=== PATIENT | female | born 1930 | race Hispanic/Latino ===

== ENCOUNTER 2017-10-17 12:47 | Inpatient (IN) | payer MEDICARE, OTHER ==
[2017-10-17 13:02] VITALS: BMI 30.9
[2017-10-17] MEDS ORDERED: Albuterol-Ipratrop 3 mg / 0.5 (3 ml) UD IH STA (13:12)
--- NOTE | 2017-10-17 13:18 | ED PDOC ---
Arrival/HPI - General Chief Complaint: Lower Extremity Problem/Injury Time Seen by Provider: 10/17/17 12:53 Historian: Patient - History of Present Illness Narrative History of Present Illness (Text): 10/17/17 13:15 87 year old female presents to the Emergency department complaining of generalized weakness and fatigue for 3 days. Patient is unable to ambulate or bear weight on her legs. Patient complains of pain in bilateral legs and increasing shortness of breath. Patient reports recently having a URI; she was seen by her PMD and is on Levaquin and a tapering dose of steroids with no relief. Patient denies any fever, chills, chest pain, nausea, vomiting, diarrhea , urinary symptoms, back pain, neck pain, headache, dizziness or any other complaints. Time/Duration: < week (3 days) Symptom Onset: Gradual Symptom Course: Unchanged Context: Home Associated Symptoms (Text): 10/17/17 14:18 Severe generalized weakness and fatigue with inability to ambulate for several days. She has increasing shortness of breath and dyspnea on exertion. History of COPD. She's been on a tapering dose of steroids. 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) - Integumentary Hx Dermatological Disorder: No - Musculoskeletal/Rheumatological Hx Falls: Yes Other/Comment: Knee pain - Gastrointestinal Hx Gastrointestinal Disorders: No - Genitourinary/Gynecological Hx Genitourinary Disorders: Yes Hx Incontinence: Yes - Psychiatric Hx Psychophysiologic Disorder: Yes (SMOKE H/O ,DRINKS ALCOHOL OCCASIONALLY) Hx Anxiety: Yes Hx Depression: Yes Hx Emotional Abuse: No Hx Physical Abuse: No Hx Substance Use: No Other/Comment: INSOMNIA - Surgical History Hx Hysterectomy: Yes - Suicidal Assessment Feels Threatened In Home Enviroment: No Family/Social History - Physician Review Nursing Documentation Reviewed: Yes Family/Social History: Unknown Family HX Smoking Status: Former Smoker Hx Alcohol Use: Yes (social, long ago) Hx Substance Use: No Hx Substance Use Treatment: No Allergies/Home Meds Allergies/Adverse Reactions: Allergies Iodinated Contrast- Oral and IV Dye [Iodinated Contrast Media - Oral and] Allergy (Verified 10/17/17 13:02) ANAPHYLAXIS Penicillins Allergy (Verified 10/17/17 13:02) ANAPHYLAXIS Home Medications: Home Meds Medication Instructions Recorded Confirmed amLODIPine [Norvasc] 2.5 mg PO DAILY 12/14/13 10/17/17 Aspirin [Ecotrin] 81 mg PO DAILY 09/27/16 10/17/17 Calcium Carbonate [Caltrate] 600 mg PO DAILY 09/27/16 10/17/17 Fluticasone Nasal [Flonase] 1 spr NS DAILY 09/27/16 10/17/17 Lorazepam [Ativan] 0.5 mg PO DAILY 09/27/16 10/17/17 Lurasidone HCl [Latuda] 20 mg PO DAILY 09/27/16 10/17/17 Lurasidone HCl [Latuda] 20 mg PO DAILY 10/17/17 10/17/17 Venlafaxine HCl [Venlafaxine HCl 75 mg PO BID 10/17/17 10/17/17 ER] Zolpidem Tartrate [Ambien] 5 mg PO HS 10/17/17 10/17/17 Review of Systems - Physician Review All systems were reviewed & negative as marked: Yes - Review of Systems Constitutional: Fatigue. absent: Fevers, Night Sweats Respiratory: SOB, Wheezing. absent: Cough, Sputum Cardiovascular: absent: Chest Pain, Palpitations, Syncope Gastrointestinal: absent: Abdominal Pain, Diarrhea, Nausea, Vomiting Genitourinary Female: absent: Dysuria Musculoskeletal: absent: Back Pain, Neck Pain Neurological: Gait Changes (unable to ambulate), Other (generalized weakness). absent: Headache, Dizziness, Focal Weakness Physical Exam Vital Signs Reviewed: Yes Vital Signs Temp Pulse Resp BP Pulse Ox 10/17/17 15:17 86 20 142/83 94 L 10/17/17 13:15 98.9 F 82 18 144/78 95 10/17/17 12:58 98.2 F 97 H 20 112/81 93 L Temperature: Afebrile Blood Pressure: Normal Pulse: Regular Respiratory Rate: Tachypneic Appearance: Positive for: Well-Appearing, Non-Toxic, Comfortable Pain Distress: None Mental Status: Positive for: Alert and Oriented X 3 - Systems Exam Head: Present: Atraumatic, Normocephalic Pupils: Present: PERRL Extroacular Muscles: Present: EOMI Conjunctiva: Present: Normal Mouth: Present: Moist Mucous Membranes Pharnyx: No: ERYTHEMA, EXUDATE, TONSILS ENLARGED Neck: Present: Normal Range of Motion Respiratory/Chest: Present: Respiratory Distress (moderate), Accessory Muscle Use, Wheezes (bilaterally), Decreased Breath Sounds, Rhonchi (bilaterally), Tachypneic. No: Rales, Retracting, Tender to Palpation Cardiovascular: Present: Regular Rate and Rhythm, Normal S1, S2. No: Murmurs Abdomen: Present: Normal Bowel Sounds. No: Tenderness, Distention, Peritoneal Signs, Rebound, Guarding Back: Present: Normal Inspection Upper Extremity: Present: Normal Inspection. No: Cyanosis, Edema, Swelling Lower Extremity: Present: Normal Inspection, Normal ROM, Neurovascularly Intact. No: Edema, CALF TENDERNESS, Cyanosis, Manuel's Sign, Tenderness, Swelling, Erythema, Deformity, Temperature Abnormalties Neurological: Present: GCS=15, CN II-XII Intact, Speech Normal, Motor Func Grossly Intact Skin: Present: Warm, Dry, Normal Color. No: Rashes Psychiatric: Present: Alert, Oriented x 3, Normal Insight, Normal Concentration Medical Decision Making ED Course and Treatment: 10/17/17 13:21 Impression: 87 year old female presents to the Emergency department complaining of 3 days of fatigue and generalized weakness. Patient unable to ambulate. Plan: -- Chest xray -- EKG -- ABG -- Labs -- Albuterol -- IV fluids -- Reassess and disposition Progress Notes: 10/17/17 14:19 EKG atrial fibrillation rate approximately 95 with poor R waves and no acute ST or T-wave changes 10/17/17 18:42 Venous Dopplers of bilateral lower extremities as read by the radiologist show no DVT - Lab Interpretations Lab Results: 10/17/17 14:00 10/17/17 14:00 Lab Results 10/17/17 14:00: Sodium 138, Potassium 3.9, Chloride 100, Carbon Dioxide 29, Anion Gap 13, BUN 23 H, Creatinine 0.9, Est GFR ( Amer) > 60, Est GFR ( Non-Af Amer) 59, Random Glucose 92, Calcium 9.9, Total Bilirubin 0.6, AST 33, ALT 46, Alkaline Phosphatase 75, Lactate Dehydrogenase 479, Total Creatine Kinase 29 L, Troponin I 0.02 D, NT-Pro-B Natriuret Pep 797 H, Total Protein 7.7 , Albumin 4.1, Globulin 3.6, Albumin/Globulin Ratio 1.1 10/17/17 14:00: PT 11.8, INR 1.03, APTT 26.1, D-Dimer, Quantitative 452 H 10/17/17 14:00: WBC 8.9, RBC 4.36, Hgb 13.4, Hct 41.2, MCV 94.5, MCH 30.7, MCHC 32.5, RDW 14.0, Plt Count 140, MPV 12.9 H, Gran % 79.1 H, Lymph % (Auto) 8.6 L, [place] % (Auto) 12.1 H, Eos % (Auto) 0.1 L, Baso % (Auto) 0.1, Gran # 7.00 H, Lymph # 0.8 L, [place] # 1.1 H, Eos # 0.0, Baso # 0.01 10/17/17 13:40: pCO2 41, pO2 54.0 L, HCO3 28.5 H, ABG pH 7.45, ABG Total CO2 29.8 H, ABG O2 Saturation 92.6 L, ABG O2 Content 17.3, ABG Base Excess 4.1 H, ABG Hemoglobin 13.6, ABG Carboxyhemoglobin 1.6 H, POC ABG HHb (Measured) 7.2 H, ABG Methemoglobin 0.8, ABG O2 Capacity 18.7, Hgb O2 Saturation 90.4 L, FiO2 21.0 - RAD Interpretation Radiology Orders: 10/17/17 13:12 CHEST PORTABLE [RAD] Stat 10/17/17 14:47 DUPLEX LOWER EXTRM VEIN BILAT [US] Stat Chest one view shows right perihilar fullness. No infiltrate or effusion. Workflow Developer: ED Physician - Medication Orders Current Medication Orders: Albuterol/Ipratropium (Duoneb 3 Mg/0.5 Mg (3 Ml) Ud) 3 ml IH Q2H PRN PRN Reason: Shortness of Breath Amlodipine Besylate (Norvasc) 2.5 mg PO DAILY [facility] Aspirin (Ecotrin) 81 mg PO DAILY [facility] Budesonide (Pulmicort Respules) 0.5 mg IH [id number] [facility] Calcium Carbonate (Caltrate) 600 mg PO DAILY [facility] Methylprednisolone (Solu-Medrol) 40 mg IVP Q8H [facility] Last Admin: 10/17/17 18:29 Dose: 40 mg IVP Administration Document 10/17/17 18:29 ALBIN (Rec: 10/17/17 18:30 [facility] [id number]) Charges for Administration # of IVP Administrations 1 Lurasidone Hcl [ (Latuda] 20 Mg) 20 mg PO DAILY [facility] Pantoprazole Sodium (Protonix Inj) 40 mg IVP DAILY [facility] Venlafaxine HCl (Effexor Xr) 75 mg PO BID [facility] Last Admin: 10/17/17 18:30 Dose: 75 mg Discontinued Medications Albuterol/Ipratropium (Duoneb 3 Mg/0.5 Mg (3 Ml) Ud) 3 ml IH ONCE STA Stop: 10/17/17 13:13 Last Admin: 10/17/17 13:44 Dose: 3 ml - Scribe Statement The provider has reviewed the documentation as recorded by the Waltiblotus Ceron All medical record entries made by the Waltiblotus were at my direction and personally dictated by me. I have reviewed the chart and agree that the record accurately reflects my personal performance of the history, physical exam, medical decision making, and the department course for this patient. I have also personally directed, reviewed, and agree with the discharge instructions and disposition. Disposition/Present on Arrival - Present on Arrival Any Indicators Present on Arrival: No History of DVT/PE: Yes History of Uncontrolled Diabetes: No Urinary Catheter: No History of Decub. Ulcer: No History Surgical Site Infection Following: None - Disposition Have Diagnosis and Disposition been Completed?: Yes Diagnosis: COPD (chronic obstructive pulmonary disease), Weakness, Impaired ambulation Disposition: HOSPITALIZED Disposition Time: 16:29 Patient Plan: Observation Patient Problems: Current Active Problems Problem Status Onset COPD (chronic obstructive pulmonary disease) Acute Impaired ambulation Acute Weakness Acute Condition: FAIR
[2017-10-17 13:43] LABS: ARTERIAL BLOOD GAS HCO3 28.5 mmol/L (21-28); ARTERIAL BLOOD GAS HEMOGLOBIN 13.6 g/dL (11.7-17.4); ARTERIAL BLOOD GAS O2 CAPACITY 18.7 mL/dl (16-24); ARTERIAL BLOOD GAS O2 CONTENT 17.3 ML/dl (15-23); ARTERIAL BLOOD GAS O2 SAT 92.6 % (95-98); ARTERIAL BLOOD GAS PCO2 41 mm/Hg (35-45); ARTERIAL BLOOD GAS PH 7.45 (7.35-7.45); ARTERIAL BLOOD GAS TCO2 29.8 mmol.L (22-28)
[2017-10-17 14:28] LABS: HEMOGLOBIN 13.4 g/dL (12.0-16.0); MEAN CELL VOLUME 94.5 fl (80.0-105.0); RBC 4.36 10^6/uL (3.5-6.1); WHITE BLOOD COUNT 8.9 10^3/ul (4.5-11.0)
[2017-10-17 14:29] LABS: BASO # 0.01 K/mm3 (0.0-2.0); BASO % 0.1 % (0.0-3.0); EOS % 0.1 % (1.5-5.0); GRAN % 79.1 % (50.0-68.0); LYMPH # 0.8 (1.2-3.4); LYMPH % 8.6 % (22.0-35.0); MEAN CORPUSCULAR HEMOGLOBIN 30.7 pg (25.0-35.0); MEAN CORPUSCULAR HGB CONC 32.5 g/dl (31.0-37.0); MEAN PLATELET VOLUME 12.9 fl (7.0-11.0); MONO # 1.1 (0.1-0.6); MONO % 12.1 % (1.0-6.0)
--- NOTE | 2017-10-17 14:31 | RAD ---
HISTORY: sob COMPARISON: 09/30/2016 FINDINGS: LUNGS: There is right hilar prominence similar to the previous study. This was demonstrated on CT as enlarged pulmonary arteries. No focal consolidation PLEURA: No significant pleural effusion identified, no pneumothorax apparent. CARDIOVASCULAR: Normal. OSSEOUS STRUCTURES: No significant abnormalities. VISUALIZED UPPER ABDOMEN: Normal. OTHER FINDINGS: None. IMPRESSION: No acute findings
[2017-10-17 14:36] LABS: ALB/GLOB RATIO 1.1 (1.1-1.8); ALBUMIN 4.1 g/dL (3.0-4.8); ALT/SGPT 46 U/L (7-56); AST/SGOT 33 U/L (14-36); BLOOD UREA NITROGEN 23 mg/dL (7-21); CALCIUM 9.9 mg/dL (8.4-10.5); GFR AFRICAN-AMERICAN > 60; GFR NON-AFRICAN AMERICAN 59
[2017-10-17 14:46] LABS: B-TYPE NATRIURETIC PEPTIDE 797 pg/mL (0-450); INR 1.03 (0.93-1.08); PARTIAL THROMBOPLASTIN TIME 26.1 Seconds (25.1-36.5); PROTHROMBIN TIME 11.8 SECONDS (9.4-12.5); TROPONIN I 0.02 ng/mL
--- NOTE | 2017-10-17 17:59 | CP.PCM.HP ---
<EstesKashifEl - Last Filed: 10/17/17 18:27> History of Present Illness - History of Present Illness History of Present Illness: 87 year old female with past medical history of COPD, Afib not on anticoagulation, OA, pseudogout, depression presents to the ED with several days of progressive weakness in the legs bilaterally. History obtained with help of family who was present bedside. According to the family, the patient ambulates at home with a walker but over the past several days she has not been able to walk using the walker without supervision. In addition, when the patient tries to stand up on her feet she cannot maintain the standing position and sits down. The patient and the family deny any falls. Patient saw her PMD in the office this week and a left knee xray was done yesterday demonstrating Chondrocalcinosis. She also had a URI for the past week and was taking levaquin and oral steroids which were being tapered. Patient denies any chest pain, SOB, dizziness, nausea, vomiting, sore throat, abdominal pain or any other complaints at this time. PMD: Mutterperl Cardio: Penelope Pulm: Chacha Ortho: Mastromonaco PMH:COPD, Afib not on anticoagulation, OA, pseudogout, depression PSH: Appendix removal Allergies: Iodinated contrast-oral and IV dye, Penicillins Medications: See MAR Family: non contributory social: denies alcohol or illicit drug use, denies previous history of ETOH abuse, cigarets 50 years ago Present on Admission - Present on Admission Any Indicators Present on Admission: No History of DVT/PE: Yes Review of Systems - Constitutional Constitutional: absent: Chills, Fever, Headache - EENT Eyes: absent: Blurred Vision, Change in Vision Ears: absent: Dizziness Nose/Mouth/Throat: absent: Nasal Congestion, Sore Throat - Cardiovascular Cardiovascular: absent: Chest Pain, Dyspnea, Paroxysmal Nocturnal Dyspnea - Respiratory Respiratory: absent: Cough, Chest Congestion - Gastrointestinal Gastrointestinal: absent: Abdominal Pain, Constipation, Cramping, Nausea, Vomiting - Genitourinary Genitourinary: absent: Difficulty Urinating, Dysuria - Musculoskeletal Musculoskeletal: Arthralgias, Limited Range of Motion, Muscle Weakness. absent : Numbness, Tingling - Integumentary Integumentary: absent: Wounds - Neurological Neurological: absent: Disequilibrium, Dizziness, Frequent Falls, Headaches, Tingling Past Patient History - Infectious Disease Hx of Infectious Diseases: None - Tetanus Immunizations Tetanus Immunization: Unknown - Past Social History Smoking Status: Former Smoker - CARDIAC Hx Cardiac Disorders: Yes Hx Hypertension: Yes - PULMONARY Hx Chronic Obstructive Pulmonary Disease (COPD): Yes - NEUROLOGICAL Hx Neurological Disorder: Yes - HEENT Hx HEENT Problems: Yes (WEARS RX GLASSES) Hx Cataracts: Yes (BILATERAL SURGERY) Hx Deafness: Yes - RENAL Hx Chronic Kidney Disease: No - ENDOCRINE/METABOLIC Hx Endocrine Disorders: No - HEMATOLOGICAL/ONCOLOGICAL Hx 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) - INTEGUMENTARY Hx Dermatological Problems: No - MUSCULOSKELETAL/RHEUMATOLOGICAL Hx Falls: Yes Other/Comment: Knee pain - GASTROINTESTINAL Hx Gastrointestinal Disorders: No - GENITOURINARY/GYNECOLOGICAL Hx Genitourinary Disorders: Yes Hx Incontinence: Yes - PSYCHIATRIC Hx Psychophysiologic Disorder: Yes (SMOKE H/O ,DRINKS ALCOHOL OCCASIONALLY) Hx Anxiety: Yes Hx Depression: Yes Hx Emotional Abuse: No Hx Physical Abuse: No Hx Substance Use: No Other/Comment: INSOMNIA - SURGICAL HISTORY Hx Hysterectomy: Yes Meds Allergies/Adverse Reactions: Allergies Allergy/AdvReac Type Severity Reaction Status Date / Time Iodinated Contrast- Oral and Allergy ANAPHYLAXIS Verified 10/17/17 13:02 IV Dye [Iodinated Contrast Media - Oral and] Penicillins Allergy ANAPHYLAXIS Verified 10/17/17 13:02 Physical Exam - Constitutional Appears: Non-toxic, No Acute Distress - Head Exam Head Exam: ATRAUMATIC, NORMAL INSPECTION, NORMOCEPHALIC - Eye Exam Eye Exam: PERRL - ENT Exam ENT Exam: Mucous Membranes Moist - Neck Exam Neck exam: Negative for: Lymphadenopathy, Tenderness - Respiratory Exam Respiratory Exam: Clear to Auscultation Bilateral, NORMAL BREATHING PATTERN - Cardiovascular Exam Cardiovascular Exam: Irregular Rhythm - GI/Abdominal Exam GI & Abdominal Exam: Normal Bowel Sounds, Tenderness - Extremities Exam Extremities exam: Positive for: full ROM, pedal pulses present. Negative for: calf tenderness Additional comments: slight right kneww swelling, able to bend both knees without issues, able top plantar and dorsiflex wihtout issue - Neurological Exam Neurological exam: Alert, Oriented x3 Additional comments: 5/5 Lower extremity strength - Psychiatric Exam Psychiatric exam: Normal Affect - Skin Skin Exam: Normal Color, Warm Results - Vital Signs Recent Vital Signs: Last Vital Signs Temp 98.9 F 10/17/17 13:15 Pulse 86 01/14/18 15:17 Resp 20 10/17/17 15:17 BP 142/83 10/17/17 15:17 Pulse Ox 94 L 10/17/17 15:17 - Labs Result Diagrams: 10/17/17 14:00 10/17/17 14:00 Labs: Laboratory Results - last 24 hr 10/17/17 16:50 Influenza Typ A,B (EIA) Negative for flu a/b Assessment & Plan - Assessment and Plan (Free Text) Assessment: 87 year old female with past medical history of COPD, Afib not on anticoagulation, OA, pseudogout, depression presents to the ED with several days of progressive weakness in the legs bilaterally. Plan: 1. Bilateral Leg Weakness -EKG ordered and obtained, A fib, pending official read -Chest xray: No acute findings -CMP, BMP within accepted range -Lower Extremity US: negative for DVT -ortho consulted: Mastromonaco -orthostatic vital signs pending -PT evaluation pedning 2. Afib-chronic -cardio consulted: Negrete -contue home Aspirin 3. COPD -albuterol -pulmicort -Pulmonology consulted: Currypman -methylprendisolone -oxygen as needed 4. Depression -continue home latuda -continue home effexor 5. HTN -continue home norvasc 6. OA -continue home calcium carbonate DVT/GI Prophylaxis -Protonix -SCD <Kole Haywood - Last Filed: 10/18/17 15:53> Results - Vital Signs Recent Vital Signs: Last Vital Signs Temp 98.4 F 10/18/17 08:00 Pulse 82 10/18/17 08:00 Resp 22 10/18/17 08:00 BP 131/81 10/18/17 08:00 Pulse Ox 98 10/18/17 08:00 - Labs Result Diagrams: 10/18/17 06:45 10/18/17 06:45 Labs: Laboratory Results - last 24 hr 10/17/17 10/17/17 10/18/17 16:50 18:50 06:45 WBC 6.2 D RBC 4.27 Hgb 13.1 Hct 40.2 MCV 94.1 MCH 30.7 MCHC 32.6 RDW 13.7 Plt Count 130 MPV 11.9 H Gran % 87.8 H Lymph % (Auto) 9.8 L [place] % (Auto) 2.0 Eos % (Auto) 0.2 L Baso % (Auto) 0.2 Gran # 5.41 Lymph # 0.6 L [place] # 0.1 Eos # 0.0 Baso # 0.01 Sodium Potassium Chloride Carbon Dioxide Anion Gap BUN Creatinine Est GFR ( Amer) Est GFR (Non-Af Amer) Random Glucose Calcium Phosphorus Magnesium Total Bilirubin AST ALT Alkaline Phosphatase Total Protein Albumin Globulin Albumin/Globulin Ratio Urine Color Straw Urine Appearance Cloudy Urine pH 6.0 Ur Specific [place] 1.010 Urine Protein Negative Urine Glucose (UA) Negative Urine Ketones Negative Urine Blood Small H Urine Nitrate Negative Urine Bilirubin Negative Urine Urobilinogen 0.2 Ur Leukocyte Esterase Moderate H Urine RBC Tntc Urine WBC 20 - 25 Ur Epithelial Cells 10 - 12 Urine Bacteria Mod WBC Casts 0 - 2 H Influenza Typ A,B (EIA) Negative for flu a/b 10/18/17 06:45 WBC RBC Hgb Hct MCV MCH MCHC RDW Plt Count MPV Gran % Lymph % (Auto) [place] % (Auto) Eos % (Auto) Baso % (Auto) Gran # Lymph # [place] # Eos # Baso # Sodium 142 Potassium 4.7 Chloride 105 Carbon Dioxide 29 Anion Gap 13 BUN 20 Creatinine 0.8 Est GFR ( Amer) > 60 Est GFR (Non-Af Amer) > 60 Random Glucose 152 H Calcium 9.6 Phosphorus 3.5 Magnesium 2.0 Total Bilirubin 0.5 AST 26 ALT 46 Alkaline Phosphatase 67 Total Protein 7.7 Albumin 3.9 Globulin 3.7 Albumin/Globulin Ratio 1.1 Urine Color Urine Appearance Urine pH Ur Specific [place] Urine Protein Urine Glucose (UA) Urine Ketones Urine Blood Urine Nitrate Urine Bilirubin Urine Urobilinogen Ur Leukocyte Esterase Urine RBC Urine WBC Ur Epithelial Cells Urine Bacteria WBC Casts Influenza Typ A,B (EIA) Attending/Attestation - Attestation I have personally seen and examined this patient.: Yes I have fully participated in the care of the patient.: Yes I have reviewed all pertinent clinical information: Yes Notes (Text): 10/18/17 15:49 attending note; Patient seen and examined with resident. Patient is a 87 year old female with past medical history of COPD, atrial fibrillation not on anticoagulation, osteoarthritis, obesity pseudogout, depression presents to the ED with several days of gait instability. Initially the patient started having left knee pain. Currently has right knee Pain with minimal swelling. orthopedics consult rich Gilbert Requested. PT evaluation requested. patient with a previous history of joint aspiration and steroid injection in the knees. COPD; continue oxygen and DuoNeb treatment. Started on low-dose steroids. atrial fibrillation; chronic. on aspirin only. Not on long-term anticoagulation due to history of falls. patient will follow-up with cardiology Dr. Negrete as outpatient. Upon discharge the patient will follow-up with PMD . 10/18/17 15:52
[2017-10-17] MEDS: MethylPREDNISolone 40 mg Vial IVP SCH (18:29)
[2017-10-17] MEDS: Venlafaxine 75 mg ER Cap PO SCH (18:30)
[2017-10-17 19:19] LABS: URINE BILIRUBIN NEGATIVE (NEGATIVE); URINE BLOOD SMALL (NEGATIVE); URINE GLUCOSE (UA) NEGATIVE (NEGATIVE); URINE LEUKOCYTE ESTERASE MODERATE Leu/uL (NEGATIVE); URINE NITRATE NEGATIVE (NEGATIVE); URINE PROTEIN NEGATIVE mg/dL (<30 mg/dL); URINE UROBILINOGEN 0.2 E.U./dL (<1 E.U./dL)
[2017-10-17 19:32] LABS: URINE APPEARANCE CLOUDY (CLEAR); URINE COLOR STRAW (YELLOW)
[2017-10-17 20:08] LABS: URINE BACTERIA MOD (NEG); URINE RBC TNTC /hpf (0-2); URINE WBC 20 - 25 /hpf (0-6); URINE WHITE BLOOD CELL CAST 0 - 2 /hpf
[2017-10-17] MEDS: Budesonide 0.5 mg/2 ml Inhal Susp UD IH SCH (20:12)
[2017-10-17] MEDS ORDERED: Ciprofloxacin 400mg/200ml D5W 400 MG/200 ML BAG IVPB STA (20:17)
--- NOTE | 2017-10-17 20:40 | CARD ---
APPROVED REPORT EKG Measurement Heart [id number] <Conclusion> Atrial fibrillation with premature ventricular or aberrantly conducted complexes Abnormal ECG
[2017-10-17] MEDS: Albuterol-Ipratrop 3 mg / 0.5 (3 ml) UD IH PRN (23:54)
[2017-10-18] MEDS: MethylPREDNISolone 40 mg Vial IVP SCH ×3 (01:32→21:51)
[2017-10-18 07:43] LABS: BASO # 0.01 K/mm3 (0.0-2.0); BASO % 0.2 % (0.0-3.0); EOS % 0.2 % (1.5-5.0); GRAN # 5.41 (1.4-6.5); GRAN % 87.8 % (50.0-68.0); HEMOGLOBIN 13.1 g/dL (12.0-16.0); LYMPH # 0.6 (1.2-3.4); LYMPH % 9.8 % (22.0-35.0); MEAN CELL VOLUME 94.1 fl (80.0-105.0); MEAN CORPUSCULAR HEMOGLOBIN 30.7 pg (25.0-35.0); MEAN CORPUSCULAR HGB CONC 32.6 g/dl (31.0-37.0); MEAN PLATELET VOLUME 11.9 fl (7.0-11.0); MONO # 0.1 (0.1-0.6); RBC 4.27 10^6/uL (3.5-6.1); RED CELL DISTRIBUTION WIDTH 13.7 % (11.5-14.5); WHITE BLOOD COUNT 6.2 10^3/ul (4.5-11.0)
[2017-10-18 07:45] LABS: ALB/GLOB RATIO 1.1 (1.1-1.8); ALBUMIN 3.9 g/dL (3.0-4.8); ALT/SGPT 46 U/L (7-56); AST/SGOT 26 U/L (14-36); BLOOD UREA NITROGEN 20 mg/dL (7-21); CALCIUM 9.6 mg/dL (8.4-10.5); GFR AFRICAN-AMERICAN > 60; GFR NON-AFRICAN AMERICAN > 60
[2017-10-18] MEDS: Albuterol-Ipratrop 3 mg / 0.5 (3 ml) UD IH PRN (07:48)
[2017-10-18] MEDS: Budesonide 0.5 mg/2 ml Inhal Susp UD IH SCH ×2 (07:48→20:07)
[2017-10-18] MEDS: Levalbuterol 0.63 MG/3 ML Inhal Soln UD IH SCH ×3 (07:50→20:07)
[2017-10-18] MEDS ORDERED: Levalbuterol 0.63 MG/3 ML Inhal Soln UD IH PRN (07:51)
[2017-10-18] MEDS ORDERED: MethylPREDNISolone Depo 40 mg/ml Inj IM ONE (08:31)
[2017-10-18] MEDS ORDERED: Bupivacaine 0.5% Inj(30mL) IJ ONE (08:31)
--- NOTE | 2017-10-18 09:24 | CP.PCM.PN ---
<Horacio Narayanan - Last Filed: 10/18/17 16:05> Subjective - Date & Time of Evaluation Date of Evaluation: 10/18/17 Time of Evaluation: 07:24 - Subjective Subjective: Horacio Narayanan PGY1 IM Progress Note for Dr. Haywood Hospitalist Service Patient was seen and examined at bedside. She is complaining of R knee pain but is able to move all her extremities without difficulty or pain while laying in bed. The patient denies chest pain, shortness of breath, cough, fevers/chills, n /v/d, headaches, changes in vision/hearing, tinnitus, dizziness, fatigue, weakness, abdominal pain, changes in urine or bowel habits. Objective - Vital Signs/Intake and Output Vital Signs (last 24 hours): Temp Pulse Resp BP Pulse Ox 98.4 F 82 22 131/81 98 10/18/17 08:00 10/18/17 08:00 10/18/17 08:00 10/18/17 08:00 10/18/17 08:00 - Medications Medications: Current Medications Amlodipine Besylate (Norvasc) 2.5 mg PO DAILY [facility] Aspirin (Ecotrin) 81 mg PO DAILY [facility] Budesonide (Pulmicort Respules) 0.5 mg IH [id number] [facility] Last Admin: 10/18/17 07:48 Dose: 0.5 mg Calcium Carbonate (Caltrate) 600 mg PO DAILY [facility] Levalbuterol HCl (Xopenex) 0.63 mg IH [id number] [facility] Levalbuterol HCl (Xopenex) 0.63 mg IH Q2 PRN PRN Reason: Shortness of Breath Methylprednisolone (Solu-Medrol) 40 mg IVP Q12 [facility] Lurasidone Hcl [ (Latuda] 20 Mg) 20 mg PO DAILY [facility] Pantoprazole Sodium (Protonix Inj) 40 mg IVP DAILY [facility] Venlafaxine HCl (Effexor Xr) 75 mg PO BID [facility] Last Admin: 10/17/17 18:30 Dose: 75 mg - Labs Labs: 10/18/17 06:45 10/18/17 06:45 PT 11.8 SECONDS (9.4-12.5) 10/17/17 14:00 INR 1.03 (0.93-1.08) 10/17/17 14:00 APTT 26.1 Seconds (25.1-36.5) 10/17/17 14:00 - Constitutional Appears: Well, Non-toxic, No Acute Distress - Head Exam Head Exam: NORMAL INSPECTION - Eye Exam Eye Exam: EOMI, Normal appearance, PERRL - ENT Exam ENT Exam: Mucous Membranes Moist - Neck Exam Neck Exam: Normal Inspection - Respiratory Exam Respiratory Exam: Clear to Ausculation Bilateral, NORMAL BREATHING PATTERN - Cardiovascular Exam Cardiovascular Exam: RRR, +S1, +S2 - GI/Abdominal Exam GI & Abdominal Exam: Soft, Normal Bowel Sounds. absent: Distended, Tenderness - Extremities Exam Extremities Exam: Normal Inspection. absent: Joint Swelling, Pedal Edema Additional comments: knee ROM slightly limited by pain, however, grossly movements are full ROM x4 extremities - Back Exam Back Exam: NORMAL INSPECTION - Neurological Exam Neurological Exam: Alert, Awake, Oriented x3 Additional comments: speech is a bit difficult to understand because of patient's breathing pattern - Psychiatric Exam Psychiatric exam: Normal Affect, Normal Mood - Skin Skin Exam: Normal Color, Warm Assessment and Plan - Assessment and Plan (Free Text) Assessment: 87 year old female with past medical history of COPD, Afib not on anticoagulation, OA, pseudogout, depression presents to the ED with several days of progressive weakness in the legs bilaterally. Plan: 1. Bilateral Leg Weakness -Lower Extremity US: negative for DVT -ortho consulted: Mastromonaco -PT evaluation pending 2. Afib-chronic -cardio consulted: Negrete -contue home Aspirin 3. COPD -albuterol -pulmicort -Pulmonology consulted: Karpman -methylprendisolone, will be tapered down -oxygen as needed - duoneb breathing treatments 4. Depression -continue home latuda -continue home effexor 5. HTN -continue home norvasc 6. OA -continue home calcium carbonate DVT/GI Prophylaxis -Protonix -SCD The patient was seen, examined and discussed with attending, Dr. Yobany Narayanan PGY1 Pager # [phone] <Kole Haywood - Last Filed: 10/19/17 07:25> Objective - Vital Signs/Intake and Output Vital Signs (last 24 hours): Temp Pulse Resp BP Pulse Ox 98 F 85 18 166/87 H 93 L 10/18/17 16:00 10/18/17 16:00 10/18/17 16:00 10/18/17 16:00 10/18/17 16:00 Intake and Output: 10/19/17 10/19/17 06:59 18:59 Intake Total 240 Balance 240 - Medications Medications: Current Medications Amlodipine Besylate (Norvasc) 2.5 mg PO DAILY [facility] Last Admin: 10/18/17 13:35 Dose: 2.5 mg Aspirin (Ecotrin) 81 mg PO DAILY [facility] Last Admin: 10/18/17 13:35 Dose: 81 mg Budesonide (Pulmicort Respules) 0.5 mg IH [id number] [facility] Last Admin: 10/18/17 20:07 Dose: 0.5 mg Calcium Carbonate (Caltrate) 600 mg PO DAILY [facility] Last Admin: 10/18/17 13:34 Dose: 600 mg Home Med (Home Med) 1 unit PO DAILY [facility] Levalbuterol HCl (Xopenex) 0.63 mg IH [id number] [facility] Last Admin: 10/19/17 01:39 Dose: 0.63 mg Levalbuterol HCl (Xopenex) 0.63 mg IH Q2 PRN PRN Reason: Shortness of Breath Methylprednisolone (Solu-Medrol) 40 mg IVP Q12 [facility] Last Admin: 10/18/17 21:51 Dose: 40 mg Pantoprazole Sodium (Protonix Ec Tab) 40 mg PO ACB [facility] Venlafaxine HCl (Effexor Xr) 75 mg PO BID [facility] Last Admin: 10/18/17 19:11 Dose: 75 mg - Labs Labs: 10/18/17 06:45 10/18/17 06:45 PT 11.8 SECONDS (9.4-12.5) 10/17/17 14:00 INR 1.03 (0.93-1.08) 10/17/17 14:00 APTT 26.1 Seconds (25.1-36.5) 10/17/17 14:00 Attending/Attestation - Attestation I have personally seen and examined this patient.: Yes I have fully participated in the care of the patient.: Yes I have reviewed all pertinent clinical information, including history, physical exam and plan: Yes Notes (Text): 10/19/17 07:23 attending note; Patient seen and examined with resident. Patient is a 87 year old female with past medical history of COPD, ? atrial fibrillation, osteoarthritis, obesity pseudogout, depression presents to the ED with several days of gait instability. Initially the patient started having left knee pain. Currently has right knee Pain with minimal swelling. orthopedics consult with Dr. Garcia appreciated. Got steroid injection at the right knee. Pain is improving. We will get physical therapy evaluation today. COPD; continue oxygen and DuoNeb treatment. Started on low-dose steroids. Pulmonary evaluation appreciated. atrial fibrillation; Not on long-term anticoagulation. Cardiology evaluation requested. Continue aspirin for now. Upon discharge the patient will follow-up with PMD .
[2017-10-18] MEDS ORDERED: Home Med 1 UNIT PO SCH (10:00)
--- NOTE | 2017-10-18 11:52 | CON ---
PULMONARY CONSULTATION DATE: 10/18/2017 REASON FOR CONSULTATION: Chronic obstructive pulmonary disease. REFERRING PHYSICIAN: Kole Haywood MD HISTORY OF PRESENT ILLNESS: History is obtained via extensive discussion with the night nurse. I have also reviewed the chart at length. The patient is not an adequate historian at this point in time. The patient is an 87-year-old female, with past medical history significant for chronic obstructive pulmonary disease, atrial fibrillation, osteoarthritis, who presented to [facility] with a 3-day history of progressive weakness and inability to ambulate at home. In addition, the nurse does offer the history of shortness of breath over the past few days as well. There is no history of cough or sputum production. There is no history of chest pain, coughing up of blood, or chest pain-made worse with deep respirations. There is no history of temperatures, chills, or infectious exposure. There is no history of night sweats, weight loss, or appetite change prior to the above events. No history of calf pains. No history of syncope or diaphoresis. No history of recent travel or trauma. REVIEW OF SYSTEMS: No history of nausea, vomiting, or diarrhea. No acute urinary symptoms. Rest of the review of systems is negative. ALLERGIES: IV DYE AND PENICILLIN. SOCIAL HISTORY: Positive for tobacco. Negative for alcohol. FAMILY HISTORY: No inheritable diseases. HOME MEDICATIONS: Include Ambien, Latuda, Ativan, Flonase, Norvasc, calcium, and Ecotrin. PHYSICAL EXAMINATION: GENERAL: The patient appears comfortable at rest. She is not short of breath. VITAL SIGNS: Temperature is 98.6, pulse 80, respirations 18/20, blood pressure 137/71. HEENT: Normocephalic and atraumatic. No JVD. CARDIOVASCULAR: Systolic ejection murmur at the lower left sternal border. No S3 gallop. LUNGS: Decreased breath sounds at the bases. Minimal bilateral rhonchi. No wheezing. EXTREMITIES: Positive for edema. No cyanosis, no clubbing. Calves are nontender to palpation. GI: Abdomen is soft, nontender and nondistended. Bowel sounds are positive. SKIN: No acute rash. NEUROLOGIC: Limited at the present time. PERTINENT LABORATORY DATA: Chest x-ray was done on 10/17/2017. There are no acute findings noted. CBC: White count 6.2, hemoglobin 13.1, hematocrit 40.2, platelets of 130,000. Complete metabolic profile: Glucose 152. Rest of the metabolic profiles are within normal limits. IMPRESSION: 1. Progressive weakness, inability to ambulate. 2. Chronic obstructive pulmonary disease. 3. Mild bronchospasm. 4. Chronic atrial fibrillation. PLAN: Again, I did discuss the case with the night nurse at length. I have also reviewed the chart at length. The patient presents to [facility] with a several-day history of progressive weakness and inability to ambulate. In addition, the nurse also offers a history of shortness of breath over the past few days. There are no other pulmonary symptoms offered/reported. I did review the chest x-ray as above. There are no acute changes noted. On physical exam, the patient is in mild bronchospasm only. I will continue with scheduled nebulizer treatments and decrease the intravenous steroids this morning. Cardiology evaluation has also been ordered. The patient does feel better and is clinically improved this morning. Additional pulmonary intervention will be based on the clinical status of the patient. I will discuss the above with the attending physician. Ranjit Burnham MD NIA
--- NOTE | 2017-10-18 12:56 | US ---
HISTORY: Leg pain and swelling. Evaluate for DVT PHYSICIAN(S): Hira Oconnell MD. TECHNIQUE: Duplex sonography and color-flow Doppler with graded compression were used to evaluate the deep venous systems of both lower extremities. FINDINGS: The visualized deep venous systems of both lower extremities are sonographically normal and compressible. Normal wave forms and augmentation are seen. There is no sonographic evidence for deep venous thrombosis in the visualized segments of both lower extremities. IMPRESSION: No sonographic evidence for deep venous thrombosis in the visualized segments of both lower extremities.
[2017-10-18] MEDS: Venlafaxine 75 mg ER Cap PO SCH ×2 (13:35→19:11)
--- NOTE | 2017-10-18 18:27 | CON ---
ORTHOPEDIC REPORT DATE: 10/18/2017 HISTORY OF PRESENT ILLNESS: An 87-year-old female in room 570, bed 2. The patient has past history of osteoarthritis and calcium pyrophosphate disease of both knees. She now has pain again in the right knee with mild effusion and she requested that we take of her knee. Her range of motion is limited to just lacking forward flexion 20 degrees and good extension. X-ray does show mild osteoarthritis with calcified menisci both mediolateral both knees. With this information, we were able to aspirate 20 mL of clear fluid, no signs of infection, and injected with Depo-Medrol and Marcaine, hopefully should have much relief of pain, so she could undergo physical therapy for ambulation and muscle strengthening exercises and she will need to walk with a walker because of weakness. FINAL DIAGNOSES: Osteoarthritis of both knees worse on the right than the left and looks like it is calcium pyrophosphate disease and mild arthritis. Rodrigo Garcia DO
[2017-10-19] MEDS: Levalbuterol 0.63 MG/3 ML Inhal Soln UD IH SCH ×4 (01:39→21:32)
--- NOTE | 2017-10-19 06:23 | CON ---
DATE: 10/18/2017 LOCATIONS: The patient is in room 570, bed 2. REASON FOR CONSULTATION: Cardiac arrhythmia, hypertension, weakness in the legs, at times shortness of breath. HISTORY OF PRESENT ILLNESS: The patient is an 87-year-old female, who is admitted with a history that the patient since last three days has been feeling very weak; when she tried to stand up, she sits down, she cannot hold her weight on her legs. Denies any chest pain or palpitation associated with this feeling. The patient prior to that was walking with cane at home and was able to walk, but now she feels very weak. She also sometimes has pain in the knee and legs. The patient is known to have COPD and history of anxiety and depression. In the past, she was also treated for DVT and pulmonary embolism. The patient denies any dizziness or syncope. The patient is hard of hearing. PAST MEDICAL HISTORY: Positive for COPD, hypertension, anxiety, depression, thrombophlebitis, and pulmonary embolism. PERSONAL HISTORY: The patient is ex-ethanol abuser, but she stopped about 13 years ago. She is also ex-smoker. ALLERGIES: THE PATIENT HAS ALLERGY TO IODINATED CONTRAST AND PENICILLIN. HOME MEDICATIONS: The patient's home medications included Ambien 5 mg h.s., Latuda 20 mg p.o. daily, Ativan 0.5 mg p.o. daily, Flonase one spray daily, venlafaxine HCl 75 mg p.o. b.i.d., amlodipine 2.5 mg daily, Caltrate 600 mg p.o. daily, aspirin 81 mg p.o. daily. REVIEW OF SYSTEMS: All other systems reviewed, positive mentioned in the HPI, others are negative. PHYSICAL EXAMINATION VITAL SIGNS: The patient, on examination, blood pressure 131/81, respirations 22, pulse 82, and temperature 98.4. HEENT: Head is normocephalic. Eyes: Pupils normal. Conjunctivae normal. Nose and throat normal. NECK: JVP low. Carotids equal. THORAX: AP diameter normal. LUNGS: Few rhonchi. CARDIOVASCULAR: S1 and S2. No rub. ABDOMEN: Soft, nontender. No organomegaly. EXTREMITIES: No clubbing. No cyanosis. LABORATORY DATA: WBC 6.2, hemoglobin 13.1, hematocrit 40.2, and platelets 130. Sodium 142, potassium 4.7, BUN 20, creatinine 0.8, random glucose 152, calcium 9.6, phosphorus 3.5, troponin 0.02, NT-pro brain natriuretic peptide 797 which is not significant, total protein 7.7, albumin 3.9, prothrombin time 11.8, INR 1.02, PTT 26.1. Chest x-ray reviewed, no significant abnormality. EKG showed multifocal atrial rhythm. No evidence of atrial fibrillation. DIAGNOSES: Weakness of legs, inability to standup and walk, chronic obstructive pulmonary disease, hypertension, anxiety, depression, arthritis, obesity, pseudogout. PLAN: The patient is getting Caltrate 600 mg daily, ciprofloxacin was given once, DuoNeb handheld nebulizer therapy, aspirin 81 mg daily, Effexor SR 75 mg b.i.d., amlodipine 2.5 mg daily, Protonix 40 mg daily, methylprednisolone 40 mg IV q.12 hours, Xopenex handheld nebulizer therapy. The patient is in multifocal atrial rhythm on EKG, suggestive of her underlying pulmonary condition of chronic obstructive pulmonary disease. The heart rate is under control. So, we will continue present therapy and we will follow with you. Radha Negrete MD
[2017-10-19] MEDS: Budesonide 0.5 mg/2 ml Inhal Susp UD IH SCH ×2 (07:29→21:22)
[2017-10-19 07:33] LABS: BASO # 0.01 K/mm3 (0.0-2.0); BASO % 0.1 % (0.0-3.0); GRAN # 11.9 (1.4-6.5); GRAN % 89.9 % (50.0-68.0); HEMOGLOBIN 12.4 g/dL (12.0-16.0); LYMPH # 0.8 (1.2-3.4); LYMPH % 5.8 % (22.0-35.0); MEAN CELL VOLUME 93.9 fl (80.0-105.0); MEAN CORPUSCULAR HEMOGLOBIN 30.2 pg (25.0-35.0); MEAN CORPUSCULAR HGB CONC 32.2 g/dl (31.0-37.0); MEAN PLATELET VOLUME 12.3 fl (7.0-11.0); MONO # 0.6 (0.1-0.6); MONO % 4.2 % (1.0-6.0); RBC 4.1 10^6/uL (3.5-6.1); RED CELL DISTRIBUTION WIDTH 13.9 % (11.5-14.5); WHITE BLOOD COUNT 13.2 10^3/ul (4.5-11.0)
--- NOTE | 2017-10-19 08:01 | CP.PCM.PN ---
<Michael Carter - Last Filed: 10/19/17 12:40> Subjective - Date & Time of Evaluation Date of Evaluation: 10/19/17 Time of Evaluation: 11:00 - Subjective Subjective: Dr. Yobany Dawkins Pt was seen and examined. As per nursing staff, no acute or adverse events overnight. Pt states her rt knee is mildly improved from a pain perspective. Pt is able to move all her extremities without difficulty or pain while laying in bed. The patient denies chest pain, shortness of breath, cough, fevers/chills, n /v/d, headaches, changes in vision/hearing, tinnitus, dizziness, fatigue, weakness, abdominal pain, changes in urine or bowel habits. Objective - Vital Signs/Intake and Output Vital Signs (last 24 hours): Temp Pulse Resp BP Pulse Ox 98 F 85 18 166/87 H 93 L 10/18/17 16:00 10/18/17 16:00 10/18/17 16:00 10/18/17 16:00 10/18/17 16:00 Intake and Output: 10/19/17 10/19/17 06:59 18:59 Intake Total 240 Balance 240 - Medications Medications: Current Medications Amlodipine Besylate (Norvasc) 2.5 mg PO DAILY [facility] Last Admin: 10/18/17 13:35 Dose: 2.5 mg Aspirin (Ecotrin) 81 mg PO DAILY [facility] Last Admin: 10/18/17 13:35 Dose: 81 mg Budesonide (Pulmicort Respules) 0.5 mg IH [id number] [facility] Last Admin: 10/19/17 07:29 Dose: 0.5 mg Calcium Carbonate (Caltrate) 600 mg PO DAILY [facility] Last Admin: 10/18/17 13:34 Dose: 600 mg Home Med (Home Med) 1 unit PO DAILY [facility] Levalbuterol HCl (Xopenex) 0.63 mg IH [id number] [facility] Last Admin: 10/19/17 07:28 Dose: 0.63 mg Levalbuterol HCl (Xopenex) 0.63 mg IH Q2 PRN PRN Reason: Shortness of Breath Pantoprazole Sodium (Protonix Ec Tab) 40 mg PO ACB [facility] Prednisone (Prednisone Tab) 40 mg PO DAILY [facility] Venlafaxine HCl (Effexor Xr) 75 mg PO BID [facility] Last Admin: 10/18/17 19:11 Dose: 75 mg - Labs Labs: 10/19/17 06:30 10/18/17 06:45 PT 11.8 SECONDS (9.4-12.5) 10/17/17 14:00 INR 1.03 (0.93-1.08) 10/17/17 14:00 APTT 26.1 Seconds (25.1-36.5) 10/17/17 14:00 - Constitutional Appears: No Acute Distress - Head Exam Head Exam: ATRAUMATIC, NORMAL INSPECTION, NORMOCEPHALIC - Eye Exam Eye Exam: EOMI, Normal appearance, PERRL Pupil Exam: NORMAL ACCOMODATION, PERRL - ENT Exam ENT Exam: Mucous Membranes Moist, Normal Exam - Respiratory Exam Respiratory Exam: Clear to Ausculation Bilateral, NORMAL BREATHING PATTERN - Cardiovascular Exam Cardiovascular Exam: REGULAR RHYTHM, +S1, +S2. absent: Murmur - GI/Abdominal Exam GI & Abdominal Exam: Soft, Normal Bowel Sounds. absent: Tenderness - Extremities Exam Extremities Exam: Full ROM, Normal Capillary Refill, Normal Inspection, Tenderness (Rt lateral knee). absent: Joint Swelling, Pedal Edema - Neurological Exam Neurological Exam: Alert, Awake, CN II-XII Intact, Oriented x3 - Psychiatric Exam Psychiatric exam: Normal Affect, Normal Mood - Skin Skin Exam: Dry, Intact, Normal Color, Warm Assessment and Plan - Assessment and Plan (Free Text) Assessment: 87 year old female with past medical history of COPD, Afib not on anticoagulation, OA, pseudogout, depression presents to the ED with several days of progressive weakness in the legs bilaterally. 1. Bilateral Leg Weakness -Lower Extremity US: negative for DVT -ortho consulted: leeroy Garcia for calcium pyrophosphate disease and mild arthritis -PT evaluation pending 2. Afib-chronic -cardio consulted: Penelope, on amlodipine, fouond to have multifocal atrial rhythm on EKG -contue home Aspirin 3. COPD -albuterol -pulmicort -Pulmonology consulted: Karpman -methylprendisolone, will be tapered down -oxygen as needed - duoneb breathing treatments 4. Depression -continue home latuda -continue home effexor 5. HTN -continue home norvasc 6. OA -continue home calcium carbonate DVT/GI Prophylaxis -Protonix -SCD The patient was seen, examined and discussed with attending, Dr. Haywood <Kole Haywood - Last Filed: 10/19/17 15:39> Objective - Vital Signs/Intake and Output Vital Signs (last 24 hours): Temp Pulse Resp BP Pulse Ox 98.4 F 90 20 156/82 H 97 10/19/17 08:00 10/19/17 09:58 10/19/17 08:00 10/19/17 12:02 10/19/17 08:00 - Medications Medications: Current Medications Amlodipine Besylate (Norvasc) 5 mg PO DAILY [facility] Aspirin (Ecotrin) 81 mg PO DAILY [facility] Last Admin: 10/19/17 09:58 Dose: 81 mg Budesonide (Pulmicort Respules) 0.5 mg IH [id number] [facility] Last Admin: 10/19/17 07:29 Dose: 0.5 mg Calcium Carbonate (Caltrate) 600 mg PO DAILY [facility] Last Admin: 10/19/17 10:05 Dose: 600 mg Home Med (Home Med) 1 unit PO DAILY [facility] Last Admin: 10/19/17 09:59 Dose: Not Given Levalbuterol HCl (Xopenex) 0.63 mg IH [id number] [facility] Last Admin: 10/19/17 14:08 Dose: 0.63 mg Levalbuterol HCl (Xopenex) 0.63 mg IH Q2 PRN PRN Reason: Shortness of Breath Lorazepam (Ativan) 0.5 mg PO HS [facility] Pantoprazole Sodium (Protonix Ec Tab) 40 mg PO ACB [facility] Last Admin: 10/19/17 08:23 Dose: 40 mg Prednisone (Prednisone Tab) 40 mg PO DAILY [facility] Last Admin: 10/19/17 09:58 Dose: 40 mg Venlafaxine HCl (Effexor Xr) 75 mg PO BID [facility] Last Admin: 10/19/17 09:58 Dose: 75 mg Zolpidem Tartrate (Ambien) 5 mg PO HS [facility] - Labs Labs: PT 11.8 SECONDS (9.4-12.5) 10/17/17 14:00 INR 1.03 (0.93-1.08) 10/17/17 14:00 APTT 26.1 Seconds (25.1-36.5) 10/17/17 14:00 Attending/Attestation - Attestation I have personally seen and examined this patient.: Yes I have fully participated in the care of the patient.: Yes I have reviewed all pertinent clinical information, including history, physical exam and plan: Yes Notes (Text): 10/19/17 15:38 attending note; Patient seen and examined with resident. Patient is a 87 year old female with past medical history of COPD, osteoarthritis, obesity pseudogout, depression presents to the emergency room with several days of gait instability. Initially the patient started having left knee pain. Currently has right knee Pain with minimal swelling. orthopedics consult with Dr. Garcia appreciated. Got steroid injection at the right knee. Pain is improving. Physical therapy evaluation appreciated. TCU recommended. COPD; continue oxygen and DuoNeb treatment. Started on low-dose steroids. Pulmonary evaluation appreciated. Upon discharge the patient will follow-up with PMD .
--- NOTE | 2017-10-19 08:11 | PN ---
DATE: 10/19/2017 PULMONARY NOTE SUBJECTIVE: The patient appears comfortable this morning. She is not short of breath at rest. PHYSICAL EXAMINATION: VITAL SIGNS: (Last noted in the computer): Temperature is 98.0, pulse 85, respirations 18, blood pressure 166/87. Oxygen saturation on nasal cannula ranges between 93-98%. HEENT: Normocephalic, atraumatic. NECK: No JVD. CARDIOVASCULAR: Systolic ejection murmur at the lower left sternal border. No S3 gallop. LUNGS: Decreased breath sounds at the bases. Very minimal/less rhonchi. No wheezing. EXTREMITIES: Positive edema. No cyanosis, no clubbing. Calves are nontender to palpation. GI: Abdomen is soft, nontender and nondistended. Bowel sounds are positive. SKIN: Skin: No acute rash. NEUROLOGIC: Exam limited at the present time. IMPRESSION: 1. Progressive weakness, inability to ambulate. 2. Chronic obstructive pulmonary disease. 3. Mild bronchospasm. 4. Chronic atrial fibrillation. PLAN: The patient appears comfortable this morning. She is not short of breath at rest. She does state to feeling better overall. On physical exam, her bronchospasm is certainly less. I will continue with the current nebulizer treatments and inhaled steroids. However, I will change to oral steroids this morning. Inputs by Cardiology and Orthopedics are noted. Clinical status of the patient is definitely improved - compared to the initial presentation. I will discuss the above with the attending physician. Ranjit Burnham MD MTDD
[2017-10-19] MEDS: Pantoprazole 40 mg EC Tab PO SCH (08:23)
[2017-10-19 08:29] LABS: ALB/GLOB RATIO 1.1 (1.1-1.8); ALT/SGPT 49 U/L (7-56); AST/SGOT 28 U/L (14-36); BLOOD UREA NITROGEN 26 mg/dL (7-21); CALCIUM 9.7 mg/dL (8.4-10.5); GFR AFRICAN-AMERICAN > 60; GFR NON-AFRICAN AMERICAN 59
[2017-10-19] MEDS: Venlafaxine 75 mg ER Cap PO SCH ×2 (09:58→17:42)
[2017-10-19] MEDS: LURASIDONE 20 MG PO SCH (09:59)
--- NOTE | 2017-10-19 16:30 | PN ---
DATE: 10/19/2017 The patient is in room 570, bed 2. REASON FOR CONSULTATION AND FOLLOWUP: Cardiac arrhythmia, hypertension, weakness in the legs. SUBJECTIVE: The patient admitted with weakness in the legs. When trying to stand up, she has to sit down because she cannot put weight on those legs. She denies any chest pain. On exertion, she gets shortness of breath. Denies palpitations. The patient is lying comfortably in bed without any chest pain or palpitations. The patient had aspiration of fluid from the left knee. The patient has history of arthritis. PHYSICAL EXAMINATION: VITAL SIGNS: Blood pressure 159/76, respirations 20, pulse 88, and temperature 98.4. HEENT: Head is normocephalic. Eyes: Pupils normal. Conjunctivae normal. NECK: JVP low. Carotids equal. THORAX: AP diameter normal. LUNGS: No significant rales. CARDIOVASCULAR: S1 and S2. ABDOMEN: Soft. No tenderness. No organomegaly. EXTREMITIES: No clubbing. No cyanosis. LABORATORY DATA: WBC 13.2, hemoglobin 12.4, hematocrit 38.5, and platelets 135. Sodium 143, potassium 4.7, BUN 26, creatinine 0.9. AST and ALT normal. Total protein and albumin normal. DIAGNOSES: Weakness of legs, inability to stand and walk, chronic obstructive pulmonary disease, hypertension, anxiety, depression, arthritis, obesity, pseudogout. PLAN: The patient on Caltrate 600 mg p.o. daily, aspirin 81 mg daily, Effexor-XR 75 mg b.i.d., amlodipine 2.5 mg p.o. daily, we will increase it to 5 mg p.o. daily, prednisone 40 mg daily. We will increase amlodipine to 5 mg daily to control her blood pressure and we will follow with you. Radha Negrete MD
--- NOTE | 2017-10-19 20:58 | CON ---
DATE: PSYCHIATRIC CONSULTATION HISTORY OF PRESENT ILLNESS: Patient is an 87-year-old female, who was brought to the emergency room after she felt weak on her legs at home and briefly went to the floor. She also was then recently quite shortness of breath. Patient has a long history of bipolar disorder; I follow her regularly in my office every 3 months. I know her daughter and I contacted her daughter and her close friend, who lives in the same building. Patient has been under multiple psychotropic medicines for a number of years to stabilize her mood. Patient is currently complaining of being depressed because she is in the hospital. I spoke with the nursing staff. I reviewed the chart. Patient is currently on a steroid medication and nebulizer treatment. PAST MEDICAL HISTORY: Includes COPD, hypertension, osteoarthritis, thrombophlebitis, and bipolar disorder. She also has a history of pulmonary embolus. SOCIAL HISTORY: She also has a past history of alcohol abuse, none in recent years. She also smoked cigarettes, two packs a day for 20 years. ALLERGIES: SHE IS ALLERGIC TO PENICILLIN. HOME MEDICATIONS: Include Latuda 20 mg daily, lorazepam 0.5 mg daily, Flonase, venlafaxine 150 b.i.d., amlodipine, Caltrate, and 81 mg of aspirin. PERSONAL HISTORY: She is a . She has one daughter. She lives in a two-family home with a close male friend, who lives on the second floor, she lives on the first floor. Patient has no history of substance abuse or suicide attempts. CURRENT MEDICATIONS: Here in the hospital include Caltrate, Ecotrin, venlafaxine 150 daily, Latuda 20 mg daily, Norvasc; prednisone 40 mg daily, she was on 40 mg IV q. 8 h. and q. 12 h., she stopped yesterday. She is on Xopenex inhaler. LABORATORY DATA: Patient's laboratory data is as follows: Currently her white count is 13,200. Rest of her profiles are within normal range. Patient has her metabolic profile, all her electrolytes are normal. BUN is 26, creatinine 0.9, estimated GFR of 59, glucose 130, rest of the profile is normal. On 10/17, her NT-pro B natriuretic peptide was 797. Patient's urinalysis showed moderate amount of leukocyte esterase. Her urine culture shows she is positive for gram-negative rods. Her count was between 50,000 and 100,000 colony count. REVIEW OF SYSTEMS: She complains of pain in her knees, generalized weakness, depression about being in the hospital. Other 12-point review is noncontributory. PHYSICAL EXAMINATION: VITAL SIGNS: Blood pressure 159/76 and pulse 90. Patient's respiratory rate is 22. PSYCHIATRIC: Her mental status shows depressed faces. She is slight tachypneic. She complains of being anxious off and on. Patient with difficulty sleeping at night here. She claims she is very depressed about having to stay in the hospital and she has been depressed when she first arrived here. She feels she has lived too long; however, she has no suicidal attempt. I told her I spoke with the nursing staff in that her daughter wants her to stay here to be on transitional care unit. Patient denies hallucinations or paranoia. She is oriented times 3. Recent and remote memory are totally intact. IMPRESSION: Patient has a history of bipolar-type disorder, depression now secondary to hospital stay. Patient has chronic obstructive pulmonary disease. Patient has a history of hypertension. She has gait dysfunction, osteoarthritis, obesity, pseudogout. PLAN: Patient is requesting Ambien 5 mg at bedtime which she was receiving in order to sleep and Ativan 0.5 mg at bedtime, which I will order for her. I advised that patient will be better after going home with home care, if that is possible. Jm Solorzano MD
[2017-10-20 07:56] LABS: GRAN # 8.13 (1.4-6.5); GRAN % 76.3 % (50.0-68.0); HEMOGLOBIN 12.5 g/dL (12.0-16.0); LYMPH # 1.5 (1.2-3.4); LYMPH % 14.4 % (22.0-35.0); MEAN CELL VOLUME 94.4 fl (80.0-105.0); MEAN CORPUSCULAR HEMOGLOBIN 30.6 pg (25.0-35.0); MEAN CORPUSCULAR HGB CONC 32.5 g/dl (31.0-37.0); MEAN PLATELET VOLUME 12.4 fl (7.0-11.0); MONO % 9.3 % (1.0-6.0); RBC 4.08 10^6/uL (3.5-6.1); WHITE BLOOD COUNT 10.7 10^3/ul (4.5-11.0)
[2017-10-20] MEDS: Levalbuterol 0.63 MG/3 ML Inhal Soln UD IH SCH ×3 (08:00→20:00)
[2017-10-20] MEDS: Budesonide 0.5 mg/2 ml Inhal Susp UD IH SCH (08:00)
[2017-10-20 08:06] LABS: ALB/GLOB RATIO 1.1 (1.1-1.8); ALBUMIN 3.7 g/dL (3.0-4.8); ALT/SGPT 45 U/L (7-56); AST/SGOT 30 U/L (14-36); BLOOD UREA NITROGEN 28 mg/dL (7-21); CALCIUM 9.4 mg/dL (8.4-10.5); GFR AFRICAN-AMERICAN > 60; GFR NON-AFRICAN AMERICAN 59
[2017-10-20] MEDS: Pantoprazole 40 mg EC Tab PO SCH (08:22)
[2017-10-20] MEDS: Venlafaxine 75 mg ER Cap PO SCH ×2 (09:27→17:17)
[2017-10-20] MEDS: LURASIDONE 20 MG PO SCH (09:27)
--- NOTE | 2017-10-20 09:47 | PN ---
DATE: 10/20/2017 PULMONARY NOTE SUBJECTIVE: The patient appears very comfortable this morning. She is not short of breath at rest. PHYSICAL EXAMINATION: VITAL SIGNS: Temperature is 98.4, pulse 86, respirations 18/20, blood pressure 153/89. Oxygen saturation on nasal cannula is 98%. HEENT: Normocephalic, atraumatic. NECK: No JVD. CARDIOVASCULAR: Systolic ejection murmur at the lower left sternal border. No S3 gallop. LUNGS: Decreased breath sounds at the bases. Minimal/less rhonchi. No wheezing. EXTREMITIES: Positive for edema. No cyanosis, no clubbing. Calves are nontender to palpation. GI: Abdomen is soft, nontender and nondistended. Bowel sounds are positive. SKIN: No acute rash. NEUROLOGIC: Exam limited at the present time. IMPRESSION: 1. Progressive weakness, inability to ambulate. 2. Chronic obstructive pulmonary disease. 3. Mild bronchospasm. 4. Chronic atrial fibrillation. PLAN: The patient appears very comfortable this morning. She is not short of breath at rest. She does state to feeling better overall. On physical exam, her bronchospasm continues to resolve. In addition, the oxygen saturation on nasal cannula is now 98%. I will continue with the current nebulizer treatments and oral steroids (changed yesterday) for now. Inputs by Cardiology and Psychiatry are noted. Clinical status of the patient is certainly improved - compared to the initial presentation. I will discuss the above with the attending physician. Ranjit Burnham MD MTDD
--- NOTE | 2017-10-20 11:07 | CP.PCM.PN ---
<Horacio Narayanan - Last Filed: 10/20/17 11:12> Subjective - Date & Time of Evaluation Date of Evaluation: 10/20/17 Time of Evaluation: 10:17 - Subjective Subjective: Horacio Narayanan PGY1 IM Progress Note for Dr. Haywood Hospitalist Service Patient was seen and examined at bedside with Mr. Ayden Block (#[phone]) at bedside. Medical team explained to them that her medical condition has been improving and the R knee swelling has improved but that she will require continued physical therapy. Mr. Block who is her surveyor geodetic requested that he be kept in the loop regarding placement and any changes. Patient still complaining of pain in the knees upon standing or placing weights on them. Patient denies chest pain, shortness of breath, cough, fevers/chills, nausea/ vomiting/diarrhea, abdominal pain, changes in bowel/urinary habits. Objective - Vital Signs/Intake and Output Vital Signs (last 24 hours): Temp Pulse Resp BP Pulse Ox 97.7 F 82 20 174/96 H 90 L 10/20/17 07:00 10/20/17 09:27 10/20/17 07:00 10/20/17 09:27 10/20/17 07:00 Intake and Output: 10/20/17 10/20/17 06:59 18:59 Intake Total 300 Balance 300 - Medications Medications: Current Medications Amlodipine Besylate (Norvasc) 5 mg PO DAILY [facility] Last Admin: 10/20/17 09:27 Dose: 5 mg Aspirin (Ecotrin) 81 mg PO DAILY [facility] Last Admin: 10/20/17 09:27 Dose: 81 mg Budesonide (Pulmicort Respules) 0.5 mg IH [id number] [facility] Last Admin: 10/20/17 08:00 Dose: 0.5 mg Calcium Carbonate (Caltrate) 600 mg PO DAILY [facility] Last Admin: 10/20/17 09:27 Dose: 600 mg Home Med (Home Med) 1 unit PO DAILY [facility] Last Admin: 10/20/17 09:27 Dose: Not Given Levalbuterol HCl (Xopenex) 0.63 mg IH [id number] [facility] Last Admin: 10/20/17 08:00 Dose: 0.63 mg Levalbuterol HCl (Xopenex) 0.63 mg IH Q2 PRN PRN Reason: Shortness of Breath Lorazepam (Ativan) 0.5 mg PO HS [facility] Last Admin: 10/19/17 21:18 Dose: 0.5 mg Pantoprazole Sodium (Protonix Ec Tab) 40 mg PO ACB [facility] Last Admin: 10/20/17 08:22 Dose: 40 mg Prednisone (Prednisone Tab) 40 mg PO DAILY [facility] Last Admin: 10/20/17 09:27 Dose: 40 mg Venlafaxine HCl (Effexor Xr) 75 mg PO BID [facility] Last Admin: 10/20/17 09:27 Dose: 75 mg Zolpidem Tartrate (Ambien) 5 mg PO HS [facility] Last Admin: 10/19/17 21:19 Dose: 5 mg - Labs Labs: 10/20/17 07:00 10/20/17 07:00 PT 11.8 SECONDS (9.4-12.5) 10/17/17 14:00 INR 1.03 (0.93-1.08) 10/17/17 14:00 APTT 26.1 Seconds (25.1-36.5) 10/17/17 14:00 - Additional Findings Additional findings: - Constitutional Appears: Well, Non-toxic, No Acute Distress - Head Exam Head Exam: NORMAL INSPECTION - Eye Exam Eye Exam: EOMI, Normal appearance, PERRL - ENT Exam ENT Exam: Mucous Membranes Moist - Neck Exam Neck Exam: Normal Inspection - Respiratory Exam Respiratory Exam: Clear to Ausculation Bilateral, NORMAL BREATHING PATTERN - Cardiovascular Exam Cardiovascular Exam: RRR, +S1, +S2 - GI/Abdominal Exam GI & Abdominal Exam: Soft, Normal Bowel Sounds. absent: Distended, Tenderness - Extremities Exam Extremities Exam: Normal Inspection. absent: Joint Swelling, Pedal Edema Additional comments: knee ROM slightly limited by pain, however, grossly movements are full ROM x4 extremities - Back Exam Back Exam: NORMAL INSPECTION - Neurological Exam Neurological Exam: Alert, Awake, Oriented x3 Additional comments: speech is a bit difficult to understand because of patient's breathing pattern - Psychiatric Exam Psychiatric exam: Normal Affect, Normal Mood - Skin Skin Exam: Normal Color, Warm Assessment and Plan - Assessment and Plan (Free Text) Assessment: 87 year old female with past medical history of COPD, Afib not on anticoagulation, OA, pseudogout, depression presented to the ED with several days of progressive weakness/pain in the legs bilaterally. PT eval recommending TCU/HWS; patient receiving medical management for optimization for rehab placement. Plan: 1. Bilateral Leg Weakness 2/2 b/l OA and calcium deposition disease - Lower Extremity US: negative for DVT - ortho consulted, recs appreciated - continued PT treatment while on medical floors - TCU eval is placed; patient will be medically optimized before transfer to TCU for rehab 2. Afib-chronic, rate controlled - cardio consulted: Negrete - contue home Aspirin 3. COPD - pulmicort - Prednisone 40mg PO daily - oxygen as needed - xopenex breathing treatments - Pulmonology consulted, recs appreciated 4. HTN -continue home norvasc but increased to 5mg by Cardio 5. Depression -continue home effexor - psych consulted, recs appreciated 6. OA -continue home calcium carbonate DVT/GI Prophylaxis -Protonix -SCD The patient was seen, examined and discussed with attending, Dr. Yobany Narayanan PGY1 Pager # [phone] <Kole Haywood - Last Filed: 10/20/17 15:19> Objective - Vital Signs/Intake and Output Vital Signs (last 24 hours): Temp Pulse Resp BP Pulse Ox 97.7 F 82 20 174/96 H 90 L 10/20/17 07:00 10/20/17 09:27 10/20/17 07:00 10/20/17 09:27 10/20/17 07:00 Intake and Output: 10/20/17 10/20/17 06:59 18:59 Intake Total 300 Balance 300 - Medications Medications: Current Medications Amlodipine Besylate (Norvasc) 5 mg PO DAILY [facility] Last Admin: 10/20/17 09:27 Dose: 5 mg Aspirin (Ecotrin) 81 mg PO DAILY [facility] Last Admin: 10/20/17 09:27 Dose: 81 mg Budesonide (Pulmicort Respules) 0.5 mg IH [id number] [facility] Last Admin: 10/20/17 08:00 Dose: 0.5 mg Calcium Carbonate (Caltrate) 600 mg PO DAILY [facility] Last Admin: 10/20/17 09:27 Dose: 600 mg Home Med (Home Med) 1 unit PO DAILY [facility] Last Admin: 10/20/17 09:27 Dose: Not Given Levalbuterol HCl (Xopenex) 0.63 mg IH [id number] [facility] Last Admin: 10/20/17 13:53 Dose: 0.63 mg Levalbuterol HCl (Xopenex) 0.63 mg IH Q2 PRN PRN Reason: Shortness of Breath Lorazepam (Ativan) 0.5 mg PO HS [facility] Last Admin: 10/19/17 21:18 Dose: 0.5 mg Pantoprazole Sodium (Protonix Ec Tab) 40 mg PO ACB [facility] Last Admin: 10/20/17 08:22 Dose: 40 mg Prednisone (Prednisone Tab) 40 mg PO DAILY [facility] Last Admin: 10/20/17 09:27 Dose: 40 mg Venlafaxine HCl (Effexor Xr) 75 mg PO BID [facility] Last Admin: 10/20/17 09:27 Dose: 75 mg Zolpidem Tartrate (Ambien) 5 mg PO [facility] Last Admin: 10/19/17 21:19 Dose: 5 mg - Labs Labs: 10/20/17 07:00 10/20/17 07:00 PT 11.8 SECONDS (9.4-12.5) 10/17/17 14:00 INR 1.03 (0.93-1.08) 10/17/17 14:00 APTT 26.1 Seconds (25.1-36.5) 10/17/17 14:00 Attending/Attestation - Attestation I have personally seen and examined this patient.: Yes I have fully participated in the care of the patient.: Yes I have reviewed all pertinent clinical information, including history, physical exam and plan: Yes Notes (Text): 10/20/17 15:15 attending note; Patient seen and examined with resident. Patient is a 87 year old female with past medical history of COPD, osteoarthritis, obesity pseudogout, depression presents to the emergency room with several days of gait instability. Initially the patient started having left knee pain. Currently has right knee Pain with minimal swelling. orthopedics consult with Dr. Garcia appreciated. Got steroid injection at the right knee. Pain is improving. Physical therapy evaluation appreciated. TCU recommended. Case discussed with group social worker in detail. Plan for discharge to TCU versus subacute rehabilitation on Wednesday. COPD; continue oxygen and DuoNeb treatment. Started on low-dose steroids. Pulmonary evaluation appreciated. Upon discharge the patient will follow-up with PMD .
--- NOTE | 2017-10-20 16:28 | PN ---
DATE: 10/20/2017 REASON FOR CONSULTATION AND FOLLOWUP: Cardiac arrhythmia, hypertension, weakness in the legs. SUBJECTIVE: The patient was admitted with weakness in the legs, unable to stand or walk. The patient lying comfortably in bed without any chest pain, short of breath, or palpitations. PHYSICAL EXAMINATION: VITAL SIGNS: Blood pressure 153/89, respirations 20, pulse 86, and temperature 98.4. HEENT: Head is normocephalic. Eyes: Pupils normal. Conjunctivae normal. Nose and throat are normal. NECK: JVP low. Carotids equal. THORAX: AP diameter normal. LUNGS: No significant rales. A few rhonchi. CARDIOVASCULAR: S1 and S2. ABDOMEN: Soft. No tenderness. No organomegaly. EXTREMITIES: No clubbing. No cyanosis. LABORATORY DATA: WBC 10.7, hemoglobin 12.5, hematocrit 38.5, platelets 143. Sodium 140, potassium 4.6, BUN 28, creatinine 0.9. AST and ALT normal. Total protein and albumin normal. DIAGNOSES: Weakness of the leg, inability to stand OR walk, chronic obstructive pulmonary disease, hypertension, anxiety, depression, arthritis, obesity, pseudogout, status post aspiration fluid from the left knee, obesity. PLAN: The patient is on aspirin 81 mg daily, Effexor XR 75 mg b.i.d. The patient is starting amlodipine 5 mg p.o. daily today, prednisone 40 mg p.o. daily, Protonix 40 daily. We will follow with you. Radha Negrete MD
[2017-10-21] MEDS: Levalbuterol 0.63 MG/3 ML Inhal Soln UD IH SCH ×4 (02:35→20:35)
[2017-10-21] MEDS: Budesonide 0.5 mg/2 ml Inhal Susp UD IH SCH ×2 (07:37→20:35)
[2017-10-21 07:56] LABS: GRAN # 5.93 (1.4-6.5); GRAN % 68.9 % (50.0-68.0); HEMOGLOBIN 13.1 g/dL (12.0-16.0); LYMPH # 1.7 (1.2-3.4); MEAN CELL VOLUME 95.6 fl (80.0-105.0); MEAN CORPUSCULAR HEMOGLOBIN 30.5 pg (25.0-35.0); MEAN PLATELET VOLUME 12.2 fl (7.0-11.0); MONO % 11.1 % (1.0-6.0); RBC 4.29 10^6/uL (3.5-6.1); WHITE BLOOD COUNT 8.6 10^3/ul (4.5-11.0)
[2017-10-21] MEDS: Pantoprazole 40 mg EC Tab PO SCH (08:28)
[2017-10-21 08:51] LABS: ALB/GLOB RATIO 1.1 (1.1-1.8); ALBUMIN 3.6 g/dL (3.0-4.8); ALT/SGPT 53 U/L (7-56); AST/SGOT 33 U/L (14-36); BLOOD UREA NITROGEN 24 mg/dL (7-21); CALCIUM 9.3 mg/dL (8.4-10.5); GFR AFRICAN-AMERICAN > 60; GFR NON-AFRICAN AMERICAN > 60
--- NOTE | 2017-10-21 09:41 | PN ---
DATE: 10/21/2017 PULMONARY NOTE SUBJECTIVE: The patient appears very comfortable this morning. She is not short of breath at rest. PHYSICAL EXAMINATION: VITAL SIGNS (Last noted in the computer): Temperature is 98.0, pulse 92, respirations 18/20, blood pressure 167/87, and oxygen saturation on room air is 97%. HEENT: Normocephalic, atraumatic. NECK: No JVD. CARDIOVASCULAR: Systolic ejection murmur at the lower left sternal border. No S3 gallop. LUNGS: Clear bilaterally. EXTREMITIES: Positive for edema. No cyanosis. No clubbing. Calves are nontender to palpation. GASTROINTESTINAL: Abdomen is soft, nontender, and nondistended. Bowel sounds are positive. SKIN: No acute rash. NEUROLOGIC: Limited to present time. IMPRESSION: 1. Progressive weakness, inability to ambulate. 2. Chronic obstructive pulmonary disease. 3. Mild bronchospasm. 4. Chronic atrial fibrillation. PLAN: The patient appears very comfortable this morning. She is not short of breath at rest. She does state to feeling better overall. On physical exam, her lungs are now clear. Oxygen saturation on room air is 97%. I will continue the current nebulizer treatments and decrease the oral steroids this morning. Inputs by Cardiology and Psychiatry are also noted. Clinical status of the patient is significantly improved. I will discuss the above with the attending physician this morning. Ranjit Burnham MD [id number]
[2017-10-21] MEDS: Venlafaxine 75 mg ER Cap PO SCH ×2 (09:51→17:25)
[2017-10-21] MEDS: LURASIDONE 20 MG PO SCH (09:51)
--- NOTE | 2017-10-21 14:20 | CP.PCM.PN ---
<Horacio Narayanan - Last Filed: 10/21/17 14:17> Subjective - Date & Time of Evaluation Date of Evaluation: 10/21/17 Time of Evaluation: 11:17 - Subjective Subjective: Horacio Narayanan PGY1 IM Progress Note for Dr. Dodd Hospitalist Service Patient was seen and examined at bedside. She had no complaints but some difficulty ambulating due to pain in knees. Patient denies chest pain, shortness of breath, cough, fevers/chills, nausea/vomiting/diarrhea, abdominal pain, changes in bowel/urinary habits. Objective - Vital Signs/Intake and Output Vital Signs (last 24 hours): Temp Pulse Resp BP Pulse Ox 97.8 F 76 20 164/88 H 93 L 10/21/17 08:15 10/21/17 09:50 10/21/17 08:15 10/21/17 09:50 10/21/17 08:15 Intake and Output: 10/21/17 10/21/17 06:59 18:59 Intake Total 900 800 Output Total 2 Balance 898 800 - Medications Medications: Current Medications Amlodipine Besylate (Norvasc) 5 mg PO DAILY [facility] Last Admin: 10/21/17 09:50 Dose: 5 mg Aspirin (Ecotrin) 81 mg PO DAILY [facility] Last Admin: 10/21/17 09:50 Dose: 81 mg Budesonide (Pulmicort Respules) 0.5 mg IH [id number] [facility] Last Admin: 10/21/17 07:37 Dose: 0.5 mg Calcium Carbonate (Caltrate) 600 mg PO DAILY [facility] Last Admin: 10/21/17 09:50 Dose: 600 mg Home Med (Home Med) 1 unit PO DAILY [facility] Last Admin: 10/21/17 09:51 Dose: 1 unit Levalbuterol HCl (Xopenex) 0.63 mg IH [id number] [facility] Last Admin: 10/21/17 13:45 Dose: 0.63 mg Levalbuterol HCl (Xopenex) 0.63 mg IH Q2 PRN PRN Reason: Shortness of Breath Lorazepam (Ativan) 0.5 mg PO HS [facility] Last Admin: 10/20/17 21:26 Dose: 0.5 mg Pantoprazole Sodium (Protonix Ec Tab) 40 mg PO ACB [facility] Last Admin: 10/21/17 08:28 Dose: 40 mg Prednisone (Prednisone Tab) 30 mg PO DAILY [facility] Last Admin: 10/21/17 09:50 Dose: 30 mg Venlafaxine HCl (Effexor Xr) 75 mg PO BID [facility] Last Admin: 10/21/17 09:51 Dose: 75 mg Zolpidem Tartrate (Ambien) 5 mg PO HS [facility] Last Admin: 10/20/17 21:25 Dose: 5 mg - Labs Labs: 10/21/17 07:00 10/21/17 07:00 PT 11.8 SECONDS (9.4-12.5) 10/17/17 14:00 INR 1.03 (0.93-1.08) 10/17/17 14:00 APTT 26.1 Seconds (25.1-36.5) 10/17/17 14:00 - Additional Findings Additional findings: - Constitutional Appears: Well, Non-toxic, No Acute Distress - Head Exam Head Exam: NORMAL INSPECTION - Eye Exam Eye Exam: EOMI, Normal appearance, PERRL - ENT Exam ENT Exam: Mucous Membranes Moist - Neck Exam Neck Exam: Normal Inspection - Respiratory Exam Respiratory Exam: Clear to Ausculation Bilateral, NORMAL BREATHING PATTERN - Cardiovascular Exam Cardiovascular Exam: RRR, +S1, +S2 - GI/Abdominal Exam GI & Abdominal Exam: Soft, Normal Bowel Sounds. absent: Distended, Tenderness - Extremities Exam Extremities Exam: Normal Inspection. absent: Joint Swelling, Pedal Edema Additional comments: knee ROM slightly limited by pain, however, grossly movements are full ROM x4 extremities - Back Exam Back Exam: NORMAL INSPECTION - Neurological Exam Neurological Exam: Alert, Awake, Oriented x3 Additional comments: - Psychiatric Exam Psychiatric exam: Normal Affect, Normal Mood - Skin Skin Exam: Normal Color, Warm Assessment and Plan - Assessment and Plan (Free Text) Assessment: 87 year old female with past medical history of COPD, Afib not on anticoagulation, OA, pseudogout, depression presented to the ED with several days of progressive weakness/pain in the legs bilaterally. PT eval recommending TCU/HWS; patient receiving medical management for optimization for rehab placement. TCU placement likely tomorrow. Plan: 1. Bilateral Leg Weakness 2/2 b/l OA and calcium deposition disease - Lower Extremity US: negative for DVT - ortho consulted, recs appreciated - continued PT treatment while on medical floors - TCU eval is placed; patient will be medically optimized before transfer to TCU for rehab 2. Afib-chronic, rate controlled - cardio consulted: Negrete - contue home Aspirin 3. COPD - pulmicort - Prednisone 40mg PO daily - oxygen as needed - xopenex breathing treatments - Pulmonology consulted, recs appreciated 4. HTN -continue home norvasc but increased to 5mg by Cardio 5. Depression -continue home effexor - psych consulted, recs appreciated 6. OA -continue home calcium carbonate DVT/GI Prophylaxis -Protonix -SCD The patient was seen, examined and discussed with attending, Dr. Yousif Narayanan PGY1 Pager # [phone] <Radha Dodd - Last Filed: 10/21/17 16:51> Objective - Vital Signs/Intake and Output Vital Signs (last 24 hours): Temp Pulse Resp BP Pulse Ox 97.8 F 76 20 164/88 H 93 L 10/21/17 08:15 10/21/17 16:03 10/21/17 08:15 10/21/17 16:03 10/21/17 08:15 Intake and Output: 10/21/17 10/21/17 06:59 18:59 Intake Total 900 800 Output Total 2 Balance 898 800 - Medications Medications: Current Medications Amlodipine Besylate (Norvasc) 10 mg PO DAILY [facility] Aspirin (Ecotrin) 81 mg PO DAILY [facility] Last Admin: 10/21/17 09:50 Dose: 81 mg Budesonide (Pulmicort Respules) 0.5 mg IH [id number] [facility] Last Admin: 10/21/17 07:37 Dose: 0.5 mg Calcium Carbonate (Caltrate) 600 mg PO DAILY [facility] Last Admin: 10/21/17 09:50 Dose: 600 mg Home Med (Home Med) 1 unit PO DAILY [facility] Last Admin: 10/21/17 09:51 Dose: 1 unit Levalbuterol HCl (Xopenex) 0.63 mg IH [id number] [facility] Last Admin: 10/21/17 13:45 Dose: 0.63 mg Levalbuterol HCl (Xopenex) 0.63 mg IH Q2 PRN PRN Reason: Shortness of Breath Levofloxacin (Levaquin) 500 mg PO DAILY [facility] PRN Reason: Protocol Lisinopril (Zestril) 10 mg PO DAILY [facility] Lorazepam (Ativan) 0.5 mg PO HS [facility] Last Admin: 10/20/17 21:26 Dose: 0.5 mg Pantoprazole Sodium (Protonix Ec Tab) 40 mg PO ACB [facility] Last Admin: 10/21/17 08:28 Dose: 40 mg Prednisone (Prednisone Tab) 30 mg PO DAILY [facility] Last Admin: 10/21/17 09:50 Dose: 30 mg Venlafaxine HCl (Effexor Xr) 75 mg PO BID [facility] Last Admin: 10/21/17 09:51 Dose: 75 mg Zolpidem Tartrate (Ambien) 5 mg PO HS [facility] Last Admin: 10/20/17 21:25 Dose: 5 mg - Labs Labs: 10/21/17 07:00 10/21/17 07:00 PT 11.8 SECONDS (9.4-12.5) 10/17/17 14:00 INR 1.03 (0.93-1.08) 10/17/17 14:00 APTT 26.1 Seconds (25.1-36.5) 10/17/17 14:00 Attending/Attestation - Attestation I have personally seen and examined this patient.: Yes I have fully participated in the care of the patient.: Yes I have reviewed all pertinent clinical information, including history, physical exam and plan: Yes Notes (Text): 10/21/17 16:49 Patient seen and examined with resident. 87 year old female with past medical history of COPD, osteoarthritis, obesity pseudogout, depression presents to the emergency room with several days of gait instability. Patient is SP steroid injection at the right knee. Pain is improving. Awaiting bed at TCU COPD; Patient is not wheezing today.Prednsione can be discontinued after 5 days course of 40 mg po daily. E coli UTI on oral levofloxacin. Upon discharge the patient will follow-up with PMD .
[2017-10-21] MEDS: levoFLOXacin 500 MG TAB PO SCH (17:25)
--- NOTE | 2017-10-21 20:38 | PN ---
DATE: REASON FOR CONSULTATION AND FOLLOWUP: Cardiac arrhythmia, hypertension, weakness in the leg. SUBJECTIVE: The patient denies any chest pain, shortness of breath, or any palpitations. Family is at the bedside. OBJECTIVE: GENERAL: Not in apparent distress. VITAL SIGNS: As follows; temperature afebrile, heart rate 72, and blood pressure 164/88. HEENT: PERRLA. Extraocular muscles intact. NECK: Supple. No carotid bruit or thyromegaly. CHEST: Clear to auscultation. HEART: S1 and S2 regular. ABDOMEN: Soft. EXTREMITIES: Clubbing and cyanosis negative. LABORATORY DATA: Blood workup as follows: WBC 8.6, hemoglobin , hematocrit 41.0, and platelet count 125. Chemistry shows sodium 141, potassium 4.6, chloride 104, carbon dioxide 28, anion gap of 13, BUN 24, and creatinine 0.8. IMPRESSION: Weakness of the leg, inability to stand or walk; chronic obstructive pulmonary disease; hypertension; anxiety; depression; arthritis; obesity; pseudogout, status post aspiration of fluid from the left knee joint. Blood pressure is poorly controlled in the range of 160 to 170. RECOMMENDATION: We will give 5 mg one extra dose to start from tomorrow, then also we will add on lisinopril. We will follow with you. We will increase Norvasc to 10 mg and give an extra dose of 5 now and then from tomorrow. Also, we will give 10 mg of lisinopril and start 10 from tomorrow morning . We will get SMA-7 before starting HARVEY inhibitors. Thank you Dr. Haywood for providing us the opportunity in taking care of the patient, Mayra. Rahda Mortensen MD
[2017-10-22] MEDS: Levalbuterol 0.63 MG/3 ML Inhal Soln UD IH SCH ×4 (02:11→21:00)
[2017-10-22] MEDS: Budesonide 0.5 mg/2 ml Inhal Susp UD IH SCH ×2 (07:45→21:00)
[2017-10-22 07:46] LABS: GRAN # 6.2 (1.4-6.5); GRAN % 71.2 % (50.0-68.0); HEMOGLOBIN 12.8 g/dL (12.0-16.0); LYMPH # 1.5 (1.2-3.4); LYMPH % 17.2 % (22.0-35.0); MEAN CELL VOLUME 95.9 fl (80.0-105.0); MEAN CORPUSCULAR HEMOGLOBIN 30.6 pg (25.0-35.0); MEAN CORPUSCULAR HGB CONC 31.9 g/dl (31.0-37.0); MEAN PLATELET VOLUME 12.2 fl (7.0-11.0); MONO % 11.6 % (1.0-6.0); RBC 4.18 10^6/uL (3.5-6.1); RED CELL DISTRIBUTION WIDTH 13.7 % (11.5-14.5); WHITE BLOOD COUNT 8.7 10^3/ul (4.5-11.0)
[2017-10-22 07:57] LABS: BLOOD UREA NITROGEN 24 mg/dL (7-21); CALCIUM 9.4 mg/dL (8.4-10.5); GFR AFRICAN-AMERICAN > 60; GFR NON-AFRICAN AMERICAN 59
--- NOTE | 2017-10-22 08:22 | PN ---
DATE: SUBJECTIVE: The patient appears comfortable this morning. She is not short of breath at rest. PHYSICAL EXAMINATION VITAL SIGNS: (Last noted in the computer): Temperature is 97.2, pulse is 76, respirations 18/20, blood pressure 164/88. Oxygen saturation on room air is 93%. HEENT: Normocephalic, atraumatic. No JVD. CARDIOVASCULAR: Systolic ejection murmur at the lower left sternal border. No S3 gallop. LUNGS: Clear bilaterally. EXTREMITIES: Positive for edema. No cyanosis, no clubbing. Calves are nontender to palpation. GI: Abdomen is soft, nontender and nondistended. Bowel sounds are positive. SKIN: No acute rash. NEUROLOGIC: Limited at the present time. IMPRESSION: 1. Progressive weakness, inability to ambulate. 2. Chronic obstructive pulmonary disease. 3. Mild bronchospasm. 4. Chronic atrial fibrillation. PLAN: The patient appears very comfortable this morning. She is not short of breath at rest. She does state to feeling better overall. On physical exam, her lungs remain clear. Oxygen saturation on room air ranges between 93%-97%. I will continue the current nebulizer treatments and oral steroids (decreased yesterday) for now. Inputs by Cardiology and Psychiatry are noted. Clinical status of the patient is significantly improved overall. I will discuss the above with the attending physician. Ranjit Burnham MD MTDD
[2017-10-22] MEDS: Pantoprazole 40 mg EC Tab PO SCH (08:30)
[2017-10-22] MEDS: levoFLOXacin 500 MG TAB PO SCH (09:55)
[2017-10-22] MEDS: Venlafaxine 75 mg ER Cap PO SCH ×2 (09:58→18:47)
[2017-10-22] MEDS: LURASIDONE 20 MG PO SCH (09:58)
[2017-10-22] MEDS ORDERED: Simethicone 80 mg Chewtab PO PRN (12:38)
--- NOTE | 2017-10-22 14:50 | CP.PCM.PN ---
<Horacio Narayanan - Last Filed: 10/22/17 14:47> Subjective - Date & Time of Evaluation Date of Evaluation: 10/22/17 Time of Evaluation: 10:47 - Subjective Subjective: Horacio Narayanan PGY1 IM Progress Note for Dr. Vazquez Hospitalist Service Patient was seen and examined at bedside. Patient's denies active overnight events, other than constant pain in her knees. Patient denied any dysuria, urinary frequency or hematuria but was told that she had a UTI and would be treated. Patient denies chest pain, shortness of breath, cough, fevers/chills, nausea/vomiting/diarrhea, abdominal pain, changes in bowel/urinary habits. Objective - Vital Signs/Intake and Output Vital Signs (last 24 hours): Temp Pulse Resp BP Pulse Ox 98.0 F 77 20 150/70 95 10/22/17 08:05 10/22/17 09:58 10/22/17 08:05 10/22/17 09:58 10/22/17 08:05 Intake and Output: 10/22/17 10/22/17 06:59 18:59 Intake Total 380 Balance 380 - Medications Medications: Current Medications Amlodipine Besylate (Norvasc) 10 mg PO DAILY [facility] Last Admin: 10/22/17 09:56 Dose: 10 mg Aspirin (Ecotrin) 81 mg PO DAILY [facility] Last Admin: 10/22/17 09:55 Dose: 81 mg Budesonide (Pulmicort Respules) 0.5 mg IH [id number] [facility] Last Admin: 10/22/17 07:45 Dose: 0.5 mg Calcium Carbonate (Caltrate) 600 mg PO DAILY [facility] Last Admin: 10/22/17 09:58 Dose: 600 mg Home Med (Home Med) 1 unit PO DAILY [facility] Last Admin: 10/22/17 09:58 Dose: 1 unit Levalbuterol HCl (Xopenex) 0.63 mg IH [id number] [facility] Last Admin: 10/22/17 13:08 Dose: 0.63 mg Levalbuterol HCl (Xopenex) 0.63 mg IH Q2 PRN PRN Reason: Shortness of Breath Levofloxacin (Levaquin) 500 mg PO DAILY [facility] PRN Reason: Protocol Last Admin: 10/22/17 09:55 Dose: 500 mg Lisinopril (Zestril) 10 mg PO DAILY [facility] Last Admin: 10/22/17 09:58 Dose: 10 mg Lorazepam (Ativan) 0.5 mg PO HS [facility] Last Admin: 10/21/17 21:19 Dose: 0.5 mg Pantoprazole Sodium (Protonix Ec Tab) 40 mg PO ACB [facility] Last Admin: 10/22/17 08:30 Dose: 40 mg Prednisone (Prednisone Tab) 30 mg PO DAILY [facility] Last Admin: 10/22/17 09:55 Dose: 30 mg Simethicone (Mylicon Chew Tab) 80 mg PO P[facility]S PRN PRN Reason: GI distress Venlafaxine HCl (Effexor Xr) 75 mg PO BID [facility] Last Admin: 10/22/17 09:58 Dose: 75 mg Zolpidem Tartrate (Ambien) 5 mg PO HS [facility] Last Admin: 10/21/17 21:19 Dose: 5 mg - Labs Labs: 10/22/17 07:15 10/22/17 07:15 PT 11.8 SECONDS (9.4-12.5) 10/17/17 14:00 INR 1.03 (0.93-1.08) 10/17/17 14:00 APTT 26.1 Seconds (25.1-36.5) 10/17/17 14:00 - Additional Findings Additional findings: - Constitutional Appears: Well, Non-toxic, No Acute Distress - Head Exam Head Exam: NORMAL INSPECTION - Eye Exam Eye Exam: EOMI, Normal appearance, PERRL - ENT Exam ENT Exam: Mucous Membranes Moist - Neck Exam Neck Exam: Normal Inspection - Respiratory Exam Respiratory Exam: Clear to Ausculation Bilateral, NORMAL BREATHING PATTERN - Cardiovascular Exam Cardiovascular Exam: RRR, +S1, +S2 - GI/Abdominal Exam GI & Abdominal Exam: Soft, Normal Bowel Sounds. absent: Distended, Tenderness - Extremities Exam Extremities Exam: Normal Inspection, Full ROM. absent: Joint Swelling, Pedal Edema - Back Exam Back Exam: NORMAL INSPECTION - Neurological Exam Neurological Exam: Alert, Awake, Oriented x3 Additional comments: - Psychiatric Exam Psychiatric exam: Normal Affect, Normal Mood - Skin Skin Exam: Normal Color, Warm Assessment and Plan - Assessment and Plan (Free Text) Assessment: 87 year old female with past medical history of COPD, Afib not on anticoagulation, OA, pseudogout, depression presented to the ED with several days of progressive weakness/pain in the legs bilaterally. PT eval recommending TCU/HWS; patient receiving medical management for optimization for rehab placement. TCU placement tomorrow due to bed availability. Plan: 1. Bilateral Leg Weakness 2/2 b/l OA and calcium deposition disease - Lower Extremity US: negative for DVT - ortho consulted, recs appreciated - continued PT treatment while on medical floors - Patient is medically optimized for transfer to TCU for rehab pending bed availability 2. UTI - urine cx showed e.coli - started on macrobid due to sensitivity - monitor for symptoms - Mylicon PRN gas 3. Afib-chronic, rate controlled - cardio consulted: Negrete - contue home Aspirin 4. COPD - pulmicort - Prednisone 40mg PO daily - oxygen as needed - xopenex breathing treatments - Pulmonology consulted, recs appreciated 5. HTN - continue home norvasc but increased to 10mg by Cardio 6. Depression - continue home effexor - psych consulted, recs appreciated 7. OA -continue home calcium carbonate DVT/GI Prophylaxis -Protonix -SCD The patient was seen, examined and discussed with attending, Dr. Taylor Narayanan PGY1 Pager # [phone] <Natalie Vazquez B - Last Filed: 10/22/17 16:01> Objective - Vital Signs/Intake and Output Vital Signs (last 24 hours): Temp Pulse Resp BP Pulse Ox 98.0 F 77 20 150/70 95 10/22/17 08:05 10/22/17 09:58 10/22/17 08:05 10/22/17 09:58 10/22/17 08:05 Intake and Output: 10/22/17 10/22/17 06:59 18:59 Intake Total 380 780 Balance 380 780 - Medications Medications: Current Medications Amlodipine Besylate (Norvasc) 10 mg PO DAILY [facility] Last Admin: 10/22/17 09:56 Dose: 10 mg Aspirin (Ecotrin) 81 mg PO DAILY [facility] Last Admin: 10/22/17 09:55 Dose: 81 mg Budesonide (Pulmicort Respules) 0.5 mg IH [id number] [facility] Last Admin: 10/22/17 07:45 Dose: 0.5 mg Calcium Carbonate (Caltrate) 600 mg PO DAILY [facility] Last Admin: 10/22/17 09:58 Dose: 600 mg Home Med (Home Med) 1 unit PO DAILY [facility] Last Admin: 10/22/17 09:58 Dose: 1 unit Levalbuterol HCl (Xopenex) 0.63 mg IH [id number] [facility] Last Admin: 10/22/17 13:08 Dose: 0.63 mg Levalbuterol HCl (Xopenex) 0.63 mg IH Q2 PRN PRN Reason: Shortness of Breath Lisinopril (Zestril) 10 mg PO DAILY [facility] Last Admin: 10/22/17 09:58 Dose: 10 mg Lorazepam (Ativan) 0.5 mg PO HS [facility] Last Admin: 10/21/17 21:19 Dose: 0.5 mg Nitrofurantoin Macrocrystals (Macrobid) 100 mg PO Q12 [facility] Stop: 10/29/17 22:01 Pantoprazole Sodium (Protonix Ec Tab) 40 mg PO ACB [facility] Last Admin: 10/22/17 08:30 Dose: 40 mg Prednisone (Prednisone Tab) 30 mg PO DAILY [facility] Last Admin: 10/22/17 09:55 Dose: 30 mg Simethicone (Mylicon Chew Tab) 80 mg PO [facility] PRN PRN Reason: GI distress Venlafaxine HCl (Effexor Xr) 75 mg PO BID [facility] Last Admin: 10/22/17 09:58 Dose: 75 mg Zolpidem Tartrate (Ambien) 5 mg PO HS [facility] Last Admin: 10/21/17 21:19 Dose: 5 mg - Labs Labs: 10/22/17 07:15 10/22/17 07:15 PT 11.8 SECONDS (9.4-12.5) 10/17/17 14:00 INR 1.03 (0.93-1.08) 10/17/17 14:00 APTT 26.1 Seconds (25.1-36.5) 10/17/17 14:00 Attending/Attestation - Attestation I have personally seen and examined this patient.: Yes I have fully participated in the care of the patient.: Yes I have reviewed all pertinent clinical information, including history, physical exam and plan: Yes Notes (Text): I have seen and examined the patient at bedside. Agree with the above note with the following additions/ exceptions: Briefly this is 87 year old female with history of COPD, osteoarthritis, obesity, pseudogout, depression who initially was admitted for evaluation of gait instability secondary to moderate to severe right knee osteoarthritis. She was given steroid injection at the right knee. Pain is improving. Awaiting TCU bed. Continue short steroid course. Continue levaquin for UTI. Upon discharge the patient will follow-up with PMD . Dr Natalie Vazquez
--- NOTE | 2017-10-22 16:54 | PN ---
DATE: 10/22/2017. LOCATION: The patient is in room 570, bed 2. REASON FOR CONSULTATION AND FOLLOWUP: Cardiac arrhythmia, hypertension, and weakness in the legs. SUBJECTIVE: The patient was lying flat in bed without chest pain, shortness of breath, or palpitation. She still says she feels weak in the legs. PHYSICAL EXAMINATION: VITAL SIGNS: Blood pressure 150/70, respirations 20, pulse 77, and temperature 98.0. HEAD: Normocephalic. EYES: Pupils normal, conjunctivae normal. NOSE AND THROAT: Normal. NECK: JVP low, carotids equal. THORAX: AP diameter normal. LUNGS: No significant rales. CARDIOVASCULAR: S1 and S2. ABDOMEN: Soft. No tenderness. No organomegaly. EXTREMITIES: No clubbing, no cyanosis. LABORATORY DATA: WBC 8.7, hemoglobin 12.8, hematocrit 40.1, and platelet 130. Sodium 142, potassium 4.2, BUN 24, creatinine 0.9, calcium 9.4, total protein , albumin 3.6. DIAGNOSES: Weakness of the leg, inability to stand or walk; chronic obstructive pulmonary disease; hypertension; anxiety; depression; arthritis; obesity; pseudogout, status post aspiration of fluid from the left knee. PLAN: The patient is on aspirin 81 mg daily, Effexor XR 75 mg b.i.d., Levaquin 500 mg p.o. daily, amlodipine 10 mg daily, prednisone 30 mg daily, lisinopril 10 mg daily. We will continue present therapy. We will follow with you. Radha Negrete MD
[2017-10-23] MEDS: Levalbuterol 0.63 MG/3 ML Inhal Soln UD IH SCH ×3 (02:03→14:09)
[2017-10-23] MEDS: Budesonide 0.5 mg/2 ml Inhal Susp UD IH SCH (08:07)
[2017-10-23] MEDS: Pantoprazole 40 mg EC Tab PO SCH (08:27)
[2017-10-23 09:36] VITALS: RESP 19; TEMP 98.5; O2SAT 97
[2017-10-23] MEDS: LURASIDONE 20 MG PO SCH (10:00)
[2017-10-23] MEDS: Venlafaxine 75 mg ER Cap PO SCH ×2 (10:00→18:10)
--- NOTE | 2017-10-23 12:08 | PN ---
DATE: 10/23/2017 PULMONARY PROGRESS NOTE SUBJECTIVE: The patient is feeling better, resting comfortably in bed. No real cough. Occasionally, clearing her throat of secretions. PHYSICAL EXAMINATION: GENERAL: Resting comfortably. VITAL SIGNS: Stable, afebrile. T-max 98, blood pressure 160/80, respiratory rate 16, O2 sat 93% on room air. HEENT: Normocephalic, atraumatic. No jugular venous distention. No bruit. No mass. CARDIOVASCULAR: Regular rhythm. S1, S2 with a soft systolic ejection murmur. No gallop or rub. LUNGS: Breath sounds are distant, prolonged expiratory phase. No wheezing or rales appreciated. ABDOMEN: Soft. Bowel sounds normoactive without mass, guarding, rebound or organomegaly. EXTREMITIES: Reveal no clubbing, cyanosis or edema. There is no Homans' sign. SKIN: No rash or excoriation. NEUROLOGIC: No focal findings. The patient's mental status appears normal, but she is resting in bed, not desiring to talk too much. The patient's is in the bedside and offers no additional information. CLINICAL IMPRESSION: 1. Generalized weakness going down. 2. Chronic obstructive pulmonary disease, which is stable, on inhaled medications. 3. Status post acute bronchospasm. 4. Atrial fibrillation. PLAN: Continue the same medications, she should do well unless other manifestations develop. She should be able to be discharge shortly. She should be followed as an outpatient with Pulmonology. Thank you for the opportunity to evaluate this patient. Gage Herrera MD [facility]
[2017-10-23 14:13] VITALS: BP 140/69; PULSE 95
--- NOTE | 2017-10-23 19:59 | CP.PCM.DIS ---
<Yariel Randhawa - Last Filed: 10/23/17 19:53> Provider - Provider Date of Admission: 10/19/17 08:58 Attending physician: Natalie Vazquez MD Primary care physician: Peter Kyle MD Consults: Ortho: Mastromonaco Psych: G[place]ol[place] Pulm: Currypman Cardio: Negrete Time Spent in preparation of Discharge (in minutes): 45 Diagnosis - Discharge Diagnosis (1) UTI (urinary tract infection) Status: Acute (2) Back pain Status: Acute (3) Impaired ambulation Status: Acute (4) Personal history of DVT (deep vein thrombosis) Status: Acute Hospital Course - Lab Results Lab Results: Most Recent Lab Values WBC 8.7 10^3/ul (4.5-11.0) 10/22/17 07:15 RBC 4.18 10^6/uL (3.5-6.1) 10/22/17 07:15 Hgb 12.8 g/dL (12.0-16.0) 10/22/17 07:15 Hct 40.1 % (36.0-48.0) 10/22/17 07:15 MCV 95.9 fl (80.0-105.0) 10/22/17 07:15 MCH 30.6 pg (25.0-35.0) 10/22/17 07:15 MCHC 31.9 g/dl (31.0-37.0) 10/22/17 07:15 RDW 13.7 % (11.5-14.5) 10/22/17 07:15 Plt Count 130 10^3/uL (120.0-450.0) 10/22/17 07:15 MPV 12.2 fl (7.0-11.0) H 10/22/17 07:15 Gran % 71.2 % (50.0-68.0) H 10/22/17 07:15 Lymph % (Auto) 17.2 % (22.0-35.0) L 10/22/17 07:15 [place] % (Auto) 11.6 % (1.0-6.0) H 10/22/17 07:15 Eos % (Auto) 0.0 % (1.5-5.0) L 10/22/17 07:15 Baso % (Auto) 0.0 % (0.0-3.0) 10/22/17 07:15 Gran # 6.20 (1.4-6.5) 10/22/17 07:15 Lymph # 1.5 (1.2-3.4) 10/22/17 07:15 Lagrange # 1.0 (0.1-0.6) H 10/22/17 07:15 Eos # 0.0 (0.0-0.7) 10/22/17 07:15 Baso # 0.00 K/mm3 (0.0-2.0) 10/22/17 07:15 PT 11.8 SECONDS (9.4-12.5) 10/17/17 14:00 INR 1.03 (0.93-1.08) 10/17/17 14:00 APTT 26.1 Seconds (25.1-36.5) 10/17/17 14:00 D-Dimer, Quantitative 452 ng/mL (0-243) H 10/17/17 14:00 pCO2 41 mm/Hg (35-45) 10/17/17 13:40 pO2 54.0 mm/Hg (80-100) L 10/17/17 13:40 HCO3 28.5 mmol/L (21-28) H 10/17/17 13:40 ABG pH 7.45 (7.35-7.45) 10/17/17 13:40 ABG Total CO2 29.8 mmol.L (22-28) H 10/17/17 13:40 ABG O2 Saturation 92.6 % (95-98) L 10/17/17 13:40 ABG O2 Content 17.3 ML/dl (15-23) 10/17/17 13:40 ABG Base Excess 4.1 mmol/L (-2.0-3.0) H 10/17/17 13:40 ABG Hemoglobin 13.6 g/dL (11.7-17.4) 10/17/17 13:40 ABG Carboxyhemoglobin 1.6 % (0.5-1.5) H 10/17/17 13:40 POC ABG HHb (Measured) 7.2 % (0-5) H 10/17/17 13:40 ABG Methemoglobin 0.8 % (0.0-3.0) 10/17/17 13:40 ABG O2 Capacity 18.7 mL/dl (16-24) 10/17/17 13:40 Hgb O2 Saturation 90.4 % (95.0-98.0) L 10/17/17 13:40 FiO2 21.0 % 10/17/17 13:40 Sodium 142 mmol/L (132-148) 10/22/17 07:15 Potassium 4.2 mmol/L (3.6-5.0) 10/22/17 07:15 Chloride 105 mmol/L (98-107) 10/22/17 07:15 Carbon Dioxide 30 mmol/L (21-33) 10/22/17 07:15 Anion Gap 11 (10-20) 10/22/17 07:15 BUN 24 mg/dL (7-21) H 10/22/17 07:15 Creatinine 0.9 mg/dl (0.7-1.2) 10/22/17 07:15 Est GFR ( Amer) > 60 10/22/17 07:15 Est GFR (Non-Af Amer) 59 10/22/17 07:15 Random Glucose 95 mg/dL (70-110) 10/22/17 07:15 Calcium 9.4 mg/dL (8.4-10.5) 10/22/17 07:15 Phosphorus 3.5 mg/dL (2.5-4.5) 10/18/17 06:45 Magnesium 2.0 mg/dL (1.7-2.2) 10/18/17 06:45 Total Bilirubin 0.5 mg/dL (0.2-1.3) 10/21/17 07:00 AST 33 U/L (14-36) 10/21/17 07:00 ALT 53 U/L (7-56) 10/21/17 07:00 Alkaline Phosphatase 65 U/L (38-126) 10/21/17 07:00 Lactate Dehydrogenase 479 U/L (333-699) 10/17/17 14:00 Total Creatine Kinase 29 U/L (35-230) L 10/17/17 14:00 Troponin I 0.02 ng/mL D 10/17/17 14:00 NT-Pro-B Natriuret Pep 797 pg/mL (0-450) H 10/17/17 14:00 Total Protein 6.8 g/dL (5.8-8.3) 10/21/17 07:00 Albumin 3.6 g/dL (3.0-4.8) 10/21/17 07:00 Globulin 3.2 gm/dL 10/21/17 07:00 Albumin/Globulin Ratio 1.1 (1.1-1.8) 10/21/17 07:00 Urine Color Straw (YELLOW) 10/17/17 18:50 Urine Appearance Cloudy (CLEAR) 10/17/17 18:50 Urine pH 6.0 (4.7-8.0) 10/17/17 18:50 Ur Specific [place] 1.010 (1.005-1.035) 10/17/17 18:50 Urine Protein Negative mg/dL (<30 mg/dL) 10/17/17 18:50 Urine Glucose (UA) Negative mg/dL (NEGATIVE) 10/17/17 18:50 Urine Ketones Negative mg/dL (NEGATIVE) 10/17/17 18:50 Urine Blood Small (NEGATIVE) H 10/17/17 18:50 Urine Nitrate Negative (NEGATIVE) 10/17/17 18:50 Urine Bilirubin Negative (NEGATIVE) 10/17/17 18:50 Urine Urobilinogen 0.2 E.U./dL (<1 E.U./dL) 10/17/17 18:50 Ur Leukocyte Esterase Moderate Jordan/uL (NEGATIVE) H 10/17/17 18:50 Urine RBC Tntc /hpf (0-2) 10/17/17 18:50 Urine WBC 20 - 25 /hpf (0-6) 10/17/17 18:50 Ur Epithelial Cells 10 - 12 /hpf (0-5) 10/17/17 18:50 Urine Bacteria Mod (NEG) 10/17/17 18:50 WBC Casts 0 - 2 /hpf (NONE) H 10/17/17 18:50 Influenza Typ A,B (EIA) Negative for flu a/b (NEGATIVE) 10/17/17 16:50 - Hospital Course Hospital Course: 87 year old female with past medical history of COPD, Afib not on anticoagulation, OA, pseudogout, depression presented to the ED with several days of progressive weakness/pain in the legs bilaterally. Patient was seen by ortho who administered a steroid injection and recommended physical therapy for strengthening. Weakness and pain was deteremined to be secondary to progressive osteoarthritis. During her hospitalization, patient was also continued on her home treatment for COPD, atrial fibrillation, HTN, and depression. She was also noted to have a UTI and was started on antibiotics for that. Today, patient feels well overall. Still has some weakness and difficulty with ambulation. Denies fever or chills, chest pain, shortness of breath. She has been discharged to the TCU for further rehabiliation of weakness and difficulty with ambulation. Discharge Exam - Head Exam Head Exam: ATRAUMATIC, NORMAL INSPECTION, NORMOCEPHALIC - Eye Exam Eye Exam: EOMI, Normal appearance, PERRL - ENT Exam ENT Exam: Mucous Membranes Moist - Neck Exam Neck exam: Normal Inspection - Respiratory Exam Respiratory Exam: Clear to PA & Lateral, NORMAL BREATHING PATTERN - Cardiovascular Exam Cardiovascular Exam: Irregular Rhythm, +S1, +S2. absent: Tachycardia - GI/Abdominal Exam GI & Abdominal Exam: Normal Bowel Sounds, Soft. absent: Tenderness - Extremities Exam Extremities exam: normal inspection, pedal edema - Neurological Exam Neurological exam: Alert, Oriented x3 - Psychiatric Exam Psychiatric exam: Normal Affect, Normal Mood - Skin Skin Exam: Dry, Intact Discharge Plan - Follow Up Plan Condition: FAIR Disposition: REHAB FACILITY/REHAB UNIT Instructions: Pneumococcal Vaccine for Adults (DC), Heart Healthy Diet (DC), Influenza Vaccine (GEN), Weakness (GEN) Additional Instructions: Patient being discharged to TCU for rehabilitation of weakness Referrals: Peter Kyle MD [Primary Care Provider] - <Natalie Vazquez - Last Filed: 10/24/17 13:40> Provider - Provider Date of Admission: 10/19/17 08:58 Attending physician: Natalie Vazquez MD Primary care physician: Peter Kyle MD Hospital Course - Lab Results Lab Results: Most Recent Lab Values WBC 8.7 10^3/ul (4.5-11.0) 10/22/17 07:15 RBC 4.18 10^6/uL (3.5-6.1) 10/22/17 07:15 Hgb 12.8 g/dL (12.0-16.0) 10/22/17 07:15 Hct 40.1 % (36.0-48.0) 10/22/17 07:15 MCV 95.9 fl (80.0-105.0) 10/22/17 07:15 MCH 30.6 pg (25.0-35.0) 10/22/17 07:15 MCHC 31.9 g/dl (31.0-37.0) 10/22/17 07:15 RDW 13.7 % (11.5-14.5) 10/22/17 07:15 Plt Count 130 10^3/uL (120.0-450.0) 10/22/17 07:15 MPV 12.2 fl (7.0-11.0) H 10/22/17 07:15 Gran % 71.2 % (50.0-68.0) H 10/22/17 07:15 Lymph % (Auto) 17.2 % (22.0-35.0) L 10/22/17 07:15 Lagrange % (Auto) 11.6 % (1.0-6.0) H 10/22/17 07:15 Eos % (Auto) 0.0 % (1.5-5.0) L 10/22/17 07:15 Baso % (Auto) 0.0 % (0.0-3.0) 10/22/17 07:15 Gran # 6.20 (1.4-6.5) 10/22/17 07:15 Lymph # 1.5 (1.2-3.4) 10/22/17 07:15 Lagrange # 1.0 (0.1-0.6) H 10/22/17 07:15 Eos # 0.0 (0.0-0.7) 10/22/17 07:15 Baso # 0.00 K/mm3 (0.0-2.0) 10/22/17 07:15 PT 11.8 SECONDS (9.4-12.5) 10/17/17 14:00 INR 1.03 (0.93-1.08) 10/17/17 14:00 APTT 26.1 Seconds (25.1-36.5) 10/17/17 14:00 D-Dimer, Quantitative 452 ng/mL (0-243) H 10/17/17 14:00 pCO2 41 mm/Hg (35-45) 10/17/17 13:40 pO2 54.0 mm/Hg (80-100) L 10/17/17 13:40 HCO3 28.5 mmol/L (21-28) H 10/17/17 13:40 ABG pH 7.45 (7.35-7.45) 10/17/17 13:40 ABG Total CO2 29.8 mmol.L (22-28) H 10/17/17 13:40 ABG O2 Saturation 92.6 % (95-98) L 10/17/17 13:40 ABG O2 Content 17.3 ML/dl (15-23) 10/17/17 13:40 ABG Base Excess 4.1 mmol/L (-2.0-3.0) H 10/17/17 13:40 ABG Hemoglobin 13.6 g/dL (11.7-17.4) 10/17/17 13:40 ABG Carboxyhemoglobin 1.6 % (0.5-1.5) H 10/17/17 13:40 POC ABG HHb (Measured) 7.2 % (0-5) H 10/17/17 13:40 ABG Methemoglobin 0.8 % (0.0-3.0) 10/17/17 13:40 ABG O2 Capacity 18.7 mL/dl (16-24) 10/17/17 13:40 Hgb O2 Saturation 90.4 % (95.0-98.0) L 10/17/17 13:40 FiO2 21.0 % 10/17/17 13:40 Sodium 142 mmol/L (132-148) 10/22/17 07:15 Potassium 4.2 mmol/L (3.6-5.0) 10/22/17 07:15 Chloride 105 mmol/L (98-107) 10/22/17 07:15 Carbon Dioxide 30 mmol/L (21-33) 10/22/17 07:15 Anion Gap 11 (10-20) 10/22/17 07:15 BUN 24 mg/dL (7-21) H 10/22/17 07:15 Creatinine 0.9 mg/dl (0.7-1.2) 10/22/17 07:15 Est GFR ( Amer) > 60 10/22/17 07:15 Est GFR (Non-Af Amer) 59 10/22/17 07:15 Random Glucose 95 mg/dL (70-110) 10/22/17 07:15 Calcium 9.4 mg/dL (8.4-10.5) 10/22/17 07:15 Phosphorus 3.5 mg/dL (2.5-4.5) 10/18/17 06:45 Magnesium 2.0 mg/dL (1.7-2.2) 10/18/17 06:45 Total Bilirubin 0.5 mg/dL (0.2-1.3) 10/21/17 07:00 AST 33 U/L (14-36) 10/21/17 07:00 ALT 53 U/L (7-56) 10/21/17 07:00 Alkaline Phosphatase 65 U/L (38-126) 10/21/17 07:00 Lactate Dehydrogenase 479 U/L (333-699) 10/17/17 14:00 Total Creatine Kinase 29 U/L (35-230) L 10/17/17 14:00 Troponin I 0.02 ng/mL D 10/17/17 14:00 NT-Pro-B Natriuret Pep 797 pg/mL (0-450) H 10/17/17 14:00 Total Protein 6.8 g/dL (5.8-8.3) 10/21/17 07:00 Albumin 3.6 g/dL (3.0-4.8) 10/21/17 07:00 Globulin 3.2 gm/dL 10/21/17 07:00 Albumin/Globulin Ratio 1.1 (1.1-1.8) 10/21/17 07:00 Urine Color Straw (YELLOW) 10/17/17 18:50 Urine Appearance Cloudy (CLEAR) 10/17/17 18:50 Urine pH 6.0 (4.7-8.0) 10/17/17 18:50 Ur Specific [place] 1.010 (1.005-1.035) 10/17/17 18:50 Urine Protein Negative mg/dL (<30 mg/dL) 10/17/17 18:50 Urine Glucose (UA) Negative mg/dL (NEGATIVE) 10/17/17 18:50 Urine Ketones Negative mg/dL (NEGATIVE) 10/17/17 18:50 Urine Blood Small (NEGATIVE) H 10/17/17 18:50 Urine Nitrate Negative (NEGATIVE) 01/14/18 18:50 Urine Bilirubin Negative (NEGATIVE) 10/17/17 18:50 Urine Urobilinogen 0.2 E.U./dL (<1 E.U./dL) 10/17/17 18:50 Ur Leukocyte Esterase Moderate Jordan/uL (NEGATIVE) H 10/17/17 18:50 Urine RBC Tntc /hpf (0-2) 10/17/17 18:50 Urine WBC 20 - 25 /hpf (0-6) 10/17/17 18:50 Ur Epithelial Cells 10 - 12 /hpf (0-5) 10/17/17 18:50 Urine Bacteria Mod (NEG) 10/17/17 18:50 WBC Casts 0 - 2 /hpf (NONE) H 10/17/17 18:50 Influenza Typ A,B (EIA) Negative for flu a/b (NEGATIVE) 10/17/17 16:50 Attending/Attestation - Attestation I have personally seen and examined this patient.: Yes I have fully participated in the care of the patient.: Yes I have reviewed all pertinent clinical information, including history, physical exam and plan: Yes Notes (Text): I have seen and examined the patient at bedside. Agree with the above note with the following additions/ exceptions: Briefly this is 87 year old female with history of COPD, osteoarthritis, obesity, pseudogout, depression who initially was admitted for evaluation of gait instability secondary to moderate to severe right knee osteoarthritis. She was given steroid injection at the right knee. Pain has improved. Patient denies any other complaints. Continue short steroid course. Continue levaquin for UTI. Patient will be going to [facility] for rehabilitation. Upon discharge the patient will follow-up with PMD . Dr Natalie Vazquez
== END 2017-10-23 18:53 | DRG 554 ==
LOC: ED 12:47 → ERH 16:28 → 5RSO 22:45 → OBSVTOIN 10-19 08:58
PROVIDERS: ADMIT Internal Medicine; ATTEND Hospitalist
DX: M11.262 Other chondrocalcinosis, left knee (principal); I48.2 Chronic atrial fibrillation; J44.9 Chronic obstructive pulmonary disease, unspecified; N39.0 Urinary tract infection, site not specified; I10 Essential (primary) hypertension; J06.9 Acute upper respiratory infection, unspecified; J98.01 Acute bronchospasm; M17.0 Bilateral primary osteoarthritis of knee; E66.9 Obesity, unspecified; F31.9 Bipolar disorder, unspecified; F41.8 Other specified anxiety disorders; H91.90 Unspecified hearing loss, unspecified ear; B96.20 Unspecified Escherichia coli [E. coli] as the cause of diseases classified elsewhere; Z79.82 Long term (current) use of aspirin; Z79.899 Other long term (current) drug therapy; Z86.711 Personal history of pulmonary embolism; Z86.718 Personal history of other venous thrombosis and embolism; Z86.72 Personal history of thrombophlebitis; Z87.891 Personal history of nicotine dependence; Z90.710 Acquired absence of both cervix and uterus; Z88.0 Allergy status to penicillin; Z87.892 Personal history of anaphylaxis; Z91.041 Radiographic dye allergy status; R40.2412 Glasgow coma scale score 13-15, at arrival to emergency department; Z98.42 Cataract extraction status, left eye; Z98.41 Cataract extraction status, right eye

== ENCOUNTER 2017-10-23 18:56 | Inpatient (IN) | payer OTHER ==
[2017-10-23] MEDS ORDERED: Simethicone 80 mg Chewtab PO PRN (19:19)
[2017-10-23] MEDS ORDERED: Levalbuterol 0.63 MG/3 ML Inhal Soln UD IH PRN (19:29)
[2017-10-23] MEDS: Budesonide 0.5 mg/2 ml Inhal Susp UD IH SCH (20:30)
[2017-10-23] MEDS: Arformoterol 15 mcg/2 ml Inh Sol IH SCH (20:30)
[2017-10-23] MEDS: Levalbuterol 0.63 MG/3 ML Inhal Soln UD IH SCH (20:30)
[2017-10-24] MEDS: Levalbuterol 0.63 MG/3 ML Inhal Soln UD IH SCH ×4 (03:00→20:40)
[2017-10-24] MEDS: Pantoprazole 20 mg EC Tab PO SCH (06:06)
[2017-10-24] MEDS ORDERED: Pantoprazole 20 mg EC Tab PO SCH (07:30)
[2017-10-24] MEDS: Arformoterol 15 mcg/2 ml Inh Sol IH SCH ×2 (07:36→20:40)
[2017-10-24] MEDS: Budesonide 0.5 mg/2 ml Inhal Susp UD IH SCH ×2 (07:36→20:40)
[2017-10-24] MEDS: Venlafaxine 75 mg ER Cap PO SCH ×2 (09:35→18:10)
--- NOTE | 2017-10-24 11:59 | CP.PCM.HP ---
<Yariel Randhawa - Last Filed: 10/24/17 13:32> History of Present Illness - History of Present Illness History of Present Illness: Yannickjuliet Sydnee DO PGY1 - Internal Medicine H&P CC: Difficulty with ambulation HPI: 87 year old female with past medical history of COPD, Afib not on anticoagulation, OA, pseudogout, depression presented to the ED with several days of progressive weakness/pain in the legs bilaterally. Patient was seen by ortho who administered a steroid injection and recommended physical therapy for strengthening. Weakness and pain was deteremined to be secondary to progressive osteoarthritis. During her hospitalization, patient was also continued on her home treatment for COPD, atrial fibrillation, HTN, and depression. She was also noted to have a UTI and was started on antibiotics for that. She has been transferred to TCU further further rehabilitation of weakness and difficulty with ambulation. Today, she has no particular complaints. She reports some improvement in her leg pain. She has not yet worked with PT since coming to the TCU. She denies fever or chills, chest pain, shortness of breath, nausea, vomiting, diarrhea, constipation, abdominal pain, palpitations, dysuria, hematuria. 12 point ROS was obtained as was negative except as above. PMH:COPD, Afib not on anticoagulation, OA, pseudogout, depression PSH: Appendix removal Allergies: Iodinated contrast-oral and IV dye, Penicillins Medications: See MAR Family: non contributory social: denies alcohol or illicit drug use, denies previous history of ETOH abuse, cigarets 50 years ago PMD: Mutterperl Cardio: Negrete Pulm: Karpman Ortho: Mastromonaco Present on Admission - Present on Admission Any Indicators Present on Admission: No Past Patient History - Infectious Disease Hx of Infectious Diseases: None - Tetanus Immunizations Tetanus Immunization: Unknown - Past Social History Smoking Status: Former Smoker - CARDIAC Hx Cardiac Disorders: Yes Hx Hypertension: Yes - PULMONARY Hx Chronic Obstructive Pulmonary Disease (COPD): Yes - NEUROLOGICAL Hx Neurological Disorder: Yes - HEENT Hx HEENT Problems: Yes (WEARS RX GLASSES) Hx Cataracts: Yes (BILATERAL SURGERY) Hx Deafness: Yes - RENAL Hx Chronic Kidney Disease: No - ENDOCRINE/METABOLIC Hx Endocrine Disorders: No - HEMATOLOGICAL/ONCOLOGICAL Hx 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) - INTEGUMENTARY Hx Dermatological Problems: No - MUSCULOSKELETAL/RHEUMATOLOGICAL Hx Falls: No - GASTROINTESTINAL Hx Gastrointestinal Disorders: No - GENITOURINARY/GYNECOLOGICAL Hx Genitourinary Disorders: Yes Hx Incontinence: Yes - PSYCHIATRIC Hx Substance Use: No - SURGICAL HISTORY Hx Hysterectomy: Yes Meds Allergies/Adverse Reactions: Allergies Allergy/AdvReac Type Severity Reaction Status Date / Time Iodinated Contrast- Oral and Allergy ANAPHYLAXIS Verified 10/25/17 20:59 IV Dye [Iodinated Contrast Media - Oral and] Penicillins Allergy ANAPHYLAXIS Verified 10/25/17 20:59 Physical Exam - Constitutional Appears: Non-toxic, No Acute Distress - Head Exam Head Exam: ATRAUMATIC, NORMOCEPHALIC - Eye Exam Eye Exam: EOMI, Normal appearance, PERRL - ENT Exam ENT Exam: Mucous Membranes Moist, Normal Exam - Neck Exam Neck exam: Positive for: Normal Inspection - Respiratory Exam Respiratory Exam: Clear to Auscultation Bilateral, NORMAL BREATHING PATTERN - Cardiovascular Exam Cardiovascular Exam: Irregular Rhythm, +S1, +S2. absent: Tachycardia - GI/Abdominal Exam GI & Abdominal Exam: Normal Bowel Sounds, Soft. absent: Tenderness - Extremities Exam Extremities exam: Negative for: calf tenderness, pedal edema Additional comments: Right knee with dressing in place s/p intraarticular steroid injection. Passive ROM full. - Back Exam Back exam: absent: CVA tenderness (L), CVA tenderness (R) - Neurological Exam Neurological exam: Alert, Oriented x3 - Psychiatric Exam Psychiatric exam: Normal Affect, Normal Mood - Skin Skin Exam: Dry, Intact, Normal Color Results - Vital Signs Recent Vital Signs: Last Vital Signs Temp 98.1 F 10/24/17 06:00 Pulse 80 10/24/17 06:00 Resp 20 10/24/17 06:00 BP 138/75 10/24/17 09:36 Pulse Ox 92 L 10/24/17 06:00 - Labs Result Diagrams: 10/24/17 11:50 10/24/17 11:50 Assessment & Plan - Assessment and Plan (Free Text) Assessment: 87 year old female with past medical history of COPD, Afib not on anticoagulation, OA, pseudogout, depression presented to the ED with several days of progressive weakness/pain in the legs bilaterally. Admitted to TCU for rehabilitation of weakness and difficulty with ambulation Plan: 1. Bilateral Leg Weakness 2/2 b/l OA and calcium deposition disease - Continue PT while in TCU - s/p steroid injection with significant improvement in pain 2. UTI - Continue Macrobid - monitor for symptoms - Mylicon PRN gas 3. Afib-chronic, rate controlled - Continue home Aspirin 4. COPD - Pulmicort - Prednisone 30mg PO; decrease by 5 mg PO each day - oxygen as needed - xopenex breathing treatments 5. HTN - continue norvasc 10mg 6. Depression - continue home effexor 7. OA -continue home calcium carbonate DVT/GI Prophylaxis -Protonix -SCD The patient was seen, examined and discussed with attending, Dr. Vazquez <Natalie Vazquez B - Last Filed: 11/01/17 14:27> Results - Vital Signs Recent Vital Signs: Last Vital Signs Temp 97.7 F 10/30/17 10:00 Pulse 78 10/31/17 11:00 Resp 20 10/30/17 10:00 BP 138/73 10/31/17 11:00 Pulse Ox 92 L 10/30/17 10:00 - Labs Result Diagrams: 10/30/17 06:30 10/30/17 06:30 Attending/Attestation - Attestation I have personally seen and examined this patient.: Yes I have fully participated in the care of the patient.: Yes I have reviewed all pertinent clinical information: Yes Notes (Text): I have seen and examined the patient at bedside. Agree with the above note with the following additions/ exceptions: Briefly this is 87 year old female with history of COPD, osteoarthritis, obesity, pseudogout, depression who initially was admitted for evaluation of gait instability secondary to moderate to severe right knee osteoarthritis. She was given steroid injection at the right knee. Pain has improved. Patient denies any other complaints. Continue short steroid course. Continue levaquin for UTI. Patient is transferred to TCU for rehabilitation. Upon discharge the patient will follow-up with PMD . Dr Natalie Vazquez
[2017-10-24 12:08] LABS: GRAN # 11.11 (1.4-6.5); GRAN % 88.7 % (50.0-68.0); HEMOGLOBIN 12.9 g/dL (12.0-16.0); LYMPH # 0.9 (1.2-3.4); LYMPH % 7.5 % (22.0-35.0); MEAN CELL VOLUME 96.5 fl (80.0-105.0); MEAN CORPUSCULAR HEMOGLOBIN 30.5 pg (25.0-35.0); MEAN CORPUSCULAR HGB CONC 31.6 g/dl (31.0-37.0); MEAN PLATELET VOLUME 11.7 fl (7.0-11.0); MONO # 0.5 (0.1-0.6); MONO % 3.8 % (1.0-6.0); RBC 4.23 10^6/uL (3.5-6.1); RED CELL DISTRIBUTION WIDTH 13.7 % (11.5-14.5); WHITE BLOOD COUNT 12.5 10^3/ul (4.5-11.0)
[2017-10-24 12:54] LABS: ALB/GLOB RATIO 1.2 (1.1-1.8); ALBUMIN 3.8 g/dL (3.0-4.8); ALT/SGPT 44 U/L (7-56); AST/SGOT 26 U/L (14-36); BLOOD UREA NITROGEN 21 mg/dL (7-21); GFR AFRICAN-AMERICAN > 60; GFR NON-AFRICAN AMERICAN 59
[2017-10-25] MEDS: Levalbuterol 0.63 MG/3 ML Inhal Soln UD IH SCH ×4 (02:32→20:29)
[2017-10-25] MEDS: Pantoprazole 20 mg EC Tab PO SCH (05:34)
[2017-10-25] MEDS: Budesonide 0.5 mg/2 ml Inhal Susp UD IH SCH ×2 (07:42→20:29)
[2017-10-25] MEDS: Arformoterol 15 mcg/2 ml Inh Sol IH SCH ×2 (07:42→20:29)
[2017-10-25] MEDS: Venlafaxine 75 mg ER Cap PO SCH ×2 (11:00→18:22)
[2017-10-26] MEDS: Levalbuterol 0.63 MG/3 ML Inhal Soln UD IH SCH ×3 (03:30→21:35)
[2017-10-26] MEDS: Pantoprazole 20 mg EC Tab PO SCH (05:56)
[2017-10-26 07:21] LABS: ALB/GLOB RATIO 1.1 (1.1-1.8); ALBUMIN 3.5 g/dL (3.0-4.8); ALT/SGPT 38 U/L (7-56); AST/SGOT 28 U/L (14-36); BLOOD UREA NITROGEN 19 mg/dL (7-21); CALCIUM 9.4 mg/dL (8.4-10.5); GFR AFRICAN-AMERICAN > 60; GFR NON-AFRICAN AMERICAN > 60
[2017-10-26 07:32] LABS: BASO # 0.01 K/mm3 (0.0-2.0); BASO % 0.1 % (0.0-3.0); GRAN # 5.45 (1.4-6.5); GRAN % 69.3 % (50.0-68.0); HEMOGLOBIN 12.1 g/dL (12.0-16.0); LYMPH # 1.7 (1.2-3.4); LYMPH % 22.1 % (22.0-35.0); MEAN CELL VOLUME 94.9 fl (80.0-105.0); MEAN CORPUSCULAR HEMOGLOBIN 30.6 pg (25.0-35.0); MEAN CORPUSCULAR HGB CONC 32.3 g/dl (31.0-37.0); MEAN PLATELET VOLUME 12.1 fl (7.0-11.0); MONO # 0.7 (0.1-0.6); MONO % 8.5 % (1.0-6.0); RBC 3.95 10^6/uL (3.5-6.1); RED CELL DISTRIBUTION WIDTH 13.5 % (11.5-14.5); WHITE BLOOD COUNT 7.9 10^3/ul (4.5-11.0)
[2017-10-26] MEDS: Budesonide 0.5 mg/2 ml Inhal Susp UD IH SCH ×2 (08:50→21:35)
[2017-10-26] MEDS: Arformoterol 15 mcg/2 ml Inh Sol IH SCH ×2 (08:50→21:35)
[2017-10-26] MEDS: Venlafaxine 75 mg ER Cap PO SCH ×2 (09:20→17:44)
--- NOTE | 2017-10-26 15:32 | CP.PCM.PN ---
<Horacio Narayanan - Last Filed: 10/26/17 15:29> Subjective - Date & Time of Evaluation Date of Evaluation: 10/26/17 Time of Evaluation: 10:29 - Subjective Subjective: Horacio Narayanan PGY 1 IM Progress Note Patient was seen and examined at bedside in TCU. Patient is comfortable and offers no acute overnight events. Patient denies chest pain, shortness of breath , fevers/chills, worsening leg edema, weakness, urinary/bowel habit changes. Objective - Vital Signs/Intake and Output Vital Signs (last 24 hours): Temp Pulse Resp BP Pulse Ox 97.8 F 79 18 164/74 H 95 10/25/17 10:00 10/26/17 09:23 10/25/17 10:00 10/26/17 09:23 10/25/17 05:37 - Medications Medications: Current Medications Amlodipine Besylate (Norvasc) 10 mg PO DAILY LISET PRN Reason: Protocol Last Admin: 10/26/17 09:23 Dose: 10 mg Arformoterol Tartrate (Brovana) 15 mcg IH [id number] LISET Last Admin: 10/26/17 08:50 Dose: 15 mcg Aspirin (Ecotrin) 81 mg PO 0800 LISET PRN Reason: Protocol Last Admin: 10/26/17 08:54 Dose: 81 mg Budesonide (Pulmicort Respules) 0.5 mg IH [id number] LISET PRN Reason: Protocol Last Admin: 10/26/17 08:50 Dose: 0.5 mg Calcium Carbonate (Caltrate) 600 mg PO DAILY LISET PRN Reason: Protocol Last Admin: 10/26/17 09:19 Dose: 600 mg Home Med (Home Med) 1 unit PO DAILY LISET PRN Reason: Protocol Last Admin: 10/26/17 09:22 Dose: 1 unit Levalbuterol HCl (Xopenex) 0.63 mg IH [id number] LISET PRN Reason: Protocol Last Admin: 10/26/17 08:50 Dose: 0.63 mg Levalbuterol HCl (Xopenex) 0.63 mg IH Q2H PRN; Protocol PRN Reason: Shortness of Breath Last Admin: 10/26/17 13:10 Dose: 0.63 mg Lisinopril (Zestril) 10 mg PO DAILY LISET PRN Reason: Protocol Last Admin: 10/26/17 09:23 Dose: 10 mg Lorazepam (Ativan) 0.5 mg PO HS LISET PRN Reason: Protocol Last Admin: 10/25/17 21:25 Dose: 0.5 mg Pantoprazole Sodium (Protonix Ec Tab) 20 mg PO 0600 [facility] PRN Reason: Protocol Last Admin: 10/26/17 05:56 Dose: 20 mg Prednisone (Prednisone Tab) 30 mg PO 0800 [facility] PRN Reason: Protocol Simethicone (Mylicon Chew Tab) 80 mg PO [facility] PRN; Protocol PRN Reason: GI distress Trimethoprim/Sulfamethoxazole (Bactrim Ds Tab) 1 tab PO 0800,2000 [facility] Stop: 10/28/17 08:01 Venlafaxine HCl (Effexor Xr) 75 mg PO 0800,1800 [facility] PRN Reason: Protocol Zolpidem Tartrate (Ambien) 5 mg PO HS PRN; Protocol PRN Reason: Insomnia Last Admin: 10/25/17 21:25 Dose: 5 mg - Labs Labs: 10/26/17 06:20 10/26/17 06:20 - Additional Findings Additional findings: - Constitutional Appears: Well, Non-toxic, No Acute Distress - Head Exam Head Exam: NORMAL INSPECTION - Eye Exam Eye Exam: EOMI, Normal appearance, PERRL - ENT Exam ENT Exam: Mucous Membranes Moist - Neck Exam Neck Exam: Normal Inspection - Respiratory Exam Respiratory Exam: Clear to Ausculation Bilateral, NORMAL BREATHING PATTERN - Cardiovascular Exam Cardiovascular Exam: RRR, +S1, +S2 - GI/Abdominal Exam GI & Abdominal Exam: Soft, Normal Bowel Sounds. absent: Distended, Tenderness - Extremities Exam Extremities Exam: Normal Inspection, Full ROM. absent: Joint Swelling, Pedal Edema - Back Exam Back Exam: NORMAL INSPECTION - Neurological Exam Neurological Exam: Alert, Awake, Oriented x3 Additional comments: - Psychiatric Exam Psychiatric exam: Normal Affect, Normal Mood - Skin Skin Exam: Normal Color, Warm Assessment and Plan - Assessment and Plan (Free Text) Assessment: 87 year old female with past medical history of COPD, Afib not on anticoagulation, OA, pseudogout, depression presented to the ED with several days of progressive weakness/pain in the legs bilaterally. Admitted to TCU for rehabilitation of weakness and difficulty with ambulation Plan: 1. Bilateral Leg Weakness 2/2 b/l OA and calcium deposition disease - Continue PT while in TCU - s/p steroid injection with significant improvement in pain 2. UTI - Continue Bactrim - cont monitor for symptoms, improving - Mylicon PRN gas 3. Afib-chronic, rate controlled - Continue home Aspirin 4. COPD - Pulmicort, Brovana, - Prednisone 25mg PO; decrease by 5 mg PO each day - oxygen as needed - xopenex breathing treatments 5. HTN - continue norvasc 10mg and Lisinopril 10mg 6. Depression - continue home effexor - Ambien HS for sleep 7. OA -continue home calcium carbonate DVT/GI Prophylaxis -Protonix -SCD The patient was seen, examined and discussed with attending, Dr. Taylor Narayanan PGY1 <Natalie Vazquez - Last Filed: 11/01/17 14:32> Objective - Vital Signs/Intake and Output Vital Signs (last 24 hours): Temp Pulse Resp BP Pulse Ox 97.7 F 78 20 138/73 92 L 10/30/17 10:00 10/31/17 11:00 10/30/17 10:00 10/31/17 11:00 10/30/17 10:00 - Labs Labs: 10/30/17 06:30 10/30/17 06:30 Attending/Attestation - Attestation I have personally seen and examined this patient.: Yes I have fully participated in the care of the patient.: Yes I have reviewed all pertinent clinical information, including history, physical exam and plan: Yes Notes (Text): I have seen and examined the patient at bedside. Agree with the above note with the following additions/ exceptions: Briefly this is 87 year old female with history of COPD, osteoarthritis, obesity, pseudogout, depression who initially was admitted for evaluation of gait instability secondary to moderate to severe right knee osteoarthritis. She was given steroid injection at the right knee. Pain has improved. Patient denies any other complaints. Continue short steroid course. Continue levaquin for UTI. Patient has been participating in physical therapy. Upon discharge the patient will follow-up with PMD . Dr Natalie Vazquez
[2017-10-26] MEDS: Tmp-Smz 800 mg-160 mg DS Tab PO SCH (20:02)
[2017-10-27] MEDS: Levalbuterol 0.63 MG/3 ML Inhal Soln UD IH SCH ×4 (01:47→21:00)
[2017-10-27] MEDS: Pantoprazole 20 mg EC Tab PO SCH (05:19)
[2017-10-27] MEDS: Arformoterol 15 mcg/2 ml Inh Sol IH SCH ×2 (07:45→21:00)
[2017-10-27] MEDS: Budesonide 0.5 mg/2 ml Inhal Susp UD IH SCH ×2 (07:45→21:00)
[2017-10-27] MEDS: Venlafaxine 75 mg ER Cap PO SCH ×2 (08:14→17:37)
[2017-10-27] MEDS: Tmp-Smz 800 mg-160 mg DS Tab PO SCH ×2 (10:19→20:30)
[2017-10-28] MEDS: Levalbuterol 0.63 MG/3 ML Inhal Soln UD IH SCH ×5 (02:17→20:50)
[2017-10-28] MEDS: Pantoprazole 20 mg EC Tab PO SCH (05:52)
[2017-10-28 07:33] LABS: GRAN # 5.71 (1.4-6.5); GRAN % 69.6 % (50.0-68.0); HEMOGLOBIN 11.9 g/dL (12.0-16.0); LYMPH # 1.6 (1.2-3.4); LYMPH % 19.8 % (22.0-35.0); MEAN CELL VOLUME 95.6 fl (80.0-105.0); MEAN CORPUSCULAR HEMOGLOBIN 30.7 pg (25.0-35.0); MEAN CORPUSCULAR HGB CONC 32.2 g/dl (31.0-37.0); MEAN PLATELET VOLUME 11.7 fl (7.0-11.0); MONO # 0.9 (0.1-0.6); MONO % 10.6 % (1.0-6.0); RBC 3.87 10^6/uL (3.5-6.1); RED CELL DISTRIBUTION WIDTH 13.9 % (11.5-14.5); WHITE BLOOD COUNT 8.2 10^3/ul (4.5-11.0)
[2017-10-28] MEDS: Budesonide 0.5 mg/2 ml Inhal Susp UD IH SCH ×2 (07:35→20:50)
[2017-10-28] MEDS: Arformoterol 15 mcg/2 ml Inh Sol IH SCH ×2 (07:35→20:50)
[2017-10-28 07:59] LABS: ALB/GLOB RATIO 1.1 (1.1-1.8); ALBUMIN 3.3 g/dL (3.0-4.8); ALT/SGPT 40 U/L (7-56); AST/SGOT 24 U/L (14-36); BLOOD UREA NITROGEN 17 mg/dL (7-21); CALCIUM 9.6 mg/dL (8.4-10.5); GFR AFRICAN-AMERICAN > 60; GFR NON-AFRICAN AMERICAN 52
[2017-10-28] MEDS: Tmp-Smz 800 mg-160 mg DS Tab PO SCH ×2 (08:09→17:35)
[2017-10-28] MEDS: Venlafaxine 75 mg ER Cap PO SCH ×2 (08:09→17:36)
--- NOTE | 2017-10-28 09:04 | CP.PCM.PN ---
<Horacio Narayanan - Last Filed: 10/28/17 12:23> Subjective - Date & Time of Evaluation Date of Evaluation: 10/28/17 Time of Evaluation: 08:00 - Subjective Subjective: Horacio Narayanan PGY1 IM Progress Note Patient was seen and examined bedside in TCU. Patient denies any overnight events and overall states she's feeling much better and stronger overall. In conversation with the TCU staff, they state that the patient has been desating during ambulation off O2 and that despite not being on home O2 prior to admission, she might require it on discharge. Objective - Vital Signs/Intake and Output Vital Signs (last 24 hours): Temp Pulse Resp BP Pulse Ox 97.9 F 63 16 119/72 100 10/27/17 17:46 10/27/17 17:46 10/27/17 17:46 10/27/17 17:46 10/27/17 17:46 - Medications Medications: Current Medications Amlodipine Besylate (Norvasc) 10 mg PO DAILY [facility]ISET PRN Reason: Protocol Last Admin: 10/27/17 10:20 Dose: 10 mg Arformoterol Tartrate (Brovana) 15 mcg IH [id number] LISET Last Admin: 10/28/17 07:35 Dose: 15 mcg Aspirin (Ecotrin) 81 mg PO 0800 [facility]ET PRN Reason: Protocol Last Admin: 10/27/17 08:13 Dose: 81 mg Budesonide (Pulmicort Respules) 0.5 mg IH [id number] LISET PRN Reason: Protocol Last Admin: 10/28/17 07:35 Dose: 0.5 mg Calcium Carbonate (Caltrate) 600 mg PO DAILY [facility]ISET PRN Reason: Protocol Last Admin: 10/27/17 10:19 Dose: 600 mg Home Med (Home Med) 1 unit PO DAILY LISET PRN Reason: Protocol Last Admin: 10/27/17 10:20 Dose: 1 unit Levalbuterol HCl (Xopenex) 0.63 mg IH [id number] LISET PRN Reason: Protocol Last Admin: 10/28/17 07:35 Dose: 0.63 mg Levalbuterol HCl (Xopenex) 0.63 mg IH Q2H PRN; Protocol PRN Reason: Shortness of Breath Last Admin: 10/26/17 13:10 Dose: 0.63 mg Lisinopril (Zestril) 10 mg PO DAILY LISET PRN Reason: Protocol Last Admin: 10/27/17 10:20 Dose: 10 mg Lorazepam (Ativan) 0.5 mg PO HS LISET PRN Reason: Protocol Last Admin: 10/27/17 21:38 Dose: 0.5 mg Pantoprazole Sodium (Protonix Ec Tab) 20 mg PO 0600 LISET PRN Reason: Protocol Last Admin: 10/28/17 05:52 Dose: 20 mg Prednisone (Prednisone Tab) 20 mg PO 0800 [facility] PRN Reason: Protocol Last Admin: 10/27/17 08:15 Dose: 20 mg Simethicone (Mylicon Chew Tab) [address] [facility] PRN; Protocol PRN Reason: GI distress Venlafaxine HCl (Effexor Xr) 75 mg PO 0800,1800 [facility] PRN Reason: Protocol Last Admin: 10/27/17 17:37 Dose: 75 mg Zolpidem Tartrate (Ambien) 5 mg PO HS PRN; Protocol PRN Reason: Insomnia Last Admin: 10/26/17 22:02 Dose: 5 mg - Labs Labs: 10/28/17 07:00 10/28/17 07:00 - Additional Findings Additional findings: - Constitutional Appears: Well, Non-toxic, No Acute Distress - Head Exam Head Exam: NORMAL INSPECTION - Eye Exam Eye Exam: EOMI, Normal appearance, PERRL - ENT Exam ENT Exam: Mucous Membranes Moist - Neck Exam Neck Exam: Normal Inspection - Respiratory Exam Respiratory Exam: Clear to Ausculation Bilateral, NORMAL BREATHING PATTERN (On 2L NC) - Cardiovascular Exam Cardiovascular Exam: RRR, +S1, +S2 - GI/Abdominal Exam GI & Abdominal Exam: Soft, Normal Bowel Sounds. absent: Distended, Tenderness - Extremities Exam Extremities Exam: Normal Inspection, Full ROM. absent: Joint Swelling, Pedal Edema - Back Exam Back Exam: NORMAL INSPECTION - Neurological Exam Neurological Exam: Alert, Awake, Oriented x3 Additional comments: - Psychiatric Exam Psychiatric exam: Normal Affect, Normal Mood - Skin Skin Exam: Normal Color, Warm Assessment and Plan - Assessment and Plan (Free Text) Assessment: 87 year old female with past medical history of COPD, Afib not on anticoagulation, OA, pseudogout, depression presented to the ED with several days of progressive weakness/pain in the legs bilaterally. Admitted to TCU for rehabilitation of weakness and difficulty with ambulation. Plan for discharge on 10/31/17 with home O2. Plan: 1. Deconditioning due to b/l weakness 2/2 b/l OA and calcium deposition disease - Continue PT while in TCU - s/p steroid injection with significant improvement in pain 2. Hx COPD - Pulmicort, Brovana, - Prednisone 25mg PO; decrease by 5 mg PO each day - oxygen 2L PRN - xopenex breathing treatments - Pulm consulted, recs appreciated for home O2 - SW is working on home O2 3. UTI, symptomatically improved - cont Bactrim - cont monitor - Mylicon PRN gas 4. Afib-chronic, rate controlled - Continue home Aspirin 5. HTN - continue norvasc 10mg and Lisinopril 10mg 6. Depression - continue home effexor - Ambien HS for sleep 7. OA -continue home calcium carbonate DVT/GI Prophylaxis -Protonix -SCD The patient was seen, examined and discussed with attending, Dr. Yobany Narayanan PGY1 <Kole Haywood - Last Filed: 10/28/17 16:02> Objective - Vital Signs/Intake and Output Vital Signs (last 24 hours): Temp Pulse Resp BP Pulse Ox 97.5 F L 71 20 132/55 L 95 10/28/17 10:00 10/28/17 10:00 10/28/17 10:00 10/28/17 10:00 10/28/17 10:00 Intake and Output: 10/28/17 10/28/17 06:59 18:59 Intake Total 400 Balance 400 - Medications Medications: Current Medications Amlodipine Besylate (Norvasc) 10 mg PO DAILY LISET PRN Reason: Protocol Last Admin: 10/28/17 09:13 Dose: 10 mg Arformoterol Tartrate (Brovana) 15 mcg IH [id number] LISET Last Admin: 10/28/17 07:35 Dose: 15 mcg Aspirin (Ecotrin) 81 mg PO 0800 [facility] PRN Reason: Protocol Last Admin: 10/28/17 08:09 Dose: 81 mg Budesonide (Pulmicort Respules) 0.5 mg IH [id number] LISET PRN Reason: Protocol Last Admin: 10/28/17 07:35 Dose: 0.5 mg Calcium Carbonate (Caltrate) 600 mg PO DAILY [facility]ET PRN Reason: Protocol Last Admin: 10/28/17 09:09 Dose: 600 mg Home Med (Home Med) 1 unit PO DAILY [facility]ISET PRN Reason: Protocol Last Admin: 10/28/17 10:00 Dose: 1 unit Levalbuterol HCl (Xopenex) 0.63 mg IH [id number] LISET PRN Reason: Protocol Last Admin: 10/28/17 13:45 Dose: 0.63 mg Levalbuterol HCl (Xopenex) 0.63 mg IH Q2H PRN; Protocol PRN Reason: Shortness of Breath Last Admin: 10/26/17 13:10 Dose: 0.63 mg Lisinopril (Zestril) 10 mg PO DAILY [facility]ISET PRN Reason: Protocol Last Admin: 10/28/17 09:15 Dose: 10 mg Lorazepam (Ativan) 0.5 mg PO HS [facility]ET PRN Reason: Protocol Last Admin: 10/27/17 21:38 Dose: 0.5 mg Pantoprazole Sodium (Protonix Ec Tab) 20 mg PO 0600 [facility]ET PRN Reason: Protocol Last Admin: 10/28/17 05:52 Dose: 20 mg Prednisone (Prednisone Tab) 20 mg PO 0800 [facility] PRN Reason: Protocol Last Admin: 10/28/17 08:09 Dose: 20 mg Simethicone (Mylicon Chew Tab) 80 mg PO [facility] PRN; Protocol PRN Reason: GI distress Trimethoprim/Sulfamethoxazole (Bactrim Ds Tab) 1 tab PO BID LISET PRN Reason: Protocol Venlafaxine HCl (Effexor Xr) 75 mg PO 0800,1800 [facility] PRN Reason: Protocol Last Admin: 10/28/17 08:09 Dose: 75 mg Zolpidem Tartrate (Ambien) 5 mg PO HS PRN; Protocol PRN Reason: Insomnia Last Admin: 10/26/17 22:02 Dose: 5 mg - Labs Labs: 10/28/17 07:00 10/28/17 07:00 Attending/Attestation - Attestation I have personally seen and examined this patient.: Yes I have fully participated in the care of the patient.: Yes I have reviewed all pertinent clinical information, including history, physical exam and plan: Yes Notes (Text): 10/28/17 15:56 Attending note; Patient seen and examined with resident in TCU. Patient is alert, awake and oriented. Denies any pain. On oxygen nasal cannula. Patient is a 87 year old female with past medical history of COPD, osteoarthritis, obesity pseudogout, depression presents to the emergency room with several days of gait instability. orthopedics consult with Dr. Garcia appreciated. Got steroid injection at the right knee. Currently getting physical therapy in TCU. COPD; continue oxygen and DuoNeb treatment. Continue by mouth prednisone all of a sudden. Pulmonary evaluation appreciated. UTI; currently on Bactrim. Will complete 3 more days of anti-biotics. Prescription for home oxygen given. Case discussed with psych social worker in detail about discharge planning. Upon discharge the patient will follow-up with PMD . 10/28/17 16:02
[2017-10-29] MEDS: Levalbuterol 0.63 MG/3 ML Inhal Soln UD IH SCH ×4 (01:34→21:48)
[2017-10-29] MEDS: Pantoprazole 20 mg EC Tab PO SCH (05:30)
[2017-10-29] MEDS: Budesonide 0.5 mg/2 ml Inhal Susp UD IH SCH ×2 (07:41→21:47)
[2017-10-29] MEDS: Arformoterol 15 mcg/2 ml Inh Sol IH SCH ×2 (07:41→21:47)
[2017-10-29] MEDS: Venlafaxine 75 mg ER Cap PO SCH ×2 (08:44→17:39)
[2017-10-29] MEDS: Tmp-Smz 800 mg-160 mg DS Tab PO SCH ×2 (09:30→17:39)
--- NOTE | 2017-10-29 10:27 | PN ---
DATE: 10/29/2017 PULMONARY NOTE SUBJECTIVE: The patient appears very comfortable this morning. She is not short of breath at rest. OBJECTIVE: VITALS: Temperature is 98.3, pulse 76, respirations 18/20, blood pressure 116/63. Oxygen saturation on nasal cannula is 96%. HEENT: Normocephalic, atraumatic. No JVD. CARDIOVASCULAR: Systolic ejection murmur at the lower left sternal border. No S3 gallop. LUNGS: Clear bilaterally. EXTREMITIES: Positive for mild edema. No cyanosis, no clubbing. Calves are nontender to palpation. GI: Abdomen is soft, nontender, and nondistended. Bowel sounds are positive. SKIN: No acute rash. NEUROLOGIC: Limited at the present time. IMPRESSION: 1. Progressive weakness, inability to ambulate - much improved. 2. Chronic obstructive pulmonary disease. 3. Mild bronchospasm - resolved. 4. Chronic atrial fibrillation. PLAN: The patient appears very comfortable this morning. She is not short of breath at rest. She does state to feeling much, much better overall. On physical exam, her lungs are clear. Oxygen saturation on nasal cannula is 96%. I did discuss the case with physical therapy yesterday. The patient does desaturate mildly with exercise. Home oxygen has been arranged. At this point in time, the patient is on nebulizer treatments and low-dose oral steroids. I would continue to taper the oral steroids over the next 4 to 5 days. Clinical status of the patient is significantly improved overall. At this point in time, no additional pulmonary intervention is needed or warranted. The patient is for discharge in the very near future. Please call me for any additional pulmonary questions or problems with this patient. I would be happy to reevaluate. I did discuss the above with Dr. Haywood earlier this morning. Ranjit Burnham MD MTDD
[2017-10-30] MEDS: Levalbuterol 0.63 MG/3 ML Inhal Soln UD IH SCH ×3 (01:35→13:48)
[2017-10-30] MEDS: Pantoprazole 20 mg EC Tab PO SCH (05:37)
[2017-10-30] MEDS: Arformoterol 15 mcg/2 ml Inh Sol IH SCH ×2 (07:42→20:33)
[2017-10-30 07:47] LABS: BASO # 0.01 K/mm3 (0.0-2.0); BASO % 0.1 % (0.0-3.0); GRAN # 5.98 (1.4-6.5); GRAN % 70.7 % (50.0-68.0); HEMOGLOBIN 11.7 g/dL (12.0-16.0); LYMPH # 1.7 (1.2-3.4); MEAN CELL VOLUME 95.9 fl (80.0-105.0); MEAN CORPUSCULAR HEMOGLOBIN 30.3 pg (25.0-35.0); MEAN CORPUSCULAR HGB CONC 31.6 g/dl (31.0-37.0); MEAN PLATELET VOLUME 11.8 fl (7.0-11.0); MONO # 0.8 (0.1-0.6); MONO % 9.2 % (1.0-6.0); RBC 3.86 10^6/uL (3.5-6.1); WHITE BLOOD COUNT 8.5 10^3/ul (4.5-11.0)
[2017-10-30] MEDS: Budesonide 0.5 mg/2 ml Inhal Susp UD IH SCH ×2 (07:57→20:34)
[2017-10-30 08:00] LABS: ALB/GLOB RATIO 1.2 (1.1-1.8); ALBUMIN 3.4 g/dL (3.0-4.8); CALCIUM 9.8 mg/dL (8.4-10.5)
[2017-10-30] MEDS: Venlafaxine 75 mg ER Cap PO SCH ×2 (08:48→17:52)
--- NOTE | 2017-10-30 10:14 | CP.PCM.PN ---
<Horacio Narayanan - Last Filed: 10/30/17 17:17> Subjective - Date & Time of Evaluation Date of Evaluation: 10/30/17 Time of Evaluation: 10:14 - Subjective Subjective: Horacio Narayanan PGY1 IM Progress Note Patient was seen and examined in TCU. Patient is complaining of L knee pain and inability to load the knee. Patient denies respiratory symptoms, chest pain, sob or any other complaints. Objective - Vital Signs/Intake and Output Vital Signs (last 24 hours): Temp Pulse Resp BP Pulse Ox 97.6 F 80 18 109/56 L 89 L 10/29/17 17:30 10/29/17 17:30 10/29/17 17:30 10/29/17 17:30 10/29/17 17:30 - Medications Medications: Current Medications Amlodipine Besylate (Norvasc) 10 mg PO DAILY LISET PRN Reason: Protocol Last Admin: 10/29/17 09:32 Dose: 10 mg Arformoterol Tartrate (Brovana) 15 mcg IH [id number] LISET Last Admin: 10/30/17 07:42 Dose: 15 mcg Aspirin (Ecotrin) 81 mg PO 0800 LISET PRN Reason: Protocol Last Admin: 10/30/17 08:46 Dose: 81 mg Budesonide (Pulmicort Respules) 0.5 mg IH [id number] LISET PRN Reason: Protocol Last Admin: 10/30/17 07:57 Dose: Not Given Calcium Carbonate (Caltrate) 600 mg PO DAILY LISET PRN Reason: Protocol Last Admin: 10/29/17 09:31 Dose: 600 mg Home Med (Home Med) 1 unit PO DAILY LISET PRN Reason: Protocol Last Admin: 10/29/17 09:31 Dose: 1 unit Levalbuterol HCl (Xopenex) 0.63 mg IH [id number] LISET PRN Reason: Protocol Last Admin: 10/30/17 07:56 Dose: 0.63 mg Levalbuterol HCl (Xopenex) 0.63 mg IH Q2H PRN; Protocol PRN Reason: Shortness of Breath Last Admin: 10/26/17 13:10 Dose: 0.63 mg Lisinopril (Zestril) 10 mg PO DAILY LISET PRN Reason: Protocol Last Admin: 10/29/17 09:32 Dose: 10 mg Lorazepam (Ativan) 0.5 mg PO HS LISET PRN Reason: Protocol Last Admin: 10/29/17 21:53 Dose: 0.5 mg Pantoprazole Sodium (Protonix Ec Tab) 20 mg PO 0600 LISET PRN Reason: Protocol Last Admin: 10/30/17 05:37 Dose: 20 mg Prednisone (Prednisone Tab) 10 mg PO 0800 LISET PRN Reason: Protocol Last Admin: 10/30/17 08:49 Dose: 10 mg Simethicone (Mylicon Chew Tab) 80 mg PO [facility] PRN; Protocol PRN Reason: GI distress Trimethoprim/Sulfamethoxazole (Bactrim Ds Tab) 1 tab PO BID LISET PRN Reason: Protocol Last Admin: 10/29/17 17:39 Dose: 1 tab Venlafaxine HCl (Effexor Xr) 75 mg PO 0800,1800 LISET PRN Reason: Protocol Last Admin: 10/30/17 08:48 Dose: 75 mg Zolpidem Tartrate (Ambien) 5 mg PO HS PRN; Protocol PRN Reason: Insomnia Last Admin: 10/26/17 22:02 Dose: 5 mg - Labs Labs: 10/30/17 06:30 10/30/17 06:30 - Additional Findings Additional findings: - Constitutional Appears: Well, Non-toxic, No Acute Distress - Head Exam Head Exam: NORMAL INSPECTION - Eye Exam Eye Exam: EOMI, Normal appearance, PERRL - ENT Exam ENT Exam: Mucous Membranes Moist - Neck Exam Neck Exam: Normal Inspection - Respiratory Exam Respiratory Exam: Clear to Ausculation Bilateral, NORMAL BREATHING PATTERN (On 2L NC) - Cardiovascular Exam Cardiovascular Exam: RRR, +S1, +S2 - GI/Abdominal Exam GI & Abdominal Exam: Soft, Normal Bowel Sounds. absent: Distended, Tenderness - Extremities Exam Extremities Exam: Normal Inspection, Full ROM (some pain with b/l knee motions) . absent: Joint Swelling, Pedal Edema - Back Exam Back Exam: NORMAL INSPECTION - Neurological Exam Neurological Exam: Alert, Awake, Oriented x3 Additional comments: - Psychiatric Exam Psychiatric exam: Normal Affect, Normal Mood - Skin Skin Exam: Normal Color, Warm Assessment and Plan - Assessment and Plan (Free Text) Assessment: 87 year old female with past medical history of COPD, Afib not on anticoagulation, OA, pseudogout, depression presented to the ED with several days of progressive weakness/pain in the legs bilaterally. Admitted to TCU for rehabilitation of weakness and difficulty with ambulation. Plan for discharge on 10/31/17 with home O2. Plan: 1. Deconditioning due to b/l weakness 2/2 b/l OA and calcium deposition disease - Continue PT while in TCU - s/p steroid injection with significant improvement in pain of R knee - Ortho consulted for L knee, recs appreciated 2. Hx COPD - Pulmicort, Brovana, - Prednisone 20mg daily - oxygen 2L PRN - xopenex breathing treatments - Pulm consulted, recs appreciated for home O2 - SW is working on home O2 3. UTI, symptomatically improved - cont Bactrim - cont monitor - Mylicon PRN gas 4. Afib-chronic, rate controlled - Continue home Aspirin 5. HTN - continue norvasc 10mg and Lisinopril 10mg 6. Depression - continue home effexor - Ambien HS for sleep 7. OA -continue home calcium carbonate DVT/GI Prophylaxis -Protonix -SCD Dispo: [facility] tomorrow (10/31), at 1pm The patient was seen, examined and discussed with attending, Dr. Yobany Narayanan PGY1 <Kole Haywood - Last Filed: 10/31/17 16:16> Objective - Vital Signs/Intake and Output Vital Signs (last 24 hours): Temp Pulse Resp BP Pulse Ox 97.7 F 78 20 138/73 92 L 10/30/17 10:00 10/31/17 11:00 10/30/17 10:00 10/31/17 11:00 10/30/17 10:00 - Labs Labs: 10/30/17 06:30 10/30/17 06:30 Attending/Attestation - Attestation I have personally seen and examined this patient.: Yes I have fully participated in the care of the patient.: Yes I have reviewed all pertinent clinical information, including history, physical exam and plan: Yes Notes (Text): 10/31/17 16:15 Attending note; Patient seen and examined with resident in TCU. Patient is alert, awake and oriented. Denies any pain. On oxygen nasal cannula. Patient is a 87 year old female with past medical history of COPD, osteoarthritis, obesity pseudogout, depression presents to the emergency room with several days of gait instability. orthopedics consult with Dr. Garcia appreciated. Got steroid injection at the right knee. Currently getting physical therapy in TCU. COPD; continue oxygen and DuoNeb treatment. Continue po prednisone all of a sudden. Pulmonary evaluation appreciated. Transfer to rehabilitation today/[facility] for [facility]. Patient's daughter aware of the plan. Upon discharge the patient will follow-up with PMD . 10/31/17 16:16
[2017-10-30] MEDS ORDERED: MethylPREDNISolone Depo 40 mg/ml Inj IM ONE (10:39)
[2017-10-30] MEDS ORDERED: Bupivacaine 0.5% Inj(30mL) IJ ONE (10:39)
[2017-10-30] MEDS: Tmp-Smz 800 mg-160 mg DS Tab PO SCH ×2 (10:55→17:52)
[2017-10-30 17:00] VITALS: RESP 20; TEMP 97.7; O2SAT 92
--- NOTE | 2017-10-30 22:13 | CON ---
DATE: 10/30/2017 LOCATION: Room 327 bed 2. HISTORY OF PRESENT ILLNESS: The patient is complaining of no left knee pain, but she does complain of weakness and I asked her if she would want to cortisone injection for discomfort, she said she does not want a cortisone injection. She just feels weak. So, I am going to consider doing more physical therapy quad set exercises as she did have a cortisone injection in the right knee proximally on 09/30/2016 for calcium pyrophosphate disease. The x-ray at that time just showed calcified meniscus, but no aggressive osteoarthritis. The left knee appears to be the same as the right as far as range of motion. No effusion and no evidence of deformity or sense of osteoarthritis appearance. So, I will treat her with physical therapy and consider cortisone shot if she had symptoms of inflammatory arthritis or pain from arthritis. So we will just depend on physical therapy to make her feel stronger. So her knee does not give away. This time we will hold off on the injection Depo Medrol because she dose not want it and it really would not do much to help her symptoms as her pain is very minimal, just weakness. FINAL DIAGNOSIS: Weakness of left knee from mild osteoarthritis. Rodrigo Garcia DO
[2017-10-31] MEDS: Levalbuterol 0.63 MG/3 ML Inhal Soln UD IH SCH ×2 (02:50→07:39)
[2017-10-31] MEDS: Pantoprazole 20 mg EC Tab PO SCH (05:26)
[2017-10-31] MEDS: Arformoterol 15 mcg/2 ml Inh Sol IH SCH (07:38)
[2017-10-31] MEDS: Budesonide 0.5 mg/2 ml Inhal Susp UD IH SCH (07:38)
[2017-10-31] MEDS: Venlafaxine 75 mg ER Cap PO SCH (08:18)
[2017-10-31] MEDS: Tmp-Smz 800 mg-160 mg DS Tab PO SCH (11:00)
[2017-10-31 11:37] VITALS: BP 138/73; PULSE 78
--- NOTE | 2017-10-31 17:18 | CP.PCM.DIS ---
Provider - Provider Date of Admission: 10/23/17 18:56 Attending physician: Kole Haywood MD Primary care physician: Peter Kyle MD Time Spent in preparation of Discharge (in minutes): 40 Diagnosis - Discharge Diagnosis (1) Knee pain Status: Acute (2) Weakness Status: Acute (3) UTI (urinary tract infection) Status: Acute (4) COPD (chronic obstructive pulmonary disease) Status: Chronic (5) A-fib Status: Chronic Hospital Course - Lab Results Lab Results: Most Recent Lab Values WBC 8.5 10^3/ul (4.5-11.0) 10/30/17 06:30 RBC 3.86 10^6/uL (3.5-6.1) 10/30/17 06:30 Hgb 11.7 g/dL (12.0-16.0) L 10/30/17 06:30 Hct 37.0 % (36.0-48.0) 10/30/17 06:30 MCV 95.9 fl (80.0-105.0) 10/30/17 06:30 MCH 30.3 pg (25.0-35.0) 10/30/17 06:30 MCHC 31.6 g/dl (31.0-37.0) 10/30/17 06:30 RDW 14.0 % (11.5-14.5) 10/30/17 06:30 Plt Count 106 10^3/uL (120.0-450.0) L 10/30/17 06:30 MPV 11.8 fl (7.0-11.0) H 10/30/17 06:30 Gran % 70.7 % (50.0-68.0) H 10/30/17 06:30 Lymph % (Auto) 20.0 % (22.0-35.0) L 10/30/17 06:30 Churchill % (Auto) 9.2 % (1.0-6.0) H 10/30/17 06:30 Eos % (Auto) 0.0 % (1.5-5.0) L 10/30/17 06:30 Baso % (Auto) 0.1 % (0.0-3.0) 10/30/17 06:30 Gran # 5.98 (1.4-6.5) 10/30/17 06:30 Lymph # 1.7 (1.2-3.4) 10/30/17 06:30 Churchill # 0.8 (0.1-0.6) H 10/30/17 06:30 Eos # 0.0 (0.0-0.7) 10/30/17 06:30 Baso # 0.01 K/mm3 (0.0-2.0) 10/30/17 06:30 Sodium 142 mmol/L (132-148) 10/30/17 06:30 Potassium 4.5 mmol/L (3.6-5.0) 10/30/17 06:30 Chloride 105 mmol/L (98-107) 10/30/17 06:30 Carbon Dioxide 29 mmol/L (21-33) 10/30/17 06:30 Anion Gap 13 (10-20) 10/30/17 06:30 BUN 21 mg/dL (7-21) 10/30/17 06:30 Creatinine 1.3 mg/dl (0.7-1.2) H 10/30/17 06:30 Est GFR ( Amer) 47 10/30/17 06:30 Est GFR (Non-Af Amer) 39 10/30/17 06:30 Random Glucose 82 mg/dL (70-110) 10/30/17 06:30 Calcium 9.8 mg/dL (8.4-10.5) 10/30/17 06:30 Total Bilirubin 0.4 mg/dL (0.2-1.3) 10/30/17 06:30 AST 21 U/L (14-36) 10/30/17 06:30 ALT 37 U/L (7-56) 10/30/17 06:30 Alkaline Phosphatase 58 U/L (38-126) 10/30/17 06:30 Total Protein 6.3 g/dL (5.8-8.3) 10/30/17 06:30 Albumin 3.4 g/dL (3.0-4.8) 10/30/17 06:30 Globulin 2.9 gm/dL 10/30/17 06:30 Albumin/Globulin Ratio 1.2 (1.1-1.8) 10/30/17 06:30 - Hospital Course Hospital Course: 87 year old female with past medical history of COPD, Afib not on anticoagulation, OA, pseudogout, depression presented to the ED with several days of progressive weakness/pain in the legs bilaterally. Patient was seen by ortho who administered a steroid injection and recommended physical therapy for strengthening. Weakness and pain was deteremined to be secondary to progressive osteoarthritis. During her hospitalization, patient was also continued on her home treatment for COPD, atrial fibrillation, HTN, and depression. She was also noted to have a UTI and was started on antibiotics for that. She was transferred to TCU further further rehabilitation of weakness and difficulty with ambulation. Patient complained of knee pain and Ortho was re-consulted but recommended no immediate interventions. Patient was noted be short of breath during exertion and was recommended for home O2, which SW and telephonic case manager worked hard on. Patient will be transferred to [facility] for continued rehab and will have home O2. Patient is to continue Prednisone 10mg for 5 more days then continue all home meds, with a slight change that Norvasc was increased to 10mg for optimal BP control. Patient has no complaints on day of discharge and feeling well. Medically stable for discharge. Discharge Exam - Head Exam Head Exam: ATRAUMATIC, NORMAL INSPECTION, NORMOCEPHALIC - Eye Exam Eye Exam: EOMI, Normal appearance, PERRL - ENT Exam ENT Exam: Mucous Membranes Moist - Neck Exam Neck exam: Normal Inspection - Respiratory Exam Respiratory Exam: Clear to PA & Lateral, NORMAL BREATHING PATTERN. absent: Rales, Rhonchi, Wheezes - Cardiovascular Exam Cardiovascular Exam: RRR, +S1, +S2 - GI/Abdominal Exam GI & Abdominal Exam: Normal Bowel Sounds, Soft. absent: Distended, Tenderness - Extremities Exam Extremities exam: normal inspection Additional comments: no pedal edema no calf tenderness no joint swelling or tenderness to palpation - Back Exam Back exam: NORMAL INSPECTION - Neurological Exam Neurological exam: Alert, CN II-XII Intact, Oriented x3 - Psychiatric Exam Psychiatric exam: Normal Affect, Normal Mood - Skin Skin Exam: Normal Color, Warm Discharge Plan - Follow Up Plan Condition: GOOD Disposition: TRANSF TO SNF Instructions: COPD (Chronic Obstructive Pulmonary Disease) (DC), Weakness (GEN) , Fall Prevention (DC) Additional Instructions: 1,. Transfer to Rehab today. 2. Continue oxygen. Follow up with Dr. maynard pulmonary in 1 week. 3. Follow up with Dr. villanueva orthopedics. 4. Follow up with PMD in 1 week. Referrals: Peter Kyle MD [Primary Care Provider] -
== END 2017-10-31 14:20 | DRG 945 ==
LOC: TRCU 18:56
PROVIDERS: ADMIT Hospitalist; ATTEND Internal Medicine
PROC: F07L6YZ Therapeutic Exercise Treatment of Musculoskeletal System - Lower Back / Lower Extremity using Other Equipment (ICD-10-PCS; principal; 2017-10-25)
PROC: F07Z9FZ Gait Training/Functional Ambulation Treatment using Assistive, Adaptive, Supportive or Protective Equipment (ICD-10-PCS; 2017-10-26)
PROC: F07Z8FZ Transfer Training Treatment using Assistive, Adaptive, Supportive or Protective Equipment (ICD-10-PCS; 2017-10-26)
PROC: F08Z1FZ Dressing Techniques Treatment using Assistive, Adaptive, Supportive or Protective Equipment (ICD-10-PCS; 2017-10-27)
DX: R53.1 Weakness (principal); M11.261 Other chondrocalcinosis, right knee; N39.0 Urinary tract infection, site not specified; R26.2 Difficulty in walking, not elsewhere classified; M17.11 Unilateral primary osteoarthritis, right knee; J44.9 Chronic obstructive pulmonary disease, unspecified; J98.01 Acute bronchospasm; I48.2 Chronic atrial fibrillation; I10 Essential (primary) hypertension; F32.9 Major depressive disorder, single episode, unspecified; E66.9 Obesity, unspecified; Z68.34 Body mass index [BMI] 34.0-34.9, adult; Z87.891 Personal history of nicotine dependence; Z88.0 Allergy status to penicillin

== ENCOUNTER 2017-12-26 10:53 | Inpatient (IN) | payer MEDICARE, OTHER ==
[2017-12-26] MEDS ORDERED: Oxycodone/Acetaminophen 5/325 mg Tab PO STA (11:25)
--- NOTE | 2017-12-26 11:26 | ED PDOC ---
Arrival/HPI - General Chief Complaint: Trauma Time Seen by Provider: 12/26/17 11:10 Historian: Patient, Family - History of Present Illness Narrative History of Present Illness (Text): 12/26/17 11:24 87 year old female, whose history includes COPD, hypertension, depression, and bipolar disorder, presents to the Emergency department due to right knee and ankle pain since yesterday. As per family, patient either fell or bumped her knee on the toilet and has been complaining of pain to right knee and ankle, with associated swelling and weakness. Patient denies any fever, chills, chest pain, shortness of breath, nausea, vomiting, diarrhea, urinary symptoms, back pain, neck pain, headache, dizziness, or any other complaints. Time/Duration: 24 hours Symptom Onset: Sudden Symptom Course: Unchanged Context: Home Past Medical History - Provider Review Nursing Documentation Reviewed: Yes - Infectious Disease Hx of Infectious Diseases: None - Tetanus Immunization Tetanus Immunization: Unknown - Cardiac Hx Cardiac Disorders: Yes Hx Atrial Fibrillation: Yes - Pulmonary Hx Chronic Obstructive Pulmonary Disease (COPD): Yes - Neurological Hx Neurological Disorder: Yes - HEENT Hx HEENT Disorder: Yes (WEARS RX GLASSES) Hx Cataracts: Yes (BILATERAL SURGERY) Hx Deafness: Yes - Renal Hx Renal Disorder: No - Endocrine/Metabolic Hx Endocrine Disorders: No - Hematological/Oncological Hx 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) - Integumentary Hx Dermatological Disorder: No - Musculoskeletal/Rheumatological Hx Arthritis: Yes (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)) - Gastrointestinal Hx Gastrointestinal Disorders: No - Genitourinary/Gynecological Hx Genitourinary Disorders: Yes Hx Incontinence: Yes - Psychiatric Hx Psychophysiologic Disorder: Yes (SMOKE H/O ,DRINKS ALCOHOL OCCASIONALLY) Hx Anxiety: Yes Hx Depression: Yes Hx Emotional Abuse: No Hx Physical Abuse: No Hx Substance Use: No Other/Comment: INSOMNIA - Surgical History Hx Hysterectomy: Yes - Anesthesia Hx Anesthesia: Yes Hx Anesthesia Reactions: No Hx Malignant Hyperthermia: No - Suicidal Assessment Feels Threatened In Home Enviroment: No Family/Social History - Physician Review Nursing Documentation Reviewed: Yes Family/Social History: Unknown Family HX Smoking Status: Former Smoker Hx Alcohol Use: Yes (social, long ago) Hx Substance Use: No Hx Substance Use Treatment: No Allergies/Home Meds Allergies/Adverse Reactions: Allergies Iodinated Contrast- Oral and IV Dye [Iodinated Contrast Media - Oral and] Allergy (Verified 10/25/17 20:59) ANAPHYLAXIS Penicillins Allergy (Verified 10/25/17 20:59) ANAPHYLAXIS Home Medications: Home Meds Medication Instructions Recorded Confirmed Aspirin [Ecotrin] 81 mg PO DAILY 09/27/16 12/26/17 Calcium Carbonate [Caltrate] 600 mg PO DAILY 09/27/16 12/26/17 Arformoterol [Brovana] 15 mcg IH BID 12/26/17 12/26/17 Budesonide [Pulmicort Respules] 0.25 mg PO BID 12/26/17 12/26/17 Lisinopril [Zestril] 10 mg pe PO DAILY 12/26/17 12/26/17 Pantoprazole [Protonix EC Tab] 40 mg PO QOTHERDAY 12/26/17 12/26/17 Review of Systems - Physician Review All systems were reviewed & negative as marked: Yes - Review of Systems Constitutional: absent: Fevers, Night Sweats Respiratory: absent: SOB Cardiovascular: absent: Chest Pain Gastrointestinal: absent: Diarrhea, Nausea, Vomiting Genitourinary Female: absent: Dysuria Musculoskeletal: Other (right knee and ankle pain). absent: Back Pain, Neck Pain Neurological: absent: Headache, Dizziness Physical Exam Vital Signs Reviewed: Yes Vital Signs Temp Pulse Resp BP Pulse Ox 12/26/17 13:52 98.6 F 88 18 172/79 H 12/26/17 10:53 98.6 F 88 18 172/79 H 92 L Temperature: Afebrile Blood Pressure: Hypertensive Pulse: Regular Respiratory Rate: Normal Appearance: Positive for: Well-Appearing, Non-Toxic, Comfortable Pain Distress: None Mental Status: Positive for: Alert and Oriented X 3 - Systems Exam Head: Present: Atraumatic, Normocephalic Pupils: Present: PERRL Extroacular Muscles: Present: EOMI Conjunctiva: Present: Normal Mouth: Present: Moist Mucous Membranes Neck: Present: Normal Range of Motion Respiratory/Chest: Present: Clear to Auscultation, Good Air Exchange. No: Respiratory Distress, Accessory Muscle Use Cardiovascular: Present: Regular Rate and Rhythm, Normal S1, S2. No: Murmurs Abdomen: Present: Normal Bowel Sounds. No: Tenderness, Distention, Peritoneal Signs Back: Present: Normal Inspection Upper Extremity: Present: Normal Inspection. No: Cyanosis, Edema Lower Extremity: Present: NORMAL PULSES, Swelling (swelling with discoloration at right medial malleolus), Other (joint effusion of right knee). No: CALF TENDERNESS Neurological: Present: GCS=15, CN II-XII Intact, Speech Normal Skin: Present: Warm, Dry, Normal Color. No: Rashes Psychiatric: Present: Alert, Oriented x 3, Normal Insight, Normal Concentration Medical Decision Making ED Course and Treatment: 12/26/17 11:30 Impression: 87 year old female presents to the [facility] complaining of pain to right knee and ankle following trauma. Differential Diagnosis included but are not limited to: fracture Plan: -- Xrays of the chest, right ankle, right foot, and right knee -- Zofran, Percocet -- Reassess and disposition Prior Visits: Notes and results from previous visits were reviewed. Patient was last seen in the emergency department on 10/17/17 complaining of generalized weakness and fatigue. Patient had trouble ambulating at that time. Patient was diagnosed with COPD, weakness, and impaired ambulation. Progress Notes: 12/26/17 12:21 Xray reveals patient has an ankle fracture. Discussed findings with who states the patient ambulates with shuffling gait at baseline so using crutches to navigate will not be feasible; will have to admit her to the hospital. Discussed case in detail with patient's PMD, Dr. Kyle, who admits to the hospitalist so will call the hospitalist. Will also consult the orthopedic doctor who drains patient's knees, Dr. Garcia. 12/26/17 12:28 Discussed case in detail with hospitalist, Dr. Haywood, who will admit the patient. 12/26/17 12:31 Discussed case in detail with Dr. Garcia, orthopedist, who will come in to evaluate the patient. - RAD Interpretation Narrative RAD Interpretations (Text): 12/26/2017 13:04:14 PROCEDURE: Right Ankle Radiographs. FINDINGS: BONES: There is a nondisplaced oblique fracture at the right lateral malleolus. No subluxation or dislocation. Ankle mortise appears intact. No suspicious underlying lytic or blastic change. Diffuse osteopenia suggests osteoporosis. Degenerative cortical sclerosis appreciate the tibiotalar joint. Talar dome intact. Moderate plantar calcaneal spur. JOINTS: As above. SOFT TISSUES: Mild lateral malleolar soft tissue edema identified. OTHER FINDINGS: None. IMPRESSION: Oblique fracture lateral malleolus. degenerative changes tibiotalar joint. Moderate plantar calcaneal spur. 12/26/2017 13:04:56 PROCEDURE: Right Foot Radiographs. FINDINGS: BONES: No acute fracture or destructive bony lesion identified. JOINTS: Severe hallux valgus deformity. degenerative changes are mild to moderate throughout the joints the forefoot midfoot and hindfoot without subluxation or dislocation. SOFT TISSUES: Normal. OTHER FINDINGS: None. IMPRESSION: DA changes are identified diffusely but no destructive bony lesion identified or fracture. Severe hallux valgus deformity noted. 12/26/2017 13:06:03 PROCEDURE: Right Knee Radiographs. FINDINGS: BONES: No acute fracture or destructive bony lesion identified. JOINTS: Cortical sclerosis and osteophyte development are identified the patellofemoral as well as medial and lateral femorotibial compartments compatible with moderately advanced osteoarthritis. JOINT EFFUSION: [id number] suprasellar bursa effusion noted. OTHER FINDINGS: None. IMPRESSION: No acute fracture or dislocation. Osteoarthritis as described above. Mild-to- moderate suprapatellar bursa effusion. 12/26/2017 13:08:45 Chest Xray FINDINGS: LUNGS: No active pulmonary disease. PLEURA: No significant pleural effusion identified, no pneumothorax apparent. CARDIOVASCULAR: Stable cardiac silhouette noted. No pulmonary vascular derangement evident. OSSEOUS STRUCTURES: No significant abnormalities. VISUALIZED UPPER ABDOMEN: Mammilated right hemidiaphragm again evident. OTHER FINDINGS: None. IMPRESSION: No interval acute cardiopulmonary disease appreciated. Radiology Orders: 12/26/17 11:22 ANKLE RIGHT 3 VIEWS ROUTINE [RAD] Stat KNEE W PATELLA RIGHT 3 VIEW [RAD] Stat 12/26/17 11:24 FOOT RIGHT 3 VIEWS ROUTINE [RAD] Stat 12/26/17 12:35 CXR [CHEST PORTABLE] [RAD] Stat - EKG Interpretation EKG Interpretation (Text): 12/26/17 14:32 EKG: Ordered, reviewed, and independently interpreted the EKG. Rate : 92 BPM Rhythm : Atrial fibrillation Interpretation : Atrial fibrillation with premature ventricular or aberrantly conducted complexes. Nonspecific T wave abnormality, probably digitalis effect. Interpreted by ED Physician: Yes Type: 12 lead EKG - Medication Orders Current Medication Orders: Ketorolac Tromethamine (Toradol) 15 mg IVP STAT STA Stop: 12/26/17 14:41 Discontinued Medications Ondansetron HCl (Zofran Odt) 4 mg PO STAT STA Stop: 12/26/17 11:26 Last Admin: 12/26/17 11:34 Dose: 4 mg Oxycodone/Acetaminophen (Percocet 5/325 Mg Tab) 1 tab PO STAT STA Stop: 12/26/17 11:26 Last Admin: 12/26/17 11:34 Dose: 1 tab MAR Pain Assessment Document 12/26/17 11:34 EQ (Rec: 12/26/17 11:34 EQ [id number]) Pain Reassessment Is this a pain reassessment? No Sleep Is patient sleeping during reassessment? No Presence of Pain Presence of Pain Yes - PA / JEWEL BEARING TURNER / Resident Statement MD/DO has reviewed & agrees with the documentation as recorded. - Scribe Statement The provider has reviewed the documentation as recorded by the Scribe Arthur Ceron All medical record entries made by the Scribe were at my direction and personally dictated by me. I have reviewed the chart and agree that the record accurately reflects my personal performance of the history, physical exam, medical decision making, and the department course for this patient. I have also personally directed, reviewed, and agree with the discharge instructions and disposition. Disposition/Present on Arrival - Present on Arrival Any Indicators Present on Arrival: No History of DVT/PE: No History of Uncontrolled Diabetes: No Urinary Catheter: No History of Decub. Ulcer: No History Surgical Site Infection Following: None - Disposition Have Diagnosis and Disposition been Completed?: Yes Diagnosis: Generalized weakness, Ankle fracture, right, Impaired ambulation, Fall from standing Disposition: HOSPITALIZED Disposition Time: 12:40 Patient Plan: Admission Patient Problems: Current Active Problems Problem Status Onset Fall from standing Acute Weakness Acute Impaired ambulation Acute Ankle fracture, right Acute Condition: FAIR
--- NOTE | 2017-12-26 13:05 | RAD ---
PROCEDURE: Right Ankle Radiographs. HISTORY: Fall/Pain and Swelling to Foot/Ankle and Knee COMPARISON: None FINDINGS: BONES: There is a nondisplaced oblique fracture at the right lateral malleolus. No subluxation or dislocation. Ankle mortise appears intact. No suspicious underlying lytic or blastic change. Diffuse osteopenia suggests osteoporosis. Degenerative cortical sclerosis appreciate the tibiotalar joint. Talar dome intact. Moderate plantar calcaneal spur. JOINTS: As above. SOFT TISSUES: Mild lateral malleolar soft tissue edema identified. OTHER FINDINGS: None. IMPRESSION: Oblique fracture lateral malleolus. degenerative changes tibiotalar joint. Moderate plantar calcaneal spur.
--- NOTE | 2017-12-26 13:06 | RAD ---
PROCEDURE: Right Foot Radiographs. HISTORY: Fall/Pain and Swelling to Foot/Ankle and Knee COMPARISON: None. FINDINGS: BONES: No acute fracture or destructive bony lesion identified. JOINTS: Severe hallux valgus deformity. degenerative changes are mild to moderate throughout the joints the forefoot midfoot and hindfoot without subluxation or dislocation. SOFT TISSUES: Normal. OTHER FINDINGS: None. IMPRESSION: DA changes are identified diffusely but no destructive bony lesion identified or fracture. Severe hallux valgus deformity noted.
--- NOTE | 2017-12-26 13:07 | RAD ---
PROCEDURE: Right Knee Radiographs. HISTORY: Fall/Pain and Swelling to Foot/Ankle and Knee COMPARISON: None. FINDINGS: BONES: No acute fracture or destructive bony lesion identified. JOINTS: Cortical sclerosis and osteophyte development are identified the patellofemoral as well as medial and lateral femorotibial compartments compatible with moderately advanced osteoarthritis. JOINT EFFUSION: [id number] suprasellar bursa effusion noted. OTHER FINDINGS: None. IMPRESSION: No acute fracture or dislocation. Osteoarthritis as described above. Escr-ec-zpcennlv suprapatellar bursa effusion.
--- NOTE | 2017-12-26 13:10 | RAD ---
HISTORY: PRE-OP COMPARISON: Portable chest 10/17/2017 FINDINGS: LUNGS: No active pulmonary disease. PLEURA: No significant pleural effusion identified, no pneumothorax apparent. CARDIOVASCULAR: Stable cardiac silhouette noted. No pulmonary vascular derangement evident. OSSEOUS STRUCTURES: No significant abnormalities. VISUALIZED UPPER ABDOMEN: Mammilated right hemidiaphragm again evident. OTHER FINDINGS: None. IMPRESSION: No interval acute cardiopulmonary disease appreciated.
[2017-12-26 13:28] LABS: FLUID TYPE SYNOVIAL FLUID
--- NOTE | 2017-12-26 13:30 | CP.PCM.HP ---
<Patsy Duarte - Last Filed: 12/26/17 15:55> History of Present Illness - History of Present Illness History of Present Illness: PGY-[address] Haywood Admission: General weakness, R ankle fracture, gait dysfunction, Fall Ms Nunez, 87 year old female, whose history includes Hx L frontal subarachnoid hemorrhage, HTN/A-fib, COPD, bipolar disorder, and Multinodular thyroid, presents to the Emergency department due to right knee and ankle pain x 1 day. Pt is a poor historian. As per pt's Boyfriend, patient either fell or bumped her knee on the toilet and has been complaining of pain to right knee and ankle, with associated swelling and weakness. Pt was recently hospitalized in Oct for gait instability secondary to moderate to severe R knee osteoarthritis. She was treated for UTI with levaquin. Later, she went to [facility] for rehabilitation and came home 12/11. ROS - Denies fever, chills, chest pain, shortness of breath, nausea, vomiting, diarrhea, urinary symptoms, back pain, neck pain, headache, dizziness, or any other complaints. In the ED, Pt underwent R knee arthrocentesis. VSS, noted BP 172/79. POx 92 RA Pending labs. Baseline cre 0.9. CXR: mild fluid overload. Pending official read R Foot x-ray: No destructive bone lesion or fracture. severe hallus valgus deformity R Knee x-ray: mild to moderate suprasella bursa effusion. No fracture or dislocation R Ankle x-ray: R oblique fracture lateral malleolos. DJD tibiotalar joint. Moderate plantar calcaneal spur. PMH Hx thrombocytopenia Hx L frontal subarachnoid hemorrhage due to fall HTN, obesity (?) A-fib, not on anticoagulant COPD, Home O2 for 2L; former smoker 1-2ppd x 40yrs Urinary incontinence Multinodular thyroid (U/S 2016). Per daughter, PMD and family decided to observe Pseudogout, Arthritis of both knees (last cortisone injection, Oct 2017, one of the knee, but pt refuse the injection fot other knee) Bipolar, Depression, Insomnia Gait dysfunction, Hx falls, Osteoporosis (2014 Dexa) PSH Cataract surgery, b/l Hysterectomy Appendectomy FH Dad - kidney CA Mom - HTN. heart issue SH Former smoker, former smoker 1-2ppd x 40yrs Occasional ETOH, long ago Denies drugs Use wheelchair or walker at home Live with boyfriend, Ayden Block Allergy Penicillin - anaphylaxis Oral and IV iodinated dye Med ASA, Lisinopril 10, Amlodipine 10 Brovana, Pulmicort Ativan 0.5 HS Calcium Protonix 40 everyother day (PCP is tapering protonix for pt) [facility] PMD: Mutterperl Cardio: [facility] Pulm: [facility] Ortho: [facility] Present on Admission - Present on Admission Any Indicators Present on Admission: No Past Patient History - Infectious Disease Hx of Infectious Diseases: None - Tetanus Immunizations Tetanus Immunization: Unknown - Past Social History Smoking Status: Former Smoker - CARDIAC Hx Cardiac Disorders: Yes Hx Atrial Fibrillation: Yes - PULMONARY Hx Chronic Obstructive Pulmonary Disease (COPD): Yes - NEUROLOGICAL Hx Neurological Disorder: Yes - HEENT Hx HEENT Problems: Yes (WEARS RX GLASSES) Hx Cataracts: Yes (BILATERAL SURGERY) Hx Deafness: Yes - RENAL Hx Chronic Kidney Disease: No - ENDOCRINE/METABOLIC Hx Endocrine Disorders: No - HEMATOLOGICAL/ONCOLOGICAL Hx 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) - INTEGUMENTARY Hx Dermatological Problems: No - MUSCULOSKELETAL/RHEUMATOLOGICAL Hx Arthritis: Yes (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)) - GASTROINTESTINAL Hx Gastrointestinal Disorders: No - GENITOURINARY/GYNECOLOGICAL Hx Genitourinary Disorders: Yes Hx Incontinence: Yes - PSYCHIATRIC Hx Psychophysiologic Disorder: Yes (SMOKE H/O ,DRINKS ALCOHOL OCCASIONALLY) Hx Anxiety: Yes Hx Depression: Yes Hx Emotional Abuse: No Hx Physical Abuse: No Hx Substance Use: No Other/Comment: INSOMNIA - SURGICAL HISTORY Hx Hysterectomy: Yes - ANESTHESIA Hx Anesthesia: Yes Hx Anesthesia Reactions: No Hx Malignant Hyperthermia: No Meds Allergies/Adverse Reactions: Allergies Allergy/AdvReac Type Severity Reaction Status Date / Time Iodinated Contrast- Oral and Allergy ANAPHYLAXIS Verified 10/25/17 20:59 IV Dye [Iodinated Contrast Media - Oral and] Penicillins Allergy ANAPHYLAXIS Verified 10/25/17 20:59 Physical Exam - Constitutional Appears: No Acute Distress - Head Exam Head Exam: ATRAUMATIC, NORMAL INSPECTION, NORMOCEPHALIC - Eye Exam Eye Exam: EOMI, Normal appearance, PERRL. absent: Scleral icterus - ENT Exam ENT Exam: Mucous Membranes Dry - Neck Exam Additional comments: supple - Respiratory Exam Respiratory Exam: Clear to Auscultation Bilateral, NORMAL BREATHING PATTERN. absent: Rales, Rhonchi, Wheezes - Cardiovascular Exam Cardiovascular Exam: REGULAR RHYTHM, +S1, +S2 - GI/Abdominal Exam GI & Abdominal Exam: Normal Bowel Sounds, Soft. absent: Guarding, Rigid, Tenderness - Extremities Exam Extremities exam: Positive for: normal capillary refill, pedal edema, pedal pulses present (L foot only. R foot on air boot). Negative for: calf tenderness Additional comments: pink rash inguinal b/l. - Back Exam Back exam: absent: CVA tenderness (L), CVA tenderness (R) - Neurological Exam Neurological exam: Alert - Psychiatric Exam Psychiatric exam: Normal Affect, Normal Mood - Skin Skin Exam: Dry, Warm Results - Vital Signs Recent Vital Signs: Last Vital Signs Temp 98.6 F 12/26/17 10:53 Pulse 88 12/26/17 10:53 Resp 18 12/26/17 10:53 BP 172/79 H 12/26/17 10:53 Pulse Ox 92 L 12/26/17 10:53 - Labs Result Diagrams: 12/26/17 13:00 12/26/17 13:00 Assessment & Plan - Assessment and Plan (Free Text) Plan: Ms Nunez, 87 year old female, whose history includes Hx L frontal subarachnoid hemorrhage due to fall, HTN, COPD on home O2 2L, bipolar disorder, Hx falls and gait dysfunction, presented to [facility] for welling of R knee and R ankle. As per family, patient might have had a fall in the bathroom. R Knee x- ray showed mild to moderate suprasella bursa effusion without fracture or dislocation. R knee arthrocentesis showed WBC 2689, RBC [id number], Neutropils 69, lymphocyte 31. R Ankle x-ray showed R oblique fracture lateral malleolos. Pt's R foot is on splint and airboot. R foot fracture, stable - toradol PRN for pain - on splint and airboot - Manage per ortho - f/u ortho re: wt bearing status R knee effusion, s/p arthrocentesis, likely inflammatory in nature Has ruled out infectious etiology. - WBC 2689, RBC [id number], Neutropils 69, lymphocyte 31 - Pending gram stain, cytology Gait dysfunction s/p suspected fall Hx falls - Physical therapy - weight bearing status per ortho - Avoid sedatives COPD, chronic - On home O2 - Continue Yosef Pulmicort - Pulm consult per family Fungal rash, b/l inguinal - nystatin cream HTN - Continue ASA, Lisinopril 10, Amlodipine 10 History of bipolar/insomnia - Ativan 0.5 HS Osteoporosis - Continue Calcium PVX: Protonix 40 everyother day; SCD (L)/AE hose s/r/d/w Dr. Haywood <Kole Haywood - Last Filed: 12/26/17 17:54> Results - Vital Signs Recent Vital Signs: Last Vital Signs Temp 98.3 F 12/26/17 15:35 Pulse 88 12/26/17 15:35 Resp 17 12/26/17 15:35 BP 118/60 12/26/17 15:35 Pulse Ox 90 L 12/26/17 15:35 - Labs Result Diagrams: 12/26/17 13:00 12/26/17 13:00 Labs: Laboratory Results - last 24 hr 12/26/17 12/26/17 12/26/17 13:00 13:00 13:00 WBC 11.5 H D RBC 3.75 Hgb 11.3 L Hct 35.7 L MCV 95.2 MCH 30.1 MCHC 31.7 RDW 14.7 H Plt Count 149 MPV 11.5 H Gran % 70.8 H Lymph % (Auto) 18.2 L Rutherford % (Auto) 10.9 H Eos % (Auto) 0.0 L Baso % (Auto) 0.1 Gran # 8.16 H Lymph # (Auto) 2.1 Rutherford # (Auto) 1.3 H Eos # (Auto) 0.0 Baso # (Auto) 0.01 PT 12.8 H INR 1.12 H Sodium 143 Potassium 3.6 Chloride 104 Carbon Dioxide 34 H Anion Gap 8 L BUN 16 Creatinine 0.7 Est GFR ( Amer) > 60 Est GFR (Non-Af Amer) > 60 Random Glucose 106 Calcium 9.7 Total Bilirubin 0.4 AST 23 ALT 32 Alkaline Phosphatase 71 Total Protein 6.9 Albumin 3.7 Globulin 3.2 Albumin/Globulin Ratio 1.1 Fluid Type Synovial WBC Synovial RBC Synovial Neutrophils Synovial Lymphocytes Synov Monos/Macrophage Synovial Fluid Comment 12/26/17 13:00 WBC RBC Hgb Hct MCV MCH MCHC RDW Plt Count MPV Gran % Lymph % (Auto) Rutherford % (Auto) Eos % (Auto) Baso % (Auto) Gran # Lymph # (Auto) Rutherford # (Auto) Eos # (Auto) Baso # (Auto) PT INR Sodium Potassium Chloride Carbon Dioxide Anion Gap BUN Creatinine Est GFR ( Amer) Est GFR (Non-Af Amer) Random Glucose Calcium Total Bilirubin AST ALT Alkaline Phosphatase Total Protein Albumin Globulin Albumin/Globulin Ratio Fluid Type Synovial fluid Synovial WBC 2689.0 H Synovial RBC 398831.0 H Synovial Neutrophils 68.8 H Synovial Lymphocytes 31.2 H Synov Monos/Macrophage 0 Synovial Fluid Comment Right knee Attending/Attestation - Attestation I have personally seen and examined this patient.: Yes I have fully participated in the care of the patient.: Yes I have reviewed all pertinent clinical information: Yes Notes (Text): 12/26/17 17:50 attending note; Patient seen examined with resident in ER. Patient's daughter and boyfriend by the bedside. Patient is a poor historian. Patient is a 87 year old female with PMH of Left frontal subarachnoid hemorrhage, HTN/A-fib, COPD, bipolar disorder, pseudogout ,obesity, arthritisand Multinodular thyroid, presents to the Emergency department due to right knee and ankle pain x 1 day. possible fall or injury to the right angle suspected. X-ray showed right lateral malleolus fracture. Patient was evaluated by orthopedics in the ER. Continue cast. No surgery recommended. PT evaluation requested. Boot will be ordered. A. fib; not on anticoagulation due to multiple falls and history of hemorrhage. Continue aspirin. Right knee swelling; status post aspiration. Follow-up culture results. COPD/oxygen dependent; continue albuterol, Pulmicort. Pulmonary evaluation requested. Continue oxygen 2 L nasal cannula. case managers evaluation requested for discharge planning. Upon discharge the patient will follow-up with PMD .
[2017-12-26 13:35] LABS: SF GROSS APPEARANCE BLOODY (CLEAR)
[2017-12-26 13:36] LABS: SYNOVIAL FLUID COMMENT Right Knee; SYNOVIAL FLUID MONO/MACROPHAGE 0 % (0-0)
[2017-12-26 13:41] LABS: ALB/GLOB RATIO 1.1 (1.1-1.8); ALBUMIN 3.7 g/dL (3.0-4.8); ALT/SGPT 32 U/L (7-56); AST/SGOT 23 U/L (14-36); BLOOD UREA NITROGEN 16 mg/dL (7-21); CALCIUM 9.7 mg/dL (8.4-10.5); GFR AFRICAN-AMERICAN > 60; GFR NON-AFRICAN AMERICAN > 60
[2017-12-26 13:46] LABS: INR 1.12 (0.93-1.08); PROTHROMBIN TIME 12.8 SECONDS (9.4-12.5)
[2017-12-26 14:00] LABS: BASO # 0.01 K/mm3 (0.0-2.0); BASO % 0.1 % (0.0-3.0); GRAN # 8.16 (1.4-6.5); GRAN % 70.8 % (50.0-68.0); HEMOGLOBIN 11.3 g/dL (12.0-16.0); LYMPH # 2.1 (1.2-3.4); LYMPH % 18.2 % (22.0-35.0); MEAN CELL VOLUME 95.2 fl (80.0-105.0); MEAN CORPUSCULAR HEMOGLOBIN 30.1 pg (25.0-35.0); MEAN CORPUSCULAR HGB CONC 31.7 g/dl (31.0-37.0); MEAN PLATELET VOLUME 11.5 fl (7.0-11.0); MONO # 1.3 (0.1-0.6); MONO % 10.9 % (1.0-6.0); RBC 3.75 10^6/uL (3.5-6.1); RED CELL DISTRIBUTION WIDTH 14.7 % (11.5-14.5); WHITE BLOOD COUNT 11.5 10^3/ul (4.5-11.0)
[2017-12-26 14:01] VITALS: BMI 32.8
[2017-12-26] MEDS ORDERED: Albuterol 0.083% Inhal Sol (2.5 mg/3 mL) UD INH PRN (15:40)
[2017-12-26] MEDS: Albuterol 0.083% Inhal Sol (2.5 mg/3 mL) UD INH SCH (19:26)
[2017-12-26] MEDS: Arformoterol 15 mcg/2 ml Inh Sol IH SCH (19:27)
[2017-12-26] MEDS: Budesonide 0.25 mg/2 ml Inhal Susp UD IH SCH (19:27)
--- NOTE | 2017-12-27 00:47 | CON ---
DATE: ORTHOPEDIC CONSULTATION: HISTORY OF PRESENT ILLNESS: The patient is an 87-year-old female, who was seen in the emergency room at [facility] approximately 1 p.m. with an injury sustained to the right ankle. X-ray shows lateral malleolar fracture minimally displaced. Mild tenderness to the medial malleolus without a fracture, and she also has some effusion of the right knee. She is being admitted by the hospitalist for observation and therapy and may need to go to subacute rehab. So the ankle fracture being stable, the mortise is not displaced with examination, and that we put on an Aircast for now to avoid a hard cast because at this age she would not do well because she is going to be putting weight on it. Eventually, I will put her in a walking boot and observe the fracture. If it shows signs of displacing, we would have to do an ORIF. Hopefully, we would get away without surgery by keeping it a walking boot device for the first 8 weeks. She also had an ipsilateral effusion of her right knee, which was aspirated of 50 mL of serosanguineous fluid, which will be sent to the lab for culture, crystals and cell counts. She has a past history pseudogout or calcium pyrophosphate disease with calcified meniscus on the x-ray and osteoarthritis on the x-ray with spurs consistent with inflammatory arthritis. So with these two problems on the right side, being inflammatory arthritis of right knee with a hemarthrosis and ankle fracture, surgery, but we needed to protect with an Aircast on the right and injected the right knee with Depo-Medrol and Marcaine after we did arthrocentesis of 50 mL of fluid, serosanguineous, so she is going to be admitted. We will start physical therapy tomorrow for up out of bed and therapy could order also walking boots, so she could put more weight on that right lower extremity and do knee exercises and we will wait for the culture crystals and cell count to come back hopefully tomorrow. FINAL DIAGNOSES: Stable fracture, right ankle, lateral malleolus, and hemorrhagic synovitis, right knee, with inflammatory arthritis. X-rays does not show a fracture at this time. Edward Mastromonaco, DO
[2017-12-27] MEDS: Albuterol 0.083% Inhal Sol (2.5 mg/3 mL) UD INH SCH ×4 (01:24→20:28)
[2017-12-27] MEDS: Budesonide 0.25 mg/2 ml Inhal Susp UD IH SCH ×3 (07:00→20:28)
[2017-12-27 07:23] LABS: GRAN # 10.52 (1.4-6.5); HEMOGLOBIN 10.9 g/dL (12.0-16.0); LYMPH # 1.1 (1.2-3.4); LYMPH % 9.1 % (22.0-35.0); MEAN CELL VOLUME 96.7 fl (80.0-105.0); MEAN CORPUSCULAR HEMOGLOBIN 30.2 pg (25.0-35.0); MEAN CORPUSCULAR HGB CONC 31.2 g/dl (31.0-37.0); MEAN PLATELET VOLUME 11.9 fl (7.0-11.0); MONO # 0.6 (0.1-0.6); MONO % 4.9 % (1.0-6.0); RBC 3.61 10^6/uL (3.5-6.1); RED CELL DISTRIBUTION WIDTH 14.9 % (11.5-14.5); WHITE BLOOD COUNT 12.2 10^3/ul (4.5-11.0)
[2017-12-27] MEDS: Arformoterol 15 mcg/2 ml Inh Sol IH SCH ×2 (07:30→20:28)
[2017-12-27 07:37] LABS: ALB/GLOB RATIO 1.1 (1.1-1.8); ALBUMIN 3.5 g/dL (3.0-4.8); ALT/SGPT 23 U/L (7-56); AST/SGOT 20 U/L (14-36); BLOOD UREA NITROGEN 25 mg/dL (7-21); CALCIUM 10.2 mg/dL (8.4-10.5); GFR AFRICAN-AMERICAN > 60; GFR NON-AFRICAN AMERICAN 59
--- NOTE | 2017-12-27 10:16 | CARD ---
APPROVED REPORT EKG Measurement Heart [id number] <Conclusion> Atrial fibrillation with premature ventricular or aberrantly conducted complexes Nonspecific T wave abnormality, probably digitalis effect Abnormal ECG
[2017-12-27] MEDS: Nystatin 100,000 Units/gm Cream(15 gm) TOP SCH ×2 (10:29→20:06)
--- NOTE | 2017-12-27 13:00 | CP.PCM.PN ---
<Jad Correa Josselin - Last Filed: 12/27/17 15:05> Subjective - Date & Time of Evaluation Date of Evaluation: 12/27/17 Time of Evaluation: 07:30 - Subjective Subjective: Medicine progress note: Dr. Niko Vazquez Patient seen and examined at bedside. No acute events overnight per patient or per nursing. Patient states that she is mildly short of breath, but does not recall how much oxygen she is on at home. She is on 2L here. Patient denies any other symptoms including pain, dizziness, calf tenderness. Objective - Vital Signs/Intake and Output Vital Signs (last 24 hours): Temp Pulse Resp BP Pulse Ox 98.6 F 79 22 125/67 94 L 12/27/17 07:36 12/27/17 10:28 12/27/17 07:36 12/27/17 10:28 12/27/17 07:36 Intake and Output: 12/27/17 12/27/17 06:59 18:59 Intake Total 120 Balance 120 - Medications Medications: Current Medications Albuterol Sulfate (Albuterol 0.083% Inhal Radha (2.5 Mg/3 Ml) Ud) 2.5 mg INH [id number] [facility] Last Admin: 12/27/17 07:29 Dose: 2.5 mg Albuterol Sulfate (Albuterol 0.083% Inhal Radha (2.5 Mg/3 Ml) Ud) 2.5 mg INH Q2H PRN PRN Reason: Shortness of Breath Amlodipine Besylate (Norvasc) 10 mg PO DAILY [facility] Last Admin: 12/27/17 10:28 Dose: 10 mg Arformoterol Tartrate (Brovana) 15 mcg IH BID [facility] Last Admin: 12/27/17 07:30 Dose: 15 mcg Aspirin (Ecotrin) 81 mg PO DAILY [facility] Last Admin: 12/27/17 10:28 Dose: 81 mg Budesonide (Pulmicort Respules) 0.25 mg IH BID [facility] Last Admin: 12/27/17 07:30 Dose: 0.25 mg Calcium Carbonate (Caltrate) 600 mg PO DAILY [facility] Last Admin: 12/27/17 10:28 Dose: 600 mg Ketorolac Tromethamine (Toradol) 15 mg IVP Q6 PRN PRN Reason: Pain, moderate (4-7) Last Admin: 12/26/17 17:54 Dose: 15 mg Lisinopril (Zestril) 10 mg PO DAILY [facility] Last Admin: 12/27/17 10:28 Dose: 10 mg Lorazepam (Ativan) 0.5 mg PO HS [facility] PRN Reason: Protocol Last Admin: 12/26/17 21:32 Dose: 0.5 mg Nystatin (Mycostatin Cream) 1 ea TOP TID [facility] Last Admin: 12/27/17 10:29 Dose: 1 applic Pantoprazole Sodium (Protonix Ec Tab) 40 mg PO QOTHERDAY [facility] - Labs Labs: 12/27/17 06:30 12/27/17 06:30 PT 12.8 SECONDS (9.4-12.5) H 12/26/17 13:00 INR 1.12 (0.93-1.08) H 12/26/17 13:00 - Constitutional Appears: Well - Head Exam Head Exam: ATRAUMATIC, NORMAL INSPECTION, NORMOCEPHALIC - Eye Exam Eye Exam: EOMI, Normal appearance, PERRL Pupil Exam: NORMAL ACCOMODATION, PERRL - ENT Exam ENT Exam: Mucous Membranes Moist, Normal Exam - Neck Exam Neck Exam: Full ROM, Normal Inspection. absent: Lymphadenopathy - Respiratory Exam Respiratory Exam: Clear to Ausculation Bilateral, NORMAL BREATHING PATTERN - Cardiovascular Exam Cardiovascular Exam: REGULAR RHYTHM, +S1, +S2. absent: Murmur - GI/Abdominal Exam GI & Abdominal Exam: Soft, Normal Bowel Sounds. absent: Tenderness - Extremities Exam Extremities Exam: Full ROM, Normal Capillary Refill, Normal Inspection. absent : Joint Swelling, Pedal Edema Additional comments: Right sided knee swelling Right foot in boot done by ortho - Back Exam Back Exam: NORMAL INSPECTION - Neurological Exam Neurological Exam: Alert, Awake, CN II-XII Intact, Normal Gait, Oriented x3 - Psychiatric Exam Psychiatric exam: Normal Affect, Normal Mood - Skin Skin Exam: Dry, Intact, Normal Color, Warm Assessment and Plan - Assessment and Plan (Free Text) Assessment: Assessment and Plan 87 year old female with past medical history of L frontal subarachnoid hemorrhage due to fall, HTN, COPD on home O2 2L, bipolar disorder, History of falls and gait dysfunction, presented to [facility] for swelling of R knee and R ankle. As per family, patient might have had a fall in the bathroom. R Knee x- ray showed mild to moderate suprasella bursa effusion without fracture or dislocation. R knee arthrocentesis showed WBC 2689, RBC [id number], Neutropils 69, lymphocyte 31. R Ankle x-ray showed R oblique fracture lateral malleolus. Patient's foot in airboot. R foot fracture, stable - Toradol PRN for pain - On splint and airboot - Manage per ortho - Ortho wt bearing status - partial with boot Patient should follow up outpatient R knee effusion, s/p arthrocentesis, likely inflammatory in nature - Has ruled out infectious etiology. - WBC 2689, RBC [id number], Neutropils 69, lymphocyte 31 - Crystals do not show signs of gout pseudogout Gait dysfunction s/p suspected fall - Physical therapy - Weight bearing status: partial with boot - Avoid sedatives COPD, chronic - On home O2, 2L NC here - Continue Brovana, Pulmicort - Duoneb prn - Pulm consult per family Fungal rash, b/l inguinal - Nystatin cream Hypertension - Continue ASA, Lisinopril 10, Amlodipine 10 History of bipolar/insomnia - Ativan 0.5 HS Osteoporosis - Continue Calcium Prophylaxis: Protonix 40 everyother day; SCD (L)/AE hose Dispo: Awaiting PT recommendations <Natalie Vazquez B - Last Filed: 12/27/17 17:52> Objective - Vital Signs/Intake and Output Vital Signs (last 24 hours): Temp Pulse Resp BP Pulse Ox 98.6 F 79 22 125/67 94 L 12/27/17 07:36 12/27/17 10:28 12/27/17 07:36 12/27/17 10:28 12/27/17 07:36 Intake and Output: 12/27/17 12/27/17 06:59 18:59 Intake Total 120 600 Balance 120 600 - Medications Medications: Current Medications Albuterol Sulfate (Albuterol 0.083% Inhal Radha (2.5 Mg/3 Ml) Ud) 2.5 mg INH [id number] [facility] Last Admin: 12/27/17 14:06 Dose: 2.5 mg Albuterol Sulfate (Albuterol 0.083% Inhal Radha (2.5 Mg/3 Ml) Ud) 2.5 mg INH Q2H PRN PRN Reason: Shortness of Breath Amlodipine Besylate (Norvasc) 10 mg PO DAILY [facility] Last Admin: 12/27/17 10:28 Dose: 10 mg Arformoterol Tartrate (Brovana) 15 mcg IH BID [facility] Last Admin: 12/27/17 07:30 Dose: 15 mcg Aspirin (Ecotrin) 81 mg PO DAILY [facility] Last Admin: 12/27/17 10:28 Dose: 81 mg Budesonide (Pulmicort Respules) 0.25 mg IH BID [facility] Last Admin: 12/27/17 07:30 Dose: 0.25 mg Calcium Carbonate (Caltrate) 600 mg PO DAILY [facility] Last Admin: 12/27/17 10:28 Dose: 600 mg Ketorolac Tromethamine (Toradol) 15 mg IVP Q6 PRN PRN Reason: Pain, moderate (4-7) Last Admin: 12/26/17 17:54 Dose: 15 mg Lisinopril (Zestril) 10 mg PO DAILY [facility] Last Admin: 12/27/17 10:28 Dose: 10 mg Lorazepam (Ativan) 0.5 mg PO HS [facility] PRN Reason: Protocol Last Admin: 12/26/17 21:32 Dose: 0.5 mg Nystatin (Mycostatin Cream) 1 ea TOP TID [facility] Last Admin: 12/27/17 10:29 Dose: 1 applic Pantoprazole Sodium (Protonix Ec Tab) 40 mg PO QOTHERDAY [facility] - Labs Labs: 12/27/17 06:30 12/27/17 06:30 PT 12.8 SECONDS (9.4-12.5) H 12/26/17 13:00 INR 1.12 (0.93-1.08) H 12/26/17 13:00 Attending/Attestation - Attestation I have personally seen and examined this patient.: Yes I have fully participated in the care of the patient.: Yes I have reviewed all pertinent clinical information, including history, physical exam and plan: Yes Notes (Text): I have seen and examined the patient at bedside. Agree with the above note with the following additions/ exceptions: Briefly this is 87 year old female with history of Left frontal subarachnoid hemorrhage, HTN, A-fib (not on anticoagulation), COPD, bipolar disorder, pseudogout ,obesity, arthritis and Multinodular thyroid who was admitted for evaluation of right knee and ankle pain for 1 day [employer] possibly s/p fall. X-ray showed right lateral malleolus fracture. Continue cast and boot. No surgery recommended by ortho. PT evaluation requested. Continue aspirin. Depo injection was given in right knee. Patient feels better and denies any complaints. Continue albuterol, Pulmicort and oxygen 2 L nasal cannula. Upon discharge the patient will follow-up with PMD .
--- NOTE | 2017-12-27 14:13 | PN ---
DATE: 12/27/2017 SUBJECTIVE: An 87-year-old female who came into the hospital yesterday on 12/26/2017, where she had a fracture of right ankle and effusion of the right arthritic knee. The effusion was taken care by aspirating some bloody effusions consistent with hemorrhagic synovitis as there was no fracture on the x-ray, but she does have osteophytes from osteoarthritis, which could cause a few bloody effusion. Then, she also has a stable right ankle fracture on the ipsilateral side of the knee arthritis and that is stable enough to be without a plaster cast because that would just weaken her muscles even more as one of the other reasons why she is in the hospital is profound weakness and she has a difficulty walking without falling. The arthritis is making it worse, now the fracture occurred and to keep her mobile, we have to get her a fracture boot from Physical Therapy, so she can ambulate with a walker. For the meantime, I have put her on an Aircast and a fracture shoe. I hope that we can get the fracture boot on with more support and she could ambulate with a walker in Physical Therapy and she probably needs subacute rehab for extended therapy. We are awaiting for the culture and fluid analysis that come back from the aspirate from yesterday, but her knee feels better with the cortisone injection for the arthritis. Rodrigo Garcia DO
--- NOTE | 2017-12-27 17:52 | CON ---
DATE: 12/27/2017 PULMONARY CONSULTATION REASON FOR CONSULTATION: Chronic obstructive pulmonary disease. REFERRING PHYSICIAN: Kole Haywood MD. HISTORY OF PRESENT ILLNESS: History is obtained via extensive discussion with the night nurse. I have also reviewed the chart at length. The patient does not appear to be an adequate historian. The patient is an 87-year-old female, with past medical history significant for advanced chronic obstructive pulmonary disease (on home oxygen), chronic atrial fibrillation, hypertension, osteoarthritis, who presents to [facility] with a 1-day history of increasing right knee and ankle pain and swelling. As per the boyfriend, he thinks that the patient may have bumped her knee on the toilet. However, the daughter thinks that she may have fallen. In any case, x-rays were done in the emergency room. The patient was diagnosed with a right ankle fracture. She was thus admitted for additional evaluation and treatment. The patient is not short of breath at rest. She does have chronic occasional dyspnea on exertion - unchanged. She also has a chronic occasional cough with no significant sputum production. There is no history of chest pain, coughing up of blood or chest pain - made worse with deep respirations. There is no history of temperatures, chills or infectious exposure. There is no history of night sweats, weight loss or appetite change prior to the above events. No history of calf pains. No history of syncope or diaphoresis. No history of recent travel. REVIEW OF SYSTEMS: No history of nausea, vomiting or diarrhea. No acute urinary symptoms. Rest of the review of systems is negative. ALLERGIES: TO IV DYE AND PENICILLIN. SOCIAL HISTORY: Positive for tobacco. Negative for alcohol. FAMILY HISTORY: No inheritable diseases. HOME MEDICATIONS: Include Protonix, Zestril, Brovana, Pulmicort, Norvasc, Ativan, calcium carbonate and Ecotrin. PHYSICAL EXAMINATION: GENERAL: The patient is not short of breath at rest. She is not using accessory muscles for breathing. VITAL SIGNS: (last noted in the computer): Temperature is 98.0, pulse 70, respirations 16, blood pressure 115/80. Oxygen saturation on nasal cannula is 92%. HEENT: Normocephalic, atraumatic. No JVD. CARDIOVASCULAR: Systolic ejection murmur at the lower left sternal border. No S3 gallop. LUNGS: Decreased breath sounds at the bases. Very minimal rhonchi. No wheezing. EXTREMITIES: The right ankle and foot is in a boot. The left lower extremity shows mild edema. There is no cyanosis or clubbing. The calves are nontender to palpation. GI: Abdomen is soft, nontender and nondistended. Bowel sounds are positive. SKIN: No acute rash. NEUROLOGIC: Limited at the present time. PERTINENT LABORATORY DATA: Chest x-ray was done and reviewed. There is no acute disease noted. X-rays were also done of the right ankle. There is an oblique fracture of the lateral malleolus. CBC: White count 11.5, hemoglobin 11.3, hematocrit 35.7, platelets of 149,000. Complete metabolic profile: Carbon dioxide 34. Rest of the metabolic profile is within normal limits. IMPRESSION: 1. Right ankle fracture. 2. Advanced chronic obstructive pulmonary disease. 3. Chronic atrial fibrillation. 4. Mild anemia. PLAN: Again, I did discuss the case with the night nurse at length. I have also reviewed the chart at length. The patient presents to [facility] with a 1-day history of increasing pain and swelling to her right knee and right ankle areas. Subsequent evaluation revealed a fracture of her right ankle. She was thus admitted for additional evaluation. I did review the chest x-ray as above. There is no acute disease noted. On physical exam, there is only minimal bronchospasm noted. I will continue with the current nebulizer treatments for now. Again, I did discuss the case with the night nurse at length. She stated that no surgery is planned. Had there been a planned surgery, I would obtain an arterial blood gas(preoperatively). I would continue with the orthopedic evaluation as per Dr. Garcia. His input is noted. The patient is not truly ambulatory at this point in time. Thus, she may need a short stay on the physical therapy floor (Transitional Unit) for her to learn how to use her crutches. I will discuss the above with the attending physician this morning. Thank you very much for this pulmonary consultation. Ranjit Burnham MD [facility] # [id number] NIA
[2017-12-27] MEDS ORDERED: Influenza Vaccine 60 mcg/0.5 mL SYR (4YR UP) IM ONE (20:51)
[2017-12-27] MEDS ORDERED: Pneumococcal 23-Valent Vaccine IM ONE (20:51)
[2017-12-28] MEDS: Albuterol 0.083% Inhal Sol (2.5 mg/3 mL) UD INH SCH ×4 (02:50→21:54)
[2017-12-28] MEDS: Budesonide 0.25 mg/2 ml Inhal Susp UD IH SCH ×2 (07:11→21:58)
[2017-12-28] MEDS: Arformoterol 15 mcg/2 ml Inh Sol IH SCH ×2 (07:12→21:54)
[2017-12-28 07:25] LABS: BASO # 0.01 K/mm3 (0.0-2.0); BASO % 0.1 % (0.0-3.0); EOS % 0.1 % (1.5-5.0); GRAN # 9.03 (1.4-6.5); GRAN % 76.6 % (50.0-68.0); HEMOGLOBIN 10.7 g/dL (12.0-16.0); LYMPH # 1.8 (1.2-3.4); LYMPH % 15.6 % (22.0-35.0); MEAN CELL VOLUME 96.3 fl (80.0-105.0); MEAN CORPUSCULAR HEMOGLOBIN 30.2 pg (25.0-35.0); MEAN CORPUSCULAR HGB CONC 31.4 g/dl (31.0-37.0); MEAN PLATELET VOLUME 11.7 fl (7.0-11.0); MONO # 0.9 (0.1-0.6); MONO % 7.6 % (1.0-6.0); RBC 3.54 10^6/uL (3.5-6.1); RED CELL DISTRIBUTION WIDTH 15.1 % (11.5-14.5); WHITE BLOOD COUNT 11.8 10^3/ul (4.5-11.0)
[2017-12-28 07:47] LABS: ALB/GLOB RATIO 1.1 (1.1-1.8); ALBUMIN 3.7 g/dL (3.0-4.8); ALT/SGPT 26 U/L (7-56); AST/SGOT 22 U/L (14-36); BLOOD UREA NITROGEN 25 mg/dL (7-21); CALCIUM 9.9 mg/dL (8.4-10.5); GFR AFRICAN-AMERICAN > 60; GFR NON-AFRICAN AMERICAN > 60
[2017-12-28] MEDS ORDERED: Pantoprazole 40 mg EC Tab PO SCH (10:00)
[2017-12-28] MEDS: Nystatin 100,000 Units/gm Cream(15 gm) TOP SCH ×4 (10:15→17:33)
--- NOTE | 2017-12-28 10:39 | PN ---
DATE: 12/28/2017 PULMONARY NOTE SUBJECTIVE: The patient appears comfortable this morning. She is not short of breath at rest. PHYSICAL EXAMINATION: VITAL SIGNS: (last noted in the computer): Temperature is 97.8, pulse 73, respirations 18/20, blood pressure 137/57. Oxygen saturation on nasal cannula is 95%. HEENT: Normocephalic, atraumatic. No JVD. CARDIOVASCULAR: Systolic ejection murmur at the lower left sternal border. No S3 gallop. LUNGS: Decreased breath sounds at the bases. Very minimal/less rhonchi. No wheezing. EXTREMITIES: The right ankle and foot is in a boot. The left lower extremity shows mild edema. There is no cyanosis or clubbing. Calves are nontender to palpation. GI: Abdomen is soft, nontender and nondistended. Bowel sounds are positive. SKIN: No acute rash. NEUROLOGIC: Limited at the present time. IMPRESSION: 1. Right ankle fracture. 2. Advanced chronic obstructive pulmonary disease. 3. Chronic atrial fibrillation. 4. Mild anemia. PLAN: The patient appears comfortable this morning. She is not short of breath at rest. She states to less ankle pain. She does state to feeling better overall. On physical exam, there is no significant bronchospasm noted. In addition, there is no significant alveolar-arterial gradient. I will continue with the current nebulizer treatments and inhaled steroids for now. Input by Orthopedics (Dr. Garcia) is noted. Repeat labs are pending. I will also order an incentive spirometer to be used - as the patient is not mobile at this point in time. Clinical status of the patient appears improved. I will discuss the above with the attending physician. Ranjit Burnham MD MTDD
--- NOTE | 2017-12-28 13:10 | PN ---
DATE: LOCATION: Room 572, bed 2. Patient was admitted on 12/26/2017 with fracture of right ankle, stable lateral malleolus fracture and ipsilateral osteoarthritis, right knee where she had fluid aspirated and injected with Depo-Medrol. The x-rays and fluid came back positive for calcium pyrophosphate as in pseudogout. Today, the knee is hurting less, still mild effusion. She still had Aircast in the right ankle. We did not obtain the Walker boot yet, so she really cannot do much walk until we get a walking boot for the fracture, that will be more stable than the Aircast, but we will get her up out of bed and start physical therapy for strengthening exercises for the right knee arthritic condition that causes weakness and predispose her to falling. Rodrigo Garcia DO [id number]
--- NOTE | 2017-12-28 14:25 | CP.PCM.PN ---
<MadelineJad - Last Filed: 12/28/17 14:11> Subjective - Date & Time of Evaluation Date of Evaluation: 12/28/17 Time of Evaluation: 07:00 - Subjective Subjective: Medicine progress note Patient seen and examined at bedside. Patient states that she feels like she is unsure what is going on with her care, so I spent time to explain the plan to her. Other than that, no acute events overnight, and patient denies any complaints overnight. Objective - Vital Signs/Intake and Output Vital Signs (last 24 hours): Temp Pulse Resp BP Pulse Ox 90.0 F L 81 22 145/81 92 L 12/28/17 07:30 12/28/17 10:14 12/28/17 07:30 12/28/17 10:14 12/28/17 07:30 Intake and Output: 12/28/17 12/28/17 06:59 18:59 Intake Total 120 Output Total 200 Balance -80 - Medications Medications: Current Medications Albuterol Sulfate (Albuterol 0.083% Inhal Radha (2.5 Mg/3 Ml) Ud) 2.5 mg INH [id number] [facility] Last Admin: 12/28/17 07:11 Dose: 2.5 mg Albuterol Sulfate (Albuterol 0.083% Inhal Radha (2.5 Mg/3 Ml) Ud) 2.5 mg INH Q2H PRN PRN Reason: Shortness of Breath Amlodipine Besylate (Norvasc) 10 mg PO DAILY [facility] Last Admin: 12/28/17 10:14 Dose: 10 mg Arformoterol Tartrate (Brovana) 15 mcg [facility] Aspirin (Ecotrin) 81 mg PO DAILY [facility] Last Admin: 12/28/17 10:14 Dose: 81 mg Budesonide (Pulmicort Respules) 0.25 mg IH 799,1999 [facility] Calcium Carbonate (Caltrate) 600 mg PO DAILY [facility] Last Admin: 12/28/17 10:14 Dose: 600 mg Ketorolac Tromethamine (Toradol) 15 mg IVP Q6 PRN PRN Reason: Pain, moderate (4-7) Last Admin: 12/28/17 04:58 Dose: 15 mg Lisinopril (Zestril) 10 mg PO DAILY [facility] Last Admin: 03/27/18 10:14 Dose: 10 mg Lorazepam (Ativan) 0.5 mg PO HS [facility] PRN Reason: Protocol Last Admin: 12/27/17 22:33 Dose: 0.5 mg Nystatin (Mycostatin Cream) 1 ea TOP TID [facility] Last Admin: 12/28/17 10:15 Dose: 1 applic Pantoprazole Sodium (Protonix Ec Tab) 40 mg PO 0600 [facility] - Labs Labs: 12/28/17 07:00 12/28/17 07:00 PT 12.8 SECONDS (9.4-12.5) H 12/26/17 13:00 INR 1.12 (0.93-1.08) H 12/26/17 13:00 - Constitutional Appears: Well - Head Exam Head Exam: ATRAUMATIC, NORMAL INSPECTION, NORMOCEPHALIC - Eye Exam Eye Exam: EOMI, Normal appearance, PERRL Pupil Exam: NORMAL ACCOMODATION, PERRL - ENT Exam ENT Exam: Mucous Membranes Moist, Normal Exam - Neck Exam Neck Exam: Full ROM, Normal Inspection. absent: Lymphadenopathy - Respiratory Exam Respiratory Exam: Clear to Ausculation Bilateral, NORMAL BREATHING PATTERN - Cardiovascular Exam Cardiovascular Exam: REGULAR RHYTHM, +S1, +S2. absent: Murmur - GI/Abdominal Exam GI & Abdominal Exam: Soft, Normal Bowel Sounds. absent: Tenderness - Exam Bimanual exam: NORMAL BIMANUAL EXAM - Extremities Exam Extremities Exam: Full ROM, Normal Capillary Refill, Normal Inspection. absent : Joint Swelling, Pedal Edema Additional comments: Right sided knee swelling Right foot in boot done by ortho - Back Exam Back Exam: NORMAL INSPECTION - Neurological Exam Neurological Exam: Alert, Awake, CN II-XII Intact, Normal Gait, Oriented x3 - Psychiatric Exam Psychiatric exam: Normal Affect, Normal Mood - Skin Skin Exam: Dry, Intact, Normal Color, Warm Assessment and Plan - Assessment and Plan (Free Text) Assessment: Assessment and Plan 87 year old female with past medical history of L frontal subarachnoid hemorrhage due to fall, HTN, COPD on home O2 2L, bipolar disorder, History of falls and gait dysfunction, presented to [facility] for swelling of R knee and R ankle. As per family, patient might have had a fall in the bathroom. Ankle x- ray showed R oblique fracture lateral malleolus. Patient's foot in airboot. R foot fracture, stable - Toradol PRN for pain - On splint and airboot - Manage per ortho - Ortho wt bearing status - partial with boot Patient should follow up outpatient R knee effusion, s/p arthrocentesis, likely inflammatory in nature - Has ruled out infectious etiology. - WBC 2689, RBC 680717, Neutropils 69, lymphocyte 31 - Crystals do not show signs of gout pseudogout Gait dysfunction s/p suspected fall - Physical therapy - Weight bearing status: partial with boot - Avoid sedatives COPD, chronic - On home O2, 2L NC here - Continue Brovana, Pulmicort - Duoneb prn - Pulm consult per family: Dr. Yocasta Rust: Continue current treatment; if surgery, he would have wanted ABG Fungal rash, b/l inguinal - Nystatin cream Hypertension - Continue ASA, Lisinopril 10, Amlodipine 10 History of bipolar/insomnia - Ativan 0.5 HS Osteoporosis - Continue Calcium Prophylaxis: Protonix 40 everyother day; SCD (L)/AE hose Dispo: PT recommends Subacute Rehab, will coordinate with social work. <Natalie Vazquez B - Last Filed: 12/28/17 15:04> Objective - Vital Signs/Intake and Output Vital Signs (last 24 hours): Temp Pulse Resp BP Pulse Ox 90.0 F L 81 22 145/81 92 L 12/28/17 07:30 12/28/17 10:14 12/28/17 07:30 12/28/17 10:14 12/28/17 07:30 Intake and Output: 12/28/17 12/28/17 06:59 18:59 Intake Total 120 480 Output Total 200 400 Balance -80 80 - Medications Medications: Current Medications Albuterol Sulfate (Albuterol 0.083% Inhal Radha (2.5 Mg/3 Ml) Ud) 2.5 mg INH [id number] [facility] Last Admin: 12/28/17 14:41 Dose: 2.5 mg Albuterol Sulfate (Albuterol 0.083% Inhal Radha (2.5 Mg/3 Ml) Ud) 2.5 mg INH Q2H PRN PRN Reason: Shortness of Breath Amlodipine Besylate (Norvasc) 10 mg PO DAILY [facility] Last Admin: 12/28/17 10:14 Dose: 10 mg Arformoterol Tartrate (Brovana) 15 mcg IH 0800,1999 [facility] Aspirin (Ecotrin) 81 mg PO DAILY [facility] Last Admin: 12/28/17 10:14 Dose: 81 mg Budesonide (Pulmicort Respules) 0.25 mg [facility] Calcium Carbonate (Caltrate) 600 mg PO DAILY [facility] Last Admin: 12/28/17 10:14 Dose: 600 mg Ketorolac Tromethamine (Toradol) 15 mg IVP Q6 PRN PRN Reason: Pain, moderate (4-7) Last Admin: 12/28/17 04:58 Dose: 15 mg Lisinopril (Zestril) 10 mg PO DAILY [facility] Last Admin: 12/28/17 10:14 Dose: 10 mg Lorazepam (Ativan) 0.5 mg PO HS [facility] PRN Reason: Protocol Last Admin: 12/27/17 22:33 Dose: 0.5 mg Nystatin (Mycostatin Cream) 1 ea TOP TID [facility] Last Admin: 12/28/17 10:15 Dose: 1 applic Pantoprazole Sodium (Protonix Ec Tab) 40 mg PO 0600 [facility] - Labs Labs: 12/28/17 07:00 12/28/17 07:00 PT 12.8 SECONDS (9.4-12.5) H 12/26/17 13:00 INR 1.12 (0.93-1.08) H 12/26/17 13:00 Attending/Attestation - Attestation I have personally seen and examined this patient.: Yes I have fully participated in the care of the patient.: Yes I have reviewed all pertinent clinical information, including history, physical exam and plan: Yes Notes (Text): I have seen and examined the patient at bedside. Agree with the above note with the following additions/ exceptions: Briefly this is 87 year old female with history of Left frontal subarachnoid hemorrhage, HTN, A-fib (not on anticoagulation), COPD, bipolar disorder, pseudogout, obesity, arthritis and Multinodular thyroid who was admitted for evaluation of right knee and ankle pain for 1 day MAGISTRATE possibly s/p fall. X-ray showed right lateral malleolus fracture. Continue cast and boot. No surgical intervention is recommended by ortho. PT recommended BILLIE. Awaiting placement. Continue aspirin. Depo injection was given in right knee. Patient feels better and denies any complaints. Continue albuterol, Pulmicort and oxygen 2 L nasal cannula. Patients friend is at bedside. Upon discharge the patient will follow-up with PMD . Dr Natalie Vazquez
[2017-12-29] MEDS: Albuterol 0.083% Inhal Sol (2.5 mg/3 mL) UD INH SCH ×2 (03:24→07:34)
[2017-12-29] MEDS ORDERED: Pantoprazole 40 mg EC Tab PO SCH (06:00)
[2017-12-29 07:08] LABS: BASO # 0.01 K/mm3 (0.0-2.0); BASO % 0.1 % (0.0-3.0); EOS % 0.1 % (1.5-5.0); GRAN # 9.21 (1.4-6.5); GRAN % 75.1 % (50.0-68.0); HEMOGLOBIN 11.9 g/dL (12.0-16.0); LYMPH # 1.9 (1.2-3.4); LYMPH % 15.6 % (22.0-35.0); MEAN CORPUSCULAR HEMOGLOBIN 29.8 pg (25.0-35.0); MEAN CORPUSCULAR HGB CONC 31.4 g/dl (31.0-37.0); MEAN PLATELET VOLUME 11.3 fl (7.0-11.0); MONO # 1.1 (0.1-0.6); MONO % 9.1 % (1.0-6.0); RBC 3.99 10^6/uL (3.5-6.1); RED CELL DISTRIBUTION WIDTH 15.1 % (11.5-14.5); WHITE BLOOD COUNT 12.3 10^3/ul (4.5-11.0)
[2017-12-29 07:22] LABS: ALB/GLOB RATIO 1.1 (1.1-1.8); ALBUMIN 3.9 g/dL (3.0-4.8); ALT/SGPT 28 U/L (7-56); AST/SGOT 24 U/L (14-36); BLOOD UREA NITROGEN 20 mg/dL (7-21); CALCIUM 10.4 mg/dL (8.4-10.5); GFR AFRICAN-AMERICAN > 60; GFR NON-AFRICAN AMERICAN > 60
[2017-12-29] MEDS: Arformoterol 15 mcg/2 ml Inh Sol IH SCH (07:34)
[2017-12-29] MEDS: Budesonide 0.25 mg/2 ml Inhal Susp UD IH SCH (07:35)
[2017-12-29 08:33] VITALS: PULSE 88; RESP 20; TEMP 98.3; O2SAT 95
[2017-12-29] MEDS: Nystatin 100,000 Units/gm Cream(15 gm) TOP SCH ×2 (09:44→13:10)
[2017-12-29] MEDS ORDERED: Acetaminophen 650mg/20.3ml solution UD PO PRN (10:10)
--- NOTE | 2017-12-29 10:39 | PN ---
DATE: 12/29/2017 PULMONARY NOTE SUBJECTIVE: The patient appears comfortable this morning. She is not short of breath at rest. PHYSICAL EXAMINATION VITAL SIGNS: Temperature is 98.8, pulse 88, respirations 18, blood pressure 160/70. Oxygen saturation on nasal cannula is 97%. HEENT: Normocephalic, atraumatic. No JVD. CARDIOVASCULAR: Systolic ejection murmur at the lower left sternal border. No S3 gallop. LUNGS: Improved breath sounds at the bases. No rhonchi or wheezing this morning. EXTREMITIES: The right ankle and foot remain in a boot. The left lower extremity shows mild edema. There is no cyanosis or clubbing. Calves are nontender to palpation. GI: Abdomen is soft, nontender and nondistended. Bowel sounds are positive. SKIN: No acute rash. NEUROLOGIC: Limited at the present time. IMPRESSION: 1. Right ankle fracture. 2. Advanced chronic obstructive pulmonary disease. 3. Chronic atrial fibrillation. 4. Mild anemia. PLAN: The patient appears comfortable this morning. She is not short of breath at rest. She does state to feeling much better overall. On physical exam, there is no significant bronchospasm. In addition, there is no significant alveolar-arterial gradient. I will continue with the current nebulizer treatments for now. Input by Orthopedics is noted. Clinical status of the patient is certainly improved - compared to the initial presentation. I will discuss the above with the attending physician. Ranjit Burnham MD MTDErvin
[2017-12-29 10:57] VITALS: BP 154/89
--- NOTE | 2017-12-29 12:24 | CP.PCM.DIS ---
Provider - Provider Date of Admission: 12/26/17 12:36 Attending physician: Natalie Vazquez MD Hospital Course - Lab Results Lab Results: Micro Results 12/26/17 13:00 Synovial Fluid Gram Stain - Final 12/26/17 13:00 Synovial Fluid Body Fluid Culture - Preliminary NO GROWTH AFTER 3 DAYS Most Recent Lab Values WBC 12.3 10^3/ul (4.5-11.0) H 12/29/17 06:35 RBC 3.99 10^6/uL (3.5-6.1) 12/29/17 06:35 Hgb 11.9 g/dL (12.0-16.0) L 12/29/17 06:35 Hct 37.9 % (36.0-48.0) 12/29/17 06:35 MCV 95.0 fl (80.0-105.0) 12/29/17 06:35 MCH 29.8 pg (25.0-35.0) 12/29/17 06:35 MCHC 31.4 g/dl (31.0-37.0) 12/29/17 06:35 RDW 15.1 % (11.5-14.5) H 12/29/17 06:35 Plt Count 154 10^3/uL (120.0-450.0) 12/29/17 06:35 MPV 11.3 fl (7.0-11.0) H 12/29/17 06:35 Gran % 75.1 % (50.0-68.0) H 12/29/17 06:35 Lymph % (Auto) 15.6 % (22.0-35.0) L 12/29/17 06:35 [place] % (Auto) 9.1 % (1.0-6.0) H 12/29/17 06:35 Eos % (Auto) 0.1 % (1.5-5.0) L 12/29/17 06:35 Baso % (Auto) 0.1 % (0.0-3.0) 12/29/17 06:35 Gran # 9.21 (1.4-6.5) H 12/29/17 06:35 Lymph # (Auto) 1.9 (1.2-3.4) 12/29/17 06:35 [place] # (Auto) 1.1 (0.1-0.6) H 12/29/17 06:35 Eos # (Auto) 0.0 (0.0-0.7) 12/29/17 06:35 Baso # (Auto) 0.01 K/mm3 (0.0-2.0) 12/29/17 06:35 PT 12.8 SECONDS (9.4-12.5) H 12/26/17 13:00 INR 1.12 (0.93-1.08) H 12/26/17 13:00 Sodium 143 mmol/L (132-148) 12/29/17 06:35 Potassium 4.2 mmol/L (3.6-5.0) 12/29/17 06:35 Chloride 105 mmol/L (98-107) 12/29/17 06:35 Carbon Dioxide 30 mmol/L (21-33) 12/29/17 06:35 Anion Gap 12 (10-20) 12/29/17 06:35 BUN 20 mg/dL (7-21) 12/29/17 06:35 Creatinine 0.8 mg/dl (0.7-1.2) 12/29/17 06:35 Est GFR ( Amer) > 60 12/29/17 06:35 Est GFR (Non-Af Amer) > 60 12/29/17 06:35 Random Glucose 119 mg/dL (70-110) H 12/29/17 06:35 Calcium 10.4 mg/dL (8.4-10.5) 12/29/17 06:35 Total Bilirubin 0.5 mg/dL (0.2-1.3) 12/29/17 06:35 AST 24 U/L (14-36) 12/29/17 06:35 ALT 28 U/L (7-56) 12/29/17 06:35 Alkaline Phosphatase 66 U/L (38-126) 12/29/17 06:35 Total Protein 7.3 g/dL (5.8-8.3) 12/29/17 06:35 Albumin 3.9 g/dL (3.0-4.8) 12/29/17 06:35 Globulin 3.4 gm/dL 12/29/17 06:35 Albumin/Globulin Ratio 1.1 (1.1-1.8) 12/29/17 06:35 Fluid Type Synovial fluid 03/25/18 13:00 Synovial WBC 2689.0 /uL (0.0-150.0) H 12/26/17 13:00 Synovial RBC 577409.0 /uL (0.0-0.0) H 12/26/17 13:00 Synovial Neutrophils 68.8 % (0-0) H 12/26/17 13:00 Synovial Lymphocytes 31.2 % (0-0) H 12/26/17 13:00 Synov Monos/Macrophage 0 % (0-0) 12/26/17 13:00 Synovial Fluid Comment Right knee 12/26/17 13:00 Discharge Exam - Head Exam Head Exam: ATRAUMATIC, NORMAL INSPECTION, NORMOCEPHALIC Discharge Plan - Follow Up Plan Condition: FAIR Disposition: HOME/ ROUTINE Instructions: Ankle Fracture, Generalized Weakness (DC), Flu Vaccine Additional Instructions: Patient being discharged to [facility].
== END 2017-12-29 13:57 | DRG 563 ==
LOC: ED 10:53 → ERH 12:36 → 5RSO 15:12
PROVIDERS: ADMIT Internal Medicine; ATTEND Hospitalist
PROC: 0S9C3ZX Drainage of Right Knee Joint, Percutaneous Approach, Diagnostic (ICD-10-PCS; principal; 2017-12-26)
PROC: 3E0U33Z Introduction of Anti-inflammatory into Joints, Percutaneous Approach (ICD-10-PCS; 2017-12-26)
PROC: 3E0U3BZ Introduction of Anesthetic Agent into Joints, Percutaneous Approach (ICD-10-PCS; 2017-12-26)
PROC: 3E0F7GC Introduction of Other Therapeutic Substance into Respiratory Tract, Via Natural or Artificial Opening (ICD-10-PCS; 2017-12-26)
DX: S82.61XA Displaced fracture of lateral malleolus of right fibula, initial encounter for closed fracture (principal); M25.061 Hemarthrosis, right knee; J44.9 Chronic obstructive pulmonary disease, unspecified; Z99.81 Dependence on supplemental oxygen; F31.9 Bipolar disorder, unspecified; E66.9 Obesity, unspecified; I10 Essential (primary) hypertension; I48.2 Chronic atrial fibrillation; M17.11 Unilateral primary osteoarthritis, right knee; M81.0 Age-related osteoporosis without current pathological fracture; M65.9 Synovitis and tenosynovitis, unspecified; D64.9 Anemia, unspecified; B36.9 Superficial mycosis, unspecified; M20.11 Hallux valgus (acquired), right foot; M77.31 Calcaneal spur, right foot; H91.90 Unspecified hearing loss, unspecified ear; G47.00 Insomnia, unspecified; Z68.35 Body mass index [BMI] 35.0-35.9, adult; W19.XXXA Unspecified fall, initial encounter; Y92.002 Bathroom of unspecified non-institutional (private) residence as the place of occurrence of the external cause; Z91.81 History of falling; Z87.891 Personal history of nicotine dependence

== ENCOUNTER 2018-02-04 20:16 | Inpatient (IN) | payer MEDICARE, OTHER ==
[2018-02-04 20:22] VITALS: BMI 31.9
[2018-02-04 21:14] LABS: BASO # 0.01 K/mm3 (0.0-2.0); BASO % 0.1 % (0.0-3.0); EOS % 0.2 % (1.5-5.0); GRAN # 6.95 (1.4-6.5); GRAN % 71.5 % (50.0-68.0); HEMOGLOBIN 11.1 g/dL (12.0-16.0); LYMPH # 1.9 (1.2-3.4); LYMPH % 19.1 % (22.0-35.0); MEAN CELL VOLUME 96.7 fl (80.0-105.0); MEAN CORPUSCULAR HEMOGLOBIN 30.7 pg (25.0-35.0); MEAN CORPUSCULAR HGB CONC 31.7 g/dl (31.0-37.0); MEAN PLATELET VOLUME 11.5 fl (7.0-11.0); MONO # 0.9 (0.1-0.6); MONO % 9.1 % (1.0-6.0); RBC 3.62 10^6/uL (3.5-6.1); RED CELL DISTRIBUTION WIDTH 13.6 % (11.5-14.5); WHITE BLOOD COUNT 9.7 10^3/ul (4.5-11.0)
[2018-02-04 21:27] LABS: ALB/GLOB RATIO 1.2 (1.1-1.8); ALBUMIN 4.1 g/dL (3.0-4.8); ALT/SGPT 25 U/L (7-56); AST/SGOT 24 U/L (14-36); BLOOD UREA NITROGEN 18 mg/dL (7-21); CALCIUM 9.5 mg/dL (8.4-10.5); GFR AFRICAN-AMERICAN > 60; GFR NON-AFRICAN AMERICAN 59
--- NOTE | 2018-02-04 21:35 | ED PDOC ---
Arrival/HPI - General Historian: Patient, Family, EMS - History of Present Illness Time/Duration: 1 week Symptom Course: Intermittent - General Chief Complaint: Altered Mental Status Time Seen by Provider: 02/04/18 20:26 - History of Present Illness Narrative History of Present Illness (Text): 02/04/18 21:34 87 yo F with PMH of HTN, subarachnoid hemorrhage, atrial fibrillation not on anticoagulation, depression, OA, pseudogout, and COPD on 2L home O2, presents to the ER by EMS sent from [facility] rehab facility for altered mental status. Family is at bedside, reports that for the past week, patient has been intermittently belligerent and confused, though at times with normal mentation and behavior. Today, her partner saw her in the morning, and reports that she was behaving normally, with good energy, and participating well with the physical therapy. Later in the day, the daughter was visiting the patient and reports that by that time, she became belligerent and was refusing things. Currently, family reports that her mentation, speech, and behavior is normal. Patient does recall some of these episodes. She reports a mild headache, which was slightly worse earlier today. She also reports shortness of breath, which she has at baseline. She denies any chest pain, palpitations, nausea, vomiting, diarrhea, constipation, abdominal pain, fever, chills, rash, leg pain, dysuria, hematuria. Patient is reportedly mildly incontinent at baseline. Patient also denies any focal numbness or weakness or parasthesias. At bedside, daughter spoke to nurses and [facility] who were taking care of the patient, and report that she refused her medications today, including her antihypertensives (Amine,Mukarram) Past Medical History - Provider Review Nursing Documentation Reviewed: Yes - Travel History Have you recently traveled outside [place] w/in the past 3 mons?: No - Infectious Disease Hx of Infectious Diseases: None - Tetanus Immunization Tetanus Immunization: Unknown - Cardiac Hx Cardiac Disorders: Yes Hx Hypertension: Yes - Pulmonary Hx Chronic Obstructive Pulmonary Disease (COPD): Yes - Neurological Hx Neurological Disorder: Yes - HEENT Hx HEENT Disorder: Yes (WEARS RX GLASSES) Hx Cataracts: Yes (BILATERAL SURGERY) Hx Deafness: Yes - Renal Hx Renal Disorder: No - Endocrine/Metabolic Hx Endocrine Disorders: No - Hematological/Oncological Hx 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) - Integumentary Hx Dermatological Disorder: No - Musculoskeletal/Rheumatological Hx Arthritis: Yes (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)) - Gastrointestinal Hx Gastrointestinal Disorders: No - Genitourinary/Gynecological Hx Genitourinary Disorders: Yes Hx Incontinence: Yes - Psychiatric Hx Psychophysiologic Disorder: Yes (SMOKE H/O ,DRINKS ALCOHOL OCCASIONALLY) Hx Anxiety: Yes Hx Depression: Yes Hx Emotional Abuse: No Hx Physical Abuse: No Hx Substance Use: No Other/Comment: INSOMNIA - Surgical History Hx Hysterectomy: Yes - Anesthesia Hx Anesthesia: Yes Hx Anesthesia Reactions: No Hx Malignant Hyperthermia: No - Suicidal Assessment Feels Threatened In Home Enviroment: No - Patient History Narrative Patient History: HTN, subarachnoid hemorrhage, atrial fibrillation not on anticoagulation, depression, OA, pseudogout, and COPD on 2L home O2 (Amine,Mukarram) Family/Social History - Physician Review Nursing Documentation Reviewed: Yes Family/Social History: Unknown Family HX Smoking Status: Former Smoker Hx Alcohol Use: Yes (social, long ago) Hx Substance Use: No Hx Substance Use Treatment: No Allergies/Home Meds Allergies/Adverse Reactions: Allergies Iodinated Contrast- Oral and IV Dye [Iodinated Contrast Media - Oral and] Allergy (Verified 02/04/18 20:20) ANAPHYLAXIS Penicillins Allergy (Verified 02/04/18 20:20) ANAPHYLAXIS Home Medications: Home Meds Medication Instructions Recorded Confirmed Aspirin [Ecotrin] 81 mg PO DAILY 09/27/16 12/26/17 Calcium Carbonate [Caltrate] 600 mg PO DAILY 09/27/16 12/26/17 Arformoterol [Brovana] 15 mcg IH BID 12/26/17 12/26/17 Budesonide [Pulmicort Respules] 0.25 mg PO BID 12/26/17 12/26/17 Lisinopril [Zestril] 10 mg pe PO DAILY 12/26/17 12/26/17 Pantoprazole [Protonix EC Tab] 40 mg PO QOTHERDAY 12/26/17 12/26/17 Venlafaxine [Effexor XR] 75 mg PO DAILY 02/05/18 02/05/18 Review of Systems - Review of Systems Constitutional: Normal Eyes: Normal ENT: Normal Respiratory: SOB. absent: Cough Cardiovascular: Normal. absent: Chest Pain, Palpitations Gastrointestinal: Normal. absent: Abdominal Pain Genitourinary Female: Normal. absent: Dysuria Musculoskeletal: Normal Skin: Normal Neurological: Headache. absent: Dizziness, Focal Weakness Endocrine: Normal Hemo/Lymphatic: Normal Psychiatric: Normal Physical Exam Vital Signs Reviewed: Yes Temperature: Afebrile Blood Pressure: Hypertensive Pulse: Tachycardic Respiratory Rate: Normal Appearance: Positive for: Well-Appearing, Non-Toxic, Comfortable Pain Distress: None Mental Status: Positive for: Alert and Oriented X 3. No: Confused, Agitated - Systems Exam Head: Present: Atraumatic, Normocephalic Pupils: Present: PERRL Extroacular Muscles: Present: EOMI Conjunctiva: Present: Normal Mouth: Present: Dry Neck: Present: Normal Range of Motion Respiratory/Chest: Present: Other (Exhaling through pursed lips. Decreased breath sounds diffusely, slightly worse in RLL with faint rhonchi in RLL). No: Wheezes Cardiovascular: Present: Regular Rate and Rhythm, Normal S1, S2 Abdomen: No: Tenderness, Distention, Peritoneal Signs Upper Extremity: Present: Normal Inspection. No: Cyanosis, Edema Lower Extremity: Present: Normal Inspection. No: Edema, CALF TENDERNESS Neurological: Present: GCS=15, CN II-XII Intact, Speech Normal Skin: Present: Warm, Dry, Normal Color Psychiatric: Present: Alert, Oriented x 3 Vital Signs Temp Pulse Resp BP Pulse Ox 02/05/18 01:11 98.0 F 92 H 18 155/85 H 98 02/04/18 23:50 93 H 18 144/72 95 02/04/18 20:30 97.9 F 99 H 20 188/76 H 96 Medical Decision Making ED Course and Treatment: 02/04/18 23:59 Patient Seen With Resident: In agreement with resident note which contains more details about the patient. Patient was seen and evaluated with resident. Came up with plan and treatment together. 87 year old female presents to the Emergency department from [facility] facility for AMS. (Sudhakar Zhao) 02/04/18 21:47 Impression: Altered mental status Differential diagnoses: Delirium secondary to frequent situational changes vs organic etiologies, COPD exacerbation with CO2 narcosis; less likely CVA, ICH, sepsis Plan: -- Labs: CBC, CMP, Cardiac ISO, UA, UCx, BCx, ABG on 2L NC -- EKG -- CXR -- Head CT -- Reassess and dispo Progress notes: 02/04/18 22:54 -- Patient complaining of abdominal fullness and pressure, gas-like sensation; ordered maalox -- UA shows UTI; ordered one dose of Cefepime -- CBC, CMP, and cardiac ISO unremarkable -- Blood gas shows normal CO2 level -- CXR shows possible mild congestion; ordered BNP 02/04/18 23:51 -- Patient reports improvement in her symptoms after maalox -- BNP is low -- CT head negative -- Call placed to hospitalist service for admission for UTI and altered mental status 02/05/18 01:24 -- Spoke to Dr. Brandon, who accepts patient to hospitalist service (Yariel Randhawa) - Lab Interpretations Lab Results: 02/04/18 21:10 02/04/18 21:10 Lab Results 02/04/18 21:56: Urine Color Yellow, Urine Appearance Cloudy, Urine pH 6.0, Ur Specific [place] 1.020, Urine Protein 30 H, Urine Glucose (UA) Negative, Urine Ketones Negative, Urine Blood Moderate H, Urine Nitrate Positive H, Urine Bilirubin Negative, Urine Urobilinogen 0.2, Ur Leukocyte Esterase Large H, Urine RBC 1 - 3, Urine WBC Tntc, Ur Epithelial Cells 1 - 3, Urine Bacteria Many 02/04/18 21:20: pO2 36, VBG pH 7.37, VBG pCO2 51.0, VBG HCO3 29.5 H, VBG O2 Sat (Calc) 71.4 H, VBG Base Excess 3.1 H 02/04/18 21:10: NT-Pro-B Natriuret Pep 416 02/04/18 21:10: Sodium 140, Potassium 3.9, Chloride 103, Carbon Dioxide 26, Anion Gap 15, BUN 18, Creatinine 0.9, Est GFR ( Amer) > 60, Est GFR (Non- Af Amer) 59, Random Glucose 108, Calcium 9.5, Total Bilirubin 0.1 L, AST 24, ALT 25, Alkaline Phosphatase 76, Total Creatine Kinase 68, Troponin I 0.02, Total Protein 7.5, Albumin 4.1, Globulin 3.4, Albumin/Globulin Ratio 1.2 02/04/18 21:10: WBC 9.7 D, RBC 3.62, Hgb 11.1 L, Hct 35.0 L, MCV 96.7, MCH 30.7 , MCHC 31.7, RDW 13.6, Plt Count 162, MPV 11.5 H, Gran % 71.5 H, Lymph % (Auto) 19.1 L, [place] % (Auto) 9.1 H, Eos % (Auto) 0.2 L, Baso % (Auto) 0.1, Gran # 6.95 H, Lymph # (Auto) 1.9, [place] # (Auto) 0.9 H, Eos # (Auto) 0.0, Baso # (Auto) 0.01 - RAD Interpretation Radiology Orders: 02/04/18 20:55 HEAD W/O CONTRAST [CT] Stat CHEST PORTABLE [RAD] Stat - Medication Orders Current Medication Orders: Acetaminophen (Tylenol 650mg/20.3ml Solution Ud) 650 mg PO Q12H PRN PRN Reason: Pain, severe (8-10) Albuterol Sulfate (Albuterol 0.083% Inhal Radha (2.5 Mg/3 Ml) Ud) 2.5 mg INH Q2H PRN PRN Reason: Shortness of Breath Albuterol Sulfate (Albuterol 0.083% Inhal Radha (2.5 Mg/3 Ml) Ud) 2.5 mg INH [id number] [facility] Amlodipine Besylate (Norvasc) 10 mg PO DAILY [facility] Arformoterol Tartrate (Brovana) 15 mcg IH BIDRESP [facility] Aspirin (Ecotrin) 81 mg PO DAILY [facility] Budesonide (Pulmicort Respules) 0.25 mg INH BIDRESP [facility] Calcium Carbonate (Caltrate) 600 mg PO DAILY [facility] Enoxaparin Sodium (Lovenox) 40 mg SC DAILY [facility] PRN Reason: Protocol Sodium Chloride (Sodium Chloride 0.9%) 1,000 mls @ 100 mls/hr IV .Q10H [facility] Last Admin: 02/05/18 01:07 Dose: 100 mls/hr Levofloxacin/Dextrose (Levaquin 750mg) 750 mg IVPB Q48H [facility] PRN Reason: Protocol Lisinopril (Zestril) 10 mg PO DAILY [facility] Lorazepam (Ativan) 0.5 mg PO HS [facility] PRN Reason: Protocol Nystatin (Mycostatin Cream) 1 ea TOP TID [facility] Pantoprazole Sodium (Protonix Ec Tab) 40 mg PO 0600 [facility] Venlafaxine HCl (Effexor Xr) 75 mg PO DAILY [facility] Zolpidem Tartrate (Ambien) 5 mg PO HS PRN; Protocol PRN Reason: Insomnia Discontinued Medications Al Hydrox/Mg Hydrox/Simethicone (Maalox Plus 30 Ml) 30 ml PO STAT STA Stop: 02/04/18 22:23 Last Admin: 02/04/18 23:21 Dose: 30 ml Cefepime HCl (Maxipime 1gm) 1 gm in 100 mls @ 100 mls/hr IVPB STAT STA Stop: 02/05/18 00:03 Last Admin: 02/04/18 23:48 Dose: 100 mls/hr eMAR Start Stop Document 02/04/18 23:48 IT (Rec: 02/04/18 23:48 IT [id number]) Intravenous Solution Start Date 02/04/18 Start Time 23:48 End Date 02/04/18 Disposition/Present on Arrival - Present on Arrival Any Indicators Present on Arrival: No History of DVT/PE: No History of Uncontrolled Diabetes: No Urinary Catheter: No History of Decub. Ulcer: No History Surgical Site Infection Following: None - Disposition Have Diagnosis and Disposition been Completed?: Yes Disposition Time: 23:23 Patient Plan: Admission - Disposition Diagnosis: Altered mental status, UTI (urinary tract infection) Disposition: HOSPITALIZED Patient Problems: Current Active Problems Problem Status Onset Altered mental status Acute UTI (urinary tract infection) Acute Condition: GUARDED
[2018-02-04 21:38] LABS: TROPONIN I 0.02 ng/mL
[2018-02-04 22:14] LABS: URINE BILIRUBIN NEGATIVE (NEGATIVE); URINE BLOOD MODERATE (NEGATIVE); URINE GLUCOSE (UA) NEGATIVE (NEGATIVE); URINE LEUKOCYTE ESTERASE LARGE Leu/uL (NEGATIVE); URINE PROTEIN 30 mg/dL (<30 mg/dL); URINE UROBILINOGEN 0.2 E.U./dL (<1 E.U./dL)
[2018-02-04 22:17] LABS: URINE APPEARANCE CLOUDY (CLEAR); URINE COLOR YELLOW (YELLOW)
[2018-02-04] MEDS ORDERED: Alum-Mag Hydrox-Simethicone Susp (30 mL) PO STA (22:22)
[2018-02-04 22:25] LABS: URINE WBC TNTC /hpf (0-6)
[2018-02-04 22:26] LABS: URINE BACTERIA MANY (NEG)
[2018-02-04 22:44] LABS: VENOUS BLOOD GAS BASE EXCESS 3.1 mmol/L (0.0-2.0); VENOUS BLOOD GAS PO2 36 mm/Hg (30-55); VENOUS BLOOD PH 7.37 (7.32-7.43)
[2018-02-04] MEDS ORDERED: Cefepime (Maxipime) 1 g Inj IVPB STA (22:51)
[2018-02-04] MEDS ORDERED: Cefepime 1gm in NS 100ml 1 GM/100 ML BAG IVPB STA (23:04)
--- NOTE | 2018-02-04 23:46 | CT ---
EXAM: CT Head Without Intravenous Contrast EXAM DATE/TIME: 02/04/2018 8:55 PM CLINICAL HISTORY: 87 years old, female; Signs and symptoms; Altered mental status/memory loss; Age related cognitive decline; Additional info: H/o sah, AMS TECHNIQUE: Axial computed tomography images of the head/brain without intravenous contrast. All CT scans at this facility use one or more dose reduction techniques, viz.: automated exposure control; ma/kV adjustment per patient size (including targeted exams where dose is matched to indication; i.e. head); or iterative reconstruction technique. Coronal and sagittal reformatted images were created and reviewed. COMPARISON: CT - HEAD W/O CONTRAST 2015-10-11 14:46 FINDINGS: There is atrophy. There is chronic small vessel ischemic disease. There is a stable area of encephalomalacia in the left occipital lobe. There are small stable areas of low attenuation in the basal ganglia consistent with old lacunar infarcts. There is no hemorrhage or edema. No significant fluid in the sinuses. The osseous structures are normal. IMPRESSION: No acute findings.
[2018-02-05] MEDS ORDERED: Albuterol 0.083% Inhal Sol (2.5 mg/3 mL) UD INH PRN (00:56)
[2018-02-05] MEDS ORDERED: Acetaminophen 650mg/20.3ml solution UD PO PRN (00:56)
[2018-02-05] MEDS ORDERED: Sodium Chloride 0.9% 1,000 ML IV SCH ×2 (01:00→14:57)
[2018-02-05] MEDS: Albuterol 0.083% Inhal Sol (2.5 mg/3 mL) UD INH SCH ×4 (02:57→20:06)
--- NOTE | 2018-02-05 03:34 | CP.PCM.HP ---
History of Present Illness - History of Present Illness History of Present Illness: Medicine H&P: Dr. Huggins Chief Complaint: Aggressive behavior HPI: 87 year old female with an extensive past medical history pertinent for psych disturbances and multiple UTI's presents with altered mental status from [facility] rehab facility. Of note, patient was recently at [facility] for an ankle fracture and stayed here at [facility] before being sent to rehab. Daughter and partner are at bedside giving history, who state that she has been having waxing and waning aggressive and obnoxious behavior. She is chronically incontinent. Patient herself states she is feeling "wonderful." Review of Systems: 12 point ROS obtained and negative except as per HPI Surgical History: Appendectomy Medical History: L frontal subarachnoid hemorrhage 2/2 fall, COPD, Afib not on anticoagulation, OA, pseudogout, depression Allergies: Iodinated contrast; PCN's Social History: Quit smoking 50 years ago; Denies alcohol, illicits Home Meds: Reviewed, see MAR Family History: Non-contributory PMD: [place] Cardio: Penelope Pulm: Chacha Ortho: [place] Present on Admission - Present on Admission Any Indicators Present on Admission: No Past Patient History - Infectious Disease Hx of Infectious Diseases: None - Tetanus Immunizations Tetanus Immunization: Unknown - Past Social History Smoking Status: Former Smoker - CARDIAC Hx Cardiac Disorders: Yes Hx Hypertension: Yes - PULMONARY Hx Chronic Obstructive Pulmonary Disease (COPD): Yes - NEUROLOGICAL Hx Neurological Disorder: Yes - HEENT Hx HEENT Problems: Yes (WEARS RX GLASSES) Hx Cataracts: Yes (BILATERAL SURGERY) Hx Deafness: Yes - RENAL Hx Chronic Kidney Disease: No - ENDOCRINE/METABOLIC Hx Endocrine Disorders: No - HEMATOLOGICAL/ONCOLOGICAL Hx 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) - INTEGUMENTARY Hx Dermatological Problems: No - MUSCULOSKELETAL/RHEUMATOLOGICAL Hx Arthritis: Yes (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)) Hx Falls: No - GASTROINTESTINAL Hx Gastrointestinal Disorders: No - GENITOURINARY/GYNECOLOGICAL Hx Genitourinary Disorders: Yes Hx Incontinence: Yes - PSYCHIATRIC Hx Psychophysiologic Disorder: Yes (SMOKE H/O ,DRINKS ALCOHOL OCCASIONALLY) Hx Anxiety: Yes Hx Depression: Yes Hx Emotional Abuse: No Hx Physical Abuse: No Other/Comment: INSOMNIA - SURGICAL HISTORY Hx Hysterectomy: Yes - ANESTHESIA Hx Anesthesia: Yes Hx Anesthesia Reactions: No Hx Malignant Hyperthermia: No Meds Allergies/Adverse Reactions: Allergies Allergy/AdvReac Type Severity Reaction Status Date / Time Iodinated Contrast- Oral and Allergy ANAPHYLAXIS Verified 02/04/18 20:20 IV Dye [Iodinated Contrast Media - Oral and] Penicillins Allergy ANAPHYLAXIS Verified 02/04/18 20:20 Physical Exam - Constitutional Appears: Well - Head Exam Head Exam: ATRAUMATIC, NORMAL INSPECTION, NORMOCEPHALIC - Eye Exam Eye Exam: EOMI, Normal appearance, PERRL Pupil Exam: NORMAL ACCOMODATION, PERRL - ENT Exam ENT Exam: Mucous Membranes Moist, Normal Exam - Neck Exam Neck exam: Positive for: Normal Inspection - Respiratory Exam Respiratory Exam: Clear to Auscultation Bilateral, NORMAL BREATHING PATTERN - Cardiovascular Exam Cardiovascular Exam: REGULAR RHYTHM - GI/Abdominal Exam GI & Abdominal Exam: Normal Bowel Sounds, Soft. absent: Tenderness - Extremities Exam Extremities exam: Positive for: normal inspection - Back Exam Back exam: NORMAL INSPECTION - Neurological Exam Neurological exam: Alert, CN II-XII Intact, Normal Gait, Oriented x3, Reflexes Normal - Psychiatric Exam Psychiatric exam: Normal Affect, Normal Mood - Skin Skin Exam: Dry, Intact, Normal Color, Warm Results - Vital Signs Recent Vital Signs: Last Vital Signs Temp 97.6 F 02/05/18 01:42 Pulse 91 H 02/05/18 01:42 Resp 22 02/05/18 01:42 BP 156/78 H 02/05/18 01:42 Pulse Ox 98 02/05/18 01:11 - Labs Result Diagrams: 02/04/18 21:10 02/04/18 21:10 Labs: Laboratory Results - last 24 hr 02/05/18 01:30 Phosphorus 3.6 Magnesium 1.8 Assessment & Plan - Assessment and Plan (Free Text) Assessment: 87 year old female with pertinent medical history of psych disturbances and urinary incontinence presents with altered mental status. I have seen patient in the past, and she was at baseline when I saw her. Laboratory results revealed a large nitrate and positive leukocyte esterase with only SIRS criteria of tachycardia. Head CT was negative for any acute process. Chest XR revealed the beginning of a RLL infiltrate (as read by me); since patient was recently in a healthcare facility, should be treated empirically as HCAP. Patient has no symptoms of pneumonia but is a COPD patient. Chronic medical problems as outlined below. Plan: Altered mental status likely 2/2 UTI - Sepsis work up pending - PT, NPO, OOB with assistance - Levaquin IVPB Possible RLL Infiltrate - Levaquin and Vanc - Chest XR in the AM - NC 2L Gait dysfunction - Physical therapy - Avoid sedatives COPD, chronic - On home O2, 2L NC here - Continue Brovana, Pulmicort - Duoneb prn Fungal rash, b/l inguinal - Nystatin cream Hypertension - Continue ASA, Lisinopril 10, Amlodipine 10 History of bipolar/insomnia - Ativan 0.5 HS, Venlafaxine, Ambien Osteoporosis - Continue Calcium Prophylaxis: Protonix, Lovenox
[2018-02-05] MEDS: Pantoprazole 40 mg EC Tab PO SCH (05:16)
--- NOTE | 2018-02-05 06:20 | CP.PCM.PN ---
Subjective - Date & Time of Evaluation Date of Evaluation: 02/05/18 Time of Evaluation: 06:19 - Subjective Subjective: As per , saw this patient with . Objective - Vital Signs/Intake and Output Vital Signs (last 24 hours): Temp Pulse Resp BP Pulse Ox 97.6 F 91 H 22 156/78 H 98 02/05/18 01:42 02/05/18 01:42 02/05/18 01:42 02/05/18 01:42 02/05/18 01:11 - Medications Medications: Current Medications Acetaminophen (Tylenol 650mg/20.3ml Solution Ud) 650 mg PO Q12H PRN PRN Reason: Pain, severe (8-10) Albuterol Sulfate (Albuterol 0.083% Inhal Radha (2.5 Mg/3 Ml) Ud) 2.5 mg INH Q2H PRN PRN Reason: Shortness of Breath Albuterol Sulfate (Albuterol 0.083% Inhal Radha (2.5 Mg/3 Ml) Ud) 2.5 mg INH [id number] [facility] Last Admin: 02/05/18 02:57 Dose: Not Given Amlodipine Besylate (Norvasc) 10 mg PO DAILY [facility] Arformoterol Tartrate (Brovana) 15 mcg IH BIDRESP [facility] Aspirin (Ecotrin) 81 mg PO DAILY [facility] Budesonide (Pulmicort Respules) 0.25 mg INH BIDRESP [facility] Calcium Carbonate (Caltrate) 600 mg PO DAILY [facility] Enoxaparin Sodium (Lovenox) 40 mg SC DAILY [facility] PRN Reason: Protocol Sodium Chloride (Sodium Chloride 0.9%) 1,000 mls @ 100 mls/hr IV .Q10H [facility] Last Admin: 02/05/18 01:07 Dose: 100 mls/hr Vancomycin HCl (Vancomycin 1gm) 1 gm in 250 mls @ 167 mls/hr IVPB DAILY [facility] PRN Reason: Protocol Levofloxacin/Dextrose (Levaquin 750mg) 750 mg IVPB Q48H [facility] PRN Reason: Protocol Lisinopril (Zestril) 10 mg PO DAILY [facility] Lorazepam (Ativan) 0.5 mg PO HS [facility] PRN Reason: Protocol Nystatin (Mycostatin Cream) 1 ea TOP TID [facility] Pantoprazole Sodium (Protonix Ec Tab) 40 mg PO 0600 [facility] Last Admin: 02/05/18 05:16 Dose: 40 mg Venlafaxine HCl (Effexor Xr) 75 mg PO DAILY [facility] Zolpidem Tartrate (Ambien) 5 mg PO HS PRN; Protocol PRN Reason: Insomnia Last Admin: 02/05/18 02:27 Dose: 5 mg
[2018-02-05] MEDS: Arformoterol 15 mcg/2 ml Inh Sol IH SCH ×2 (07:20→20:06)
[2018-02-05] MEDS: Budesonide 0.25 mg/2 ml Inhal Susp UD INH SCH ×2 (07:20→20:06)
[2018-02-05] MEDS: Venlafaxine 75 mg ER Cap PO SCH (09:21)
[2018-02-05] MEDS: Enoxaparin 40 mg Syringe SC SCH (09:21)
[2018-02-05] MEDS: Vancomycin 1gm in NS 250ml 1 GM/250 ML BAG IVPB SCH (09:23)
[2018-02-05] MEDS: Nystatin 100,000 Units/gm Cream(15 gm) TOP SCH ×3 (10:00→17:22)
[2018-02-05] MEDS ORDERED: levoFLOXacin 750 mg in D5W 150 ML BAG IVPB SCH (10:00)
--- NOTE | 2018-02-05 10:10 | RAD ---
HISTORY: ams COMPARISON: CT scan 10/11/2015 and portable chest 12/26/2017 FINDINGS: LUNGS: No active pulmonary disease. PLEURA: No significant pleural effusion identified, no pneumothorax apparent. CARDIOVASCULAR: There is moderate cardiomegaly. There is enlargement of the pulmonary arteries which is more visible on the right side. This is unchanged. OSSEOUS STRUCTURES: No significant abnormalities. VISUALIZED UPPER ABDOMEN: Normal. OTHER FINDINGS: None. IMPRESSION: No acute findings. Enlargement of the pulmonary arteries consistent with pulmonary hypertension
--- NOTE | 2018-02-05 17:56 | CARD ---
APPROVED REPORT EKG Measurement Heart [id number] [id number] <Conclusion> Normal sinus rhythm Normal ECG
[2018-02-06] MEDS: Albuterol 0.083% Inhal Sol (2.5 mg/3 mL) UD INH SCH ×4 (01:13→20:10)
[2018-02-06] MEDS: Pantoprazole 40 mg EC Tab PO SCH (05:49)
[2018-02-06] MEDS: Arformoterol 15 mcg/2 ml Inh Sol IH SCH ×2 (07:06→20:10)
[2018-02-06] MEDS: Budesonide 0.25 mg/2 ml Inhal Susp UD INH SCH ×2 (07:07→20:10)
[2018-02-06 07:33] LABS: EOS % 0.1 % (1.5-5.0); GRAN # 4.94 (1.4-6.5); GRAN % 72.4 % (50.0-68.0); HEMOGLOBIN 10.3 g/dL (12.0-16.0); LYMPH # 1.2 (1.2-3.4); LYMPH % 17.3 % (22.0-35.0); MEAN CELL VOLUME 97.6 fl (80.0-105.0); MEAN CORPUSCULAR HEMOGLOBIN 30.8 pg (25.0-35.0); MEAN CORPUSCULAR HGB CONC 31.6 g/dl (31.0-37.0); MEAN PLATELET VOLUME 11.8 fl (7.0-11.0); MONO # 0.7 (0.1-0.6); MONO % 10.2 % (1.0-6.0); RBC 3.34 10^6/uL (3.5-6.1); RED CELL DISTRIBUTION WIDTH 13.7 % (11.5-14.5); WHITE BLOOD COUNT 6.8 10^3/ul (4.5-11.0)
[2018-02-06 07:56] LABS: ALB/GLOB RATIO 1.2 (1.1-1.8); ALBUMIN 3.5 g/dL (3.0-4.8); ALT/SGPT 22 U/L (7-56); AST/SGOT 21 U/L (14-36); BLOOD UREA NITROGEN 13 mg/dL (7-21); CALCIUM 9.2 mg/dL (8.4-10.5); GFR AFRICAN-AMERICAN > 60; GFR NON-AFRICAN AMERICAN > 60
[2018-02-06] MEDS: Vancomycin 1gm in NS 250ml 1 GM/250 ML BAG IVPB SCH (09:32)
[2018-02-06] MEDS: Venlafaxine 75 mg ER Cap PO SCH (09:34)
[2018-02-06] MEDS: Enoxaparin 40 mg Syringe SC SCH (09:39)
[2018-02-06] MEDS: Nystatin 100,000 Units/gm Cream(15 gm) TOP SCH ×2 (10:00→14:15)
[2018-02-06] MEDS ORDERED: levoFLOXacin 500 mg in D5W 500 MG/100 ML BAG IVPB STA (11:23)
--- NOTE | 2018-02-06 12:16 | CP.PCM.PN ---
<John Perez - Last Filed: 02/06/18 12:03> Subjective - Date & Time of Evaluation Date of Evaluation: 02/06/18 Time of Evaluation: 12:03 - Subjective Subjective: Medicine Progress Note Pt seen and examined at bedside. No acute overnight events. Pt AOx3. Pt offers no complaints at this time. Pt denies CP, SOB, n/v/d, abdominal pain, fever, chills, PLASENCIA, or dizziness. Objective - Vital Signs/Intake and Output Vital Signs (last 24 hours): Temp Pulse Resp BP Pulse Ox 98.3 F 84 20 140/64 92 L 02/06/18 07:49 02/06/18 07:49 02/06/18 07:49 02/06/18 09:34 02/06/18 07:49 Intake and Output: 02/06/18 02/06/18 06:59 18:59 Intake Total 0 Balance 0 - Medications Medications: Current Medications Acetaminophen (Tylenol 650mg/20.3ml Solution Ud) 650 mg PO Q12H PRN PRN Reason: Pain, severe (8-10) Albuterol Sulfate (Albuterol 0.083% Inhal Radha (2.5 Mg/3 Ml) Ud) 2.5 mg INH Q2H PRN PRN Reason: Shortness of Breath Albuterol Sulfate (Albuterol 0.083% Inhal Radha (2.5 Mg/3 Ml) Ud) 2.5 mg INH [id number] [facility] Last Admin: 02/06/18 07:07 Dose: 2.5 mg Amlodipine Besylate (Norvasc) 10 mg PO DAILY [facility] Last Admin: 02/06/18 09:34 Dose: 10 mg Arformoterol Tartrate (Brovana) 15 mcg IH BIDRESP [facility] Last Admin: 02/06/18 07:06 Dose: 15 mcg Aspirin (Ecotrin) 81 mg PO DAILY [facility] Last Admin: 02/06/18 09:34 Dose: 81 mg Budesonide (Pulmicort Respules) 0.25 mg INH BIDRESP [facility] Last Admin: 02/06/18 07:07 Dose: 0.25 mg Calcium Carbonate (Caltrate) 600 mg PO DAILY [facility] Last Admin: 02/06/18 09:34 Dose: 600 mg Enoxaparin Sodium (Lovenox) 40 mg SC DAILY [facility] PRN Reason: Protocol Last Admin: 02/06/18 09:39 Dose: Not Given Vancomycin HCl (Vancomycin 1gm) 1 gm in 250 mls @ 167 mls/hr IVPB DAILY [facility] PRN Reason: Protocol Last Admin: 02/06/18 09:32 Dose: 167 mls/hr Levofloxacin/Dextrose (Levaquin 500mg) 500 mg in 100 mls @ 100 mls/hr IVPB STAT STA PRN Reason: Protocol Stop: 02/06/18 12:22 Levofloxacin/Dextrose (Levaquin 250mg) 250 mg in 50 mls @ 50 mls/hr IVPB DAILY [facility] Lisinopril (Zestril) 10 mg PO DAILY [facility] Last Admin: 02/06/18 09:34 Dose: 10 mg Lorazepam (Ativan) 0.5 mg PO HS [facility] PRN Reason: Protocol Last Admin: 02/05/18 23:03 Dose: 0.5 mg Nystatin (Mycostatin Cream) 1 ea TOP TID [facility] Last Admin: 02/05/18 17:22 Dose: Not Given Pantoprazole Sodium (Protonix Ec Tab) 40 mg PO 0600 [facility] Last Admin: 02/06/18 05:49 Dose: 40 mg Venlafaxine HCl (Effexor Xr) 75 mg PO DAILY [facility] Last Admin: 02/06/18 09:34 Dose: 75 mg Zolpidem Tartrate (Ambien) 5 mg PO HS PRN; Protocol PRN Reason: Insomnia Last Admin: 02/05/18 02:27 Dose: 5 mg - Labs Labs: 02/06/18 07:00 02/06/18 07:00 - Constitutional Appears: No Acute Distress - Head Exam Head Exam: NORMAL INSPECTION - Eye Exam Eye Exam: Normal appearance Pupil Exam: NORMAL ACCOMODATION - ENT Exam ENT Exam: Normal Exam - Neck Exam Neck Exam: Normal Inspection - Respiratory Exam Respiratory Exam: Clear to Ausculation Bilateral. absent: Rales, Rhonchi, Wheezes - Cardiovascular Exam Cardiovascular Exam: RRR, +S1, +S2. absent: Gallop, Rubs, Murmur - GI/Abdominal Exam GI & Abdominal Exam: Soft. absent: Distended, Guarding, Tenderness, Rebound - Extremities Exam Extremities Exam: Normal Inspection - Neurological Exam Neurological Exam: Alert, Awake, CN II-XII Intact, Oriented x3 - Psychiatric Exam Psychiatric exam: Normal Affect, Normal Mood - Skin Skin Exam: Dry, Intact, Normal Color, Warm Assessment and Plan - Assessment and Plan (Free Text) Assessment: 87 year old female with pertinent medical history of psych disturbances and urinary incontinence admitted for evaluation and treatment for altered mental status likely 2/2 to UTI and possible RLL infiltrate. Plan: 1. Altered mental status likely 2/2 UTI - AMS resolved - Head CT negative - UA positive for UTI (large leuk esterase and positive nitrates) - Urine culture positive for gram negative cotavio, f/u sensitivities - Blood cultures negative after 24 hrs - PT, NPO, OOB with assistance - Levaquin IVPB 2. Possible RLL Infiltrate - Chest XR showed enlargement of pulmonary arteries consistent with pulmonary HTN - NC 2L 3. Recent right ankle fracture - Physical therapy - Avoid sedatives - Ortho consulted 4. COPD, chronic - On home O2, 2L NC here - Continue Brovana, Pulmicort - Duoneb prn - Pulm consulted 5. Fungal rash, b/l inguinal - Nystatin cream 6. Hypertension - Continue ASA, Lisinopril 10, Amlodipine 10 7. History of bipolar/insomnia - Ativan 0.5 HS, Venlafaxine, Ambien 9. Osteoporosis - Continue Calcium Prophylaxis: Protonix, Lovenox Pt seen and discussed in detail with Dr. Haywood. Colby Perez, PGY1 <Kole Haywood - Last Filed: 02/06/18 14:13> Objective - Vital Signs/Intake and Output Vital Signs (last 24 hours): Temp Pulse Resp BP Pulse Ox 98.3 F 84 20 140/64 92 L 02/06/18 07:49 02/06/18 07:49 02/06/18 07:49 02/06/18 09:34 02/06/18 07:49 Intake and Output: 02/06/18 02/06/18 06:59 18:59 Intake Total 0 Balance 0 - Medications Medications: Current Medications Acetaminophen (Tylenol 650mg/20.3ml Solution Ud) 650 mg PO Q12H PRN PRN Reason: Pain, severe (8-10) Albuterol Sulfate (Albuterol 0.083% Inhal Radha (2.5 Mg/3 Ml) Ud) 2.5 mg INH Q2H PRN PRN Reason: Shortness of Breath Albuterol Sulfate (Albuterol 0.083% Inhal Radha (2.5 Mg/3 Ml) Ud) 2.5 mg INH [id number] [facility] Last Admin: 02/06/18 13:16 Dose: 2.5 mg Amlodipine Besylate (Norvasc) 10 mg PO DAILY [facility] Last Admin: 02/06/18 09:34 Dose: 10 mg Arformoterol Tartrate (Brovana) 15 mcg IH BIDRESP [facility] Last Admin: 02/06/18 07:06 Dose: 15 mcg Aspirin (Ecotrin) 81 mg PO DAILY [facility] Last Admin: 02/06/18 09:34 Dose: 81 mg Budesonide (Pulmicort Respules) 0.25 mg INH BIDRESP [facility] Last Admin: 02/06/18 07:07 Dose: 0.25 mg Calcium Carbonate (Caltrate) 600 mg PO DAILY [facility] Last Admin: 02/06/18 09:34 Dose: 600 mg Enoxaparin Sodium (Lovenox) 40 mg SC DAILY [facility] PRN Reason: Protocol Last Admin: 02/06/18 09:39 Dose: Not Given Vancomycin HCl (Vancomycin 1gm) 1 gm in 250 mls @ 167 mls/hr IVPB DAILY [facility] PRN Reason: Protocol Last Admin: 02/06/18 09:32 Dose: 167 mls/hr Levofloxacin/Dextrose (Levaquin 250mg) 250 mg in 50 mls @ 50 mls/hr IVPB DAILY [facility] Lisinopril (Zestril) 10 mg PO DAILY [facility] Last Admin: 02/06/18 09:34 Dose: 10 mg Lorazepam (Ativan) 0.5 mg PO HS [facility] PRN Reason: Protocol Last Admin: 02/05/18 23:03 Dose: 0.5 mg Nystatin (Mycostatin Cream) 1 ea TOP TID [facility] Last Admin: 02/06/18 10:00 Dose: Not Given Pantoprazole Sodium (Protonix Ec Tab) 40 mg PO 0600 [facility] Last Admin: 02/06/18 05:49 Dose: 40 mg Venlafaxine HCl (Effexor Xr) 75 mg PO DAILY [facility] Last Admin: 02/06/18 09:34 Dose: 75 mg Zolpidem Tartrate (Ambien) 5 mg PO HS PRN; Protocol PRN Reason: Insomnia Last Admin: 02/05/18 02:27 Dose: 5 mg - Labs Labs: 02/06/18 07:00 02/06/18 07:00 Attending/Attestation - Attestation I have personally seen and examined this patient.: Yes I have fully participated in the care of the patient.: Yes I have reviewed all pertinent clinical information, including history, physical exam and plan: Yes Notes (Text): 02/06/18 14:10 Attending note; Patient seen and examined with resident. Patient is alert, awake and oriented to place. Denies any pain. On oxygen nasal cannula. Patient is a 87 year old female with past medical history of COPD, osteoarthritis, obesity pseudogout, ankle fracture bipolar disorder admitted with change in mental status. patient has memory problems and also psychiatric issues. possible UTI; urine culture. Started on levofloxacin. Patient is allergic to penicillin. COPD; oxygen dependent. Currently stable. Pulmonary evaluation requested. orthopedics consult with Dr. Garcia appreciated. Patient with a history of osteoarthritis and ankle fracture managed conservatively. Will discuss with case manger /social media developer tomorrow for discharge planning pending culture results. Upon discharge the patient will follow-up with PMD .
--- NOTE | 2018-02-06 18:41 | CON ---
DATE: 02/06/2018 PULMONARY CONSULTATION We were asked by Dr. Haywood, ranch supervisor to evaluate and treat this 87-year-old woman, who was admitted to [facility] with chief complaint of shortness of breath. She is currently receiving inhalation treatment with Brovana and budesonide. She is also on oral Levaquin and receive the dose of vancomycin. HISTORY OF PRESENT ILLNESS: The patient has an extensive medical history with multiple admissions to [facility]. She is known with psychiatric history, multiple urinary tract infections. At this time presented with alleged altered mental status from [facility]. The patient's most recent admission was to [facility] with ankle fracture. She was also in Transitional Care Unit before she was sent to rehab. She is currently on examination, denied shortness of breath but visibly her respiratory rate is elevated to 24. REVIEW OF SYSTEMS: Was conducted by reviewing all sources. PULMONARY: Positive for shortness of breath. CARDIOVASCULAR: Denied chest pain. GASTROINTESTINAL: Denied nausea, vomiting or diarrhea. The rest of the systems were reviewed and found to be negative. PAST MEDICAL HISTORY: Positive for left frontal subarachnoid hemorrhage after a fall; history of atrial fibrillation, not on anticoagulation; history of osteoarthritis; depression and COPD. ALLERGIES: KNOWN ALLERGIES TO IODINE AND PENICILLIN. SOCIAL HISTORY: She is a former heavy smoker, quit many years ago, no alcohol, no drugs. HOME MEDICATIONS: Reviewed, see MAR. FAMILY HISTORY: No history of inherited diseases. PHYSICAL EXAMINATION: GENERAL: Currently she is awake, alert, answering questions, following commands. HEAD, EARS, NOSE AND THROAT: Within normal limits. NECK: Supple with no jugular vein distensions. CARDIOVASCULAR: Symmetrical S1 and S2. No S3, gallop. PULMONARY: Few basilar rhonchi, no wheezing. GASTROINTESTINAL: Soft, nontender. No organomegaly. EXTREMITIES: 1+ pedal edema. NEUROLOGIC: Deferred at the present time. SKIN: No skin rash, no cyanosis. VITAL SIGNS: Temperature 97.6, pulse 90, respirations 24, blood pressure 150/78, pulse oximetry 98 on nasal cannula. ASSESSMENT: An 87-year-old female admitted with altered mental status also complaining of shortness of breath. She was found to have urinary tract infection. CT of head was negative. Chest x-ray was reported as right lower lobe infiltrate, her current antibiotic coverage is sufficient to cover possible early right lower lobe pneumonia. We will continue with Levaquin and vancomycin, repeat chest x-ray in a.m., continue with nasal cannula at 2 liters per minute. We will ask for early ambulation. Discussed with her ranch supervisor. I had the opportunity to review her chest x-ray. It is of extremely poor quality. Repeat chest x-ray should be done to evaluate if there is really an infiltrate. I reviewed the patient's prior chest x-ray which was done in December and looks similar as current x-ray is of very poor quality. Reji Chaney MD
--- NOTE | 2018-02-06 20:32 | CON ---
DATE: 02/06/2018 HISTORY OF PRESENT ILLNESS: An 87-year-ld female in room 567, bed 1. The patient was admitted to [facility] with medical issues and I had seen her last on 12/26/2017, for right ankle injury where the x-ray showed mild displaced lateral malleolar fracture, but no report was issued that say that lateral malleolar fracture, but it is there. It was treated conservatively because it was very minimal displacement and no pain present and has less swelling and tenderness laterally. We treated it with a protective removable splinter fracture boot and followed and that the fracture went onto uneventful healing and from the 12/26/2017 x-ray, she is now nontender on examination date of 02/06/2018,and has very good range of motion, does not want to have a repeat x-ray to see how it is healing and she moves it appropriately and she wants to go home and does not want to prolong her stay here by getting anther x-ray and she is not wearing any support and she does not need it. FINAL DIAGNOSES: Healed right ankle fracture from lateral malleolar injury back from 12/26/2017, and the patient wants to just go on ad john and live at home and has a girlfriend upstairs to help her. Final diagnosis is healed right ankle fracture. No orthopedic treatment necessary. Rodrigo Garcia DO MTDErvin
[2018-02-07] MEDS: Albuterol 0.083% Inhal Sol (2.5 mg/3 mL) UD INH SCH ×3 (02:17→13:18)
[2018-02-07] MEDS: Pantoprazole 40 mg EC Tab PO SCH (05:27)
[2018-02-07 06:58] LABS: BASO # 0.01 K/mm3 (0.0-2.0); BASO % 0.1 % (0.0-3.0); EOS % 0.6 % (1.5-5.0); GRAN # 4.94 (1.4-6.5); GRAN % 69.4 % (50.0-68.0); HEMOGLOBIN 10.3 g/dL (12.0-16.0); LYMPH # 1.5 (1.2-3.4); LYMPH % 21.3 % (22.0-35.0); MEAN CELL VOLUME 97.6 fl (80.0-105.0); MEAN CORPUSCULAR HEMOGLOBIN 30.8 pg (25.0-35.0); MEAN CORPUSCULAR HGB CONC 31.6 g/dl (31.0-37.0); MEAN PLATELET VOLUME 11.7 fl (7.0-11.0); MONO # 0.6 (0.1-0.6); MONO % 8.6 % (1.0-6.0); RBC 3.34 10^6/uL (3.5-6.1); RED CELL DISTRIBUTION WIDTH 13.7 % (11.5-14.5); WHITE BLOOD COUNT 7.1 10^3/ul (4.5-11.0)
[2018-02-07 07:12] LABS: ALB/GLOB RATIO 1.2 (1.1-1.8); ALBUMIN 3.6 g/dL (3.0-4.8); ALT/SGPT 25 U/L (7-56); AST/SGOT 20 U/L (14-36); BLOOD UREA NITROGEN 14 mg/dL (7-21); CALCIUM 9.4 mg/dL (8.4-10.5); GFR AFRICAN-AMERICAN > 60; GFR NON-AFRICAN AMERICAN > 60
[2018-02-07] MEDS: Arformoterol 15 mcg/2 ml Inh Sol IH SCH (07:14)
[2018-02-07] MEDS: Budesonide 0.25 mg/2 ml Inhal Susp UD INH SCH (07:14)
[2018-02-07] MEDS: Nystatin 100,000 Units/gm Cream(15 gm) TOP SCH ×3 (09:32→17:40)
[2018-02-07] MEDS: Vancomycin 1gm in NS 250ml 1 GM/250 ML BAG IVPB SCH (09:33)
[2018-02-07] MEDS: Venlafaxine 75 mg ER Cap PO SCH (09:34)
[2018-02-07] MEDS: Enoxaparin 40 mg Syringe SC SCH ×2 (09:34→09:41)
[2018-02-07] MEDS ORDERED: levoFLOXacin 250 mg in D5W 250 MG/50 ML BAG IVPB SCH (10:00)
--- NOTE | 2018-02-07 10:21 | PN ---
DATE: 02/07/2018 PULMONARY NOTE SUBJECTIVE: The patient appears comfortable this morning. She is not short of breath at rest. OBJECTIVE: VITAL SIGNS: Temperature is 98, pulse this morning is approximately 80, respirations 18/20, blood pressure 134/60. Oxygen saturation on nasal cannula is 93%. HEENT: Normocephalic, atraumatic. No JVD. CARDIOVASCULAR: Systolic ejection murmur at the lower left sternal border. No S3 gallop. LUNGS: Minimal decreased breath sounds at the bases. Very minimal rhonchi. No wheezing. EXTREMITIES: Positive for mild edema. No cyanosis, no clubbing. Calves are nontender to palpation. GASTROINTESTINAL: Abdomen is soft, nontender and nondistended. Bowel sounds are positive. SKIN: No acute rash. NEUROLOGIC: Exam limited at the present time. IMPRESSION: 1. Urinary tract infection. 2. Encephalopathy. 3. Chronic obstructive pulmonary disease. 4. Mild anemia. PLAN: The patient appears comfortable this morning. She is not short of breath at rest. She does state to feeling better, overall. On physical exam, there is no significant bronchospasm noted. In addition, there is no significant alveolar-arterial gradient. I will continue with the current nebulizer treatments and inhaled steroids for now. We are awaiting the urine culture results. The patient is on antibiotic therapy. There are no temperatures noted. There is no leukocytosis. The patient does appear clinically improved this morning. I did discuss the case with the nurse at length. I will discuss the above with the attending physician. Ranjit Burnham MD NIA
--- NOTE | 2018-02-07 13:00 | CP.PCM.DIS ---
Provider - Provider Date of Admission: 02/05/18 00:16 Attending physician: Kole Haywood MD Primary care physician: Peter Kyle MD Consults: Ortho: Janki Burnham Time Spent in preparation of Discharge (in minutes): 45 Diagnosis - Discharge Diagnosis (1) Altered mental status Status: Acute (2) UTI (urinary tract infection) Status: Acute Hospital Course - Lab Results Lab Results: Micro Results 02/05/18 02:00 Blood Blood Culture - Preliminary NO GROWTH AFTER 48 HOURS 02/05/18 01:30 Blood Blood Culture - Preliminary NO GROWTH AFTER 48 HOURS Most Recent Lab Values WBC 7.1 10^3/ul (4.5-11.0) 02/07/18 06:15 RBC 3.34 10^6/uL (3.5-6.1) L 02/07/18 06:15 Hgb 10.3 g/dL (12.0-16.0) L 02/07/18 06:15 Hct 32.6 % (36.0-48.0) L 02/07/18 06:15 MCV 97.6 fl (80.0-105.0) 02/07/18 06:15 MCH 30.8 pg (25.0-35.0) 02/07/18 06:15 MCHC 31.6 g/dl (31.0-37.0) 02/07/18 06:15 RDW 13.7 % (11.5-14.5) 02/07/18 06:15 Plt Count 152 10^3/uL (120.0-450.0) 02/07/18 06:15 MPV 11.7 fl (7.0-11.0) H 02/07/18 06:15 Gran % 69.4 % (50.0-68.0) H 02/07/18 06:15 Lymph % (Auto) 21.3 % (22.0-35.0) L 02/07/18 06:15 [place] % (Auto) 8.6 % (1.0-6.0) H 02/07/18 06:15 Eos % (Auto) 0.6 % (1.5-5.0) L 02/07/18 06:15 Baso % (Auto) 0.1 % (0.0-3.0) 02/07/18 06:15 Gran # 4.94 (1.4-6.5) 02/07/18 06:15 Lymph # (Auto) 1.5 (1.2-3.4) 02/07/18 06:15 [place] # (Auto) 0.6 (0.1-0.6) 02/07/18 06:15 Eos # (Auto) 0.0 (0.0-0.7) 02/07/18 06:15 Baso # (Auto) 0.01 K/mm3 (0.0-2.0) 02/07/18 06:15 pO2 36 mm/Hg (30-55) 02/04/18 21:20 VBG pH 7.37 (7.32-7.43) 02/04/18 21:20 VBG pCO2 51.0 (40-60) 02/04/18 21:20 VBG HCO3 29.5 mmol/l (21-28) H 02/04/18 21:20 VBG O2 Sat (Calc) 71.4 % (40-65) H 02/04/18 21:20 VBG Base Excess 3.1 mmol/L (0.0-2.0) H 02/04/18 21:20 Sodium 149 mmol/L (132-148) H 02/07/18 06:15 Potassium 4.7 mmol/L (3.6-5.0) 02/07/18 06:15 Chloride 110 mmol/L (98-107) H 02/07/18 06:15 Carbon Dioxide 32 mmol/L (21-33) 02/07/18 06:15 Anion Gap 13 (10-20) 02/07/18 06:15 BUN 14 mg/dL (7-21) 02/07/18 06:15 Creatinine 0.8 mg/dl (0.7-1.2) 02/07/18 06:15 Est GFR ( Amer) > 60 02/07/18 06:15 Est GFR (Non-Af Amer) > 60 02/07/18 06:15 Random Glucose 94 mg/dL (70-110) 02/07/18 06:15 Calcium 9.4 mg/dL (8.4-10.5) 02/07/18 06:15 Phosphorus 3.4 mg/dL (2.5-4.5) 02/07/18 01:00 Magnesium 1.9 mg/dL (1.7-2.2) 02/07/18 01:00 Total Bilirubin 0.2 mg/dL (0.2-1.3) 02/07/18 06:15 AST 20 U/L (14-36) 02/07/18 06:15 ALT 25 U/L (7-56) 02/07/18 06:15 Alkaline Phosphatase 57 U/L (38-126) 02/07/18 06:15 Total Creatine Kinase 68 U/L (35-230) 02/04/18 21:10 Troponin I 0.02 ng/mL 02/04/18 21:10 NT-Pro-B Natriuret Pep 416 pg/mL (0-450) 02/04/18 21:10 Total Protein 6.6 g/dL (5.8-8.3) 02/07/18 06:15 Albumin 3.6 g/dL (3.0-4.8) 02/07/18 06:15 Globulin 3.0 gm/dL 02/07/18 06:15 Albumin/Globulin Ratio 1.2 (1.1-1.8) 02/07/18 06:15 Urine Color Yellow (YELLOW) 02/04/18 21:56 Urine Appearance Cloudy (CLEAR) 02/04/18 21:56 Urine pH 6.0 (4.7-8.0) 02/04/18 21:56 Ur Specific [place] 1.020 (1.005-1.035) 02/04/18 21:56 Urine Protein 30 mg/dL (<30 mg/dL) H 02/04/18 21:56 Urine Glucose (UA) Negative mg/dL (NEGATIVE) 02/04/18 21:56 Urine Ketones Negative mg/dL (NEGATIVE) 02/04/18 21:56 Urine Blood Moderate (NEGATIVE) H 02/04/18 21:56 Urine Nitrate Positive (NEGATIVE) H 02/04/18 21:56 Urine Bilirubin Negative (NEGATIVE) 02/04/18 21:56 Urine Urobilinogen 0.2 E.U./dL (<1 E.U./dL) 02/04/18 21:56 Ur Leukocyte Esterase Large [place]/uL (NEGATIVE) H 02/04/18 21:56 Urine RBC 1 - 3 /hpf (0-2) 02/04/18 21:56 Urine WBC Tntc /hpf (0-6) 02/04/18 21:56 Ur Epithelial Cells 1 - 3 /hpf (0-5) 02/04/18 21:56 Urine Bacteria Many (NEG) 02/04/18 21:56 - Hospital Course Hospital Course: 87 year old female with past medical history bipolar, UTIs, COPD, afib (not on AC), subarachnoid hemorrhage s/p fall, presents with altered mental status from [facility] rehab facility. Of note, patient was recently at [facility] for an ankle fracture and stayed here at TCU before being sent to rehab. AMS was attributed to UTI, found to be E.coli. CXR on admission was of poor quality, but was suspicious for RLL infiltrate. CXR was ordered to be repeated three times, however, pt refused. Pt denies cough, fevers. Ortho was consulted, who recommended no intervention for healed fracture. Pt was started on IV antibiotics. Patient is discharged on Bactrim, based on the sensitivities on urine culture. Pt's vitals, physical exam, labs reviewed and stable. Pt's family would like to take patient home as pt was already to come home this weekend from [facility] rehab. Discussed with social services, who states that patient has a lot of help at home, adequate visiting nurse help is set up. Pt feels well , and states that she would like to go home. Case seen and discussed with Dr Floyd. Leta Smith, PGY1 Discharge Exam - Head Exam Head Exam: NORMAL INSPECTION - Eye Exam Eye Exam: EOMI, Normal appearance, PERRL. absent: Conjunctival injection, Scleral icterus Pupil Exam: PERRL - ENT Exam ENT Exam: Mucous Membranes Moist - Neck Exam Neck exam: Full Rom - Respiratory Exam Respiratory Exam: Clear to PA & Lateral, NORMAL BREATHING PATTERN. absent: Accessory Muscle Use, Chest Wall Tenderness, Prolonged Expiratory Phase, Rhonchi , Wheezes, Respiratory Distress - Cardiovascular Exam Cardiovascular Exam: +S1, +S2. absent: Systolic Murmur - GI/Abdominal Exam GI & Abdominal Exam: Normal Bowel Sounds, Soft. absent: Distended, Firm, Guarding, Rebound, Tenderness, Unremarkable - Extremities Exam Extremities exam: normal inspection - Back Exam Back exam: NORMAL INSPECTION - Neurological Exam Neurological exam: Alert (oriented to person and place only) - Psychiatric Exam Psychiatric exam: Normal Mood - Skin Skin Exam: Dry, Normal Color, Warm Discharge Plan - Discharge Medications Prescriptions: Sulfamethoxazole/Trimethoprim [Bactrim DS 800 mg-160 mg] 1 tab PO BID 5 Days tab - Follow Up Plan Condition: GUARDED Disposition: REHAB FACILITY/REHAB UNIT Instructions: Urinary Tract Infection in Women (DC), Altered Mental Status (GEN ), Urinary Tract Infection in Men (DC), Dysuria (GEN) Additional Instructions: - Take Bactrim for 5 days at skilled nursing. - Continue other medications as per medication reconciliation. - Return back to the ER for any concerns. Referrals: Peter Kyle MD [Primary Care Provider] - Follow up with primary
[2018-02-07 14:46] VITALS: BP 151/74; PULSE 49; RESP 22; TEMP 97.9; O2SAT 92
== END 2018-02-07 18:57 | disposition home health service (06) | DRG 689 ==
LOC: ED 20:16 → ERH 02-05 00:16 → 5RNO 02-05 01:13
PROVIDERS: ADMIT Internal Medicine; ATTEND Internal Medicine
PROC: 3E0F7GC Introduction of Other Therapeutic Substance into Respiratory Tract, Via Natural or Artificial Opening (ICD-10-PCS; principal; 2018-02-05)
DX: N39.0 Urinary tract infection, site not specified (principal); G93.40 Encephalopathy, unspecified; B96.20 Unspecified Escherichia coli [E. coli] as the cause of diseases classified elsewhere; J44.9 Chronic obstructive pulmonary disease, unspecified; I48.91 Unspecified atrial fibrillation; F31.9 Bipolar disorder, unspecified; I10 Essential (primary) hypertension; M17.0 Bilateral primary osteoarthritis of knee; Z99.81 Dependence on supplemental oxygen; G47.00 Insomnia, unspecified; D64.9 Anemia, unspecified; H91.90 Unspecified hearing loss, unspecified ear; Z87.440 Personal history of urinary (tract) infections; Z87.891 Personal history of nicotine dependence; Z88.0 Allergy status to penicillin

== ENCOUNTER 2018-02-11 11:22 | Inpatient (IN) | payer MEDICARE, OTHER ==
[2018-02-11 11:35] VITALS: BMI 30.7
[2018-02-11] MEDS ORDERED: Morphine 4 mg/ml ISec IVP STA (11:48)
--- NOTE | 2018-02-11 12:02 | ED PDOC ---
Arrival/HPI - General Chief Complaint: Trauma Time Seen by Provider: 02/11/18 11:41 Historian: Patient, Family - History of Present Illness Narrative History of Present Illness (Text): 02/11/18 12:01 An 87 year old female, whose past medical history includes Hypertension, subarachnoid hemorrhage, Atrial fibrillation not on anticoagulation, depression and chronic obstructive pulmonary disease, was brought in by EMS to the emergency room for evaluation of left hip pain s/p fall. Patient has a homemaker who lives with her. Reports patient fell in the kitchen, while homemaker was in the bathroom. Patient is unsure how she fell. Patient's family reports patient had a broken ankle a few weeks ago. Denies smoking. Denies drinking alcohol. Patient denies any other complaints at this time. PMD: Dr. Kyle Orthopedic Surgeon: Dr. Garcia Symptom Onset: Sudden Symptom Course: Unchanged Activities at Onset: Rest Context: Home Past Medical History - Provider Review Nursing Documentation Reviewed: Yes - Infectious Disease Hx of Infectious Diseases: None - Tetanus Immunization Tetanus Immunization: Unknown - Reproductive Menopause: Yes - Cardiac Hx Cardiac Disorders: Yes Hx Hypertension: Yes - Pulmonary Hx Chronic Obstructive Pulmonary Disease (COPD): Yes - Neurological Hx Neurological Disorder: Yes - HEENT Hx HEENT Disorder: Yes (WEARS RX GLASSES) Hx Cataracts: Yes (BILATERAL SURGERY) Hx Deafness: Yes - Renal Hx Renal Disorder: No - Endocrine/Metabolic Hx Endocrine Disorders: No - Hematological/Oncological Hx 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) - Integumentary Hx Dermatological Disorder: No - Musculoskeletal/Rheumatological Hx Arthritis: Yes (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)) Hx Falls: No - Gastrointestinal Hx Gastrointestinal Disorders: No - Genitourinary/Gynecological Hx Genitourinary Disorders: Yes Hx Incontinence: Yes - Psychiatric Hx Psychophysiologic Disorder: Yes (SMOKE H/O ,DRINKS ALCOHOL OCCASIONALLY) Hx Anxiety: Yes Hx Depression: Yes Hx Emotional Abuse: No Hx Physical Abuse: No Hx Substance Use: No Other/Comment: INSOMNIA - Surgical History Hx Hysterectomy: Yes - Anesthesia Hx Anesthesia: Yes Hx Anesthesia Reactions: No Hx Malignant Hyperthermia: No - Suicidal Assessment Feels Threatened In Home Enviroment: No Family/Social History - Physician Review Nursing Documentation Reviewed: Yes Family/Social History: No Known Family HX Smoking Status: Former Smoker Hx Alcohol Use: Yes (social, long ago) Hx Substance Use: No Hx Substance Use Treatment: No Allergies/Home Meds Allergies/Adverse Reactions: Allergies Iodinated Contrast- Oral and IV Dye [Iodinated Contrast Media - Oral and] Allergy (Verified 02/04/18 20:20) ANAPHYLAXIS Penicillins Allergy (Verified 02/04/18 20:20) ANAPHYLAXIS Home Medications: Home Meds Medication Instructions Recorded Confirmed Aspirin [Ecotrin] 81 mg PO DAILY 09/27/16 02/11/18 Calcium Carbonate [Caltrate] 600 mg PO DAILY 09/27/16 02/11/18 Arformoterol [Brovana] 15 mcg IH BID 12/26/17 02/11/18 Budesonide [Pulmicort Respules] 0.25 mg PO BID 12/26/17 02/11/18 Lisinopril [Zestril] 10 mg pe PO DAILY 12/26/17 02/11/18 Sulfamethoxazole/Trimethoprim 1 tab PO BID 02/11/18 02/11/18 [Bactrim Ds Tablet] Review of Systems - Physician Review All systems were reviewed & negative as marked: Yes - Review of Systems Constitutional: absent: Fevers Musculoskeletal: Other (left hip pain) Neurological: absent: Headache, Dizziness Physical Exam Vital Signs Reviewed: Yes Vital Signs Temp Pulse Resp BP Pulse Ox 02/11/18 12:57 96 H 20 142/64 93 L 02/11/18 11:33 98.0 F 91 H 20 139/63 92 L Temperature: Afebrile Blood Pressure: Normal Pulse: Regular Respiratory Rate: Normal Appearance: Positive for: Well-Appearing, Non-Toxic Pain Distress: Moderate Mental Status: Positive for: Alert and Oriented X 3 - Systems Exam Head: Present: Atraumatic, Normocephalic Pupils: Present: PERRL Extroacular Muscles: Present: EOMI Conjunctiva: Present: Normal Mouth: Present: Moist Mucous Membranes Neck: Present: Normal Range of Motion Respiratory/Chest: Present: Other (diminished breath sounds). No: Accessory Muscle Use Cardiovascular: Present: Regular Rate and Rhythm, Normal S1, S2. No: Murmurs Abdomen: No: Tenderness, Distention, Peritoneal Signs Back: Present: Normal Inspection Upper Extremity: Present: Normal Inspection. No: Cyanosis, Edema Lower Extremity: Present: Other (LLE shortened rotation; pain in left hip palpation range of motion). No: Edema Neurological: Present: GCS=15, CN II-XII Intact, Speech Normal, Other (resting tremor) Skin: Present: Warm, Dry, Normal Color. No: Rashes Psychiatric: Present: Alert, Oriented x 3, Normal Insight, Normal Concentration Medical Decision Making ED Course and Treatment: 02/11/18 11:59 Impression: An 87 year old female with left hip pain s/p fall. Differential Diagnosis included but are not limited to: Left hip pain r/o fracture Plan: -- EKG -- labs -- Radiology chest -- Radiology left hip -- Reassess and disposition Prior Visits: Notes and results from previous visits were reviewed. Patient last reported to the emergency room on 02/04/18 for evaluation of AMS. Progress Notes: 02/11/18 13:05 Left Hip and pelvis X-ray Radiographs Creator : Rodrigo Mathew MD FINDINGS: BONES: There is a displaced comminuted intertrochanteric fracture of the left hip JOINTS: Normal. SOFT TISSUES: Normal. IMPRESSION: There is a displaced comminuted intertrochanteric fracture of the left hip 02/11/18 13:04 CHEST RADIOGRAPH, 1 VIEW Creator : Rodrigo Mathew MD FINDINGS: LUNGS: Clear. PLEURA: No pneumothorax or pleural fluid seen. CARDIOVASCULAR: Moderate cardiomegaly. Chronic enlargement of the pulmonary arteries. OSSEOUS STRUCTURES: No significant abnormalities. VISUALIZED UPPER ABDOMEN: Normal. IMPRESSION: No acute findings. 02/11/18 13:14 EKG shows normal sinus rhythm with a sinus arrhythmia rate approximately [address] or T-wave changes 02/11/18 13:[address] Vazquez, who agrees and accepts patient to be admitted to the hospital. Case discussed with Dr. Garcia, who will come and evaluate patient in the emergency room. - Lab Interpretations Lab Results: 02/11/18 11:53 02/11/18 11:53 Lab Results 02/11/18 12:00: Blood Type Pending, Antibody Screen Pending, BBK History Checked No verified bt 02/11/18 11:53: Sodium 143, Potassium 4.6, Chloride 106, Carbon Dioxide 26, Anion Gap 15, BUN 22 H, Creatinine 1.0, Est GFR ( Amer) > 60, Est GFR ( Non-Af Amer) 52, Random Glucose 101, Calcium 9.7, Magnesium 1.9, Total Bilirubin 0.2, AST 26, ALT 32, Alkaline Phosphatase 73, Lactate Dehydrogenase 474, Total Creatine Kinase 80, Troponin I < 0.01 D, NT-Pro-B Natriuret Pep 423 , Total Protein 7.1, Albumin 4.0, Globulin 3.1, Albumin/Globulin Ratio 1.3 02/11/18 11:53: PT 12.2, INR 1.06, APTT 25.1 02/11/18 11:53: WBC 11.8 H D, RBC 3.55, Hgb 10.9 L, Hct 34.1 L, MCV 96.1, MCH 30.7, MCHC 32.0, RDW 13.7, Plt Count 153, MPV 11.8 H, Gran % 77.7 H, Lymph % ( Auto) 12.8 L, [place] % (Auto) 9.3 H, Eos % (Auto) 0.1 L, Baso % (Auto) 0.1, Gran # 9.20 H, Lymph # (Auto) 1.5, [place] # (Auto) 1.1 H, Eos # (Auto) 0.0, Baso # ( Auto) 0.01 I have reviewed the lab results: Yes - RAD Interpretation Radiology Orders: 02/11/18 11:47 CHEST ONE VIEW FALL PROTOCOL [RAD] Stat Hip Left [HIP MIN 2V W/ PELVIS LT] [RAD] Stat - EKG Interpretation Interpreted by ED Physician: Yes Type: 12 lead EKG - Medication Orders Current Medication Orders: Acetaminophen (Tylenol 325mg Tab) 650 mg PO Q6 PRN PRN Reason: Pain, Mild (1-3) Albuterol Sulfate (Albuterol 0.083% Inhal Radha (2.5 Mg/3 Ml) Ud) 2.5 mg INH Q2H PRN PRN Reason: Shortness of Breath Albuterol Sulfate (Albuterol 0.083% Inhal Radha (2.5 Mg/3 Ml) Ud) 2.5 mg INH [id number] LISET Amlodipine Besylate (Norvasc) 10 mg PO DAILY [facility] Arformoterol Tartrate (Brovana) 15 mcg IH BID LISET Budesonide (Pulmicort Respules) 0.25 mg IH BID [facility] Calcium Carbonate (Caltrate) 600 mg PO DAILY [facility] Sodium Chloride (Sodium Chloride 0.9%) 1,000 mls @ 80 mls/hr IV .[id number] LISET Last Admin: 02/11/18 14:18 Dose: 80 mls/hr eMAR Start Stop Document 02/11/18 14:18 SRE (Rec: 02/11/18 14:18 SRE [id number]) Intravenous Solution Start Date 02/11/18 Start Time 14:18 Famotidine (Pepcid 20mg/50ml Premix) 20 mg in 50 mls @ 150 mls/hr IVPB DAILY [facility] Lisinopril (Zestril) 10 mg PO DAILY [facility] Lorazepam (Ativan) 0.5 mg PO HS LISET PRN Reason: Protocol Morphine Sulfate (Morphine) 2 mg IV Q4H PRN PRN Reason: Pain, severe (8-10) Nystatin (Mycostatin Cream) 1 ea TOP TID LISET Ondansetron HCl (Zofran Inj) 4 mg IVP Q6 PRN PRN Reason: Nausea/Vomiting Trimethoprim/Sulfamethoxazole (Bactrim Ds Tab) 1 tab PO BID [facility] PRN Reason: Protocol Venlafaxine HCl (Effexor Xr) 75 mg PO BID [facility] Discontinued Medications Famotidine (Pepcid) 20 mg IVP DAILY [facility] Famotidine (Pepcid 20mg/50ml Premix) 20 mg in 50 mls @ 150 mls/hr IVPB .EXTRA DOSE ONE Stop: 02/11/18 14:49 Morphine Sulfate (Morphine) 4 mg IVP STAT STA Stop: 02/11/18 11:49 Last Admin: 02/11/18 12:55 Dose: 4 mg MAR Pain Assessment Document 02/11/18 12:55 SRE (Rec: 02/11/18 12:55 SRE [id number]) Pain Reassessment Is this a pain reassessment? Yes Sleep Is patient sleeping during reassessment? No Presence of Pain Presence of Pain Yes Pain Scale Used Pain Scale Used Numeric Location Left, Right or Bilateral Left Pain Location Body Site Hip Description Description Constant IVP Administration Document 02/11/18 12:55 SRE (Rec: 02/11/18 12:55 SRE [id number]) Charges for Administration # of IVP Administrations 1 Morphine Sulfate (Morphine) 4 mg IVP Q4 PRN PRN Reason: Pain, severe (8-10) Ondansetron HCl (Zofran Inj) 4 mg IVP ONCE ONE Stop: 02/11/18 11:49 Last Admin: 02/11/18 12:56 Dose: 4 mg IVP Administration Document 02/11/18 12:56 SRE (Rec: 02/11/18 12:56 SRE [id number]) Charges for Administration # of IVP Administrations 1 - Scribe Statement The provider has reviewed the documentation as recorded by the Scribe Jordin Pollack All medical record entries made by the Walt[place]lotus were at my direction and personally dictated by me. I have reviewed the chart and agree that the record accurately reflects my personal performance of the history, physical exam, medical decision making, and the department course for this patient. I have also personally directed, reviewed, and agree with the discharge instructions and disposition. Disposition/Present on Arrival - Present on Arrival Any Indicators Present on Arrival: No History of DVT/PE: No History of Uncontrolled Diabetes: No Urinary Catheter: No History of Decub. Ulcer: No History Surgical Site Infection Following: None - Disposition Have Diagnosis and Disposition been Completed?: Yes Diagnosis: Intertrochanteric fracture of left hip Disposition: HOSPITALIZED Disposition Time: 13:15 Patient Plan: Admission Patient Problems: Current Active Problems Problem Status Onset Intertrochanteric fracture of left hip Acute Condition: FAIR
[2018-02-11 12:07] LABS: INR 1.06 (0.93-1.08); PARTIAL THROMBOPLASTIN TIME 25.1 Seconds (25.1-36.5); PROTHROMBIN TIME 12.2 SECONDS (9.4-12.5)
[2018-02-11 12:09] LABS: ALB/GLOB RATIO 1.3 (1.1-1.8); ALT/SGPT 32 U/L (7-56); AST/SGOT 26 U/L (14-36); BLOOD UREA NITROGEN 22 mg/dL (7-21); CALCIUM 9.7 mg/dL (8.4-10.5); GFR AFRICAN-AMERICAN > 60; GFR NON-AFRICAN AMERICAN 52
[2018-02-11 12:11] LABS: BASO # 0.01 K/mm3 (0.0-2.0); BASO % 0.1 % (0.0-3.0); EOS % 0.1 % (1.5-5.0); GRAN # 9.2 (1.4-6.5); GRAN % 77.7 % (50.0-68.0); HEMOGLOBIN 10.9 g/dL (12.0-16.0); LYMPH # 1.5 (1.2-3.4); LYMPH % 12.8 % (22.0-35.0); MEAN CELL VOLUME 96.1 fl (80.0-105.0); MEAN CORPUSCULAR HEMOGLOBIN 30.7 pg (25.0-35.0); MEAN PLATELET VOLUME 11.8 fl (7.0-11.0); MONO # 1.1 (0.1-0.6); MONO % 9.3 % (1.0-6.0); RBC 3.55 10^6/uL (3.5-6.1); RED CELL DISTRIBUTION WIDTH 13.7 % (11.5-14.5); WHITE BLOOD COUNT 11.8 10^3/ul (4.5-11.0)
[2018-02-11 12:19] LABS: B-TYPE NATRIURETIC PEPTIDE 423 pg/mL (0-450); TROPONIN I < 0.01 ng/mL
--- NOTE | 2018-02-11 13:02 | RAD ---
PROCEDURE: CHEST RADIOGRAPH, 1 VIEW HISTORY: OR COMPARISON: 02/04/2018 FINDINGS: LUNGS: Clear. PLEURA: No pneumothorax or pleural fluid seen. CARDIOVASCULAR: Moderate cardiomegaly. Chronic enlargement of the pulmonary arteries. OSSEOUS STRUCTURES: No significant abnormalities. VISUALIZED UPPER ABDOMEN: Normal. OTHER FINDINGS: None. IMPRESSION: No acute findings
--- NOTE | 2018-02-11 13:04 | RAD ---
PROCEDURE: Left Hip and pelvis X-ray Radiographs. HISTORY: Fall COMPARISON: None. FINDINGS: BONES: There is a displaced comminuted intertrochanteric fracture of the left hip JOINTS: Normal. SOFT TISSUES: Normal. OTHER FINDINGS: None. IMPRESSION: There is a displaced comminuted intertrochanteric fracture of the left hip
--- NOTE | 2018-02-11 13:35 | CP.PCM.HP ---
<Rufus Mederos - Last Filed: 02/11/18 16:33> History of Present Illness - History of Present Illness History of Present Illness: Medicine H&P for Dr. Vazquez cc: s/p fall, left hip pain 87 F with a past medical history that includes Hypertension, subarachnoid hemorrhage, Atrial fibrillation without anticoagulation, depression and COPD was brought in by EMS to [facility] [place] left hip pain s/p fall. Patient was at home with live in homemaker. Family was at side and provided history. As per family , patient got up to go into the kitchen with her walker then fell due to mechanical fall. The fall was unwitnessed. Patient denies head trauma or LOC. Patient has had recurrent falls in the past. Patient was admitted on 12/29 for a broken ankle then discharged to [facility] for rehab. She was also discharged from [facility] on 02/07 because she returned from rehab with UTI. Patient had been taking Bactrim DS. Patient rates pain as severe. She unable to accurately describe quality of pain. She states it hurts when it is touched or moved. Denies fever/ chills, chest pain, palpitations, abd pain, nausea/vomiting, diarrhea, constipation, incontinence. PMD: Dr. Kyle Cardio: Dr. Negrete Pulm: Dr. Burnham Ortho: Dr. Garcia PMH: Left frontal subarachnoid hemorrhage, recurrent falls, COPD, HTN, Afib without anticoagulation, OA, pseudogout, depression, Pulm HTN Meds: As per EMR Allergies: Iodinated contrast; PCN's PSH: Appendectomy FH: non-contributory Social History: Quit smoking 50 years ago; Denies alcohol, illicits Present on Admission - Present on Admission Any Indicators Present on Admission: No History of DVT/PE: No History of Uncontrolled Diabetes: No Urinary Catheter: No Decubitus Ulcer Present: No History Surgical Site Infection Following: None Review of Systems - Review of Systems All systems: reviewed and no additional remarkable complaints except (as per HPI ) Past Patient History - Infectious Disease Hx of Infectious Diseases: None - Tetanus Immunizations Tetanus Immunization: Unknown - Past Social History Smoking Status: Former Smoker - CARDIAC Hx Cardiac Disorders: Yes Hx Hypertension: Yes - PULMONARY Hx Chronic Obstructive Pulmonary Disease (COPD): Yes - NEUROLOGICAL Hx Neurological Disorder: Yes - HEENT Hx HEENT Problems: Yes (WEARS RX GLASSES) Hx Cataracts: Yes (BILATERAL SURGERY) Hx Deafness: Yes - RENAL Hx Chronic Kidney Disease: No - ENDOCRINE/METABOLIC Hx Endocrine Disorders: No - HEMATOLOGICAL/ONCOLOGICAL Hx 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) - INTEGUMENTARY Hx Dermatological Problems: No - MUSCULOSKELETAL/RHEUMATOLOGICAL Hx Arthritis: Yes (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)) Hx Falls: No - GASTROINTESTINAL Hx Gastrointestinal Disorders: No - GENITOURINARY/GYNECOLOGICAL Hx Genitourinary Disorders: Yes Hx Incontinence: Yes - PSYCHIATRIC Hx Psychophysiologic Disorder: Yes (SMOKE H/O ,DRINKS ALCOHOL OCCASIONALLY) Hx Anxiety: Yes Hx Depression: Yes Hx Emotional Abuse: No Hx Physical Abuse: No Hx Substance Use: No Other/Comment: INSOMNIA - SURGICAL HISTORY Hx Hysterectomy: Yes - ANESTHESIA Hx Anesthesia: Yes Hx Anesthesia Reactions: No Hx Malignant Hyperthermia: No Meds Allergies/Adverse Reactions: Allergies Allergy/AdvReac Type Severity Reaction Status Date / Time Iodinated Contrast- Oral and Allergy ANAPHYLAXIS Verified 02/11/18 16:55 IV Dye [Iodinated Contrast Media - Oral and] Penicillins Allergy ANAPHYLAXIS Verified 02/11/18 16:55 Physical Exam - Constitutional Appears: No Acute Distress - Head Exam Head Exam: ATRAUMATIC, NORMOCEPHALIC - Eye Exam Eye Exam: EOMI, Normal appearance Pupil Exam: PERRL - ENT Exam ENT Exam: Mucous Membranes Moist - Respiratory Exam Respiratory Exam: Clear to Auscultation Bilateral, NORMAL BREATHING PATTERN - Cardiovascular Exam Cardiovascular Exam: REGULAR RHYTHM, +S1, +S2 - GI/Abdominal Exam GI & Abdominal Exam: Normal Bowel Sounds, Soft. absent: Tenderness - Extremities Exam Extremities exam: Positive for: normal capillary refill, pedal pulses present Additional comments: Left leg externally rotated and abducted, patient unable to move extremity, tender to palpation - Back Exam Back exam: absent: CVA tenderness (L), CVA tenderness (R) - Neurological Exam Neurological exam: Alert - Psychiatric Exam Psychiatric exam: Flat Affect - Skin Skin Exam: Dry, Intact, Normal Color, Warm Results - Vital Signs Recent Vital Signs: Last Vital Signs Temp 98.0 F 02/11/18 11:33 Pulse 96 H 02/11/18 12:57 Resp 20 02/11/18 12:57 BP 142/64 02/11/18 12:57 Pulse Ox 93 L 02/11/18 12:57 - Labs Result Diagrams: 02/11/18 11:53 02/11/18 11:53 Assessment & Plan - Assessment and Plan (Free Text) Assessment: 87 F with a past medical history that includes Hypertension, subarachnoid hemorrhage, Atrial fibrillation without anticoagulation, depression and chronic obstructive pulmonary disease was brought in by EMS to [facility] for left hip pain s/ p fall found to have left intertronchanteric femur fracture Plan: 1. Intertronchanteric femur fracture, s/p fall Ortho consult - Plan for OR Cardio consult - needs pre-operative risk stratification NPO except meds Morphine PRN for severe pain Tylenol PRN for mild pain NS 80 cc/hr Hold ASA 2. Atrial fibrillation EKG shows sinus rhythm at 93 bpm NO anticoagulation due to recurrent falls 3. COPD Pulm consult Pulmicort Albuterol Brovana 4. Pulmonary HTN Pulm consult 5. HTN Norvasc Lisinopril 6. UTI Taking abx as outpatient Continue Bactrim DS 7. Depression Ativan Effexor GI ppx: Pepcid DVT ppx: SCDs [facility] - Date & Time Date: 02/11/18 Time: 14:00 <Natalie Vazquez - Last Filed: 02/13/18 14:08> Results - Vital Signs Recent Vital Signs: Last Vital Signs Temp 99.0 F 02/13/18 13:19 Pulse 100 H 02/13/18 13:19 Resp 17 02/13/18 13:19 BP 142/80 02/13/18 13:19 Pulse Ox 94 L 02/13/18 06:00 - Labs Result Diagrams: 02/13/18 07:39 02/13/18 07:39 Labs: Laboratory Results - last 24 hr 02/12/18 02/12/18 02/12/18 18:04 18:04 18:40 WBC 12.2 H RBC 2.57 L Hgb 8.1 L Hct 24.8 L MCV 96.5 MCH 31.5 MCHC 32.7 RDW 14.2 Plt Count 140 MPV 11.2 H Gran % 71.9 H Lymph % (Auto) 15.4 L Robeson % (Auto) 12.3 H Eos % (Auto) 0.1 L Baso % (Auto) 0.3 Gran # 8.80 H Lymph # (Auto) 1.9 Robeson # (Auto) 1.5 H Eos # (Auto) 0.0 Baso # (Auto) 0.04 Sodium 143 Potassium 5.5 H Chloride 110 H Carbon Dioxide 23 Anion Gap 15 BUN 35 H Creatinine 2.6 H Est GFR ( Amer) 21 Est GFR (Non-Af Amer) 17 Random Glucose 137 H Calcium 8.1 L Phosphorus 3.6 Magnesium 1.9 Total Bilirubin AST ALT Alkaline Phosphatase Total Protein Albumin Globulin Albumin/Globulin Ratio Triglycerides Cholesterol LDL Cholesterol Direct HDL Cholesterol Urine Eosinophils Ur Random Creatinine Ur Random Sodium Urine Microalbumin 138.4 H 02/12/18 02/12/18 02/13/18 18:40 19:15 07:39 WBC 11.8 H RBC 2.54 L Hgb 7.9 L Hct 24.6 L MCV 96.9 MCH 31.1 MCHC 32.1 RDW 14.5 Plt Count 121 MPV 12.0 H Gran % 73.9 H Lymph % (Auto) 11.3 L Robeson % (Auto) 14.5 H Eos % (Auto) 0.0 L Baso % (Auto) 0.3 Gran # 8.73 H Lymph # (Auto) 1.3 Robeson # (Auto) 1.7 H Eos # (Auto) 0.0 Baso # (Auto) 0.03 Sodium Potassium Chloride Carbon Dioxide Anion Gap BUN Creatinine Est GFR ( Amer) Est GFR (Non-Af Amer) Random Glucose Calcium Phosphorus Magnesium Total Bilirubin AST ALT Alkaline Phosphatase Total Protein Albumin Globulin Albumin/Globulin Ratio Triglycerides Cholesterol LDL Cholesterol Direct HDL Cholesterol Urine Eosinophils Negative Ur Random Creatinine 134 Ur Random Sodium 69 Urine Microalbumin 02/13/18 07:39 WBC RBC Hgb Hct MCV MCH MCHC RDW Plt Count MPV Gran % Lymph % (Auto) Robeson % (Auto) Eos % (Auto) Baso % (Auto) Gran # Lymph # (Auto) Robeson # (Auto) Eos # (Auto) Baso # (Auto) Sodium 146 Potassium 5.4 H Chloride 114 H Carbon Dioxide 20 L Anion Gap 17 BUN 34 H Creatinine 2.2 H Est GFR ( Amer) 25 Est GFR (Non-Af Amer) 21 Random Glucose 112 H Calcium 8.4 Phosphorus 3.8 Magnesium 2.1 Total Bilirubin 0.3 AST 52 H D ALT 27 Alkaline Phosphatase 48 Total Protein 5.7 L Albumin 3.0 Globulin 2.7 Albumin/Globulin Ratio 1.1 Triglycerides 88 Cholesterol 96 L LDL Cholesterol Direct 30 HDL Cholesterol 41 Urine Eosinophils Ur Random Creatinine Ur Random Sodium Urine Microalbumin Attending/Attestation - Attestation I have personally seen and examined this patient.: Yes I have fully participated in the care of the patient.: Yes I have reviewed all pertinent clinical information: Yes Notes (Text): I have seen and examined the patient at bedside. Agree with the above note with the following additions/ exceptions: Briefly this is 87 year old female with history of Hypertension, subarachnoid hemorrhage, Atrial fibrillation without anticoagulation due to falls risk, depression and COPD who was admitted for management of left hip fracture s/p mechanical fall. Ortho consult appreciated. Plan for surgery today. Will consult cardiology for pre op clearance. Discussed in detail with patient and her daughter. Upon discharge patient will follow up with Dr Cruz. Dr Natalie Vazquez
[2018-02-11] MEDS ORDERED: Sodium Chloride 0.9% 1,000 ML IV SCH (13:45)
[2018-02-11] MEDS ORDERED: Albuterol 0.083% Inhal Sol (2.5 mg/3 mL) UD INH PRN (14:16)
[2018-02-11] MEDS ORDERED: Morphine 2 mg/ml ISec IVP PRN (14:25)
[2018-02-11] MEDS ORDERED: Morphine 4 mg/ml ISec IV PRN (14:29)
[2018-02-11] MEDS ORDERED: Famotidine 20mg/50ml 20 MG/50 ML BAG IVPB ONE (14:30)
--- NOTE | 2018-02-11 14:41 | CARD ---
APPROVED REPORT EKG Measurement Heart [id number] <Conclusion> Sinus rhythm with APCs NSSTW changes
--- NOTE | 2018-02-11 15:27 | CON ---
DATE: 02/11/2018LOCATION: Emergency room, [facility]. HISTORY OF PRESENT ILLNESS: The patient is here slipping and fallen this morning about 9 a.m. soon after eating breakfast. An x-ray shows displaced comminuted intratrochanteric fracture, left hip that will need a peritrochanteric octavoi from [employer] when the patient is cleared. Hopefully, we could do this surgery today or so, we could do about 3 p.m. She is going to be seen by Dr. Negrete, swimmer also and we will soon get her up out of bed. If the surgery is done today, we will get her out of bed tomorrow because she does have some COPD and some obesity and high risk of complications if the surgery is not done soon and she will need blood thinners and antibiotics for prophylaxis and put a Arshad in her too. We will schedule for surgery this afternoon. Rodrigo Garcia DO
[2018-02-11] MEDS ORDERED: Bupivacaine 0.5% Inj(30mL) ONE (16:50)
[2018-02-11] MEDS ORDERED: Rocuronium 10 mg/ml (5 ml) ONE (17:00)
[2018-02-11] MEDS ORDERED: Succinylcholine 200 mg/10 ml Inj IV ONE (17:00)
[2018-02-11] MEDS ORDERED: Glycopyrrolate 0.2 mg/ml (2ml vial) ONE (17:49)
[2018-02-11] MEDS ORDERED: Etomidate 20 mg/10ml Inj IV ONE (17:49)
[2018-02-11] MEDS ORDERED: Venlafaxine 75 mg ER Cap PO SCH (18:00)
[2018-02-11] MEDS ORDERED: Tmp-Smz 800 mg-160 mg DS Tab PO SCH (18:00)
[2018-02-11] MEDS ORDERED: Neostigmine Methylsulfate 3mg/3ml Syringe IV ONE (18:00)
[2018-02-11] MEDS ORDERED: Vancomycin 1 g Inj ONE (18:36)
[2018-02-11] MEDS ORDERED: Lactated Ringer's 1,000 ML IV SCH (19:15)
--- NOTE | 2018-02-11 19:28 | PCM.SURG1 ---
Surgeon's Initial Post Op Note - Surgeon's Notes Surgeon: Dr. Garcia Water Pumper: Debi PGY1 Type of Anesthesia: General Endo, Local Anesthesia Administered By: Dr. Green Pre-Operative Diagnosis: Left femur subtrochantaric fracture Operative Findings: see operative report. Affixus system nail locked and lag screw. 4 implants: 2 screws distally, Intermedulary octavio, lag screw. Post-Operative Diagnosis: same Operation Performed: Open Reduction Internal Fixation of left femur subtrochanteric fracture Specimen/Specimens Removed: none Estimated Blood Loss: EBL {In ML}: 200 Blood Products Given: N/A Drains Used: No Drains Post-Op Condition: Fair Date of Surgery/Procedure: 02/11/18 Time of Surgery/Procedure: 19:26
[2018-02-11 19:37] LABS: HEMOGLOBIN 9.3 g/dL (12.0-16.0)
[2018-02-11] MEDS: Budesonide 0.25 mg/2 ml Inhal Susp UD IH SCH (19:41)
[2018-02-11] MEDS ORDERED: Albuterol 0.083% Inhal Sol (2.5 mg/3 mL) UD INH SCH (20:00)
[2018-02-11] MEDS ORDERED: Ciprofloxacin 400mg/200ml D5W 400 MG/200 ML BAG IVPB SCH (22:00)
[2018-02-11] MEDS ORDERED: Pneumococcal 23-Valent Vaccine IM ONE (22:42)
--- NOTE | 2018-02-12 03:43 | CON ---
DATE: 02/11/2018 LOCATION: The patient is in room 562, bed 2. REASON FOR CONSULTATION: Hip fracture, risk that the patient from cardiac point of view, preop hypertension, history of fall, chronic obstructive pulmonary disease, anxiety, depression, arthritis, obesity and pseudogout. HISTORY OF PRESENT ILLNESS: The patient is an 87-year-old female admitted with a history that she fell at home and had pain in the left hip and found to have intertrochanteric left hip fracture for which she needed surgery. The patient denies any chest pain, shortness of breath or palpitations associated with the fall. She is lying flat in bed without any cardiac symptoms at this time or moment. The patient is known to have COPD, anxiety and depression,pseudogout, hypertension, obesity, arthritis, history of fall in the past also. 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 She is also an ex-smoker. ALLERGIES: THE PATIENT STATES THAT SHE IS ALLERGIC TO IODINATED CONTRAST AND PENICILLIN. MEDICATIONS: The patient's list of home medications included amlodipine 10 mg daily, Effexor XR 75 b.i.d., Bactrim DS one tablet b.i.d., Mycostatin cream applied t.i.d., lisinopril 10 mg p.o. daily, Ativan 0.5 mg p.o. at bedtime, Caltrate 600 mg p.o. daily, aspirin 81 mg p.o. daily. The patient also got nebulizer therapy. REVIEW OF SYSTEMS: All the systems reviewed, positives mentioned in the history. PHYSICAL EXAMINATION VITAL SIGNS: Blood pressure 139/63, respirations 20, pulse 91, temperature 98. HEENT: Head is normocephalic. Eyes: Pupils normal. Conjunctivae slightly pale. NECK: JVP low. Carotids equal. THORAX: AP diameter is normal. LUNGS: Clear. CARDIOVASCULAR: S1 and S2. ABDOMEN: Soft. No tenderness. No organomegaly. Bowel sound normal. EXTREMITIES: No clubbing. No cyanosis. LABORATORY DATA: WBC 11.8, hemoglobin 10.9, hematocrit 34.1, platelet 153. Sodium 143, potassium 4.6, BUN 22, creatinine 1; calcium, magnesium, AST and ALT normal. Troponin less than 0.01. Total protein and albumin are normal. NT-pro-B natriuretic peptide 423, which is normal. EKG shows sinus rhythm with APCs, nonspecific ST-T changes. Chest x-ray no acute findings. Left hip and pelvis x-ray showed intertrochanteric left femur fracture. DIAGNOSES: Left hip fracture, hypertension, chronic obstructive pulmonary disease, history of falls, history of subarachnoid hemorrhage in the past, history of atrial fibrillation in the past, depression, history of anxiety, history of pulmonary embolism, history of thrombophlebitis, obesity, pseudogout. PLAN: The patient clinically cardiac status stable at this point and there is no absolute contraindication, do not proceed with surgery; however, the patient is at moderate risk and with that understanding the patient can go for hip surgery. Patient is on albuterol and nebulizer therapy. Ativan has been also requested, calcium carbonate 600 mg p.o. daily, Effexor 75 mg. b.i.d., amlodipine 10 mg daily, lisinopril 10 mg daily and famotidine also has been ordered. We will follow with you. Radha Negrete MD
--- NOTE | 2018-02-12 04:36 | OP ---
PROCEDURE DATE: 02/11/2018 PREOPERATIVE DIAGNOSES: Subtrochanteric fracture, displaced left proximal femur. POSTOPERATIVE DIAGNOSES: Subtrochanteric fracture, displaced left proximal femur. PROCEDURES: Open reduction and internal fixation with Affixus long intramedullary nail from [employer], locked proximally with a lag screw that was 95 mm long, the octavio was 340 mm long x 11 mm wide, the lag screw was 10.5 mm wide x 95 mm long and 2 distal locking screws 5 mm. STONER HAND SURGEON: General surgeon. DESCRIPTION OF PROCEDURE: Summary as follows: The patient was taken to the OR. General anesthesia with endotracheal tube done. Put on the fracture table. The left leg was in traction. X-ray showed that we could reduce the fracture with traction. Then, at this time, we made a 2-inch incision just proximal to the great trochanter going through the fascia into the great trochanter with a threaded-tip guidewire to over-ream the proximal fragment to 7 cm, 60 mm wide. Now, we put him that beaded tip guidewire and got our length that measured for octavio that would be 340 mm long. Then, we over-reamed the shaft to 12.5 mm and put in the 11 mm octavio x 340 mm and set at 125-degree angle for the head and neck angle. Once the octavio was done, then we locked it proximally with the appropriate outriggers to put in the guidewire into the femoral head and neck at 125 degrees that was 10.5 mm wide x 95 mm long. That was stopped at the subchondral portion of the femoral head to see in both on the AP and lateral projection, so the nail was securing the fracture with the help of the IM octavio. Then, we took the traction off by releasing and then locked the distal octavio with 2 cortical screws with 2 stab wound incisions. This was done with the help of the C-arm. There was 2 larger incisions proximally about 2.5 inch long, one for the octavio, one for the lag screw and 2 smaller incisions for the locking screws. All 4 wounds were irrigated with normal saline and Kantrex, closed in layers, starting with 0 Vicryl and 2-0 Vicryl, skin with stainless steel geraldine. Patient was taken to the recovery room in good condition. Rotation and length appeared to be satisfactory. Rodrigo Garcia DO
[2018-02-12] MEDS ORDERED: Sodium Chloride 0.9% 250 ML IV STA ×3 (04:39→06:31)
[2018-02-12 06:52] LABS: BASO # 0.02 K/mm3 (0.0-2.0); BASO % 0.2 % (0.0-3.0); GRAN # 8.06 (1.4-6.5); GRAN % 75.1 % (50.0-68.0); HEMOGLOBIN 7.8 g/dL (12.0-16.0); LYMPH # 1.2 (1.2-3.4); LYMPH % 11.5 % (22.0-35.0); MEAN CELL VOLUME 96.8 fl (80.0-105.0); MEAN CORPUSCULAR HEMOGLOBIN 31.2 pg (25.0-35.0); MEAN CORPUSCULAR HGB CONC 32.2 g/dl (31.0-37.0); MEAN PLATELET VOLUME 11.6 fl (7.0-11.0); MONO # 1.4 (0.1-0.6); MONO % 13.2 % (1.0-6.0); RBC 2.5 10^6/uL (3.5-6.1); WHITE BLOOD COUNT 10.7 10^3/ul (4.5-11.0)
[2018-02-12 07:06] LABS: ALB/GLOB RATIO 1.1 (1.1-1.8); ALBUMIN 2.9 g/dL (3.0-4.8); CALCIUM 8.3 mg/dL (8.4-10.5)
[2018-02-12] MEDS ORDERED: Sodium Chloride 0.9% 500 ML IV STA ×2 (07:16→18:42)
[2018-02-12] MEDS ORDERED: Dextrose 50% SYRINGE Inj (50 ml) IVP ONE ×2 (07:34→18:25)
[2018-02-12] MEDS ORDERED: Insulin Regular 1 UNITS/0.01 ML ML IV ONE ×2 (07:45→18:30)
[2018-02-12] MEDS: Arformoterol 15 mcg/2 ml Inh Sol IH SCH ×3 (08:17→22:15)
[2018-02-12] MEDS: Budesonide 0.25 mg/2 ml Inhal Susp UD IH SCH ×3 (08:17→22:15)
--- NOTE | 2018-02-12 08:48 | CON ---
DATE: PULMONARY CONSULTATION REASON FOR CONSULTATION: Chronic obstructive pulmonary disease. REFERRING PHYSICIAN: Dr. Natalie Vazquez. History is obtained via extensive discussion with the night nurse. I have also reviewed the chart at length. The patient is not an adequate historian. The patient is a chronically ill 87-year-old female, with past medical history significant for advanced chronic obstructive pulmonary disease, on home oxygen; atrial fibrillation; hypertension; frequent falls at home, who presents to [facility] after falling in the kitchen. Apparently, the patient was at home with the live-in homemaker, when she got up to go in the kitchen and fell over her walker. After the fall, the patient did experience severe left hip pain. She was then transferred to [facility] for additional evaluation and treatment. In the Emergency Room, the patient was noted to have a left hip fracture. She was thus admitted for additional evaluation. The patient is not short of breath at rest. She does have chronic dyspnea on exertion. She also has a chronic occasional cough with occasional sputum production. These symptoms are unchanged. Again, I did discuss the case with the night nurse at length. The night nurse states that he has not seen or witnessed any significant pulmonary symptoms during his shift. There is no history of chest pain, coughing up of blood, or chest pain - made worse with deep respirations. There is no history of temperatures, chills or infectious exposure. There is no history of night sweats, weight loss or appetite change prior to the above events. No history of calf pains. No history of syncope or diaphoresis. No history of recent travel. REVIEW OF SYSTEMS: No history of nausea, vomiting or diarrhea. No acute urinary symptoms. No new neurologic complaints. Rest of the review of systems negative. ALLERGIES IV DYE AND PENICILLIN. SOCIAL HISTORY: Positive for tobacco and negative for alcohol. FAMILY HISTORY: No inheritable diseases. HOME MEDICATIONS: Include Norvasc, Effexor, Bactrim, Zestril, Ativan, calcium, Pulmicort, Ecotrin, Brovana, albuterol nebulizer treatments Tylenol. PHYSICAL EXAMINATION: GENERAL: The patient appears comfortable this morning. She is not short of breath at rest. VITAL SIGNS: Temperature is 98.2, pulse is 91, respirations 18, blood pressure 132/53. Oxygen saturation on nasal cannula is 98%. HEENT: Normocephalic, atraumatic. No JVD. CARDIOVASCULAR: Systolic ejection murmur at the lower left sternal border. No S3 gallop. LUNGS: Decreased breath sounds at the bases. Very minimal rhonchi. No wheezing. EXTREMITIES: Positive for mild edema. No cyanosis, no clubbing. Calves are nontender to palpation. The left hip is postoperative. GASTROINTESTINAL: Abdomen is soft, nontender and nondistended. Bowel sounds are positive. SKIN: No acute rash. NEUROLOGIC: Exam limited at the present time. PERTINENT LABORATORY DATA: Chest x-ray was done yesterday and reviewed. There are no acute findings noted. CBC: White count 10.7, hemoglobin 7.8, hematocrit 24.2, platelets of 146,000. Complete metabolic profile: Potassium 5.5, chloride 108, BUN 29, creatinine 2.1, glucose 123, calcium 8.3, protein 5.4. Rest of the metabolic profile is within normal limits. IMPRESSION: 1. Left hip fracture, status post fall at home. 2. Advanced chronic obstructive pulmonary disease. 3. Worsening anemia. 4. Chronic atrial fibrillation. 5. Renal insufficiency. PLAN: Again, I did discuss the case with the night nurse at length. I have also reviewed the chart at length. The patient is not an adequate historian. The patient presents to [facility] after falling at home. Apparently, she tripped over her walker in the kitchen and fell - sustaining a left hip fracture. The patient did undergo surgery last night. I did review the chest x-ray as above. The chest x-ray shows no acute disease. I have also reviewed the laboratory data. A significant anemia is now present. The patient has been typed and crossed, and will be transfused. In addition to the above, acute renal insufficiency is noted. The patient is currently on intravenous sodium chloride. On physical exam, there is no significant bronchospasm noted. In addition, there is no significant alveolar-arterial gradient. Oxygen saturation on nasal cannula is now 98%. I will continue with the current nebulizer treatments and inhaled steroids for now. Clinical status of this patient is guarded at this point in time. I would continue with the orthopedic evaluation. Repeat labs are ordered. I will discuss the above with the attending physician. Thank you very much for this pulmonary consultation. Ranjit Burnham MD [facility]
--- NOTE | 2018-02-12 09:25 | CP.PCM.PN ---
<Ta oSlitario - Last Filed: 02/12/18 13:03> Subjective - Date & Time of Evaluation Date of Evaluation: 02/12/18 Time of Evaluation: 09:22 - Subjective Subjective: Patient seen and examined at bedside. Patient unable to move her L. Upper extremity at this point. This is a new finding for her. She was not following basic commands at this time. Code Stroke was called. Patient was taken to CT and neurologist trousseau consultant was made aware. Patient had a drop in HgB after surgery yesterday. Will transfuse 1 unit. Objective - Vital Signs/Intake and Output Vital Signs (last 24 hours): Temp Pulse Resp BP Pulse Ox 98.2 F 102 H 18 132/53 L 98 02/11/18 22:15 02/11/18 22:15 02/11/18 22:15 02/11/18 22:15 02/11/18 19:45 - Medications Medications: Current Medications Albuterol Sulfate (Albuterol 0.083% Inhal Radha (2.5 Mg/3 Ml) Ud) 2.5 mg INH Q2H PRN PRN Reason: Shortness of Breath Amlodipine Besylate (Norvasc) 10 mg PO DAILY [facility] Arformoterol Tartrate (Brovana) 15 mcg IH BID [facility] Last Admin: 02/12/18 08:17 Dose: 15 mcg Budesonide (Pulmicort Respules) 0.25 mg IH BID [facility] Last Admin: 02/12/18 08:17 Dose: 0.25 mg Calcium Carbonate (Caltrate) 600 mg PO DAILY [facility] Enoxaparin Sodium (Lovenox) 30 mg SC DAILY [facility] PRN Reason: Protocol Sodium Chloride (Sodium Chloride 0.9%) 1,000 mls @ 100 mls/hr IV .Q10H [facility] Lisinopril (Zestril) 10 mg PO DAILY [facility] Nystatin (Mycostatin Cream) 1 ea TOP TID [facility] Oxycodone/Acetaminophen (Percocet 5/325 Mg Tab) 1 tab PO Q6H PRN PRN Reason: Pain, severe (8-10) Stop: 02/14/18 19:25 Pantoprazole Sodium (Protonix Inj) 40 mg IVP DAILY [facility] Venlafaxine HCl (Effexor Xr) 75 mg PO BID [facility] - Labs Labs: 02/12/18 06:00 02/12/18 06:00 PT 12.2 SECONDS (9.4-12.5) 02/11/18 11:53 INR 1.06 (0.93-1.08) 02/11/18 11:53 APTT 25.1 Seconds (25.1-36.5) 02/11/18 11:53 - Constitutional Appears: Chronically Ill - Head Exam Head Exam: ATRAUMATIC, NORMAL INSPECTION, NORMOCEPHALIC - Eye Exam Eye Exam: EOMI Pupil Exam: PERRL - ENT Exam ENT Exam: Mucous Membranes Moist - Neck Exam Neck Exam: Full ROM - Respiratory Exam Respiratory Exam: Clear to Ausculation Bilateral, NORMAL BREATHING PATTERN. absent: Rales, Rhonchi, Wheezes - Cardiovascular Exam Cardiovascular Exam: REGULAR RHYTHM. absent: Gallop, Rubs, Murmur - GI/Abdominal Exam GI & Abdominal Exam: Soft, Normal Bowel Sounds. absent: Distended, Tenderness - Extremities Exam Extremities Exam: absent: Joint Swelling, Tenderness - Back Exam Back Exam: NORMAL INSPECTION. absent: tenderness - Neurological Exam Neurological Exam: Alert, Awake. absent: Oriented x3 Neuro motor strength exam: Left Upper Extremity: 0, Right Upper Extremity: 3, Left Lower Extremity: 3, Right Lower Extremity: 3 - Psychiatric Exam Psychiatric exam: Normal Affect, Normal Mood - Skin Skin Exam: Dry, Intact, Normal Color, Warm Assessment and Plan (1) Intertrochanteric fracture of left hip Assessment & Plan: s/p ORIF (Mastromonaco) Morphine and Percocet for pain PT/OT Hgb Dropped post op. Will transfuse 2 units Status: Acute (2) Left arm weakness Assessment & Plan: Code stroke called this am NIHSS 17 Neuro ([place]) CT head - no acute bleed, follow up neuro reccs Status: Acute (3) HTN (hypertension) Assessment & Plan: hold meds as pressure is low thru admission Status: Acute (4) UTI (urinary tract infection) Assessment & Plan: was taking bactrim at home ID ([place]) hold antibiotics at this time and repeat UC Status: Acute (5) A-fib Assessment & Plan: no anticoag as outpatient due to fall risk NSR on ekg here Status: Chronic (6) COPD (chronic obstructive pulmonary disease) Assessment & Plan: Pulmicort Albuterol Brovana Status: Chronic (7) Prophylactic measure Assessment & Plan: Hold VTE until neuro reccs GI PPX not indicated at this time Status: Acute NIHSS Stroke Scale - Date/Time Evaluation Performed Date Performed: 02/12/18 Time Performed: 09:23 When Was NIHSS Performed: Baseline - How Severe is the Stoke Level of Consciousness: 1=Drowsy LOC to Questions: 2=Neither correct LOC to commands: 2=Neither correct Best Gaze: 0=Normal Visual: 0=No visual loss Facial: 2=Partial (lower face paralysis) Motor Arm - Left: 4=No movement Motor Arm - Right: 3=No effort against gravity (falls immediately) Motor Leg - Left: NA - Amputation, joint fusion (post op hip fracture) Motor Leg - Right: 0=No drift Limb Ataxia: 0=Absent Sensory: 0=Normal Best Language: 2=Severe aphasia Dysarthia: 1=Mild to moderate slurring Extinction & Inattention (Neglect): 0=Normal, no object Score: 17 Severity Of Stroke: 16-20=Moderate/Severe Stroke <Natalie Vazquez - Last Filed: 02/13/18 14:42> Objective - Vital Signs/Intake and Output Vital Signs (last 24 hours): Temp Pulse Resp BP Pulse Ox 99.0 F 100 H 17 142/80 94 L 02/13/18 13:19 02/13/18 13:19 02/13/18 13:19 02/13/18 13:19 02/13/18 06:00 Intake and Output: 02/13/18 02/13/18 06:59 18:59 Intake Total 2225 560 Output Total 650 350 Balance 1575 210 - Medications Medications: Current Medications Albuterol Sulfate (Albuterol 0.083% Inhal Radha (2.5 Mg/3 Ml) Ud) 2.5 mg INH Q2H PRN PRN Reason: Shortness of Breath Arformoterol Tartrate (Brovana) 15 mcg IH BIDRESP [facility] Atorvastatin Calcium (Lipitor) 40 mg PO DIN [facility] Benzocaine/Menthol (Cepacol Sore Throat) 1 [place] Q2H PRN PRN Reason: Sore Throat Budesonide (Pulmicort Respules) 0.5 mg IH [id number] [facility] Last Admin: 02/13/18 07:36 Dose: 0.5 mg Sodium Chloride (Sodium Chloride 0.9%) 1,000 mls @ 100 mls/hr IV .Q10H [facility] Last Admin: 02/13/18 02:40 Dose: 100 mls/hr Morphine Sulfate (Morphine) 2 mg IVP Q6H PRN PRN Reason: Pain, moderate (4-7) Last Admin: 02/13/18 10:52 Dose: 2 mg Nystatin (Mycostatin Cream) 1 ea TOP TID [facility] Last Admin: 02/13/18 13:10 Dose: 1 applic Oxycodone/Acetaminophen (Percocet 5/325 Mg Tab) 1 tab PO Q6H PRN PRN Reason: Pain, severe (8-10) Stop: 02/14/18 19:25 Last Admin: 02/13/18 06:50 Dose: 1 tab Pantoprazole Sodium (Protonix Inj) 40 mg IVP DAILY [facility] Last Admin: 02/13/18 09:52 Dose: 40 mg - Labs Labs: 02/13/18 07:39 02/13/18 07:39 PT 12.2 SECONDS (9.4-12.5) 02/11/18 11:53 INR 1.06 (0.93-1.08) 02/11/18 11:53 APTT 25.1 Seconds (25.1-36.5) 02/11/18 11:53 Attending/Attestation - Attestation I have personally seen and examined this patient.: Yes I have fully participated in the care of the patient.: Yes I have reviewed all pertinent clinical information, including history, physical exam and plan: Yes Notes (Text): I have seen and examined the patient at bedside. Agree with the above note with the following additions/ exceptions: Briefly this is 87 year old female with history of Hypertension, subarachnoid hemorrhage, Atrial fibrillation without anticoagulation due to falls risk, depression and COPD who was admitted for management of left hip fracture s/p mechanical fall. Patient underwent left hip ORIF yesterday. Her Hb dropped today from 11-7. Will give her 1 unit of prbc. Consent obtained from POA. Also developed AMOR and no urine output. Her BP is low. Patient appears dehydrated and pale. Will start with NS bolus and start hydration. Will also order urine lytes and renal US. This morning she was noticed to have LUE weakness. Code stroke was called. She was made NPO. CT scan revealed no acute bleed. Due to renal insufficiency, cipro was stopped. Discussed with Dr Callahan. Patient has ho multiple UTIs in the past. Will repeat Urine culture. Monitor off antibiotics. Discussed in detail with patient and her daughter. Upon discharge patient will follow up with Dr Cruz. Dr Natalie Vazquez
[2018-02-12] MEDS ORDERED: Enoxaparin 30 mg Syringe SC SCH (10:00)
[2018-02-12] MEDS ORDERED: Famotidine 20mg/50ml 20 MG/50 ML BAG IVPB SCH (10:00)
--- NOTE | 2018-02-12 10:15 | CT ---
PROCEDURE: CT HEAD WITHOUT CONTRAST. HISTORY: Left arm weakness COMPARISON: None available. Comparison made with CT scan of the brain 02/04/2018. TECHNIQUE: Axial computed tomography images were obtained through the head/brain without intravenous contrast. Radiation dose: Total exam DLP = 1081.88 mGy-cm. This CT exam was performed using one or more of the following dose reduction techniques: Automated exposure control, adjustment of the mA and/or kV according to patient size, and/or use of iterative reconstruction technique. FINDINGS: HEMORRHAGE: No acute parenchymal, subarachnoid nor extra-axial hemorrhage. BRAIN: Localized of partially cystic encephalomalacia changes left occipital pole unchanged. Mild moderate diffuse/confluent chronic periventricular white matter ischemic changes are also again seen. Bilateral basal ganglia and brainstem lacunar type infarcts present. Note that the possibility of a small hyperacute infarct cannot be excluded. Moderate to significant generalized volume loss. VENTRICLES: No obstructive hydrocephalus. CALVARIUM: Unremarkable. PARANASAL SINUSES: Unremarkable as visualized. No significant inflammatory changes. MASTOID AIR CELLS: Unremarkable as visualized. No inflammatory changes. OTHER FINDINGS: Changes of bilateral cataract surgery again noted only. IMPRESSION: No acute intracranial hemorrhage. Moderate chronic white matter ischemic changes with scattered chronic bilateral basal nuclei and brainstem lacunar type infarcts. Re- demonstrated are cystic encephalomalacia changes left occipital pole. These findings discussed with 5 Nixon Mrash at approximately at 10:10 a.m. with written down and read back verification
[2018-02-12] MEDS: Sodium Chloride 0.9% 1,000 ML IV SCH ×2 (10:32→10:39)
[2018-02-12] MEDS: Nystatin 100,000 Units/gm Cream(15 gm) TOP SCH ×3 (10:35→17:41)
[2018-02-12 11:46] LABS: URINE BILIRUBIN NEGATIVE (NEGATIVE); URINE BLOOD TRACE-INTACT (NEGATIVE); URINE GLUCOSE (UA) NEGATIVE (NEGATIVE); URINE LEUKOCYTE ESTERASE SMALL Leu/uL (NEGATIVE); URINE PROTEIN 100 mg/dL (<30 mg/dL); URINE UROBILINOGEN 0.2 E.U./dL (<1 E.U./dL)
[2018-02-12 11:48] LABS: URINE APPEARANCE SLIGHT-CLOUDY (CLEAR); URINE COLOR YELLOW (YELLOW)
[2018-02-12 12:05] LABS: CALCIUM 8.4 mg/dL (8.4-10.5)
[2018-02-12 12:09] LABS: BASO # 0.04 K/mm3 (0.0-2.0); BASO % 0.3 % (0.0-3.0); GRAN # 10.9 (1.4-6.5); GRAN % 78.6 % (50.0-68.0); HEMOGLOBIN 7.6 g/dL (12.0-16.0); LYMPH # 1.2 (1.2-3.4); LYMPH % 8.5 % (22.0-35.0); MEAN CELL VOLUME 96.7 fl (80.0-105.0); MEAN CORPUSCULAR HEMOGLOBIN 31.4 pg (25.0-35.0); MEAN CORPUSCULAR HGB CONC 32.5 g/dl (31.0-37.0); MEAN PLATELET VOLUME 11.5 fl (7.0-11.0); MONO # 1.7 (0.1-0.6); MONO % 12.6 % (1.0-6.0); RBC 2.42 10^6/uL (3.5-6.1); RED CELL DISTRIBUTION WIDTH 14.2 % (11.5-14.5); WHITE BLOOD COUNT 13.9 10^3/ul (4.5-11.0)
[2018-02-12] MEDS ORDERED: Morphine 2 mg/ml ISec IVP PRN (12:11)
[2018-02-12] MEDS: Morphine 4 mg/ml ISec IVP PRN (12:36)
[2018-02-12 12:53] LABS: URINE RBC 0 - 2 /hpf (0-2); URINE WBC 25 - 30 /hpf (0-6)
--- NOTE | 2018-02-12 14:13 | CP.PCM.CON ---
History of Present Illness - History of Present Illness History of Present Illness: 87 year old female with PMH of HTN, subarachnoid hemorrhage, atrial fibrillation not on anticoagulation due to risk of GI bleed, depression, COPD, pseudogout, pulmonary HTN, history of left frontal subarachnoid hemorrhage, S/P appendectomy, obesity with BMI 31 was [place] in yesterday [place] [facility] [place] while in the kitchen. She sustained a left femoral fracture and underwent ORIF yesterday. Prior to this, she was being treated for UTI with E. coli with Bactrim and she finished 5 days of the medication prior to the accident. Infectious Diseases consult is requested to see if the patient still needs antibiotics. Currently she is comfortable in bed but patient developed left sided weakness and Internal Medicine team is working patient for possible acute CVA. Patient is not complaining of dysuria, no urinary frequency, no flank pain, no nausea or vomiting, no fever or chills. Review of Systems - Review of Systems All systems: reviewed and no additional remarkable complaints except (as per HPI ) Past Patient History - Infectious Disease Hx of Infectious Diseases: None - Tetanus Immunizations Tetanus Immunization: Unknown - Past Social History Smoking Status: Former Smoker - CARDIAC Hx Cardiac Disorders: Yes Hx Hypertension: Yes - PULMONARY Hx Chronic Obstructive Pulmonary Disease (COPD): Yes - NEUROLOGICAL Hx Neurological Disorder: Yes - HEENT Hx HEENT Problems: Yes (WEARS RX GLASSES) Hx Cataracts: Yes (BILATERAL SURGERY) Hx Deafness: Yes - RENAL Hx Chronic Kidney Disease: No - ENDOCRINE/METABOLIC Hx Endocrine Disorders: No - HEMATOLOGICAL/ONCOLOGICAL Hx 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) - INTEGUMENTARY Hx Dermatological Problems: No - MUSCULOSKELETAL/RHEUMATOLOGICAL Hx Musculoskeletal Disorders: Yes Hx Back Pain: Yes Hx Falls: Yes Hx Fractures: Yes (R ANKLE FX 12-29-17,LEFT HIP FX 02-11-18) Hx Osteoarthritis: Yes (BILATERAL KNEE) Hx Unsteady Gait: Yes (WALKER) - GASTROINTESTINAL Hx Gastrointestinal Disorders: No - GENITOURINARY/GYNECOLOGICAL Hx Genitourinary Disorders: Yes Hx Incontinence: Yes Hx Urinary Tract Infection: Yes - PSYCHIATRIC Hx Psychophysiologic Disorder: Yes (INSOMNIA,) Hx Anxiety: Yes Hx Bipolar Disorder: Yes Hx Depression: Yes Hx Emotional Abuse: No Hx Physical Abuse: No Hx Substance Use: No - SURGICAL HISTORY Hx Surgeries: Yes Hx Appendectomy: Yes - ANESTHESIA Hx Anesthesia Reactions: No Meds Allergies/Adverse Reactions: Allergies Allergy/AdvReac Type Severity Reaction Status Date / Time Iodinated Contrast- Oral and Allergy ANAPHYLAXIS Verified 02/11/18 16:55 IV Dye [Iodinated Contrast Media - Oral and] Penicillins Allergy ANAPHYLAXIS Verified 02/11/18 16:55 - Medications Medications: Current Medications Albuterol Sulfate (Albuterol 0.083% Inhal Radha (2.5 Mg/3 Ml) Ud) 2.5 mg INH Q2H PRN PRN Reason: Shortness of Breath Amlodipine Besylate (Norvasc) 10 mg PO DAILY [facility] Arformoterol Tartrate (Brovana) 15 mcg IH BID [facility] Last Admin: 02/12/18 09:34 Dose: Not Given Budesonide (Pulmicort Respules) 0.25 mg IH BID [facility] Last Admin: 02/12/18 09:34 Dose: Not Given Calcium Carbonate (Caltrate) 600 mg PO DAILY [facility] Enoxaparin Sodium (Lovenox) 30 mg SC DAILY [facility] PRN Reason: Protocol Sodium Chloride (Sodium Chloride 0.9%) 1,000 mls @ 100 mls/hr IV .Q10H [facility] Lisinopril (Zestril) 10 mg PO DAILY [facility] Nystatin (Mycostatin Cream) 1 ea TOP TID [facility] Oxycodone/Acetaminophen (Percocet 5/325 Mg Tab) 1 tab PO Q6H PRN PRN Reason: Pain, severe (8-10) Stop: 02/14/18 19:25 Pantoprazole Sodium (Protonix Inj) 40 mg IVP DAILY [facility] Venlafaxine HCl (Effexor Xr) 75 mg PO BID [facility] Physical Exam - Constitutional Appears: Chronically Ill - Head Exam Head Exam: NORMAL INSPECTION - ENT Exam ENT Exam: Mucous Membranes Moist - Neck Exam Neck exam: Negative for: Lymphadenopathy, Meningismus - Respiratory Exam Respiratory Exam: Decreased Breath Sounds - Cardiovascular Exam Cardiovascular Exam: +S1, +S2 - GI/Abdominal Exam GI & Abdominal Exam: Soft. absent: Tenderness - Extremities Exam Additional comments: left leg with dressings in place Results - Vital Signs Recent Vital Signs: Last Vital Signs Temp 98.2 F 02/11/18 22:15 Pulse 102 H 02/11/18 22:15 Resp 18 02/11/18 22:15 BP 132/53 L 02/11/18 22:15 Pulse Ox 98 02/11/18 19:45 - Labs Result Diagrams: 02/12/18 11:40 02/12/18 11:40 Labs: Laboratory Results - last 24 hr 02/11/18 02/11/18 02/12/18 16:30 19:25 06:00 WBC 10.7 RBC 2.50 L Hgb 9.3 L 7.8 L Hct 29.3 L 24.2 L MCV 96.8 MCH 31.2 MCHC 32.2 RDW 14.0 Plt Count 146 MPV 11.6 H Gran % 75.1 H Lymph % (Auto) 11.5 L Jenkins % (Auto) 13.2 H Eos % (Auto) 0.0 L Baso % (Auto) 0.2 Gran # 8.06 H Lymph # (Auto) 1.2 Jenkins # (Auto) 1.4 H Eos # (Auto) 0.0 Baso # (Auto) 0.02 Sodium Potassium Chloride Carbon Dioxide Anion Gap BUN Creatinine Est GFR ( Amer) Est GFR (Non-Af Amer) POC Glucose (mg/dL) Random Glucose Calcium Phosphorus Magnesium Total Bilirubin AST ALT Alkaline Phosphatase Total Protein Albumin Globulin Albumin/Globulin Ratio Blood Type Confirm O POSITIVE 02/12/18 02/12/18 06:00 09:29 WBC RBC Hgb Hct MCV MCH MCHC RDW Plt Count MPV Gran % Lymph % (Auto) Jenkins % (Auto) Eos % (Auto) Baso % (Auto) Gran # Lymph # (Auto) Jenkins # (Auto) Eos # (Auto) Baso # (Auto) Sodium 142 Potassium 5.5 H Chloride 108 H Carbon Dioxide 25 Anion Gap 15 BUN 29 H Creatinine 2.1 H Est GFR ( Amer) 27 Est GFR (Non-Af Amer) 22 POC Glucose (mg/dL) 138 H Random Glucose 123 H Calcium 8.3 L Phosphorus 4.2 Magnesium 2.0 Total Bilirubin 0.3 AST 25 ALT 34 Alkaline Phosphatase 47 Total Protein 5.4 L Albumin 2.9 L Globulin 2.5 Albumin/Globulin Ratio 1.1 Blood Type Confirm Assessment & Plan - Assessment and Plan (Free Text) Plan: Assessment S/P treatment of E. coli UTI acute femoral fracture S/P ORIF POD #1 acute renal failure HTN subarachnoid hemorrhage atrial fibrillation not on anticoagulation due to risk of GI bleed depression COPD pseudogout pulmonary HTN history of left frontal subarachnoid hemorrhage S/P appendectomy obesity with BMI 31 Plan Patient has had 5 days of Bactrim - patient should have had enough antibiotics for the UTI - will monitor off antibiotics and repeat urine cx and monitor to see if patient develops symptoms - discussed with Dr. Vazquez; also discussed with daughter who understands will monitor clinically
--- NOTE | 2018-02-12 15:15 | PN ---
DATE: 02/12/2018 SUBJECTIVE: The patient underwent open reduction and internal fixation of left femur fracture yesterday and today, she was noticed to have left arm weakness. No reported atrial fibrillation on the monitor. The patient denies any chest pain or dizziness at this time. PHYSICAL EXAMINATION: VITAL SIGNS: Blood pressure 101/36, heart rate 60, temperature 98.2, respirations 22. HEENT: Pale conjunctivae. CHEST: Clear. HEART: S1 and S2 regular. EXTREMITIES: No edema. 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 LABORATORY DATA: Hemoglobin and hematocrit 7.6 and 23.4, white count 15.9, platelet count 150,000. SMA-7: Sodium 141, potassium 5.1, chloride 111, CO2 21, glucose 123. BUN 31, creatinine 2.1. Head CT scan without contrast, no acute intracranial hemorrhage, moderate chronic white matter ischemic changes but scattered chronic bilateral basal nuclei and brainstem lacunar infarcts. Cystic encephalomalacia changes in the left occipital lobe. EKG on admission revealed sinus rhythm with APCs, there were nonspecific ST-T wave changes, heart rate 91. ASSESSMENT: 1. Status post open reduction and internal fixation of left femur fracture. 2. History of paroxysmal atrial fibrillation. 3. Consider acute cerebrovascular accident. 4. Anemia with significant drop of hemoglobin and hematocrit postoperatively. 5. Acute renal insufficiency. RECOMMENDATIONS: This case was discussed with Dr. Vazquez, the hospitalist. Continue normal saline infusion, optimize intravenous hydration, oral meds are being on hold for now as well as subcutaneous Lovenox. Obtain TSH level and echocardiogram and consider repeat chest CT scan without contrast. Fernando Gauthier MD
--- NOTE | 2018-02-12 15:29 | CP.PCM.CON ---
History of Present Illness - History of Present Illness History of Present Illness: Mrs. Nunez is an 87-year-old woman with a past medical history of hypertension, subarachnoid hemorrhage, atrial fibrillation (not on anticoagulation), depression and COPD was brought in yesterday after she had a fall. She was found to have a left femur subtrochanteric fracture and required two screws and a intramedullary octavio placed yesterday. After the surgery, she was stable and was not noted to have any focal neurological deficits. However, this morning, she was found to have left arm weakness. CT scan of the head did not show hemorrhage, but there were multiple small infarcts (chronic) noted, with the largest being the left occipital lobe infarct. She was not a candidate for IV tPA due to being outside the 4.5 hour time window. She could not undergo CTA to evaluate for an LVO due to severe contrast allergy. Family was at bedside and helped with the history, since the patient does have some baseline confusion and memory difficulty. The patient denied pain, said she had weakness of her left arm and leg. Review of Systems - Review of Systems All systems: reviewed and no additional remarkable complaints except Past Patient History - Infectious Disease Hx of Infectious Diseases: None - Tetanus Immunizations Tetanus Immunization: Unknown - Past Social History Smoking Status: Former Smoker - CARDIAC Hx Cardiac Disorders: Yes Hx Hypertension: Yes - PULMONARY Hx Chronic Obstructive Pulmonary Disease (COPD): Yes - NEUROLOGICAL Hx Neurological Disorder: Yes - HEENT Hx HEENT Problems: Yes (WEARS RX GLASSES) Hx Cataracts: Yes (BILATERAL SURGERY) Hx Deafness: Yes - RENAL Hx Chronic Kidney Disease: No - ENDOCRINE/METABOLIC Hx Endocrine Disorders: No - HEMATOLOGICAL/ONCOLOGICAL Hx 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) - INTEGUMENTARY Hx Dermatological Problems: No - MUSCULOSKELETAL/RHEUMATOLOGICAL Hx Musculoskeletal Disorders: Yes Hx Back Pain: Yes Hx Falls: Yes Hx Fractures: Yes (R ANKLE FX 12-29-17,LEFT HIP FX 02-11-18) Hx Osteoarthritis: Yes (BILATERAL KNEE) Hx Unsteady Gait: Yes (WALKER) - GASTROINTESTINAL Hx Gastrointestinal Disorders: No - GENITOURINARY/GYNECOLOGICAL Hx Genitourinary Disorders: Yes Hx Incontinence: Yes Hx Urinary Tract Infection: Yes - PSYCHIATRIC Hx Psychophysiologic Disorder: Yes (INSOMNIA,) Hx Anxiety: Yes Hx Bipolar Disorder: Yes Hx Depression: Yes Hx Emotional Abuse: No Hx Physical Abuse: No Hx Substance Use: No - SURGICAL HISTORY Hx Surgeries: Yes Hx Appendectomy: Yes - ANESTHESIA Hx Anesthesia Reactions: No Meds Allergies/Adverse Reactions: Allergies Allergy/AdvReac Type Severity Reaction Status Date / Time Iodinated Contrast- Oral and Allergy ANAPHYLAXIS Verified 02/11/18 16:55 IV Dye [Iodinated Contrast Media - Oral and] Penicillins Allergy ANAPHYLAXIS Verified 02/11/18 16:55 - Medications Medications: Current Medications Albuterol Sulfate (Albuterol 0.083% Inhal Radha (2.5 Mg/3 Ml) Ud) 2.5 mg INH Q2H PRN PRN Reason: Shortness of Breath Arformoterol Tartrate (Brovana) 15 mcg IH BID [facility] [place] Last Admin: 02/12/18 09:34 Dose: Not Given Budesonide (Pulmicort Respules) 0.25 mg IH BID [facility] [place] Last Admin: 02/12/18 09:34 Dose: Not Given Enoxaparin Sodium (Lovenox) 40 mg SC DAILY [facility] [place] PRN Reason: Protocol Sodium Chloride (Sodium Chloride 0.9%) 1,000 mls @ 100 mls/hr IV .Q10H [facility] [place] Last Admin: 02/12/18 10:39 Dose: 100 mls/hr Morphine Sulfate (Morphine) 2 mg IVP Q6H PRN PRN Reason: Pain, moderate (4-7) Last Admin: 02/12/18 12:36 Dose: 2 mg Nystatin (Mycostatin Cream) 1 ea TOP TID [facility] [place] Last Admin: 02/12/18 10:35 Dose: Not Given Oxycodone/Acetaminophen (Percocet 5/325 Mg Tab) 1 tab PO Q6H PRN PRN Reason: Pain, severe (8-10) Stop: 02/14/18 19:25 Pantoprazole Sodium (Protonix Inj) 40 mg IVP DAILY [facility] [place] Last Admin: 02/12/18 11:29 Dose: 40 mg Physical Exam - Neurological Exam Neurological exam: Altered, CN II-XII Intact, Reflexes Normal Additional comments: Left arm proximal weakness is worse than distal (she is able to move her digits) . Left leg is limited due to pain. Sensation is intact. Slight left facial droop noted. NIHSS = 7 Results - Vital Signs Recent Vital Signs: Last Vital Signs Temp 97.5 F L 02/12/18 13:10 Pulse 118 H 02/12/18 14:00 Resp 22 02/12/18 13:10 BP 104/85 02/12/18 13:10 Pulse Ox 85 L 02/12/18 11:35 - Labs Result Diagrams: 02/12/18 11:40 02/12/18 11:40 Labs: Laboratory Results - last 24 hr 02/11/18 02/11/18 02/12/18 16:30 19:25 06:00 WBC 10.7 RBC 2.50 L Hgb 9.3 L 7.8 L Hct 29.3 L 24.2 L MCV 96.8 MCH 31.2 MCHC 32.2 RDW 14.0 Plt Count 146 MPV 11.6 H Gran % 75.1 H Lymph % (Auto) 11.5 L Jessamine % (Auto) 13.2 H Eos % (Auto) 0.0 L Baso % (Auto) 0.2 Gran # 8.06 H Lymph # (Auto) 1.2 Jessamine # (Auto) 1.4 H Eos # (Auto) 0.0 Baso # (Auto) 0.02 Sodium Potassium Chloride Carbon Dioxide Anion Gap BUN Creatinine Est GFR ( Amer) Est GFR (Non-Af Amer) POC Glucose (mg/dL) Random Glucose Calcium Phosphorus Magnesium Total Bilirubin AST ALT Alkaline Phosphatase Total Protein Albumin Globulin Albumin/Globulin Ratio TSH 3rd Generation Urine Color Urine Appearance Urine pH Ur Specific Linwood Urine Protein Urine Glucose (UA) Urine Ketones Urine Blood Urine Nitrate Urine Bilirubin Urine Urobilinogen Ur Leukocyte Esterase Urine RBC Urine WBC Ur Epithelial Cells Blood Type Confirm O POSITIVE 02/12/18 02/12/18 02/12/18 06:00 09:29 11:25 WBC RBC Hgb Hct MCV MCH MCHC RDW Plt Count MPV Gran % Lymph % (Auto) Jessamine % (Auto) Eos % (Auto) Baso % (Auto) Gran # Lymph # (Auto) Jessamine # (Auto) Eos # (Auto) Baso # (Auto) Sodium 142 Potassium 5.5 H Chloride 108 H Carbon Dioxide 25 Anion Gap 15 BUN 29 H Creatinine 2.1 H Est GFR ( Amer) 27 Est GFR (Non-Af Amer) 22 POC Glucose (mg/dL) 138 H Random Glucose 123 H Calcium 8.3 L Phosphorus 4.2 Magnesium 2.0 Total Bilirubin 0.3 AST 25 ALT 34 Alkaline Phosphatase 47 Total Protein 5.4 L Albumin 2.9 L Globulin 2.5 Albumin/Globulin Ratio 1.1 TSH 3rd Generation Urine Color Yellow Urine Appearance Slight-cloudy Urine pH 6.0 Ur Specific Linwood 1.025 Urine Protein 100 H Urine Glucose (UA) Negative Urine Ketones Negative Urine Blood Trace-intact H Urine Nitrate Negative Urine Bilirubin Negative Urine Urobilinogen 0.2 Ur Leukocyte Esterase Small H Urine RBC 0 - 2 Urine WBC 25 - 30 Ur Epithelial Cells 6 - 8 Blood Type Confirm 02/12/18 02/12/18 02/12/18 11:40 11:40 13:07 WBC 13.9 H D RBC 2.42 L Hgb 7.6 L Hct 23.4 L MCV 96.7 MCH 31.4 MCHC 32.5 RDW 14.2 Plt Count 150 MPV 11.5 H Gran % 78.6 H Lymph % (Auto) 8.5 L Jessamine % (Auto) 12.6 H Eos % (Auto) 0.0 L Baso % (Auto) 0.3 Gran # 10.90 H Lymph # (Auto) 1.2 Jessamine # (Auto) 1.7 H Eos # (Auto) 0.0 Baso # (Auto) 0.04 Sodium 141 Potassium 5.1 H Chloride 111 H Carbon Dioxide 21 Anion Gap 15 BUN 31 H Creatinine 2.1 H Est GFR ( Amer) 27 Est GFR (Non-Af Amer) 22 POC Glucose (mg/dL) Random Glucose 123 H Calcium 8.4 Phosphorus Magnesium Total Bilirubin AST ALT Alkaline Phosphatase Total Protein Albumin Globulin Albumin/Globulin Ratio TSH 3rd Generation 1.72 Urine Color Urine Appearance Urine pH Ur Specific Linwood Urine Protein Urine Glucose (UA) Urine Ketones Urine Blood Urine Nitrate Urine Bilirubin Urine Urobilinogen Ur Leukocyte Esterase Urine RBC Urine WBC Ur Epithelial Cells Blood Type Confirm Assessment & Plan (1) Left arm weakness Assessment and Plan: 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 The patient is outside the time window for IV tPA. She was last seen able to move her arm yesterday. She has poor baseline function. She could not undergo CTA due to contrast allergy. I recommend the followin. Telemetry 2. MRI of the brain, without contrast and MRA of the brain/neck without contrast , if okay with ortho. 3. Echocardiogram with bubble study 4. Maintain HOB at 30 degrees 5. Speech swallow eval 6. Fluids with NS at 100 mL/hr 7. Aspirin 81 mg daily 8. Statin to maintain LDL < 70 9. PT/OT eval and treatment 10. Case management consult Thank you. Status: Acute Priority: High
[2018-02-12] MEDS: Enoxaparin 40 mg Syringe SC SCH (16:08)
--- NOTE | 2018-02-12 16:15 | CARD ---
APPROVED REPORT EXAM: Two-dimensional and M-mode echocardiogram with Doppler and color Doppler. INDICATION 2D DIMENSIONS IVSd1.1 (0.7-1.1cm)LVDd3.8 (3.9-5.9cm) PWd1.0 (0.7-1.1cm)LVDs2.4 (2.5-4.0cm) FS (%) 35.7 %PWs0.7 (0.8-1.2cm) LVEF (%)66.0 (>50%) M-Mode DIMENSIONS Aortic Root3.40 (2.2-3.7cm)Aortic Cusp Exc.1.60 (1.5-2.0cm) Aortic Valve AoV Peak Pceeunuv258.0cm/Gautam Peak GR.22mmHg Mitral Valve MV E Ypffufgi91.9cm/sMV A Butesiru62.1cm/sE/A ratio0.7 TDI Lateral E' Peak V12.10cm/sMedial E' Peak V5.01cm/sE/Lateral E'5.5 E/Medial E'13.4 Tricuspid Valve TR Peak [id number]/sRAP [id number] Peak Gr.53mmHg [id number] LEFT VENTRICLE The left ventricle is normal size. There is normal left ventricular wall thickness. The left ventricular function is normal. The left ventricular ejection fraction is within the normal range. There is normal LV segmental wall motion. Transmitral Doppler flow pattern is Grade I-abnormal relaxation pattern. RIGHT VENTRICLE The right ventricle is normal size. There is normal right ventricular wall thickness. The right ventricular systolic function is normal. ATRIA The left atrium size is normal. The right atrium size is normal. AORTIC VALVE The aortic valve is mildly sclerotic. No aortic regurgitation is present. There is no aortic valvular stenosis. MITRAL VALVE The mitral valve is mildly thickened. There is no mitral valve regurgitation noted. There is no mitral valve stenosis. TRICUSPID VALVE There is moderate tricuspid regurgitation. There is moderate to severe pulmonary hypertension. PULMONIC VALVE There is mild pulmonic valvular regurgitation. GREAT VESSELS The aortic root is normal in size. PERICARDIAL EFFUSION There is a small circumferential pericardial effusion. <Conclusion> The left ventricle is normal size. There is normal left ventricular wall thickness. The left ventricular function is normal. The left ventricular ejection fraction is within the normal range. There is normal LV segmental wall motion. Transmitral Doppler flow pattern is Grade I-abnormal relaxation pattern. There is moderate to severe pulmonary hypertension.
--- NOTE | 2018-02-12 17:53 | RAD ---
PROCEDURE: Intraoperative Fluoroscopy. HISTORY: O.R.I.F. LEFT FEMUR FINDINGS: Fluoroscopic assistance was provided. 142 seconds fluoroscopy time utilized during this procedure. Radiation dose = 13.82 mGy. Please refer to the operative report from REBECCA Stewart.
[2018-02-12 18:13] LABS: BASO # 0.04 K/mm3 (0.0-2.0); BASO % 0.3 % (0.0-3.0); EOS % 0.1 % (1.5-5.0); GRAN # 8.8 (1.4-6.5); GRAN % 71.9 % (50.0-68.0); HEMOGLOBIN 8.1 g/dL (12.0-16.0); LYMPH # 1.9 (1.2-3.4); LYMPH % 15.4 % (22.0-35.0); MEAN CELL VOLUME 96.5 fl (80.0-105.0); MEAN CORPUSCULAR HEMOGLOBIN 31.5 pg (25.0-35.0); MEAN CORPUSCULAR HGB CONC 32.7 g/dl (31.0-37.0); MEAN PLATELET VOLUME 11.2 fl (7.0-11.0); MONO # 1.5 (0.1-0.6); MONO % 12.3 % (1.0-6.0); RBC 2.57 10^6/uL (3.5-6.1); RED CELL DISTRIBUTION WIDTH 14.2 % (11.5-14.5); WHITE BLOOD COUNT 12.2 10^3/ul (4.5-11.0)
[2018-02-12 18:18] LABS: CALCIUM 8.1 mg/dL (8.4-10.5)
[2018-02-12 19:37] LABS: CREATININE,RANDOM URINE 134 mg/dL
[2018-02-13] MEDS: Sodium Chloride 0.9% 1,000 ML IV SCH ×2 (02:40→21:19)
[2018-02-13] MEDS: Oxycodone/Acetaminophen 5/325 mg Tab PO PRN ×2 (06:50→17:20)
--- NOTE | 2018-02-13 07:20 | PN ---
DATE: 02/13/2018 PULMONARY NOTE SUBJECTIVE: The patient appears comfortable this morning. She is not short of breath at rest. OBJECTIVE: VITAL SIGNS: Temperature is 99.6, pulse 103, respirations 18/20, blood pressure 148/50. Oxygen saturation on nasal cannula is 91%. HEENT: Normocephalic, atraumatic. No JVD. CARDIOVASCULAR: Systolic ejection murmur at the lower left sternal border. No S3 gallop. LUNGS: Decreased breath sounds at the bases. Minimal rhonchi. No wheezing. EXTREMITIES: Positive for mild edema. No cyanosis or clubbing. Calves are nontender to palpation. The left hip is postoperative. GASTROINTESTINAL: Abdomen is soft, nontender and nondistended. Bowel sounds are positive. SKIN: No acute rash. NEUROLOGIC: Limited at the present time. IMPRESSION: 1. Left hip fracture, status post fall at home. 2. Advanced chronic obstructive pulmonary disease. 3. Worsening anemia. 4. Chronic atrial fibrillation. 5. Renal insufficiency. PLAN: The patient appears comfortable this morning. She is not short of breath at rest. She does state to feeling better overall. I did discuss the case with the night nurse at length. The night nurse stated that the patient had a pretty good night. On physical exam, there is no significant bronchospasm noted. There is a [id number] alveolar-arterial gradient. I will continue with the current nebulizer treatments, but increase the inhaled steroid dosage. Inputs by Cardiology, Infectious Disease, Neurology are noted. Continue aspiration precautions. The clinical status of the patient does remain guarded. Repeat morning labs are pending. I will discuss the above with the attending physician this morning. Ranjit Burnham MD NIA
[2018-02-13] MEDS: Arformoterol 15 mcg/2 ml Inh Sol IH SCH ×3 (07:36→20:00)
[2018-02-13] MEDS: Budesonide 0.5 mg/2 ml Inhal Susp UD IH SCH ×2 (07:36→20:00)
[2018-02-13 07:51] LABS: BASO # 0.03 K/mm3 (0.0-2.0); BASO % 0.3 % (0.0-3.0); GRAN # 8.73 (1.4-6.5); GRAN % 73.9 % (50.0-68.0); HEMOGLOBIN 7.9 g/dL (12.0-16.0); LYMPH # 1.3 (1.2-3.4); LYMPH % 11.3 % (22.0-35.0); MEAN CELL VOLUME 96.9 fl (80.0-105.0); MEAN CORPUSCULAR HEMOGLOBIN 31.1 pg (25.0-35.0); MEAN CORPUSCULAR HGB CONC 32.1 g/dl (31.0-37.0); MONO # 1.7 (0.1-0.6); MONO % 14.5 % (1.0-6.0); RBC 2.54 10^6/uL (3.5-6.1); RED CELL DISTRIBUTION WIDTH 14.5 % (11.5-14.5); WHITE BLOOD COUNT 11.8 10^3/ul (4.5-11.0)
[2018-02-13 07:59] LABS: ALB/GLOB RATIO 1.1 (1.1-1.8); CALCIUM 8.4 mg/dL (8.4-10.5)
--- NOTE | 2018-02-13 09:30 | CT ---
PROCEDURE: CT HEAD WITHOUT CONTRAST.. HISTORY: Repeat for code stroke. COMPARISON: None available. . TECHNIQUE: Axial computed tomography images were obtained through the head/brain without intravenous contrast.. Radiation dose: Total exam DLP = 892.99 mGy-cm. This CT exam was performed using one or more of the following dose reduction techniques: Automated exposure control, adjustment of the mA and/or kV according to patient size, and/or use of iterative reconstruction technique.. Study is limited by motion artifact FINDINGS: HEMORRHAGE: No acute parenchymal, subarachnoid nor extra-axial hemorrhage. BRAIN: There is an apparent acute infarct in the right parasagittal posterior frontal parietal region at the vertex. Mild moderate chronic periventricular white matter ischemic changes with scattered bilateral basal nuclei and brainstem lacunar type infarcts. Localized of partially cystic encephalomalacia left occipital pole unchanged Moderate -significant generalized volume loss. VENTRICLES: No obstructive hydrocephalus. CALVARIUM: There are no acute calvarial fractures PARANASAL SINUSES: Unremarkable as visualized. No significant inflammatory changes.. MASTOID AIR CELLS: Unremarkable as visualized. No inflammatory changes.. OTHER FINDINGS: None. IMPRESSION: Limited motion degraded study. There is an apparent acute infarct in the right parasagittal posterior frontal parietal region at the vertex. Mild moderate chronic periventricular white matter ischemic changes with scattered bilateral basal nuclei and brainstem lacunar type infarcts. Localized of partially cystic encephalomalacia left occipital pole unchanged Moderate -significant generalized volume loss. The [address] [place] [address] Nurse Jaylon informed these findings at approximately 9:16 a.m. with written down and read back verification.
[2018-02-13] MEDS: Enoxaparin 40 mg Syringe SC SCH (09:52)
[2018-02-13] MEDS: Nystatin 100,000 Units/gm Cream(15 gm) TOP SCH ×3 (09:52→17:23)
[2018-02-13] MEDS ORDERED: Insulin Regular 1 UNITS/0.01 ML ML IV ONE (10:00)
[2018-02-13] MEDS ORDERED: Dextrose 50% SYRINGE Inj (50 ml) IVP ONE (10:01)
[2018-02-13] MEDS ORDERED: Benzocaine/Menthol (Cepacol) Lozenge MT PRN (10:23)
--- NOTE | 2018-02-13 10:36 | CT ---
PROCEDURE: CT scan neck dated 02/13/2018 HISTORY: Code stroke COMPARISON: No prior TECHNIQUE: Contiguous helical/ transaxial sections of the neck without intravenous contrast. Coronal and sagittal reformats generated. Radiation dose: DLP 624.24 mGy-cm This CT exam was performed using one or more of the following dose reduction techniques: Automated exposure control, adjustment of the mA and/or kV according to patient size, and/or use of iterative reconstruction technique. Study is limited due to the lack of circulating intravenous contrast material and further degraded by motion artifact. FINDINGS: There are no large cervical masses or collections. There are multiple small nonspecific bilateral cervical lymph nodes none of which appear pathologically enlarged. There is enlargement left lobe thyroid gland which is somewhat heterogeneous in appearance. There may also be a hyperdense or partially calcified nodule superior margin left lobe thyroid gland. There is also a calcification seen in the right lobe . Recommend followup thyroid ultrasound. Small calcification seen in the left submandibular gland. The remaining visualized major salivary glands otherwise unremarkable. Vascular calcifications of both carotid bifurcations left greater than right, however the changes do not appear to result in significant stenosis . There is asymmetry of the vallecula likely due to encroachment of lingual tonsils and possibly some residual/ retained secretion. Pyriform sinuses and aryepiglottic folds are not well delineated though are relatively symmetric in appearance with no obvious masses. The true vocal cords appear symmetric. . Airway is patent throughout. The pulmonary trunk is markedly dilated with the dilatation of the right and to a lesser degree left main pulmonary arteries ; rule out underlying pulmonary arterial hypertension. There are patchy infiltrate changes seen in the right middle lobe with apparent right-sided effusion. There is a rounded non corticated lucency within the T5 segment likely representing a hemangioma. Multilevel fish-mouth endplate deformities of the lower cervical and upper thoracic spine. No acute compression fractures no retropulsed fragments. Multilevel degenerative spondylosis. IMPRESSION: Limited noncontrast CT scan of the neck further degraded by motion artifact Enlarged left lobe thyroid gland with not elliptical shaped hyperdense nodule or calcification. There is also calcification in the right lobe thyroid gland. Followup thyroid ultrasound recommended. There is a small calcification within the left submandibular gland Calcified atherosclerotic plaque both carotid bifurcations left greater than right however the changes at do not appear to result in significant stenosis. Marked dilatation of the pulmonary trunk and right as well as to a lesser degree left main pulmonary arteries ; rule out pulmonary arterial hypertension. See above discussion for additional details and findings.
[2018-02-13] MEDS: Morphine 4 mg/ml ISec IVP PRN (10:52)
--- NOTE | 2018-02-13 11:47 | CT ---
PROCEDURE: CT scan of the abdomen pelvis dated 02/13/2018. HISTORY: Possible bleeding unknown source. COMPARISON: None. TECHNIQUE: Contiguous helical/transaxial images of the abdomen and p pelvis performed without oral or intravenous contrast material. Additional 2D sagittal and coronal reformats reformats generated. Radiation dose: Total exam DLP = 1063.52 mGy-cm. This CT exam was performed using one or more of the following dose reduction techniques: Automated exposure control, adjustment of the mA and/or kV according to patient size, and/or use of iterative reconstruction technique. FINDINGS: LOWER THORAX: Tiny bilateral effusions with bibasilar atelectasis and/or infiltrates. There also appears to be some minor atelectasis in the right middle lobe as well. Suspect eventration right hemidiaphragm. The heart is enlarged. Trace pericardial effusion. Marked dilatation of the pulmonary trunk and the pulmonary arteries right larger than left . Findings may represent sequela of pulmonary arterial hypertension. Clinical correlation recommended. LIVER: Liver exhibits relatively normal size measuring approximately 17.6 cm in CC dimension. . There are at least 2 small calcifications seen in the inferior margin right lobe liver and suspected small calcification superior aspect of the right lobe liver bordering the diaphragmatic dome consistent with small calcified granulomata and prior exposure to a granulomatous disease process. No obvious hepatic masses or collections. GALLBLADDER AND BILE DUCTS: Gallbladder is physiologically distended. No evidence of intraluminal gallbladder calculi. PANCREAS: Pancreas is slightly atrophic and fatty replaced. No obvious pancreatic masses collections or calcifications. . SPLEEN: Spleen exhibits normal size and attenuation pattern without mass collection or calcification. ADRENALS: There appears to be a small approximately 14 mm left adrenal nodule. Followup interval recommended. KIDNEYS AND URETERS: Kidneys demonstrate relatively symmetric size. Punctate calcification upper pole right kidney felt be present. No evidence of hydronephrosis. Small approximately 18 mm cyst anteromedial aspect mid/lower pole right kidney. BLADDER: Urinary bladder is collapsed about an in situ Arshad catheter and at evaluation- is therefore limited. REPRODUCTIVE: Hysterectomy. APPENDIX: Nine Appendix is not seen with complete certainty however no inflammatory changes seen right lower quadrant of the abdomen. BOWEL: Evaluation of the bowel is limited due to the lack of oral contrast material. The stomach is incompletely distended. Visualized loops of small bowel exhibit normal contour and caliber. No evidence acute mechanical small bowel obstruction. Josafat. Stool and air seen throughout the large bowel. No definitive evidence of abnormal mural wall thickening. There are scattered colonic diverticula seen along the sigmoid cannot descending colon however no radiographic evidence of acute diverticulitis. PERITONEUM: Unremarkable. No fluid collection. . No evidence of intra-abdominal hemorrhage or hematomas. S No free air. LYMPH NODES: Unremarkable. No enlarged lymph nodes. VASCULATURE: Unremarkable. No aortic aneurysm. BONES: Postoperative changes related to recent ORIF left included on what probably represents some combination of infiltration, edema which is probably admixed with hemorrhage involving the musculature left buttock and overlying subcutaneous tissues. Subcutaneous air present as well. Overlying skin closure geraldine are again present. Josafat Multilevel chronic appearing anterior wedge compression fractures of several thoracic and lumbar segments. Diffuse demineralization. Multilevel degenerative spondylosis of the lower thoracic and lumbar spine. OTHER FINDINGS: None. IMPRESSION: Tiny bilateral effusions and bibasilar atelectasis and/or. Mild atelectasis right middle lobe. Cardiomegaly with trace pericardial effusion. Marked dilatation of the pulmonary trunk and to a lesser degree pulmonary arteries right greater than left ; rule out pulmonary arterial hypertension. Several small calcified hepatic granulomata. Small left adrenal nodule. Small right renal cyst. Punctate nonobstructing calcific density upper pole right kidney. Diverticulosis without radiographic evidence of a acute diverticulitis. Apparent hysterectomy Postoperative changes on recent ORIF left hip which a felt to include some combination of infiltration, edema, hemorrhage and subcutaneous air involving the musculature left buttock ends overlying subcutaneous tissues. See above discussion for additional details and findings.
--- NOTE | 2018-02-13 11:52 | PN ---
DATE: 02/13/2018 SECOND-DAY POSTOPERATIVE REPORT The patient underwent left hip ORIF for comminuted displaced subtrochanteric fracture of left proximal femur. Presently, she has aggravated her preexisting cerebral insufficiency and some weakness in her left side that was present somewhat preop. Her hemoglobin after one unit of blood was 7.9, so I suggested giving her another unit of blood product to bring up to over 8.5, she started out at 10.9 hemoglobin when she came in on 02/11/2018. She has not had undue blood loss with this fracture; it does bleed a lot preop but now it is stabilized with the octavio and it should eventually bleed less another day. She is too medically unstable to get up out of bed because of the neurologic problems and she is to get up out of bed, so she could decrease her chance of pneumonia and bedsores and she will have to go to a specialty subacute rehab that deals with neurologic dysfunction. She still is weak on the left side, but the wound is dry, no undue bleeding. I will give her another unit of packed cells and follow the H and H and we will try to get her up out of bed at least by tomorrow with physical therapy. She can put weight on her left lower extremity to tolerance. Rodrigo Garcia DO
--- NOTE | 2018-02-13 11:52 | RAD ---
HISTORY: r/o infiltrate vs effusion COMPARISON: Comparison made with chest radiograph 02/11/[address] scan of the abdomen which image both lung bases. The the FINDINGS: LUNGS: Enlarged pulmonary trunk and pulmonary arteries right greater than left for the enlarged presumably in part accounts for prominent right hilum. In addition, there are tiny effusions and bibasilar atelectasis and/or infiltrates PLEURA: As above. No pneumothorax apparent. CARDIOVASCULAR: Cardiomegaly. OSSEOUS STRUCTURES: No significant abnormalities. VISUALIZED UPPER ABDOMEN: Normal. OTHER FINDINGS: None. IMPRESSION: Cardiomegaly with markedly enlarged pulmonary trunk and pulmonary arteries right greater than left. In addition, there are tiny effusions and bibasilar atelectasis and/or infiltrates
--- NOTE | 2018-02-13 11:55 | CP.PCM.PN ---
<TieshaTa redmond - Last Filed: 02/13/18 11:51> Subjective - Date & Time of Evaluation Date of Evaluation: 02/13/18 Time of Evaluation: 11:52 - Subjective Subjective: Patient seen and examined at bedside. Some strength returned to the L. side. 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 No other issues overnight Objective - Vital Signs/Intake and Output Vital Signs (last 24 hours): Temp Pulse Resp BP Pulse Ox 99.3 F 100 H 20 145/56 L 94 L 02/13/18 11:11 02/13/18 11:11 02/13/18 11:11 02/13/18 11:11 02/13/18 06:00 Intake and Output: 02/13/18 02/13/18 06:59 18:59 Intake Total 2225 20 Output Total 650 Balance 1575 20 - Medications Medications: Current Medications Albuterol Sulfate (Albuterol 0.083% Inhal Radha (2.5 Mg/3 Ml) Ud) 2.5 mg INH Q2H PRN PRN Reason: Shortness of Breath Arformoterol Tartrate (Brovana) 15 mcg IH BID [facility] Last Admin: 02/13/18 09:04 Dose: Not Given Atorvastatin Calcium (Lipitor) 40 mg PO DIN [facility] Benzocaine/Menthol (Cepacol Sore Throat) 1 carolee MT Q2H PRN PRN Reason: Sore Throat Budesonide (Pulmicort Respules) 0.5 mg IH [id number] [facility] Last Admin: 02/13/18 07:36 Dose: 0.5 mg Sodium Chloride (Sodium Chloride 0.9%) 1,000 mls @ 100 mls/hr IV .Q10H [facility] Last Admin: 02/13/18 02:40 Dose: 100 mls/hr Morphine Sulfate (Morphine) 2 mg IVP Q6H PRN PRN Reason: Pain, moderate (4-7) Last Admin: 02/13/18 10:52 Dose: 2 mg Nystatin (Mycostatin Cream) 1 ea TOP TID [facility] Last Admin: 02/13/18 09:52 Dose: 1 applic Oxycodone/Acetaminophen (Percocet 5/325 Mg Tab) 1 tab PO Q6H PRN PRN Reason: Pain, severe (8-10) Stop: 02/14/18 19:25 Last Admin: 02/13/18 06:50 Dose: 1 tab Pantoprazole Sodium (Protonix Inj) 40 mg IVP DAILY [facility] Last Admin: 02/13/18 09:52 Dose: 40 mg - Labs Labs: 02/13/18 07:39 02/13/18 07:39 PT 12.2 SECONDS (9.4-12.5) 02/11/18 11:53 INR 1.06 (0.93-1.08) 02/11/18 11:53 APTT 25.1 Seconds (25.1-36.5) 02/11/18 11:53 - Constitutional Appears: Well - Head Exam Head Exam: ATRAUMATIC, NORMAL INSPECTION, NORMOCEPHALIC - Eye Exam Eye Exam: EOMI, Normal appearance, PERRL Pupil Exam: NORMAL ACCOMODATION, PERRL - ENT Exam ENT Exam: Mucous Membranes Moist, Normal Exam - Neck Exam Neck Exam: Full ROM, Normal Inspection. absent: Lymphadenopathy - Respiratory Exam Respiratory Exam: Clear to Ausculation Bilateral, NORMAL BREATHING PATTERN - Cardiovascular Exam Cardiovascular Exam: REGULAR RHYTHM, +S1, +S2. absent: Murmur - GI/Abdominal Exam GI & Abdominal Exam: Soft, Normal Bowel Sounds. absent: Tenderness - Extremities Exam Extremities Exam: Full ROM, Normal Capillary Refill, Normal Inspection. absent : Joint Swelling, Pedal Edema Additional comments: Dressing c/d/i - Back Exam Back Exam: NORMAL INSPECTION - Neurological Exam Neurological Exam: Alert, Awake, CN II-XII Intact, Normal Gait, Oriented x3 Neuro motor strength exam: Left Upper Extremity: 3 (able to squeeze hand but not lift the arm), Right Upper Extremity: 4, Left Lower Extremity: 4, Right Lower Extremity: 4 - Psychiatric Exam Psychiatric exam: Normal Affect, Normal Mood - Skin Skin Exam: Dry, Intact, Normal Color, Warm Assessment and Plan - Assessment and Plan (Free Text) Assessment: (1) Intertrochanteric fracture of left hip Assessment & Plan: s/p ORIF (Mastromonaco) Morphine and Percocet for pain PT/OT Hgb Dropped post op. Will transfuse 1 unit today air mattress Turn Q2 ICS Status: Acute (2) Left arm weakness Assessment & Plan: Code stroke called this am NIHSS 17 Neuro (Korya) Repeat CT shows acute infarction in R. Parasaggital posterior frontal parietal region at vertex. Ramon made aware. Started on atorvastatin 40. Held lovenox, asa and plavix as patient is currently bleeding from operative site. Status: Acute (3) HTN (hypertension) Assessment & Plan: hold meds as pressure is low thru admission Status: Acute (4) UTI (urinary tract infection) Assessment & Plan: was taking bactrim at home ID ([place]) hold antibiotics at this time and repeat UC Status: Acute (5) A-fib Assessment & Plan: no anticoag as outpatient due to fall risk NSR on ekg here Status: Chronic (6) COPD (chronic obstructive pulmonary disease) Assessment & Plan: Pulmicort Albuterol Brovana Status: Chronic (7) Prophylactic measure Assessment & Plan: Hold VTE until neuro reccs GI PPX not indicated at this time Status: Acute <Natalie Vazquez B - Last Filed: 02/13/18 15:20> Objective - Vital Signs/Intake and Output Vital Signs (last 24 hours): Temp Pulse Resp BP Pulse Ox 99.0 F 100 H 17 142/80 94 L 02/13/18 13:19 02/13/18 13:19 02/13/18 13:19 02/13/18 13:19 02/13/18 06:00 Intake and Output: 02/13/18 02/13/18 06:59 18:59 Intake Total 2225 560 Output Total 650 350 Balance 1575 210 - Medications Medications: Current Medications Albuterol Sulfate (Albuterol 0.083% Inhal Radha (2.5 Mg/3 Ml) Ud) 2.5 mg INH Q2H PRN PRN Reason: Shortness of Breath Arformoterol Tartrate (Brovana) 15 mcg IH BIDRESP [facility] Atorvastatin Calcium (Lipitor) 40 mg PO DIN [facility] Benzocaine/Menthol (Cepacol Sore Throat) 1 carolee MT Q2H PRN PRN Reason: Sore Throat Budesonide (Pulmicort Respules) 0.5 mg IH [id number] [facility] Last Admin: 02/13/18 07:36 Dose: 0.5 mg Sodium Chloride (Sodium Chloride 0.9%) 1,000 mls @ 100 mls/hr IV .Q10H [facility] Last Admin: 02/13/18 02:40 Dose: 100 mls/hr Morphine Sulfate (Morphine) 2 mg IVP Q6H PRN PRN Reason: Pain, moderate (4-7) Last Admin: 02/13/18 10:52 Dose: 2 mg Nystatin (Mycostatin Cream) 1 ea TOP TID [facility] Last Admin: 02/13/18 13:10 Dose: 1 applic Oxycodone/Acetaminophen (Percocet 5/325 Mg Tab) 1 tab PO Q6H PRN PRN Reason: Pain, severe (8-10) Stop: 02/14/18 19:25 Last Admin: 02/13/18 06:50 Dose: 1 tab Pantoprazole Sodium (Protonix Inj) 40 mg IVP DAILY [facility] Last Admin: 02/13/18 09:52 Dose: 40 mg - Labs Labs: 02/13/18 07:39 02/13/18 07:39 PT 12.2 SECONDS (9.4-12.5) 02/11/18 11:53 INR 1.06 (0.93-1.08) 02/11/18 11:53 APTT 25.1 Seconds (25.1-36.5) 02/11/18 11:53 Attending/Attestation - Attestation I have personally seen and examined this patient.: Yes I have fully participated in the care of the patient.: Yes I have reviewed all pertinent clinical information, including history, physical exam and plan: Yes Notes (Text): I have seen and examined the patient at bedside. Agree with the above note with the following additions/ exceptions: Briefly this is 87 year old female with history of Hypertension, Atrial fibrillation not on anticoagulation at home due to falls risk, depression and COPD who was admitted for management of left hip fracture s/p mechanical fall. Patient underwent left hip ORIF on Wednesday. Post surgery her hemoglobin dropped and she required 1 unit of prbc. Her Hb is 7.8 today. Will give her [address] abdomen/ pelvis reviewed. Her AMOR is improving somewhat. Urine output has improved as well. FeNa is <1% suggestive of pre renal etiology. Code stroke was called yesterday due to new onset of LUE weakness. Repeat CT revealed acute infarction in parietal region. Lipitor was started. Patient is not on any antiplatelets until we discuss with ortho as she might be bleeding from surgical site. Patient has h/o multiple UTIs in the past. Repeat Urine culture is still pending. Monitor off antibiotics. Upon discharge patient will follow up with Dr Cruz. Dr Natalie Vazquez
--- NOTE | 2018-02-13 12:03 | US ---
PROCEDURE: Ultrasound of the Kidneys HISTORY: worsening renal function COMPARISON: Correlation made with concurrent CT scan abdomen pelvis TECHNIQUE: Sonogram of the kidneys. FINDINGS: RIGHT KIDNEY: Measures: 9.6 x 4.1 x 4.5 cm. Suspected punctate calcification upper pole right kidney seen on CT scan not appreciated on this exam. No evidence of renal mass or hydronephrosis No stone, solid mass lesion or hydronephrosis visualized. Small cyst anteromedial aspect mid right kidney measuring I 0.8 cm in greatest dimension seen better advantage on concurrent CT scan of the abdomen pelvis LEFT KIDNEY: Measures: 9.9 x 5.0 x 5.3 cm. Normal in size, contour and echogenicity. No stone, solid mass lesion or hydronephrosis visualized. OTHER FINDINGS: None. IMPRESSION: Unremarkable renal sonogram.
--- NOTE | 2018-02-13 13:55 | CP.PCM.PN ---
Subjective - Date & Time of Evaluation Date of Evaluation: 02/13/18 Time of Evaluation: 10:05 - Subjective Subjective: Complaining of some pain in the left hip which just had surgery done, no diarrhea, no fevers, no dysuria. Objective - Vital Signs/Intake and Output Vital Signs (last 24 hours): Temp Pulse Resp BP Pulse Ox 99.6 F 103 H 24 148/50 L 88 L 02/13/18 00:00 02/13/18 05:25 02/13/18 00:00 02/13/18 00:00 02/13/18 00:00 Intake and Output: 02/13/18 02/13/18 06:59 18:59 Intake Total 2225 Output Total 650 Balance 1575 - Medications Medications: Current Medications Albuterol Sulfate (Albuterol 0.083% Inhal Radha (2.5 Mg/3 Ml) Ud) 2.5 mg INH Q2H PRN PRN Reason: Shortness of Breath Arformoterol Tartrate (Brovana) 15 mcg IH BID [facility] Last Admin: 02/12/18 22:15 Dose: 15 mcg Budesonide (Pulmicort Respules) 0.25 mg IH BID [facility] Last Admin: 02/12/18 22:15 Dose: 0.25 mg Enoxaparin Sodium (Lovenox) 40 mg SC DAILY [facility] PRN Reason: Protocol Last Admin: 02/12/18 16:08 Dose: 40 mg Sodium Chloride (Sodium Chloride 0.9%) 1,000 mls @ 100 mls/hr IV .Q10H [facility] Last Admin: 02/13/18 02:40 Dose: 100 mls/hr Morphine Sulfate (Morphine) 2 mg IVP Q6H PRN PRN Reason: Pain, moderate (4-7) Last Admin: 02/12/18 12:36 Dose: 2 mg Nystatin (Mycostatin Cream) 1 ea TOP TID [facility] Last Admin: 02/12/18 17:41 Dose: 1 applic Oxycodone/Acetaminophen (Percocet 5/325 Mg Tab) 1 tab PO Q6H PRN PRN Reason: Pain, severe (8-10) Stop: 02/14/18 19:25 Last Admin: 02/13/18 06:50 Dose: 1 tab Pantoprazole Sodium (Protonix Inj) 40 mg IVP DAILY [facility] Last Admin: 02/12/18 11:29 Dose: 40 mg - Labs Labs: 02/12/18 18:04 02/12/18 18:04 PT 12.2 SECONDS (9.4-12.5) 02/11/18 11:53 INR 1.06 (0.93-1.08) 02/11/18 11:53 APTT 25.1 Seconds (25.1-36.5) 02/11/18 11:53 - Constitutional Appears: Chronically Ill - Head Exam Head Exam: NORMAL INSPECTION - Neck Exam Neck Exam: absent: Meningismus - Respiratory Exam Respiratory Exam: Decreased Breath Sounds - Cardiovascular Exam Cardiovascular Exam: +S1, +S2 - GI/Abdominal Exam GI & Abdominal Exam: Soft. absent: Tenderness Assessment and Plan - Assessment and Plan (Free Text) Plan: Assessment S/P treatment of E. coli UTI acute femoral fracture S/P ORIF POD #2 acute renal failure HTN subarachnoid hemorrhage atrial fibrillation not on anticoagulation due to risk of GI bleed depression COPD pseudogout pulmonary HTN history of left frontal subarachnoid hemorrhage S/P appendectomy obesity with BMI 31 Plan Patient has had 5 days of Bactrim - patient should have had enough antibiotics for the UTI - will continue to monitor off antibiotics and follow up repeat urine cx and monitor to see if patient develops symptoms - discussed with Dr. Vazquez previously; also discussed with family and they understand will continue to monitor clinically
--- NOTE | 2018-02-13 14:49 | CP.PCM.CON ---
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 Patient not on ACEI/ARB due to AMOR. hold BP meds as BP on low side, Monitor Input/Output, daily weights and renal function with basic metabolic panel continue with IVF. supplements lytes as needed low K diet encouraged oral intake PRBC 02/13/18 Dose meds/antibiotics for reduced GFR. Avoid fleets enema/magnesium based laxatives. Avoid nephrotoxins/NSAIDs/ iodinated contrast (unless needed emergently) Glycemic control Further work up/management as per primary team Thanks for allowing me to participate in care of your patient. Will follow patient with you. Please call if any Qs Dr Fer Henry Office: [phone] Chief Complaint; I fell down reason for consult: AMOR HPI: Pt is a 87 F with hx of hypertension (years) obesity, A fib, SAH presented with complaints of fall and had Rt femoral fracture, underwent surgical intervention but developed AMOR hence consulted Denies OTC/herbal meds or NSAIDs No recent iodinated contrast exposure. Noted obvious episodes of low BP in intra -op period (100/40s) urine output better s/p ramos and IV fluids pt feels better. not aware about kidney disease in past ROS: Cardiovascular: No chest pain. Pulmonary: No shortness of breath Gastrointestinal: denies abdominal pain No nausea. No vomiting. Genitourinary: No pain while urinating. Denies blood in urine. has ramos All other negative Physical Examination: General Appearance: Comfortable, in no acute respiratory distress, co-operative . obese Vitals reviewed and noted as below Head; Atraumatic, normocephalic ENT: no ulcers no thrush. Tongue is midline/dry. Oropharynx: no rash or ulcers. EYES: Pupils are equal, round and reactive to light accommodation. Eye muscles and extraocular movement intact. Sclera is anicteric. Neck; supple no lymphadenopathy, no thyromegaly or bruit Lungs: Normal respiratory rate/effort. Breath sounds bilateral equal and clear Heart: Normal rate. s1s2 normal. No rub or gallop. Extremities: no edema. No varicose veins Neurological: Patient is alert, awake and oriented to person, place and time. No focal deficit. Strength bilateral appropriate and equal Skin: Warm and dry. Normal turgor. No rash. Palpitation: Normal elasticity for age Abdomen: Abdomen is soft. Bowel sounds +. There is no abdominal tenderness, no guarding/rigidity no organomegaly Psych: limited insight and normal affect/mood MSK: no joint tenderness or swelling. Digits and nails normal, no deformity : kidney or bladder not palpable Labs/imaging reviewed. Past medical history, past surgical history, family history, social history, allergy reviewed and noted as below Family hx: no hx of CKD. Rest non-contributory Renal imaging: no obstruction Past Patient History - Infectious Disease Hx of Infectious Diseases: None - Tetanus Immunizations Tetanus Immunization: Unknown - Past Social History Smoking Status: Former Smoker - CARDIAC Hx Cardiac Disorders: Yes Hx Hypertension: Yes - PULMONARY Hx Chronic Obstructive Pulmonary Disease (COPD): Yes - NEUROLOGICAL Hx Neurological Disorder: Yes - HEENT Hx HEENT Problems: Yes (WEARS RX GLASSES) Hx Cataracts: Yes (BILATERAL SURGERY) Hx Deafness: Yes - RENAL Hx Chronic Kidney Disease: No - ENDOCRINE/METABOLIC Hx Endocrine Disorders: No - HEMATOLOGICAL/ONCOLOGICAL Hx 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) - INTEGUMENTARY Hx Dermatological Problems: No - MUSCULOSKELETAL/RHEUMATOLOGICAL Hx Musculoskeletal Disorders: Yes Hx Back Pain: Yes Hx Falls: Yes Hx Fractures: Yes (R ANKLE FX 12-29-17,LEFT HIP FX 02-11-18) Hx Osteoarthritis: Yes (BILATERAL KNEE) Hx Unsteady Gait: Yes (WALKER) - GASTROINTESTINAL Hx Gastrointestinal Disorders: No - GENITOURINARY/GYNECOLOGICAL Hx Genitourinary Disorders: Yes Hx Incontinence: Yes Hx Urinary Tract Infection: Yes - PSYCHIATRIC Hx Psychophysiologic Disorder: Yes (INSOMNIA,) Hx Anxiety: Yes Hx Bipolar Disorder: Yes Hx Depression: Yes Hx Emotional Abuse: No Hx Physical Abuse: No Hx Substance Use: No - SURGICAL HISTORY Hx Surgeries: Yes Hx Appendectomy: Yes - ANESTHESIA Hx Anesthesia Reactions: No Meds Allergies/Adverse Reactions: Allergies Allergy/AdvReac Type Severity Reaction Status Date / Time Iodinated Contrast- Oral and Allergy ANAPHYLAXIS Verified 02/11/18 16:55 IV Dye [Iodinated Contrast Media - Oral and] Penicillins Allergy ANAPHYLAXIS Verified 02/11/18 16:55 - Medications Medications: Current Medications Albuterol Sulfate (Albuterol 0.083% Inhal Radha (2.5 Mg/3 Ml) Ud) 2.5 mg INH Q2H PRN PRN Reason: Shortness of Breath Arformoterol Tartrate (Brovana) 15 mcg IH BIDRESP [facility] Atorvastatin Calcium (Lipitor) 40 mg PO DIN [facility] Benzocaine/Menthol (Cepacol Sore Throat) 1 carolee MT Q2H PRN PRN Reason: Sore Throat Budesonide (Pulmicort Respules) 0.5 mg IH [id number] [facility] Last Admin: 02/13/18 07:36 Dose: 0.5 mg Sodium Chloride (Sodium Chloride 0.9%) 1,000 mls @ 100 mls/hr IV .Q10H [facility] Last Admin: 02/13/18 02:40 Dose: 100 mls/hr Morphine Sulfate (Morphine) 2 mg IVP Q6H PRN PRN Reason: Pain, moderate (4-7) Last Admin: 02/13/18 10:52 Dose: 2 mg Nystatin (Mycostatin Cream) 1 ea TOP TID [facility] Last Admin: 02/13/18 13:10 Dose: 1 applic Oxycodone/Acetaminophen (Percocet 5/325 Mg Tab) 1 tab PO Q6H PRN PRN Reason: Pain, severe (8-10) Stop: 02/14/18 19:25 Last Admin: 02/13/18 06:50 Dose: 1 tab Pantoprazole Sodium (Protonix Inj) 40 mg IVP DAILY [facility] Last Admin: 02/13/18 09:52 Dose: 40 mg Results - Vital Signs Recent Vital Signs: Last Vital Signs Temp 99.0 F 02/13/18 13:19 Pulse 100 H 02/13/18 13:19 Resp 17 02/13/18 13:19 BP 142/80 02/13/18 13:19 Pulse Ox 94 L 02/13/18 06:00 - Labs Result Diagrams: 02/13/18 07:39 02/13/18 07:39 Labs: Laboratory Results - last 24 hr 02/12/18 02/12/18 02/12/18 18:04 18:04 18:40 WBC 12.2 H RBC 2.57 L Hgb 8.1 L Hct 24.8 L MCV 96.5 MCH 31.5 MCHC 32.7 RDW 14.2 Plt Count 140 MPV 11.2 H Gran % 71.9 H Lymph % (Auto) 15.4 L [place] % (Auto) 12.3 H Eos % (Auto) 0.1 L Baso % (Auto) 0.3 Gran # 8.80 H Lymph # (Auto) 1.9 [place] # (Auto) 1.5 H Eos # (Auto) 0.0 Baso # (Auto) 0.04 Sodium 143 Potassium 5.5 H Chloride 110 H Carbon Dioxide 23 Anion Gap 15 BUN 35 H Creatinine 2.6 H Est GFR ( Amer) 21 Est GFR (Non-Af Amer) 17 Random Glucose 137 H Calcium 8.1 L Phosphorus 3.6 Magnesium 1.9 Total Bilirubin AST ALT Alkaline Phosphatase Total Protein Albumin Globulin Albumin/Globulin Ratio Triglycerides Cholesterol LDL Cholesterol Direct HDL Cholesterol Urine Eosinophils Ur Random Creatinine Ur Random Sodium Urine Microalbumin 138.4 H 02/12/18 02/12/18 02/13/18 18:40 19:15 07:39 WBC 11.8 H RBC 2.54 L Hgb 7.9 L Hct 24.6 L MCV 96.9 MCH 31.1 MCHC 32.1 RDW 14.5 Plt Count 121 MPV 12.0 H Gran % 73.9 H Lymph % (Auto) 11.3 L [place] % (Auto) 14.5 H Eos % (Auto) 0.0 L Baso % (Auto) 0.3 Gran # 8.73 H Lymph # (Auto) 1.3 [place] # (Auto) 1.7 H Eos # (Auto) 0.0 Baso # (Auto) 0.03 Sodium Potassium Chloride Carbon Dioxide Anion Gap BUN Creatinine Est GFR ( Amer) Est GFR (Non-Af Amer) Random Glucose Calcium Phosphorus Magnesium Total Bilirubin AST ALT Alkaline Phosphatase Total Protein Albumin Globulin Albumin/Globulin Ratio Triglycerides Cholesterol LDL Cholesterol Direct HDL Cholesterol Urine Eosinophils Negative Ur Random Creatinine 134 Ur Random Sodium 69 Urine Microalbumin 02/13/18 07:39 WBC RBC Hgb Hct MCV MCH MCHC RDW Plt Count MPV Gran % Lymph % (Auto) [place] % (Auto) Eos % (Auto) Baso % (Auto) Gran # Lymph # (Auto) [place] # (Auto) Eos # (Auto) Baso # (Auto) Sodium 146 Potassium 5.4 H Chloride 114 H Carbon Dioxide 20 L Anion Gap 17 BUN 34 H Creatinine 2.2 H Est GFR ( Amer) 25 Est GFR (Non-Af Amer) 21 Random Glucose 112 H Calcium 8.4 Phosphorus 3.8 Magnesium 2.1 Total Bilirubin 0.3 AST 52 H D ALT 27 Alkaline Phosphatase 48 Total Protein 5.7 L Albumin 3.0 Globulin 2.7 Albumin/Globulin Ratio 1.1 Triglycerides 88 Cholesterol 96 L LDL Cholesterol Direct 30 HDL Cholesterol 41 Urine Eosinophils Ur Random Creatinine Ur Random Sodium Urine Microalbumin
[2018-02-13 15:13] LABS: RBC 2.88 10^6/uL (3.5-6.1); WHITE BLOOD COUNT 13.3 10^3/ul (4.5-11.0)
[2018-02-13 15:14] LABS: BASO # 0.03 K/mm3 (0.0-2.0); BASO % 0.2 % (0.0-3.0); EOS % 0.1 % (1.5-5.0); GRAN # 10.2 (1.4-6.5); GRAN % 76.7 % (50.0-68.0); HEMOGLOBIN 8.8 g/dL (12.0-16.0); LYMPH # 1.3 (1.2-3.4); LYMPH % 9.8 % (22.0-35.0); MEAN CELL VOLUME 95.1 fl (80.0-105.0); MEAN CORPUSCULAR HEMOGLOBIN 30.6 pg (25.0-35.0); MEAN CORPUSCULAR HGB CONC 32.1 g/dl (31.0-37.0); MEAN PLATELET VOLUME 11.6 fl (7.0-11.0); MONO # 1.8 (0.1-0.6); MONO % 13.2 % (1.0-6.0); RED CELL DISTRIBUTION WIDTH 16.3 % (11.5-14.5)
--- NOTE | 2018-02-13 16:17 | PN ---
DATE: 02/13/2018 FOLLOWUP SUBJECTIVE: The patient is eating without any difficulty, had no speech difficulty according to the family. 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 No chest pain or shortness of breath. PHYSICAL EXAMINATION: VITAL SIGNS: Blood pressure 142/80, heart rate 100, temperature 99, respirations 17. HEENT: Pale conjunctivae. CHEST: Diminished breath sounds at the bases. HEART: S1 and S2 regular. EXTREMITIES: No edema. LABORATORY DATA: Hemoglobin and hematocrit 7.9 and 24.6, white count 11.8, platelet count 121,000. SMA-7: Sodium 146, potassium 5.4, chloride 114, CO2 of 20, glucose 112, BUN 34, creatinine 2.2. Soft tissue neck CT scan, a limited noncontrast CT scan of the neck. Further degraded by motion artifacts. Enlarged left thyroid lobe with elliptical-shaped hyperdense nodule or calcification. There is also calcification in the right thyroid lobe. Thyroid ultrasound is recommended. Calcified atherosclerotic plaque, both carotid bifurcation, left greater than right with marked dilatation of the pulmonary trunk and right as well as the left main pulmonary artery. Rule out pulmonary artery hypertension. ASSESSMENT: 1. Status post open reduction and internal fixation of left femur fracture. 2. Paroxysmal atrial fibrillation. 3. Consider acute cerebrovascular accident. 4. Acute renal insufficiency and hyperkalemia. 5. Moderate to severe pulmonary hypertension. RECOMMENDATIONS: Continue current albuterol inhaler, continue Lipitor at 40 mg once a day, Percocet one tablet every 6 hours p.r.n. for pain, Protonix at 40 mg intravenously once a day. Consider initiating subcutaneous heparin and there is no contraindication. Consider initiating prophylactic subcutaneous heparin if there is no contraindication. Fernando Gauthier MD
[2018-02-14] MEDS: Morphine 4 mg/ml ISec IVP PRN (01:16)
[2018-02-14 06:31] LABS: BASO # 0.02 K/mm3 (0.0-2.0); BASO % 0.2 % (0.0-3.0); EOS % 0.3 % (1.5-5.0); GRAN # 8.49 (1.4-6.5); GRAN % 75.4 % (50.0-68.0); HEMOGLOBIN 8.2 g/dL (12.0-16.0); LYMPH # 1.4 (1.2-3.4); LYMPH % 12.5 % (22.0-35.0); MEAN CELL VOLUME 94.8 fl (80.0-105.0); MEAN CORPUSCULAR HEMOGLOBIN 30.5 pg (25.0-35.0); MEAN CORPUSCULAR HGB CONC 32.2 g/dl (31.0-37.0); MEAN PLATELET VOLUME 11.4 fl (7.0-11.0); MONO # 1.3 (0.1-0.6); MONO % 11.6 % (1.0-6.0); RBC 2.69 10^6/uL (3.5-6.1); RED CELL DISTRIBUTION WIDTH 16.5 % (11.5-14.5); WHITE BLOOD COUNT 11.2 10^3/ul (4.5-11.0)
[2018-02-14 07:00] LABS: ALBUMIN 2.7 g/dL (3.0-4.8); CALCIUM 8.1 mg/dL (8.4-10.5)
[2018-02-14] MEDS: Arformoterol 15 mcg/2 ml Inh Sol IH SCH ×2 (07:21→20:28)
[2018-02-14] MEDS: Budesonide 0.5 mg/2 ml Inhal Susp UD IH SCH ×2 (07:21→20:28)
--- NOTE | 2018-02-14 07:32 | CP.PCM.PN ---
Subjective - Date & Time of Evaluation Date of Evaluation: 02/14/18 Time of Evaluation: 07:44 - Subjective Subjective: Neuro Progress note for Dr. Vanegas Patient seen and examined at bedside. No acute events reported as per nursing. Patient is ao x 1 to self and follows simple commands. Denied acute complaints of chest pain, SOB, abd pain. Compete ROS unobtainable. Objective - Vital Signs/Intake and Output Vital Signs (last 24 hours): Temp Pulse Resp BP Pulse Ox 97.9 F 114 H 22 147/50 L 94 L 02/13/18 16:00 02/14/18 06:00 02/13/18 16:00 02/13/18 16:00 02/13/18 16:00 Intake and Output: 02/14/18 02/14/18 06:59 18:59 Intake Total 300 Output Total 1300 Balance -1000 - Medications Medications: Current Medications Albuterol Sulfate (Albuterol 0.083% Inhal Radha (2.5 Mg/3 Ml) Ud) 2.5 mg INH Q2H PRN PRN Reason: Shortness of Breath Arformoterol Tartrate (Brovana) 15 mcg IH BIDRESP [facility] Last Admin: 02/14/18 07:21 Dose: 15 mcg Aspirin (Aspirin Chewable) 81 mg PO DAILY [facility] Last Admin: 02/13/18 17:20 Dose: 81 mg Atorvastatin Calcium (Lipitor) 40 mg PO DIN [facility] Last Admin: 02/13/18 17:21 Dose: 40 mg Benzocaine/Menthol (Cepacol Sore Throat) 1 carolee MT Q2H PRN PRN Reason: Sore Throat Budesonide (Pulmicort Respules) 0.5 mg IH [id number] [facility] Last Admin: 02/14/18 07:21 Dose: 0.5 mg Clopidogrel Bisulfate (Plavix) 75 mg PO DAILY [facility] Heparin Sodium (Porcine) (Heparin) 5,000 units SC Q12 [facility] PRN Reason: Protocol Last Admin: 02/13/18 21:22 Dose: 5,000 units Sodium Chloride (Sodium Chloride 0.9%) 1,000 mls @ 100 mls/hr IV .Q10H [facility] Last Admin: 02/13/18 21:19 Dose: 100 mls/hr Morphine Sulfate (Morphine) 2 mg IVP Q6H PRN PRN Reason: Pain, moderate (4-7) Last Admin: 02/14/18 01:16 Dose: 2 mg Nystatin (Mycostatin Cream) 1 ea TOP TID [facility] Last Admin: 02/13/18 17:23 Dose: 1 applic Oxycodone/Acetaminophen (Percocet 5/325 Mg Tab) 1 tab PO Q6H PRN PRN Reason: Pain, severe (8-10) Stop: 02/14/18 19:25 Last Admin: 02/13/18 17:20 Dose: 1 tab Pantoprazole Sodium (Protonix Inj) 40 mg IVP DAILY [facility] Last Admin: 02/13/18 09:52 Dose: 40 mg - Labs Labs: 02/14/18 06:00 02/14/18 06:00 PT 12.2 SECONDS (9.4-12.5) 02/11/18 11:53 INR 1.06 (0.93-1.08) 02/11/18 11:53 APTT 25.1 Seconds (25.1-36.5) 02/11/18 11:53 - Head Exam Head Exam: ATRAUMATIC, NORMAL INSPECTION, NORMOCEPHALIC Assessment and Plan - Assessment and Plan (Free Text) Assessment: 87yo female PMHx HTN, SAH, Afib (not on anticoag), depression, COPD admitted to [facility] [place]/p fall and L femur subtrochanteric fracture. Patient was POD#1 when she was noted to have L arm weakness. Plan: -f/u carotid duplex -MRI and MRA w/o contrast if okay with ortho -Head CT 02/13: apparent acute infarct in the right parasagittal posterior frontal parietal region at the vertex. Mild moderate chronic periventricular white matter ischemic changes wit hscattered b/l basal nuclei and brainstem lacunar type infarcts. Localized of partially cystic encephalomalacia L occipital pole unchanged. Moderate significant generalized volume loss. -Neck CT 02/13: calcified atherosclerotic plaque both carotid bifurcations left > right however changes do not appear to result in significant stenosis. -Echo 02/12: unremarkable -Head CT 02/12: no acute intracranial hemorrhage. Moderate chronic white matter ischemic changes with scattered chronic b/l basal nuclei and brainstem lacunar type infarcts. Re-demonstrated are cystic encephalomalacia changes L occipital lobe. -ASA, Plavix, and statin -recommend PT upon discharge -continue management as per primary Discussed with Dr. Guilherme Fried PGY2
--- NOTE | 2018-02-14 07:42 | PN ---
DATE: 02/14/2018 PULMONARY NOTE SUBJECTIVE: The patient appears comfortable this morning. She is not short of breath at rest. OBJECTIVE: VITAL SIGNS: Temperature is 97.9, pulse this morning is approximately 90, respiratory rate 18/20, blood pressure 147/50. Oxygen saturation on nasal cannula is 94%. HEENT: Normocephalic, atraumatic. No JVD. CARDIOVASCULAR: Systolic ejection murmur at the lower left sternal border. No S3 gallop. LUNGS: Decreased breath sounds at the bases. Less rhonchi. No wheezing. EXTREMITIES: Positive for mild edema. No cyanosis, no clubbing. Calves are nontender to palpation. The left hip is postoperative. GASTROINTESTINAL: Abdomen is soft, nontender and nondistended. Bowel sounds are positive. SKIN: No acute rash. NEUROLOGIC: Exam limited at the present time. IMPRESSION: 1. Left hip fracture, status post fall at home. 2. Advanced chronic obstructive pulmonary disease. 3. Anemia. 4. Chronic atrial fibrillation. 5. Renal insufficiency. 6. Rule out cerebrovascular accident PLAN: The patient appears more comfortable this morning. She is not short of breath at rest. I did discuss the case with the night nurse at length. The night nurse stated that the patient had a good night. On physical exam, there is less bronchospasm noted. In addition, the alveolar-arterial gradient is also less. I will continue with the current nebulizer treatments and inhaled steroids for now. I will also continue with the aspiration precautions. Inputs by Renal, Infectious Disease,neurology and Cardiology are noted. Repeat morning labs are pending. The clinical status of the patient is certainly improved - compared to a few days ago. However, her future status/prognosis does remain guarded. I will discuss the above with the attending physician. Ranjit Burnham MD NIA
--- NOTE | 2018-02-14 07:44 | CP.PCM.PN ---
<Rufus Mederos - Last Filed: 02/14/18 15:27> Subjective - Date & Time of Evaluation Date of Evaluation: 02/14/18 Time of Evaluation: 07:25 - Subjective Subjective: Medicine Note for Dr. Dodd Patient seen and examined at bedside. No acute event overnight. Patient still unable to lift left upper or lower extremities. She is able to squeeze her hand and wiggle her toes. This morning, patient became hypoxic and tachycardic. CXR was done and showed possible infiltrate and vascular congestion. Lasix was given. Patient complaining of left hip pain. Objective - Vital Signs/Intake and Output Vital Signs (last 24 hours): Temp Pulse Resp BP Pulse Ox 97.9 F 114 H 22 147/50 L 94 L 02/13/18 16:00 02/14/18 06:00 02/13/18 16:00 02/13/18 16:00 02/13/18 16:00 Intake and Output: 02/14/18 02/14/18 06:59 18:59 Intake Total 300 Output Total 1300 Balance -1000 - Medications Medications: Current Medications Albuterol Sulfate (Albuterol 0.083% Inhal Radha (2.5 Mg/3 Ml) Ud) 2.5 mg INH Q2H PRN PRN Reason: Shortness of Breath Arformoterol Tartrate (Brovana) 15 mcg IH BIDRESP [facility] Last Admin: 02/14/18 07:21 Dose: 15 mcg Aspirin (Aspirin Chewable) 81 mg PO DAILY [facility] Last Admin: 02/13/18 17:20 Dose: 81 mg Atorvastatin Calcium (Lipitor) 40 mg PO DIN [facility] Last Admin: 02/13/18 17:21 Dose: 40 mg Benzocaine/Menthol (Cepacol Sore Throat) 1 carolee MT Q2H PRN PRN Reason: Sore Throat Budesonide (Pulmicort Respules) 0.5 mg IH [id number] [facility] Last Admin: 02/14/18 07:21 Dose: 0.5 mg Clopidogrel Bisulfate (Plavix) 75 mg PO DAILY [facility] Heparin Sodium (Porcine) (Heparin) 5,000 units SC Q12 [facility] PRN Reason: Protocol Last Admin: 02/13/18 21:22 Dose: 5,000 units Sodium Chloride (Sodium Chloride 0.9%) 1,000 mls @ 100 mls/hr IV .Q10H [facility] Last Admin: 02/13/18 21:19 Dose: 100 mls/hr Morphine Sulfate (Morphine) 2 mg IVP Q6H PRN PRN Reason: Pain, moderate (4-7) Last Admin: 02/14/18 01:16 Dose: 2 mg Nystatin (Mycostatin Cream) 1 ea TOP TID [facility] Last Admin: 02/13/18 17:23 Dose: 1 applic Oxycodone/Acetaminophen (Percocet 5/325 Mg Tab) 1 tab PO Q6H PRN PRN Reason: Pain, severe (8-10) Stop: 02/14/18 19:25 Last Admin: 02/13/18 17:20 Dose: 1 tab Pantoprazole Sodium (Protonix Inj) 40 mg IVP DAILY [facility] Last Admin: 02/13/18 09:52 Dose: 40 mg - Labs Labs: 02/14/18 06:00 02/14/18 06:00 PT 12.2 SECONDS (9.4-12.5) 02/11/18 11:53 INR 1.06 (0.93-1.08) 02/11/18 11:53 APTT 25.1 Seconds (25.1-36.5) 02/11/18 11:53 - Constitutional Appears: No Acute Distress - Head Exam Head Exam: ATRAUMATIC, NORMOCEPHALIC - Eye Exam Eye Exam: Normal appearance - ENT Exam ENT Exam: Mucous Membranes Moist - Respiratory Exam Respiratory Exam: Accessory Muscle Use, Respiratory Distress (mild) - Cardiovascular Exam Cardiovascular Exam: Tachycardia - GI/Abdominal Exam GI & Abdominal Exam: Soft, Normal Bowel Sounds. absent: Tenderness - Extremities Exam Extremities Exam: Normal Capillary Refill, Pedal Edema Additional comments: left hip dressing clean dry and intact - Neurological Exam Neurological Exam: Awake - Psychiatric Exam Psychiatric exam: Flat Affect - Skin Skin Exam: Dry, Intact, Warm Assessment and Plan - Assessment and Plan (Free Text) Plan: (1) Intertrochanteric fracture of left hip Assessment & Plan: s/p ORIF Ortho on board ([place]) Morphine and Percocet for pain PT/OT Hgb stable air mattress Turn Q2 ICS Status: Acute (2) Left arm weakness, s/p CVA Assessment & Plan: Neuro on board (Ramon) f/u carotid US ASA Plavix Lipitor Repeat CT shows acute infarction in R. Parasaggital posterior frontal parietal region at vertex. Ramon made aware. Started on atorvastatin 40. Held lovenox, asa and plavix as patient is currently bleeding from operative site. Aspiration precautions PT/OT Status: Acute (3) HTN Assessment & Plan: Metoprolol 25 mg PO BID Lopressor 5 mg IVP PRN for SBP>120 Status: Acute (5) A-fib Assessment & Plan: no anticoagulation as outpatient due to fall/bleed risk Tachycardic Metoprolol 25 mg PO BID Lopressor 5 mg IVP PRN for SBP>120 Status: Chronic (6) COPD (chronic obstructive pulmonary disease) Assessment & Plan: Patient hypoxic today: ABG/breathing treatment given/CXR Lasix 20 mg IVP ONCE CXR showed possible infiltrate and vascular congestion Pulmicort Albuterol Brovana Status: Chronic (8) Prophylactic measures Assessment & Plan: Heparin SQ Protonix Aspiration precautions Status: Acute <Radha Dodd - Last Filed: 02/15/18 16:43> Objective - Vital Signs/Intake and Output Vital Signs (last 24 hours): Temp Pulse Resp BP Pulse Ox 97.7 F 93 H 18 131/58 L 93 L 02/15/18 12:00 02/15/18 14:00 02/15/18 12:00 02/15/18 12:37 02/15/18 06:00 Intake and Output: 02/15/18 02/15/18 06:59 18:59 Intake Total 340 380 Output Total 1050 425 Balance -710 -45 - Medications Medications: Current Medications Amiodarone HCl (Cordarone) 200 mg PO DAILY [facility] Amiodarone HCl (Cordarone) 400 mg PO ONCE ONE Stop: 02/15/18 18:01 Apixaban (Eliquis) 5 mg PO BID [facility] PRN Reason: Protocol Arformoterol Tartrate (Brovana) 15 mcg IH BIDRESP [facility] Last Admin: 02/15/18 07:16 Dose: 15 mcg Aspirin (Aspirin Chewable) 81 mg PO DAILY [facility] Last Admin: 02/15/18 09:17 Dose: 81 mg Atenolol (Tenormin) 25 mg PO DAILY [facility] Atorvastatin Calcium (Lipitor) 40 mg PO DIN [facility] Last Admin: 02/14/18 17:56 Dose: 40 mg Benzocaine/Menthol (Cepacol Sore Throat) 1 carolee MT Q2H PRN PRN Reason: Sore Throat Budesonide (Pulmicort Respules) 0.5 mg IH [id number] [facility] Last Admin: 02/15/18 07:16 Dose: 0.5 mg Clopidogrel Bisulfate (Plavix) 75 mg PO DAILY [facility] Last Admin: 02/15/18 09:16 Dose: 75 mg Levalbuterol HCl (Xopenex) 0.63 mg IH [id number] PRN PRN Reason: Shortness of Breath Lorazepam (Ativan) 0.5 mg PO HS [facility] PRN Reason: Protocol Last Admin: 02/14/18 22:02 Dose: 0.5 mg Morphine Sulfate (Morphine) 2 mg IVP Q6H PRN PRN Reason: Pain, moderate (4-7) Last Admin: 02/15/18 11:21 Dose: 2 mg Nystatin (Mycostatin Cream) 1 ea TOP TID [facility] Last Admin: 02/15/18 14:33 Dose: 1 applic Pantoprazole Sodium (Protonix Susp) 40 mg PO 0600 [facility] Last Admin: 02/15/18 06:35 Dose: 40 mg Risperidone (Risperdal Oral Soln) 0.5 mg PO 2200 [facility] Last Admin: 02/14/18 22:03 Dose: 0.5 mg Risperidone (Risperdal Oral Soln) 0.25 mg PO 1000,1600 [facility] Last Admin: 02/15/18 09:26 Dose: 0.25 mg Venlafaxine HCl (Effexor Xr) 75 mg PO DAILY [facility] Last Admin: 02/15/18 09:16 Dose: 75 mg Verapamil HCl (Calan Tab) 80 mg PO TID [facility] Ziprasidone (Geodon Inj) 10 mg IM Q4H PRN PRN Reason: Agitation - Labs Labs: 02/15/18 06:30 02/15/18 06:30 PT 12.2 SECONDS (9.4-12.5) 02/11/18 11:53 INR 1.06 (0.93-1.08) 02/11/18 11:53 APTT 25.1 Seconds (25.1-36.5) 02/11/18 11:53 Attending/Attestation - Attestation I have personally seen and examined this patient.: Yes I have fully participated in the care of the patient.: Yes I have reviewed all pertinent clinical information, including history, physical exam and plan: Yes Notes (Text): 02/15/18 16:38 Medical record note made by the resident after discussion with my direction and input after the patient was personally seen and examined by me. I have reviewed the chart and agree that the record accurately reflects by personal performance of the history, physical exam, data review, and medical decision-making, in the course for the patient. I have also personally directed the plan of care. 87 years old female with PMH of COPD,HTN, Proxysmal AF not on anticoagulation due to high risk of fall was admitted with mechanical fall and had left hip fracture.She underwent ORIF 02/11/18. 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 X ray is negative for any aspiration Pneumonia.
--- NOTE | 2018-02-14 07:51 | CP.PCM.PN ---
Subjective - Date & Time of Evaluation Date of Evaluation: 02/14/18 Time of Evaluation: 06:55 - Subjective Subjective: Lying in bed, awake, denies chest pain, denies shortness of breath, Reason for consultation and follow up: Cardiac evaluation, Atrial fibrillation, hypertension, history of fall, obesity. post ORIF of left hip. Seen and examined by me and Dr. Mortensen Objective - Vital Signs/Intake and Output Vital Signs (last 24 hours): Temp Pulse Resp BP Pulse Ox 97.9 F 114 H 22 147/50 L 94 L 02/13/18 16:00 02/14/18 06:00 02/13/18 16:00 02/13/18 16:00 02/13/18 16:00 Intake and Output: 02/14/18 02/14/18 06:59 18:59 Intake Total 300 Output Total 1300 Balance -1000 - Medications Medications: Current Medications Albuterol Sulfate (Albuterol 0.083% Inhal Radha (2.5 Mg/3 Ml) Ud) 2.5 mg INH Q2H PRN PRN Reason: Shortness of Breath Arformoterol Tartrate (Brovana) 15 mcg IH BIDRESP [facility] Last Admin: 02/14/18 07:21 Dose: 15 mcg Aspirin (Aspirin Chewable) 81 mg PO DAILY [facility] Last Admin: 02/13/18 17:20 Dose: 81 mg Atorvastatin Calcium (Lipitor) 40 mg PO DIN [facility] Last Admin: 02/13/18 17:21 Dose: 40 mg Benzocaine/Menthol (Cepacol Sore Throat) 1 carolee MT Q2H PRN PRN Reason: Sore Throat Budesonide (Pulmicort Respules) 0.5 mg IH [id number] [facility] Last Admin: 02/14/18 07:21 Dose: 0.5 mg Clopidogrel Bisulfate (Plavix) 75 mg PO DAILY [facility] Heparin Sodium (Porcine) (Heparin) 5,000 units SC Q12 [facility] PRN Reason: Protocol Last Admin: 02/13/18 21:22 Dose: 5,000 units Sodium Chloride (Sodium Chloride 0.9%) 1,000 mls @ 100 mls/hr IV .Q10H [facility] Last Admin: 02/13/18 21:19 Dose: 100 mls/hr Morphine Sulfate (Morphine) 2 mg IVP Q6H PRN PRN Reason: Pain, moderate (4-7) Last Admin: 02/14/18 01:16 Dose: 2 mg Nystatin (Mycostatin Cream) 1 ea TOP TID [facility] Last Admin: 02/13/18 17:23 Dose: 1 applic Oxycodone/Acetaminophen (Percocet 5/325 Mg Tab) 1 tab PO Q6H PRN PRN Reason: Pain, severe (8-10) Stop: 02/14/18 19:25 Last Admin: 02/13/18 17:20 Dose: 1 tab Pantoprazole Sodium (Protonix Inj) 40 mg IVP DAILY [facility] Last Admin: 02/13/18 09:52 Dose: 40 mg - Labs Labs: 02/14/18 06:00 02/14/18 06:00 PT 12.2 SECONDS (9.4-12.5) 02/11/18 11:53 INR 1.06 (0.93-1.08) 02/11/18 11:53 APTT 25.1 Seconds (25.1-36.5) 02/11/18 11:53 - Constitutional Appears: No Acute Distress - Head Exam Head Exam: NORMOCEPHALIC - ENT Exam ENT Exam: Mucous Membranes Moist - Respiratory Exam Respiratory Exam: Decreased Breath Sounds, NORMAL BREATHING PATTERN - Cardiovascular Exam Cardiovascular Exam: +S1, +S2 Additional comments: telemetry NSR-70/min - GI/Abdominal Exam GI & Abdominal Exam: Soft, Normal Bowel Sounds - Exam Additional comments: ramos catheter - Extremities Exam Extremities Exam: Normal Capillary Refill Additional comments: left hip surgery dressing intact - Neurological Exam Neurological Exam: Alert, Awake, Oriented x3 - Psychiatric Exam Psychiatric exam: Normal Affect, Normal Mood - Skin Skin Exam: Intact, Normal Color, Warm Assessment and Plan - Assessment and Plan (Free Text) Assessment: An 87 year old female who came in to the ER due to left hip pain, status post fall. she has history of hypertension, subarachnoid hemorrhage, Atrial fibrillation without anticoagulation, depression, anxiety, COPD, history of fall ankle fracture,osteoarthritis, former smoker, former alcohol abuse. Plan: Denies chest pain Left arm weakness post surgery Blood pressure and heart rate stable Telemetry NSR On ASA 81 mg daily, Lipitor 40 mg daily,Plavix 75 mg daily, Heparin 5,000 units daily Continue current medications Continue current treatment Physical therapy Will follow up Plan and treatment discussed with Dr. Mortensen
--- NOTE | 2018-02-14 08:28 | PN ---
DATE: 02/12/2018 An 87-year-old female who underwent ORIF of the subtrochanteric fracture, left proximal femur yesterday which is 02/11/2018. Her first day postop hemoglobin went down to 7.8 so we are going to give her 2 units of packed cells ordered by the medical team and she does have history of COPD and confusion. She sees Dr Negrete see the patient , I saw him as well as the Medical Service. We cannot get her up out of bed until the hemoglobin is over 8.5. Otherwise, she is not in any undue pain and can move the leg without complaints of pain. I will await to get her out of bed until the hemoglobin is stable to over 8.5. We will give her some blood and have the Medical Team evaluate her. Rodrigo Garcia DO MTDD
[2018-02-14 08:41] LABS: BASO # 0.03 K/mm3 (0.0-2.0); BASO % 0.3 % (0.0-3.0); EOS % 0.3 % (1.5-5.0); GRAN # 8.15 (1.4-6.5); HEMOGLOBIN 8.4 g/dL (12.0-16.0); LYMPH # 1.2 (1.2-3.4); LYMPH % 11.2 % (22.0-35.0); MEAN CELL VOLUME 95.3 fl (80.0-105.0); MEAN CORPUSCULAR HEMOGLOBIN 30.5 pg (25.0-35.0); MEAN CORPUSCULAR HGB CONC 32.1 g/dl (31.0-37.0); MEAN PLATELET VOLUME 11.4 fl (7.0-11.0); MONO # 1.3 (0.1-0.6); MONO % 12.2 % (1.0-6.0); RBC 2.75 10^6/uL (3.5-6.1); RED CELL DISTRIBUTION WIDTH 16.3 % (11.5-14.5); WHITE BLOOD COUNT 10.7 10^3/ul (4.5-11.0)
--- NOTE | 2018-02-14 11:20 | CP.PCM.PN ---
Subjective - Date & Time of Evaluation Date of Evaluation: 02/14/18 Time of Evaluation: 09:50 - Subjective Subjective: Patient has no fevers, still with pain in the left hip area, but better with pain meds, no diarrhea, no dysuria. No nausea. Objective - Vital Signs/Intake and Output Vital Signs (last 24 hours): Temp Pulse Resp BP Pulse Ox 97.8 F 52 L 24 125/52 L 94 L 02/14/18 08:18 02/14/18 08:18 02/14/18 08:18 02/14/18 08:18 02/14/18 08:18 Intake and Output: 02/14/18 02/14/18 06:59 18:59 Intake Total 300 Output Total 1300 Balance -1000 - Medications Medications: Current Medications Albuterol Sulfate (Albuterol 0.083% Inhal Radha (2.5 Mg/3 Ml) Ud) 2.5 mg INH Q2H PRN PRN Reason: Shortness of Breath Arformoterol Tartrate (Brovana) 15 mcg IH BIDRESP [facility] Last Admin: 02/14/18 07:21 Dose: 15 mcg Aspirin (Aspirin Chewable) 81 mg PO DAILY [facility] Last Admin: 02/13/18 17:20 Dose: 81 mg Atorvastatin Calcium (Lipitor) 40 mg PO DIN [facility] Last Admin: 02/13/18 17:21 Dose: 40 mg Benzocaine/Menthol (Cepacol Sore Throat) 1 carolee MT Q2H PRN PRN Reason: Sore Throat Budesonide (Pulmicort Respules) 0.5 mg IH [id number] [facility] Last Admin: 02/14/18 07:21 Dose: 0.5 mg Clopidogrel Bisulfate (Plavix) 75 mg PO DAILY [facility] Heparin Sodium (Porcine) (Heparin) 5,000 units SC Q12 [facility] PRN Reason: Protocol Last Admin: 02/13/18 21:22 Dose: 5,000 units Sodium Chloride (Sodium Chloride 0.9%) 1,000 mls @ 100 mls/hr IV .Q10H [facility] Last Admin: 02/13/18 21:19 Dose: 100 mls/hr Morphine Sulfate (Morphine) 2 mg IVP Q6H PRN PRN Reason: Pain, moderate (4-7) Last Admin: 02/14/18 01:16 Dose: 2 mg Nystatin (Mycostatin Cream) 1 ea TOP TID [facility] Last Admin: 02/13/18 17:23 Dose: 1 applic Oxycodone/Acetaminophen (Percocet 5/325 Mg Tab) 1 tab PO Q6H PRN PRN Reason: Pain, severe (8-10) Stop: 02/14/18 19:25 Last Admin: 02/13/18 17:20 Dose: 1 tab Pantoprazole Sodium (Protonix Inj) 40 mg IVP DAILY [facility] Last Admin: 02/13/18 09:52 Dose: 40 mg - Labs Labs: 02/14/18 08:30 02/14/18 06:00 PT 12.2 SECONDS (9.4-12.5) 02/11/18 11:53 INR 1.06 (0.93-1.08) 02/11/18 11:53 APTT 25.1 Seconds (25.1-36.5) 02/11/18 11:53 - Constitutional Appears: Chronically Ill - Head Exam Head Exam: NORMAL INSPECTION - ENT Exam ENT Exam: Mucous Membranes Moist - Neck Exam Neck Exam: absent: Meningismus - Respiratory Exam Respiratory Exam: Decreased Breath Sounds - Cardiovascular Exam Cardiovascular Exam: +S1, +S2 - GI/Abdominal Exam GI & Abdominal Exam: Soft. absent: Tenderness Assessment and Plan - Assessment and Plan (Free Text) Plan: Assessment S/P treatment of E. coli UTI acute femoral fracture S/P ORIF POD #3 acute renal failure HTN subarachnoid hemorrhage atrial fibrillation not on anticoagulation due to risk of GI bleed depression COPD pseudogout pulmonary HTN history of left frontal subarachnoid hemorrhage S/P appendectomy obesity with BMI 31 Plan Patient has had 5 days of Bactrim - patient should have had enough antibiotics for the UTI - will continue to monitor off antibiotics and follow up repeat urine cx and monitor to see if patient develops symptoms - discussed with Dr. Vazquez previously; also discussed with family and they understand will continue to follow clinically
[2018-02-14 11:23] LABS: HEMOGLOBIN 8.9 g/dL (12.0-16.0); MEAN CELL VOLUME 96.9 fl (80.0-105.0); MEAN CORPUSCULAR HEMOGLOBIN 30.9 pg (25.0-35.0); MEAN CORPUSCULAR HGB CONC 31.9 g/dl (31.0-37.0); MEAN PLATELET VOLUME 11.7 fl (7.0-11.0); RBC 2.88 10^6/uL (3.5-6.1); RED CELL DISTRIBUTION WIDTH 16.3 % (11.5-14.5); WHITE BLOOD COUNT 13.9 10^3/ul (4.5-11.0)
[2018-02-14] MEDS: Nystatin 100,000 Units/gm Cream(15 gm) TOP SCH (11:32)
[2018-02-14] MEDS ORDERED: Metoprolol 1 mg/ml Inj IVP SCH (12:15)
[2018-02-14 12:22] LABS: ARTERIAL BLOOD GAS HCO3 19.5 mmol/L (21-28); ARTERIAL BLOOD GAS HEMOGLOBIN 7.5 g/dL (11.7-17.4); ARTERIAL BLOOD GAS O2 CAPACITY 10.4 mL/dl (16-24); ARTERIAL BLOOD GAS O2 SAT 95.9 % (95-98); ARTERIAL BLOOD GAS PCO2 30 mm/Hg (35-45); ARTERIAL BLOOD GAS PH 7.42 (7.35-7.45); ARTERIAL BLOOD GAS TCO2 20.4 mmol.L (22-28)
--- NOTE | 2018-02-14 12:24 | CP.PCM.PN ---
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 Patient not on ACEI/ARB due to AMOR. hold BP meds as BP on low side, Monitor Input/Output, daily weights and renal function with basic metabolic panel d/c IVF. agree with IV lasix today low K diet encouraged oral intake PRBC 02/13/18 Dose meds/antibiotics for improved GFR. Avoid fleets enema/magnesium based laxatives. Avoid nephrotoxins/NSAIDs/ iodinated contrast (unless needed emergently) Glycemic control Further work up/management of COPD/hypoxia/a fib and other issues as per primary team Thanks for allowing me to participate in care of your patient. Will follow patient with you. Please call if any Qs. d/w team Dr Fer Henry Office: [phone] Chief Complaint; I fell down reason for consult: AMOR HPI: Pt is a 87 F with hx of hypertension (years) obesity, A fib, SAH presented with complaints of fall and had Rt femoral fracture, underwent surgical intervention but developed AMOR hence consulted Denies OTC/herbal meds or NSAIDs No recent iodinated contrast exposure. Noted obvious episodes of low BP in intra -op period (100/40s) urine output better s/p ramos and IV fluids pt feels better. not aware about kidney disease in past ROS: Cardiovascular: No chest pain. Pulmonary: c/o shortness of breath Gastrointestinal: denies abdominal pain No nausea. No vomiting. Genitourinary: No pain while urinating. Denies blood in urine. has ramos All other negative Physical Examination: General Appearance: Comfortable, in mild acute respiratory distress, co- operative . obese. o2 sat 84-86% on o2 via NC Vitals reviewed and noted as below Head; Atraumatic, normocephalic ENT: no ulcers no thrush. Tongue is midline/dry. Oropharynx: no rash or ulcers. EYES: Pupils are equal, round and reactive to light accommodation. Eye muscles and extraocular movement intact. Sclera is anicteric. Neck; supple no lymphadenopathy, no thyromegaly or bruit Lungs: Increased respiratory rate/effort. Breath sounds bilateral witb basal crackles Heart: Increased rate. s1s2 normal. No rub or gallop. afib+ Extremities: no edema. No varicose veins Neurological: Patient is alert, awake and oriented to person, place and time. No focal deficit. Strength bilateral appropriate and equal Skin: Warm and dry. Normal turgor. No rash. Palpitation: Normal elasticity for age Abdomen: Abdomen is soft. Bowel sounds +. There is no abdominal tenderness, no guarding/rigidity no organomegaly Psych: limited insight and normal affect/mood MSK: no joint tenderness or swelling. Digits and nails normal, no deformity : kidney or bladder not palpable Labs/imaging reviewed. Past medical history, past surgical history, family history, social history, allergy reviewed and noted as below Family hx: no hx of CKD. Rest non-contributory Renal imaging: no obstruction Objective - Vital Signs/Intake and Output Vital Signs (last 24 hours): Temp Pulse Resp BP Pulse Ox 97.8 F 52 L 24 125/52 L 94 L 02/14/18 08:18 02/14/18 08:18 02/14/18 08:18 02/14/18 08:18 02/14/18 08:18 Intake and Output: 02/14/18 02/14/18 06:59 18:59 Intake Total 300 Output Total 1300 Balance -1000 - Medications Medications: Current Medications Albuterol Sulfate (Albuterol 0.083% Inhal Radha (2.5 Mg/3 Ml) Ud) 2.5 mg INH Q2H PRN PRN Reason: Shortness of Breath Arformoterol Tartrate (Brovana) 15 mcg IH BIDRESP [facility] Last Admin: 02/14/18 07:21 Dose: 15 mcg Aspirin (Aspirin Chewable) 81 mg PO DAILY [facility] Last Admin: 02/14/18 11:32 Dose: 81 mg Atorvastatin Calcium (Lipitor) 40 mg PO DIN [facility] Last Admin: 02/13/18 17:21 Dose: 40 mg Benzocaine/Menthol (Cepacol Sore Throat) 1 carolee MT Q2H PRN PRN Reason: Sore Throat Budesonide (Pulmicort Respules) 0.5 mg IH [id number] [facility] Last Admin: 02/14/18 07:21 Dose: 0.5 mg Clopidogrel Bisulfate (Plavix) 75 mg PO DAILY [facility] Last Admin: 02/14/18 11:33 Dose: 75 mg Heparin Sodium (Porcine) (Heparin) 5,000 units SC Q12 [facility] PRN Reason: Protocol Last Admin: 02/14/18 11:32 Dose: 5,000 units Sodium Chloride (Sodium Chloride 0.9%) 1,000 mls @ 100 mls/hr IV .Q10H [facility] Last Admin: 02/13/18 21:19 Dose: 100 mls/hr Lorazepam (Ativan) 0.5 mg PO HS [facility] PRN Reason: Protocol Metoprolol Tartrate (Lopressor) 5 mg IVP Q6H [facility] Morphine Sulfate (Morphine) 2 mg IVP Q6H PRN PRN Reason: Pain, moderate (4-7) Last Admin: 02/14/18 01:16 Dose: 2 mg Nystatin (Mycostatin Cream) 1 ea TOP TID [facility] Last Admin: 02/14/18 11:32 Dose: 1 applic Oxycodone/Acetaminophen (Percocet 5/325 Mg Tab) 1 tab PO Q6H PRN PRN Reason: Pain, severe (8-10) Stop: 02/14/18 19:25 Last Admin: 02/13/18 17:20 Dose: 1 tab Pantoprazole Sodium (Protonix Inj) 40 mg IVP DAILY [facility] Last Admin: 02/14/18 11:33 Dose: 40 mg Venlafaxine HCl (Effexor Xr) 75 mg PO BID [facility] - Labs Labs: 02/14/18 11:10 02/14/18 06:00 PT 12.2 SECONDS (9.4-12.5) 02/11/18 11:53 INR 1.06 (0.93-1.08) 02/11/18 11:53 APTT 25.1 Seconds (25.1-36.5) 02/11/18 11:53
--- NOTE | 2018-02-14 12:25 | RAD ---
HISTORY: shortness of breath COMPARISON: 02/13/2018 FINDINGS: LUNGS: There is resolution of the lower lobe infiltrates and vascular congestion. PLEURA: No significant pleural effusion identified, no pneumothorax apparent. CARDIOVASCULAR: Moderate cardiomegaly OSSEOUS STRUCTURES: No significant abnormalities. VISUALIZED UPPER ABDOMEN: Normal. OTHER FINDINGS: None. IMPRESSION: There is resolution of the lower lobe infiltrates and vascular congestion.
--- NOTE | 2018-02-14 13:10 | PN ---
DATE: 02/14/2018 SECOND DAY POSTOP An 87-year-old female in room 361, bed 1, who underwent a left hip open reduction and internal fixation for a highly displaced comminuted subtrochanteric fracture and it was pinned with AFFIXUS octavio and the surgery was on 02/11/2018. She looks much better today. She still has neurologic findings of weakness on the left side, which she can verbalize better and has been taking right food for p.o. Her hemoglobin is 8.2 after two units of blood, no shift with white count and we will try to get her to therapy, out of bed or even to the edge of the bed, just to mobilize her, but there is no need to be alarmed about the CAT scan that shows a little hematoma of the left hip. This is common in an extensive fracture like this with significant surgery to put the bone back together, but the wound is dry, there is no even oozing and swelling is not undo; so, we will follow her closely. Hopefully, to get her up out of bed and she could not put weight on the leg and hopefully, doing improve. We will follow her closely with you. Rodrigo Garcia DO
[2018-02-14] MEDS ORDERED: Metoprolol 1 mg/ml Inj IVP PRN (14:18)
--- NOTE | 2018-02-14 16:26 | CARD ---
APPROVED REPORT EKG Measurement Heart [id number] <Conclusion> Sinus rhythm with premature atrial complexes in a pattern of bigeminy Septal infarct, age undetermined Abnormal ECG
[2018-02-14] MEDS ORDERED: Venlafaxine 75 mg ER Cap PO SCH (18:00)
--- NOTE | 2018-02-14 23:49 | CP.PCM.PN ---
Addendum entered and electronically signed by Taylor Fried DO 02/15/18 00:14: Of note: Patient had 5 beats of Vtach after cardizem 5mg ivp was administered Original Note: <Taylor Fried - Last Filed: 02/14/18 23:44> Subjective - Date & Time of Evaluation Date of Evaluation: 02/14/18 Time of Evaluation: 23:44 - Subjective Subjective: Overnight resident progress note Resident paged as patient was in rapid Afib with HR 170-180bpm despite receiving a dose of Verapamil Patient was lying in bed and in NAD. She was ao x 0 but denied any acute chest pain. STAT CMP, Mg, Phos, Troponin, EKG ordered. Patient to be transferred to [facility] to be given cardizem bolus and started on cardizem gtt. Vitals as follows: BP 132/43 HR 184bpm O2 93% Temp 99.4F Hospitalist Dr. Brandon aware Taylor Fried PGY2 Objective - Vital Signs/Intake and Output Vital Signs (last 24 hours): Temp Pulse Resp BP Pulse Ox 98.8 F 143 H 18 146/87 91 L 02/14/18 17:29 02/14/18 22:57 02/14/18 17:29 02/14/18 17:56 02/14/18 17:29 Intake and Output: 02/14/18 02/15/18 18:59 06:59 Intake Total 660 240 Output Total 1600 700 Balance -940 -460 - Medications Medications: Current Medications Arformoterol Tartrate (Brovana) 15 mcg IH BIDRESP [facility] Last Admin: 02/14/18 20:28 Dose: 15 mcg Aspirin (Aspirin Chewable) 81 mg PO DAILY [facility] Last Admin: 02/14/18 11:32 Dose: 81 mg Atorvastatin Calcium (Lipitor) 40 mg PO DIN [facility] Last Admin: 02/14/18 17:56 Dose: 40 mg Benzocaine/Menthol (Cepacol Sore Throat) 1 carolee MT Q2H PRN PRN Reason: Sore Throat Budesonide (Pulmicort Respules) 0.5 mg IH [id number] [facility] Last Admin: 02/14/18 20:28 Dose: 0.5 mg Clopidogrel Bisulfate (Plavix) 75 mg PO DAILY [facility] Last Admin: 02/14/18 11:33 Dose: 75 mg Heparin Sodium (Porcine) (Heparin) 5,000 units SC Q12 [facility] PRN Reason: Protocol Last Admin: 02/14/18 22:02 Dose: 5,000 units diltiaZEM IVPB 100mg in NS (Cardizem 100mg In Ns) 100 mls @ 5 mls/hr IV .Q20H PRN; Protocol; 5 MG/HR PRN Reason: TITRATE PER MD ORDER Levalbuterol HCl (Xopenex) 0.63 mg IH [id number] PRN PRN Reason: Shortness of Breath Lorazepam (Ativan) 0.5 mg PO HS [facility] PRN Reason: Protocol Last Admin: 02/14/18 22:02 Dose: 0.5 mg Morphine Sulfate (Morphine) 2 mg IVP Q6H PRN PRN Reason: Pain, moderate (4-7) Nystatin (Mycostatin Cream) 1 ea TOP TID [facility] Last Admin: 02/14/18 11:32 Dose: 1 applic Pantoprazole Sodium (Protonix Susp) 40 mg PO 0600 [facility] Risperidone (Risperdal Oral Soln) 0.5 mg PO 2200 [facility] Last Admin: 02/14/18 22:03 Dose: 0.5 mg Risperidone (Risperdal Oral Soln) 0.25 mg PO 1000,1600 [facility] Venlafaxine HCl (Effexor Xr) 75 mg PO DAILY [facility] Verapamil HCl (Calan Tab) 40 mg PO TID [facility] Last Admin: 02/14/18 17:56 Dose: 40 mg Verapamil HCl (Verapamil Inj) 2.5 mg IVP Q6H PRN PRN Reason: for heart rate >130 Last Admin: 02/14/18 22:57 Dose: 2.5 mg Ziprasidone (Geodon Inj) 10 mg IM Q4H PRN PRN Reason: Agitation - Labs Labs: 02/14/18 11:10 02/14/18 06:00 PT 12.2 SECONDS (9.4-12.5) 02/11/18 11:53 INR 1.06 (0.93-1.08) 02/11/18 11:53 APTT 25.1 Seconds (25.1-36.5) 02/11/18 11:53 <Addy Brandon - Last Filed: 02/15/18 02:42> Objective - Vital Signs/Intake and Output Vital Signs (last 24 hours): Temp Pulse Resp BP Pulse Ox 98.8 F 140 H 18 121/49 L 91 L 02/14/18 17:29 02/15/18 02:33 02/14/18 17:29 02/15/18 02:33 02/14/18 17:29 Intake and Output: 02/14/18 02/15/18 18:59 06:59 Intake Total 660 240 Output Total 1600 700 Balance -940 -460 - Medications Medications: Current Medications Arformoterol Tartrate (Brovana) 15 mcg IH BIDRESP [facility] Last Admin: 02/14/18 20:28 Dose: 15 mcg Aspirin (Aspirin Chewable) 81 mg PO DAILY [facility] Last Admin: 02/14/18 11:32 Dose: 81 mg Atorvastatin Calcium (Lipitor) 40 mg PO DIN [facility] Last Admin: 02/14/18 17:56 Dose: 40 mg Benzocaine/Menthol (Cepacol Sore Throat) 1 carolee MT Q2H PRN PRN Reason: Sore Throat Budesonide (Pulmicort Respules) 0.5 mg IH [id number] [facility] Last Admin: 02/14/18 20:28 Dose: 0.5 mg Clopidogrel Bisulfate (Plavix) 75 mg PO DAILY [facility] Last Admin: 02/14/18 11:33 Dose: 75 mg Heparin Sodium (Porcine) (Heparin) 5,000 units SC Q12 [facility] PRN Reason: Protocol Last Admin: 02/14/18 22:02 Dose: 5,000 units diltiaZEM IVPB 100mg in NS (Cardizem 100mg In Ns) 100 mls @ 5 mls/hr IV .Q20H PRN; Protocol; 5 MG/HR PRN Reason: TITRATE PER MD ORDER Last Admin: 02/15/18 00:45 Dose: 5 mg/hr, 5 mls/hr Levalbuterol HCl (Xopenex) 0.63 mg IH [id number] PRN PRN Reason: Shortness of Breath Lorazepam (Ativan) 0.5 mg PO HS [facility] PRN Reason: Protocol Last Admin: 02/14/18 22:02 Dose: 0.5 mg Morphine Sulfate (Morphine) 2 mg IVP Q6H PRN PRN Reason: Pain, moderate (4-7) Nystatin (Mycostatin Cream) 1 ea TOP TID [facility] Last Admin: 02/14/18 11:32 Dose: 1 applic Pantoprazole Sodium (Protonix Susp) 40 mg PO 0600 [facility] Risperidone (Risperdal Oral Soln) 0.5 mg PO 2200 [facility] Last Admin: 02/14/18 22:03 Dose: 0.5 mg Risperidone (Risperdal Oral Soln) 0.25 mg PO 1000,1600 [facility] Venlafaxine HCl (Effexor Xr) 75 mg PO DAILY [facility] Verapamil HCl (Calan Tab) 40 mg PO TID [facility] Last Admin: 02/14/18 17:56 Dose: 40 mg Verapamil HCl (Verapamil Inj) 2.5 mg IVP Q6H PRN PRN Reason: for heart rate >130 Last Admin: 02/14/18 22:57 Dose: 2.5 mg Ziprasidone (Geodon Inj) 10 mg IM Q4H PRN PRN Reason: Agitation - Labs Labs: 02/14/18 11:10 02/15/18 00:10 PT 12.2 SECONDS (9.4-12.5) 02/11/18 11:53 INR 1.06 (0.93-1.08) 02/11/18 11:53 APTT 25.1 Seconds (25.1-36.5) 02/11/18 11:53 Attending/Attestation - Attestation I have personally seen and examined this patient.: Yes I have fully participated in the care of the patient.: Yes I have reviewed all pertinent clinical information, including history, physical exam and plan: Yes Notes (Text): 02/15/18 02:41 Agree with documentation. # 24 angiocath was inserted in right hand.
[2018-02-15] MEDS: diltiaZEM IVPB 100mg in NS 100 ML IV PRN ×2 (00:45→04:53)
[2018-02-15 00:49] LABS: ALBUMIN 2.9 g/dL (3.0-4.8); ALT/SGPT 71 U/L (7-56); AST/SGOT 99 U/L (14-36); BLOOD UREA NITROGEN 23 mg/dL (7-21); CALCIUM 8.5 mg/dL (8.4-10.5); GFR AFRICAN-AMERICAN > 60; GFR NON-AFRICAN AMERICAN 52
[2018-02-15 00:54] LABS: TROPONIN I 0.07 ng/mL
--- NOTE | 2018-02-15 03:21 | CON ---
DATE: 02/14/2018 PSYCHIATRIC CONSULTATION HISTORY OF PRESENT ILLNESS: Patient is an 87-year-old white female. I have reviewed the charts at length with her daughter. The patient is well known to me as I have treated her in the past for mood disturbances related to probable bipolar disorder. Recently she came to the emergency room following a fall at home and sustained an intertrochanteric fracture. She also has developed, on repeat CAT scan, a new acute CVA. PAST MEDICAL HISTORY: Includes in the distant past, history of alcohol abuse, bipolar disorder, thrombophlebitis, she has had a recent ankle fracture, she has had pulmonary embolism in the past, she has hypertension, osteoarthritis, COPD, she has had multiple small lacunar infarcts of the brain. She has also had an occipital lobe infarct in the past. She just recently had a gait dysfunction. The patient in the past had a subarachnoid bleed. CURRENT MENTAL STATUS: She has been noticed to be quite aggressive, confused and generally nasty. When I spoke with the patient, she knew I was a psychiatrist, but kept saying "I want my daughter out of here, she is not good." She is disoriented to month, year and day. Her recent memory is impaired as is her judgment and insight. Her concentration and recent memory are quite impaired. CURRENT MEDICATIONS: Are as follows: Her home medicines at point consisted Latuda 20 mg daily, which she has not been taking recently. The patient has been prescribed at home chewable aspirin; lorazepam 0.5 mg; Brovana inhaler; verapamil; venlafaxine 75 mg twice a day; Lipitor and Plavix. CURRENT LABORATORY DATA: As follows: Her white count is 13,900, hemoglobin is 8.9, hematocrit is 27.9. The patient's metabolic profile today, her sodium is 143, potassium 4.7, chloride 113, CO2 24 and anion gap 12. BUN 25, creatinine 1.3, estimated GFR is 39. Random glucose 116. Calcium 8.1. Phosphorus, magnesium, total bilirubin normal. AST 54, ALT is 57, alk phos 50, albumin is 2.7. Last TSH was done was on 02/12/2018, which was normal. Her most recent chest x-ray earlier today reveals resolution of the lower lobe infiltrates and vascular congestion that previously was seen. The patient had a soft tissue neck CT, which reveals a large left lobe of the thyroid gland without hyperdense nodule or calcification. There is a calcification on the right lobe. There is a small calcification on left submandibular gland. Her echocardiogram reveals normal left ventricle with normal left ventricular function. There is a normal LV segmental wall motion. There is [id number] pulmonary hypertension. The patient's electrocardiogram on admission revealed sinus rhythm with APCs and nonspecific ST wave changes. Patient had a renal ultrasound, which was unremarkable. Her most recent CT scan of the head reveals moderate chronic white matter ischemic changes with scattered chronic bilateral basal nuclei and brain stem lacunar infarcts. CT scan of head demonstrated cystic encephalomalacia changes around the left occipital pole. SOCIAL HISTORY: She is a . She has a daughter. She lives in a two-family house with a longstanding close male friend. PHYSICAL EXAMINATION: VITAL SIGNS: Her blood pressure is 146/87, pulse 114. O2 saturation is 91% on nasal cannula. GENERAL: Patient has a left upper extremity hemiparesis. PSYCHIATRIC: Rest of mental status exam is as noted above reveals that she is somewhat belligerent, she recognizes me, does not know my name however, as a psychiatrist. She is very nasty towards her daughter, very belligerent towards nursing staff. Judgment and insight as noted above are very poor. IMPRESSION: Patient has a delirium secondary to multiple medical problems including intertrochanteric fracture. She has acute azotemia. She has estimated glomerular filtration rate of 39. She has a history of pulmonary hypertension and emphysema. She has a past history of bipolar type disorder. She is status post postoperative repair of hip fracture, chronic atrial fibrillation on and off, and chronic obstructive pulmonary disease. PLAN: I will order Risperdal 0.5 mg p.o. tonight. I will also leave an order for IM p.r.n. Geodon 10 mg for agitation. I would also order tomorrow 0.25 mg twice a day of Risperdal, and we will reevaluate tomorrow. Jm Solorzano MD [facility]
[2018-02-15] MEDS: Pantoprazole 40 mg Susp UD PO SCH (06:35)
[2018-02-15] MEDS ORDERED: Digoxin 500 mcg/2ml (0.5 mg/2ml) Inj IVP STA (06:39)
[2018-02-15 06:55] VITALS: PULSE 132
[2018-02-15] MEDS: Budesonide 0.5 mg/2 ml Inhal Susp UD IH SCH ×2 (07:16→19:40)
[2018-02-15] MEDS: Arformoterol 15 mcg/2 ml Inh Sol IH SCH ×2 (07:16→19:40)
[2018-02-15 07:23] LABS: ALT/SGPT 66 U/L (7-56); AST/SGOT 86 U/L (14-36); BLOOD UREA NITROGEN 23 mg/dL (7-21); CALCIUM 8.6 mg/dL (8.4-10.5); GFR AFRICAN-AMERICAN > 60; GFR NON-AFRICAN AMERICAN 52
[2018-02-15 07:27] LABS: TROPONIN I 0.06 ng/mL
[2018-02-15 07:43] LABS: BASO # 0.01 K/mm3 (0.0-2.0); BASO % 0.1 % (0.0-3.0); EOS % 0.2 % (1.5-5.0); GRAN # 8.19 (1.4-6.5); GRAN % 76.9 % (50.0-68.0); HEMOGLOBIN 8.6 g/dL (12.0-16.0); LYMPH # 1.3 (1.2-3.4); LYMPH % 12.3 % (22.0-35.0); MEAN CORPUSCULAR HEMOGLOBIN 31.3 pg (25.0-35.0); MEAN CORPUSCULAR HGB CONC 32.6 g/dl (31.0-37.0); MEAN PLATELET VOLUME 11.4 fl (7.0-11.0); MONO # 1.1 (0.1-0.6); MONO % 10.5 % (1.0-6.0); RBC 2.75 10^6/uL (3.5-6.1); RED CELL DISTRIBUTION WIDTH 15.8 % (11.5-14.5); WHITE BLOOD COUNT 10.7 10^3/ul (4.5-11.0)
--- NOTE | 2018-02-15 07:48 | CP.PCM.PN ---
<DeyanirasonidoRufus calvo - Last Filed: 02/15/18 12:35> Subjective - Date & Time of Evaluation Date of Evaluation: 02/15/18 Time of Evaluation: 07:15 - Subjective Subjective: Medicine Note for Dr. Dodd Patient seen and examined at bedside. Overnight, patient had continued tachycardia in 130s. Telemetry monitoring revealed afib rvr. EKG was done this morning and confirmed. Patient initially given IVP of cardizem. She was then started on cardizem drip. This morning, cardiology converted orders to oral medications. She is still complaining of left hip pain. Objective - Vital Signs/Intake and Output Vital Signs (last 24 hours): Temp Pulse Resp BP Pulse Ox 98.2 F 121 H 20 118/54 L 93 L 02/15/18 06:00 02/15/18 06:00 02/15/18 06:00 02/15/18 06:00 02/15/18 06:00 Intake and Output: 02/15/18 02/15/18 06:59 18:59 Intake Total 340 Output Total 1050 Balance -710 - Medications Medications: Current Medications Arformoterol Tartrate (Brovana) 15 mcg IH BIDRESP [facility] Last Admin: 02/15/18 07:16 Dose: 15 mcg Aspirin (Aspirin Chewable) 81 mg PO DAILY [facility] Last Admin: 02/14/18 11:32 Dose: 81 mg Atorvastatin Calcium (Lipitor) 40 mg PO DIN [facility] Last Admin: 02/14/18 17:56 Dose: 40 mg Benzocaine/Menthol (Cepacol Sore Throat) 1 carolee MT Q2H PRN PRN Reason: Sore Throat Budesonide (Pulmicort Respules) 0.5 mg IH [id number] [facility] Last Admin: 02/15/18 07:16 Dose: 0.5 mg Clopidogrel Bisulfate (Plavix) 75 mg PO DAILY [facility] Last Admin: 02/14/18 11:33 Dose: 75 mg Heparin Sodium (Porcine) (Heparin) 5,000 units SC Q12 [facility] PRN Reason: Protocol Last Admin: 02/14/18 22:02 Dose: 5,000 units diltiaZEM IVPB 100mg in NS (Cardizem 100mg In Ns) 100 mls @ 5 mls/hr IV .Q20H PRN; Protocol; 5 MG/HR PRN Reason: TITRATE PER MD ORDER Last Admin: 02/15/18 04:53 Dose: 5 mg/hr, 5 mls/hr Levalbuterol HCl (Xopenex) 0.63 mg IH [id number] PRN PRN Reason: Shortness of Breath Lorazepam (Ativan) 0.5 mg PO HS [facility] PRN Reason: Protocol Last Admin: 02/14/18 22:02 Dose: 0.5 mg Morphine Sulfate (Morphine) 2 mg IVP Q6H PRN PRN Reason: Pain, moderate (4-7) Nystatin (Mycostatin Cream) 1 ea TOP TID [facility] Last Admin: 02/14/18 11:32 Dose: 1 applic Pantoprazole Sodium (Protonix Susp) 40 mg PO 0600 [facility] Last Admin: 02/15/18 06:35 Dose: 40 mg Risperidone (Risperdal Oral Soln) 0.5 mg PO 2200 [facility] Last Admin: 02/14/18 22:03 Dose: 0.5 mg Risperidone (Risperdal Oral Soln) 0.25 mg PO 1000,1600 [facility] Venlafaxine HCl (Effexor Xr) 75 mg PO DAILY [facility] Verapamil HCl (Calan Tab) 40 mg PO TID [facility] Last Admin: 02/14/18 17:56 Dose: 40 mg Verapamil HCl (Verapamil Inj) 2.5 mg IVP Q6H PRN PRN Reason: for heart rate >130 Last Admin: 02/14/18 22:57 Dose: 2.5 mg Ziprasidone (Geodon Inj) 10 mg IM Q4H PRN PRN Reason: Agitation - Labs Labs: 02/15/18 06:30 02/15/18 06:30 PT 12.2 SECONDS (9.4-12.5) 02/11/18 11:53 INR 1.06 (0.93-1.08) 02/11/18 11:53 APTT 25.1 Seconds (25.1-36.5) 02/11/18 11:53 - Constitutional Appears: No Acute Distress - Head Exam Head Exam: ATRAUMATIC, NORMOCEPHALIC - Eye Exam Eye Exam: Normal appearance - ENT Exam ENT Exam: Mucous Membranes Moist - Respiratory Exam Respiratory Exam: NORMAL BREATHING PATTERN - Cardiovascular Exam Cardiovascular Exam: Tachycardia, Irregular Rhythm - GI/Abdominal Exam GI & Abdominal Exam: Soft, Normal Bowel Sounds - Extremities Exam Extremities Exam: absent: Calf Tenderness Additional comments: surgical dressing clean dry and intact - Back Exam Back Exam: absent: CVA tenderness (L), CVA tenderness (R) - Neurological Exam Neurological Exam: Alert, Awake - Psychiatric Exam Psychiatric exam: Agitated - Skin Skin Exam: Dry, Intact, Warm Assessment and Plan - Assessment and Plan (Free Text) Plan: (1) Intertrochanteric fracture of left hip Assessment & Plan: s/p ORIF Ortho on board (Christianoonatere) Morphine and Percocet for pain PT/OT Hgb stable air mattress Turn Q2 ICS Status: Acute (2) Left arm weakness, s/p CVA Assessment & Plan: Neuro on board (Ramon) f/u carotid US ASA Plavix Lipitor Repeat CT shows acute infarction in R. Parasaggital posterior frontal parietal region at vertex. Ramon made aware. Started on atorvastatin 40. Held lovenox, asa and plavix as patient is currently bleeding from operative site. Aspiration precautions PT/OT Status: Acute (3) HTN Assessment & Plan: Cardio consult Verapamil 80 mg PO TID Atenolol 25 mg PO daily Status: Chronic (5) A-fib Assessment & Plan: Tachycardic in 130s Ekg shows afib with RVR Cardio consult Verapamil 80 mg PO TID Amiodarone 200 mg PO daily Eliquis 5 mg PO BID Atenolol 25 mg PO daily Status: Chronic (6) COPD (chronic obstructive pulmonary disease) Assessment & Plan: Pulmicort Xopenex Brovana Status: Chronic (8) Depression/Dementia Assessment & Plan: Fabricio Mauricio Ativan Psych consult (9)Prophylactic measures Assessment & Plan: Protonix Aspiration precautions Status: Acute <Radha Dodd - Last Filed: 02/15/18 16:49> Objective - Vital Signs/Intake and Output Vital Signs (last 24 hours): Temp Pulse Resp BP Pulse Ox 97.7 F 93 H 18 131/58 L 93 L 02/15/18 12:00 02/15/18 14:00 02/15/18 12:00 02/15/18 12:37 02/15/18 06:00 Intake and Output: 02/15/18 02/15/18 06:59 18:59 Intake Total 340 380 Output Total 1050 425 Balance -710 -45 - Medications Medications: Current Medications Amiodarone HCl (Cordarone) 200 mg PO DAILY [facility] Amiodarone HCl (Cordarone) 400 mg PO ONCE ONE Stop: 02/15/18 18:01 Apixaban (Eliquis) 5 mg PO BID [facility] PRN Reason: Protocol Arformoterol Tartrate (Brovana) 15 mcg IH BIDRESP [facility] Last Admin: 02/15/18 07:16 Dose: 15 mcg Aspirin (Aspirin Chewable) 81 mg PO DAILY [facility] Last Admin: 02/15/18 09:17 Dose: 81 mg Atenolol (Tenormin) 25 mg PO DAILY [facility] Atorvastatin Calcium (Lipitor) 40 mg PO DIN [facility] Last Admin: 02/14/18 17:56 Dose: 40 mg Benzocaine/Menthol (Cepacol Sore Throat) 1 carolee MT Q2H PRN PRN Reason: Sore Throat Budesonide (Pulmicort Respules) 0.5 mg IH [id number] [facility] Last Admin: 02/15/18 07:16 Dose: 0.5 mg Clopidogrel Bisulfate (Plavix) 75 mg PO DAILY [facility] Last Admin: 02/15/18 09:16 Dose: 75 mg Levalbuterol HCl (Xopenex) 0.63 mg IH [id number] PRN PRN Reason: Shortness of Breath Lorazepam (Ativan) 0.5 mg PO HS [facility] PRN Reason: Protocol Last Admin: 02/14/18 22:02 Dose: 0.5 mg Morphine Sulfate (Morphine) 2 mg IVP Q6H PRN PRN Reason: Pain, moderate (4-7) Last Admin: 02/15/18 11:21 Dose: 2 mg Nystatin (Mycostatin Cream) 1 ea TOP TID [facility] Last Admin: 02/15/18 14:33 Dose: 1 applic Pantoprazole Sodium (Protonix Susp) 40 mg PO 0600 [facility] Last Admin: 02/15/18 06:35 Dose: 40 mg Risperidone (Risperdal Oral Soln) 0.5 mg PO 2200 [facility] Last Admin: 02/14/18 22:03 Dose: 0.5 mg Risperidone (Risperdal Oral Soln) 0.25 mg PO 1000,1600 [facility] Last Admin: 02/15/18 09:26 Dose: 0.25 mg Venlafaxine HCl (Effexor Xr) 75 mg PO DAILY [facility] Last Admin: 02/15/18 09:16 Dose: 75 mg Verapamil HCl (Calan Tab) 80 mg PO TID [facility] Ziprasidone (Geodon Inj) 10 mg IM Q4H PRN PRN Reason: Agitation - Labs Labs: 02/15/18 06:30 02/15/18 06:30 PT 12.2 SECONDS (9.4-12.5) 02/11/18 11:53 INR 1.06 (0.93-1.08) 02/11/18 11:53 APTT 25.1 Seconds (25.1-36.5) 02/11/18 11:53 Attending/Attestation - Attestation I have personally seen and examined this patient.: Yes I have fully participated in the care of the patient.: Yes I have reviewed all pertinent clinical information, including history, physical exam and plan: Yes Notes (Text): 02/15/18 16:45 Medical record note made by the resident after discussion with my direction and input after the patient was personally seen and examined by me. I have reviewed the chart and agree that the record accurately reflects by personal performance of the history, physical exam, data review, and medical decision-making, in the course for the patient. I have also personally directed the plan of care. 87 years old female with PMH of COPD,HTN,Proxysmal AF not on anticoagulation due to high risk of fall was admitted with mechanical fall and had left hip fracture.She underwent ORIF 02/11/18. she is also sp one unit of PRBC after surgery.She had stroke code on 02/12/18 and had right MCA infarct,acute infarction in R. Parasaggital posterior frontal parietal region at vertex) resulting in left sided hemiplegia and dysarthria. Patient went into AF with RVR, and was transferred to telemetry, was treated with cardizem drip, currently off drip, rate is better controlled with atenolol and amiodrone.Cardiology is following. Management plan was discussed in detail with patient. Education was provided.
--- NOTE | 2018-02-15 08:28 | PN ---
DATE: 02/14/2018 TYPE OF DICTATION: Addendum to initial progress note dictated by nurse practitioner. REASON FOR ADDENDUM: The patient erratic heart rate goes from 120 to 130 suggesting this is an AFib, but it looks like normal sinus APCs. The patient becomes very much agitated. is at the bedside, want Effexor now and also wants Ativan. So, the patient becomes agitated and the heart rate went again tachycardia from sinus tachycardia to APCs, which apparently looks like AFib. So, 5 mg of Lopressor was given by the resident. Now, we will change the plan as we will discontinue Lopressor IV, discontinue Lopressor p.o., discontinue albuterol because the patient is getting it in 2 hours and that cause more tachycardia. So, we will change to Xopenex 0.63 every 6 p.r.n. and also change to verapamil 40 mg p.o. every 8 hours and give 2.5 p.r.n. We will follow with you as an outpatient normal sinus. A repeat EKG done after giving Lopressor to normal sinus. Telemetry shows APCs, heart rate of 91. Discussed in length with the and the family at the bedside. We will continue DVT prophylaxis and we will follow with you. Thank you, Dr. Vazquez, for providing us the opportunity in taking care of the patient, Batsheva Nunez. Radha Mortensen MD
--- NOTE | 2018-02-15 09:07 | PN ---
DATE: 02/15/2018 PULMONARY NOTE SUBJECTIVE: The patient appears comfortable this morning. She is not short of breath at rest. PHYSICAL EXAMINATION: VITAL SIGNS: Temperature is 98.2, pulse on the monitor is 107, respiratory rate 18-20, blood pressure 118/54. Oxygen saturation on nasal cannula is 93-94%. HEENT: Normocephalic, atraumatic. No JVD. CARDIOVASCULAR: Systolic ejection murmur at the lower left sternal border. No S3 gallop. LUNGS: Decreased breath sounds at the bases. Minimal/less rhonchi. No wheezing. EXTREMITIES: Positive for mild edema. No cyanosis or clubbing. Calves are nontender to palpation. The left hip is postoperative. GASTROINTESTINAL: Abdomen is soft, nontender, and nondistended. Bowel sounds are positive. SKIN: No acute rash. NEUROLOGIC: Limited at the present time. IMPRESSION: 1. Rapid atrial fibrillation. 2. Left hip fracture, status post fall at home. 3. Advanced chronic obstructive pulmonary disease. 4. Anemia. 5. Renal insufficiency. 6. Rule out cerebrovascular accident. PLAN: The patient appears comfortable this morning. She is not short of breath at rest. I did discuss the case with the night nurse at length. The night nurse stated that the patient was transferred to telemetry yesterday - due to an increased heart rate. The patient is currently on a Cardizem drip. On physical exam, there is less bronchospasm noted. In addition, the alveolar-arterial gradient is also less. I will continue with current nebulizer treatments and inhaled steroids for now. I will also continue with the aspiration precautions. Inputs by renal, cardiology, and infectious disease are noted. Repeat a.m. labs are pending. The clinical status of the patient remains guarded at this point in time. I will discuss the above with the attending physician. Ranjit Burnham MD MTDD
[2018-02-15] MEDS: Venlafaxine 75 mg ER Cap PO SCH (09:16)
[2018-02-15] MEDS: Nystatin 100,000 Units/gm Cream(15 gm) TOP SCH ×3 (10:32→18:14)
[2018-02-15] MEDS ORDERED: diltiaZEM IVPB 100mg in NS 100 ML IV SCH (11:00)
--- NOTE | 2018-02-15 11:06 | CP.PCM.PN ---
Subjective - Date & Time of Evaluation Date of Evaluation: 02/15/18 Time of Evaluation: 09:10 - Subjective Subjective: Patient for carotid ultrasound, no fevers, not in distress. Objective - Vital Signs/Intake and Output Vital Signs (last 24 hours): Temp Pulse Resp BP Pulse Ox 98.8 F 140 H 18 136/50 L 91 L 02/14/18 17:29 02/15/18 04:34 02/14/18 17:29 02/15/18 04:34 02/14/18 17:29 Intake and Output: 02/14/18 02/15/18 18:59 06:59 Intake Total 660 340 Output Total 1600 1050 Balance -940 -710 - Medications Medications: Current Medications Arformoterol Tartrate (Brovana) 15 mcg IH BIDRESP [facility] Last Admin: 02/14/18 20:28 Dose: 15 mcg Aspirin (Aspirin Chewable) 81 mg PO DAILY [facility] Last Admin: 02/14/18 11:32 Dose: 81 mg Atorvastatin Calcium (Lipitor) 40 mg PO DIN [facility] Last Admin: 02/14/18 17:56 Dose: 40 mg Benzocaine/Menthol (Cepacol Sore Throat) 1 carolee MT Q2H PRN PRN Reason: Sore Throat Budesonide (Pulmicort Respules) 0.5 mg IH [id number] [facility] Last Admin: 02/14/18 20:28 Dose: 0.5 mg Clopidogrel Bisulfate (Plavix) 75 mg PO DAILY [facility] Last Admin: 02/14/18 11:33 Dose: 75 mg Heparin Sodium (Porcine) (Heparin) 5,000 units SC Q12 [facility] PRN Reason: Protocol Last Admin: 02/14/18 22:02 Dose: 5,000 units diltiaZEM IVPB 100mg in NS (Cardizem 100mg In Ns) 100 mls @ 5 mls/hr IV .Q20H PRN; Protocol; 5 MG/HR PRN Reason: TITRATE PER MD ORDER Last Admin: 02/15/18 04:53 Dose: 5 mg/hr, 5 mls/hr Levalbuterol HCl (Xopenex) 0.63 mg IH [id number] PRN PRN Reason: Shortness of Breath Lorazepam (Ativan) 0.5 mg PO HS [facility] PRN Reason: Protocol Last Admin: 02/14/18 22:02 Dose: 0.5 mg Morphine Sulfate (Morphine) 2 mg IVP Q6H PRN PRN Reason: Pain, moderate (4-7) Nystatin (Mycostatin Cream) 1 ea TOP TID [facility] Last Admin: 02/14/18 11:32 Dose: 1 applic Pantoprazole Sodium (Protonix Susp) 40 mg PO 0600 [facility] Last Admin: 02/15/18 06:35 Dose: 40 mg Risperidone (Risperdal Oral Soln) 0.5 mg PO 2200 [facility] Last Admin: 02/14/18 22:03 Dose: 0.5 mg Risperidone (Risperdal Oral Soln) 0.25 mg PO 1000,1600 [facility] Venlafaxine HCl (Effexor Xr) 75 mg PO DAILY [facility] Verapamil HCl (Calan Tab) 40 mg PO TID [facility] Last Admin: 02/14/18 17:56 Dose: 40 mg Verapamil HCl (Verapamil Inj) 2.5 mg IVP Q6H PRN PRN Reason: for heart rate >130 Last Admin: 02/14/18 22:57 Dose: 2.5 mg Ziprasidone (Geodon Inj) 10 mg IM Q4H PRN PRN Reason: Agitation - Labs Labs: 02/14/18 11:10 02/15/18 00:10 PT 12.2 SECONDS (9.4-12.5) 02/11/18 11:53 INR 1.06 (0.93-1.08) 02/11/18 11:53 APTT 25.1 Seconds (25.1-36.5) 02/11/18 11:53 - Constitutional Appears: Non-toxic, Chronically Ill - Head Exam Head Exam: NORMAL INSPECTION - Respiratory Exam Respiratory Exam: Decreased Breath Sounds - Cardiovascular Exam Cardiovascular Exam: +S1, +S2 - GI/Abdominal Exam GI & Abdominal Exam: Soft. absent: Tenderness Assessment and Plan - Assessment and Plan (Free Text) Plan: Assessment S/P treatment of E. coli UTI acute femoral fracture S/P ORIF POD #4 acute renal failure HTN subarachnoid hemorrhage atrial fibrillation not on anticoagulation due to risk of GI bleed depression COPD pseudogout pulmonary HTN history of left frontal subarachnoid hemorrhage S/P appendectomy obesity with BMI 31 Plan Patient has had 5 days of Bactrim - repeat urine cx are negative - will continue to monitor off antibiotics since she is at risk for nosocomial infections follow up work up for acute CVA
[2018-02-15] MEDS: Morphine 2 mg/ml ISec IVP PRN (11:21)
--- NOTE | 2018-02-15 12:23 | CP.PCM.PN ---
Subjective - Date & Time of Evaluation Date of Evaluation: 02/15/18 Time of Evaluation: 12:21 - Subjective Subjective: Nephrology Consultation: Assessment: Stable Acute Kidney Injury (N17.9) likely hemodyamic due to relative hypotension during surgery and likely impaired auto-regulation of RBF: RESOLVED Mild hyperkalemia, acidosis: RESOLVED anemia of acute blood loss hypertension obesity, A fib, SAH fall and had Rt femoral fracture s/p ORIF pulmonary HTN COPD on home O2 Plan No acute need for renal replacement therapy at this time. AMOR has resolved. good UOP. Lytes stable Patient not on ACEI/ARB due to AMOR. on A fib rate control meds encouraged oral intake PRBC 02/13/18 management of anemia as per primary team Dose meds/antibiotics for improved GFR. Glycemic control Further work up/management of COPD/hypoxia/a fib and other issues as per primary team Thanks for allowing me to participate in care of your patient. Will sign off and follow PRN. Please call if any Qs. d/w family Dr Fer Henry Office: [phone] Chief Complaint; I fell down reason for consult: AMOR HPI: Pt is a 87 F with hx of hypertension (years) obesity, A fib, SAH presented with complaints of fall and had Rt femoral fracture, underwent surgical intervention but developed AMOR hence consulted Denies OTC/herbal meds or NSAIDs No recent iodinated contrast exposure. Noted obvious episodes of low BP in intra -op period (100/40s) urine output better s/p ramos and IV fluids pt feels better. not aware about kidney disease in past ROS: Cardiovascular: No chest pain. Pulmonary: no shortness of breath Gastrointestinal: denies abdominal pain No nausea. No vomiting. Genitourinary: No pain while urinating. Denies blood in urine. has ramos All other negative Physical Examination: General Appearance: Comfortable, in no acute respiratory distress, co-operative . obese. Vitals reviewed and noted as below Head; Atraumatic, normocephalic ENT: no ulcers no thrush. Tongue is midline/dry. Oropharynx: no rash or ulcers. EYES: Pupils are equal, round and reactive to light accommodation. Eye muscles and extraocular movement intact. Sclera is anicteric. Neck; supple no lymphadenopathy, no thyromegaly or bruit Lungs: normal respiratory rate/effort. Breath sounds bilateral clear anteriorly Heart: Increased rate. s1s2 normal. No rub or gallop. afib+ Extremities: no edema. No varicose veins Neurological: Patient is alert, awake and oriented to person, place and time. No focal deficit. Strength bilateral appropriate and equal Skin: Warm and dry. Normal turgor. No rash. Palpitation: Normal elasticity for age Abdomen: Abdomen is soft. Bowel sounds +. There is no abdominal tenderness, no guarding/rigidity no organomegaly Psych: limited insight and normal affect/mood MSK: no joint tenderness or swelling. Digits and nails normal, no deformity : kidney or bladder not palpable Labs/imaging reviewed. Past medical history, past surgical history, family history, social history, allergy reviewed and noted as below Family hx: no hx of CKD. Rest non-contributory Renal imaging: no obstruction Objective - Vital Signs/Intake and Output Vital Signs (last 24 hours): Temp Pulse Resp BP Pulse Ox 97.7 F 55 L 18 131/50 L 93 L 02/15/18 12:00 02/15/18 12:00 02/15/18 12:00 02/15/18 12:00 02/15/18 06:00 Intake and Output: 02/15/18 02/15/18 06:59 18:59 Intake Total 340 20 Output Total 1050 Balance -710 20 - Medications Medications: Current Medications Amiodarone HCl (Cordarone) 200 mg PO DAILY [facility] Amiodarone HCl (Cordarone) 400 mg PO ONCE ONE Stop: 02/15/18 18:01 Apixaban (Eliquis) 5 mg PO BID [facility] PRN Reason: Protocol Arformoterol Tartrate (Brovana) 15 mcg IH BIDRESP [facility] Last Admin: 02/15/18 07:16 Dose: 15 mcg Aspirin (Aspirin Chewable) 81 mg PO DAILY [facility] Last Admin: 02/15/18 09:17 Dose: 81 mg Atenolol (Tenormin) 25 mg PO DAILY [facility] Atorvastatin Calcium (Lipitor) 40 mg PO DIN [facility] Last Admin: 02/14/18 17:56 Dose: 40 mg Benzocaine/Menthol (Cepacol Sore Throat) 1 carolee MT Q2H PRN PRN Reason: Sore Throat Budesonide (Pulmicort Respules) 0.5 mg IH [id number] [facility] Last Admin: 02/15/18 07:16 Dose: 0.5 mg Clopidogrel Bisulfate (Plavix) 75 mg PO DAILY [facility] Last Admin: 02/15/18 09:16 Dose: 75 mg Levalbuterol HCl (Xopenex) 0.63 mg IH [id number] PRN PRN Reason: Shortness of Breath Lorazepam (Ativan) 0.5 mg PO HS [facility] PRN Reason: Protocol Last Admin: 02/14/18 22:02 Dose: 0.5 mg Morphine Sulfate (Morphine) 2 mg IVP Q6H PRN PRN Reason: Pain, moderate (4-7) Last Admin: 02/15/18 11:21 Dose: 2 mg Nystatin (Mycostatin Cream) 1 ea TOP TID [facility] Last Admin: 02/14/18 11:32 Dose: 1 applic Pantoprazole Sodium (Protonix Susp) 40 mg PO 0600 [facility] Last Admin: 02/15/18 06:35 Dose: 40 mg Risperidone (Risperdal Oral Soln) 0.5 mg PO 2200 [facility] Last Admin: 02/14/18 22:03 Dose: 0.5 mg Risperidone (Risperdal Oral Soln) 0.25 mg PO 1000,1600 [facility] Last Admin: 02/15/18 09:26 Dose: 0.25 mg Venlafaxine HCl (Effexor Xr) 75 mg PO DAILY [facility] Last Admin: 02/15/18 09:16 Dose: 75 mg Verapamil HCl (Calan Tab) 80 mg PO TID [facility] Ziprasidone (Geodon Inj) 10 mg IM Q4H PRN PRN Reason: Agitation - Labs Labs: 02/15/18 06:30 02/15/18 06:30 PT 12.2 SECONDS (9.4-12.5) 02/11/18 11:53 INR 1.06 (0.93-1.08) 02/11/18 11:53 APTT 25.1 Seconds (25.1-36.5) 02/11/18 11:53
--- NOTE | 2018-02-15 12:42 | PN ---
DATE: 02/15/2018 An 87-year-old female, presently in room 267, bed 1. She underwent an ORIF of her left hip on 02/11/2018, and is doing well orthopedically. Hemoglobin is at 8.6, and 26, which shows signs of going up, but the patient's wounds are dry, still in bed because of medical issues that are not fully controlled yet, so I have to wait until she is able to get up out of bed and help with therapy and partial weight on her left hip, the subtrochanteric fracture. The main thing she needs now is physical therapy to get her strength back and to avoid bedsores and to help her muscle tone and breathing capacity. I will follow her with the medical service. Hopefully, she can go to subacute rehab soon. Rodrigo Garcia DO [id number]
--- NOTE | 2018-02-15 13:25 | CARD ---
APPROVED REPORT EKG Measurement Heart [id number] <Conclusion> Sinus tachycardia with fequent APCs premature ventricular or aberrantly conducted APCs Abnormal ECG
--- NOTE | 2018-02-15 14:44 | PN ---
DATE: 02/15/2018 REASON FOR THE CONSULTATION AND FOLLOWUP: Arrhythmia, rule out AFib, hypertension, history of fall, status post hip fracture, status post OR and internal fixation. SUBJECTIVE: The patient is very much agitated and delirious. is at the bedside. Moved to room 267, bed 1. Awake and alert. OBJECTIVE: GENERAL: The patient is awake and alert, not in any distress and scratched the finger of one of the nurse. VITAL SIGNS: Heart rate varies from 90 to 130, normal sinus with runs of APCs. Temperature afebrile, heart rate 113, blood pressure 118/54. HEENT: PERRLA. Extraocular muscles intact. NECK: Supple. No carotid bruit or thyromegaly. CHEST: Clear to auscultation. HEART: S1 and S2, regular. ABDOMEN: Soft. EXTREMITIES: Clubbing and cyanosis negative. LABORATORY DATA: Blood workup as follows: WBC 10.7, hemoglobin 8.3, hematocrit 26.4, and platelet count 145. Chemistry shows sodium 144, potassium 4.4, chloride 110, carbon dioxide 24, anion gap of 14. BUN 23, creatinine 1. AST 86, ALT 66. Total protein 6.1, albumin 3, albumin and globulin ratio 1. IMPRESSION: Arrhythmia, normal sinus with runs of APCs, status post fall, status post fracture of hip, status post open reduction and internal fixation, left-sided cerebrovascular accident. CAT scan of the head on 02/13/2018, apparent infarct in the right parasagittal and frontal region. Moderate significant volume loss. No intracerebellar bleed. History of paroxysmal atrial fibrillation, history of fall, status post operation reduction and internal fixation, history of depression, history of anxiety disorder. EKG shows normal sinus with runs of APCs noted. She has history of hypertension, history of subarachnoid hemorrhage in the past. The patient had echocardiography done on 02/12/2018, that showed ejection fraction normal. Calculated ejection fraction 66%. Normal wall motion. Right ventricular systolic pressure 63. No mitral regurgitation. Moderate tricuspid regurgitation. Consistent with moderate to severe pulmonary hypertension. RECOMMENDATIONS: Since the patient is running a lot of APCs and history of recent CVA, suggest low-dose of anticoagulation because of recurrent arrhythmia. Continue p.r.n. verapamil. Given one extra dose of digoxin. Discussed with the . We will follow with you. Thank you Dr. Natalie Vazquez, for providing us the opportunity in taking care of the patient, Batsheva Nunez. Radha Mortensen MD
--- NOTE | 2018-02-15 14:47 | CP.PCM.PN ---
Subjective - Date & Time of Evaluation Date of Evaluation: 02/15/18 Time of Evaluation: 14:00 - Subjective Subjective: Events of last night noted. Patient was in afib and transferred to [facility], it Objective - Vital Signs/Intake and Output Vital Signs (last 24 hours): Temp Pulse Resp BP Pulse Ox 97.7 F 55 L 18 131/58 L 93 L 02/15/18 12:00 02/15/18 12:00 02/15/18 12:00 02/15/18 12:37 02/15/18 06:00 Intake and Output: 02/15/18 02/15/18 06:59 18:59 Intake Total 340 20 Output Total 1050 Balance -710 20 - Medications Medications: Current Medications Amiodarone HCl (Cordarone) 200 mg PO DAILY [facility] Amiodarone HCl (Cordarone) 400 mg PO ONCE ONE Stop: 02/15/18 18:01 Apixaban (Eliquis) 5 mg PO BID [facility] PRN Reason: Protocol Arformoterol Tartrate (Brovana) 15 mcg IH BIDRESP [facility] Last Admin: 02/15/18 07:16 Dose: 15 mcg Aspirin (Aspirin Chewable) 81 mg PO DAILY [facility] Last Admin: 02/15/18 09:17 Dose: 81 mg Atenolol (Tenormin) 25 mg PO DAILY [facility] Atorvastatin Calcium (Lipitor) 40 mg PO DIN [facility] Last Admin: 02/14/18 17:56 Dose: 40 mg Benzocaine/Menthol (Cepacol Sore Throat) 1 carolee MT Q2H PRN PRN Reason: Sore Throat Budesonide (Pulmicort Respules) 0.5 mg IH [id number] [facility] Last Admin: 02/15/18 07:16 Dose: 0.5 mg Clopidogrel Bisulfate (Plavix) 75 mg PO DAILY [facility] Last Admin: 02/15/18 09:16 Dose: 75 mg Levalbuterol HCl (Xopenex) 0.63 mg IH [id number] PRN PRN Reason: Shortness of Breath Lorazepam (Ativan) 0.5 mg PO HS [facility] PRN Reason: Protocol Last Admin: 02/14/18 22:02 Dose: 0.5 mg Morphine Sulfate (Morphine) 2 mg IVP Q6H PRN PRN Reason: Pain, moderate (4-7) Last Admin: 02/15/18 11:21 Dose: 2 mg Nystatin (Mycostatin Cream) 1 ea TOP TID [facility] Last Admin: 02/15/18 14:33 Dose: 1 applic Pantoprazole Sodium (Protonix Susp) 40 mg PO 0600 [facility] Last Admin: 02/15/18 06:35 Dose: 40 mg Risperidone (Risperdal Oral Soln) 0.5 mg PO 2200 [facility] Last Admin: 02/14/18 22:03 Dose: 0.5 mg Risperidone (Risperdal Oral Soln) 0.25 mg PO 1000,1600 [facility] Last Admin: 02/15/18 09:26 Dose: 0.25 mg Venlafaxine HCl (Effexor Xr) 75 mg PO DAILY [facility] Last Admin: 02/15/18 09:16 Dose: 75 mg Verapamil HCl (Calan Tab) 80 mg PO TID [facility] Ziprasidone (Geodon Inj) 10 mg IM Q4H PRN PRN Reason: Agitation - Labs Labs: 02/15/18 06:30 02/15/18 06:30 PT 12.2 SECONDS (9.4-12.5) 02/11/18 11:53 INR 1.06 (0.93-1.08) 02/11/18 11:53 APTT 25.1 Seconds (25.1-36.5) 02/11/18 11:53
[2018-02-15] MEDS ORDERED: Digoxin 500 mcg/2ml (0.5 mg/2ml) Inj IVP ONE (15:00)
--- NOTE | 2018-02-15 18:10 | US ---
PROCEDURE: Bilateral carotid artery duplex ultrasound HISTORY: Carotid stenosis CVA PHYSICIAN(S): Hira Oconnell MD. TECHNIQUE: Duplex sonography and color-flow Doppler were used to evaluate the carotid bifurcations and limited segments of the vertebral arteries bilaterally. FINDINGS: There is mild to moderate smooth diffuse heterogeneous plaque noted at the carotid bifurcations bilaterally. The peak systolic velocity in the proximal right internal carotid artery is 110 cm/sec. This corresponds to a 40-59 percent proximal right ICA stenosis. Normal systolic velocities are noted in the proximal right external carotid artery. There is antegrade flow in the right vertebral artery. The peak systolic velocity in the proximal left internal carotid artery is 108 cm/sec. This corresponds to a 40-59 percent proximal left ICA stenosis. Normal systolic velocities are noted in the proximal left external carotid artery. There is antegrade flow in the left vertebral artery. IMPRESSION: 1. Bilateral 40-59 percent proximal ICA stenoses. 2. Antegrade flow in both vertebral arteries.
[2018-02-15 23:12] LABS: ARTERIAL BLOOD GAS HCO3 26.2 mmol/L (21-28); ARTERIAL BLOOD GAS O2 SAT 97.9 % (95-98); ARTERIAL BLOOD GAS PCO2 36 mm/Hg (35-45); ARTERIAL BLOOD GAS PH 7.47 (7.35-7.45); ARTERIAL BLOOD GAS TCO2 27.3 mmol.L (22-28)
[2018-02-15 23:26] LABS: HEMOGLOBIN 8.3 g/dL (12.0-16.0); MEAN CELL VOLUME 95.9 fl (80.0-105.0); MEAN CORPUSCULAR HEMOGLOBIN 30.9 pg (25.0-35.0); MEAN CORPUSCULAR HGB CONC 32.2 g/dl (31.0-37.0); MEAN PLATELET VOLUME 11.6 fl (7.0-11.0); RBC 2.69 10^6/uL (3.5-6.1); RED CELL DISTRIBUTION WIDTH 15.9 % (11.5-14.5); WHITE BLOOD COUNT 10.7 10^3/ul (4.5-11.0)
[2018-02-15 23:43] LABS: URINE BILIRUBIN NEGATIVE (NEGATIVE); URINE BLOOD SMALL (NEGATIVE); URINE GLUCOSE (UA) NEGATIVE (NEGATIVE); URINE LEUKOCYTE ESTERASE MODERATE Leu/uL (NEGATIVE); URINE PROTEIN 30 mg/dL (<30 mg/dL); URINE UROBILINOGEN 0.2 E.U./dL (<1 E.U./dL)
[2018-02-15 23:46] LABS: URINE APPEARANCE TURBID (CLEAR); URINE COLOR YELLOW (YELLOW)
[2018-02-16 00:08] LABS: URINE WBC 15 - 20 /hpf (0-6)
[2018-02-16 00:10] LABS: URINE BACTERIA MOD (NEG)
[2018-02-16] MEDS ORDERED: Ciprofloxacin 400mg/200ml D5W 400 MG/200 ML BAG IVPB STA (03:58)
[2018-02-16] MEDS ORDERED: levoFLOXacin 750 mg in D5W 750 MG/150 ML BAG IVPB STA (04:01)
[2018-02-16] MEDS: Pantoprazole 40 mg Susp UD PO SCH (05:30)
[2018-02-16 06:33] LABS: BASO # 0.02 K/mm3 (0.0-2.0); BASO % 0.2 % (0.0-3.0); EOS % 0.4 % (1.5-5.0); GRAN # 7.06 (1.4-6.5); GRAN % 75.8 % (50.0-68.0); HEMOGLOBIN 8.6 g/dL (12.0-16.0); LYMPH # 1.2 (1.2-3.4); LYMPH % 12.5 % (22.0-35.0); MEAN CELL VOLUME 96.9 fl (80.0-105.0); MEAN CORPUSCULAR HEMOGLOBIN 30.1 pg (25.0-35.0); MEAN PLATELET VOLUME 11.5 fl (7.0-11.0); MONO % 11.1 % (1.0-6.0); RBC 2.86 10^6/uL (3.5-6.1); RED CELL DISTRIBUTION WIDTH 15.7 % (11.5-14.5); WHITE BLOOD COUNT 9.3 10^3/ul (4.5-11.0)
[2018-02-16 06:39] LABS: ALBUMIN 2.9 g/dL (3.0-4.8); CALCIUM 8.7 mg/dL (8.4-10.5)
[2018-02-16] MEDS: Arformoterol 15 mcg/2 ml Inh Sol IH SCH ×2 (07:53→19:33)
[2018-02-16] MEDS: Budesonide 0.5 mg/2 ml Inhal Susp UD IH SCH ×2 (07:53→19:33)
--- NOTE | 2018-02-16 07:57 | CP.PCM.PN ---
Subjective - Date & Time of Evaluation Date of Evaluation: 02/16/18 Time of Evaluation: 08:30 - Subjective Subjective: Neuro Progress note for Dr. Vanegas Patient seen and examined at bedside. was present in the room. Patient was lethargic this AM. As per patient has been like this since yesterday. Patient did complain of left hip pain this AM but complete ROS unobtainable. Objective - Vital Signs/Intake and Output Vital Signs (last 24 hours): Temp Pulse Resp BP Pulse Ox 98.4 F 64 18 110/41 L 96 02/16/18 05:52 02/16/18 05:52 02/16/18 05:52 02/16/18 05:52 02/16/18 05:52 Intake and Output: 02/16/18 02/16/18 06:59 18:59 Intake Total 150 0 Output Total 250 200 Balance -100 -200 - Medications Medications: Current Medications Amiodarone HCl (Cordarone) 200 mg PO DAILY [facility] Apixaban (Eliquis) 5 mg PO BID [facility] PRN Reason: Protocol Last Admin: 02/15/18 18:13 Dose: 5 mg Arformoterol Tartrate (Brovana) 15 mcg IH BIDRESP [facility] Last Admin: 02/16/18 07:53 Dose: 15 mcg Aspirin (Aspirin Chewable) 81 mg PO DAILY [facility] Last Admin: 02/15/18 09:17 Dose: 81 mg Atenolol (Tenormin) 25 mg PO DAILY [facility] Atorvastatin Calcium (Lipitor) 40 mg PO DIN [facility] Last Admin: 02/15/18 18:13 Dose: 40 mg Benzocaine/Menthol (Cepacol Sore Throat) 1 carolee MT Q2H PRN PRN Reason: Sore Throat Budesonide (Pulmicort Respules) 0.5 mg IH [id number] [facility] Last Admin: 02/16/18 07:53 Dose: 0.5 mg Clopidogrel Bisulfate (Plavix) 75 mg PO DAILY [facility] Last Admin: 02/15/18 09:16 Dose: 75 mg Meropenem (Merrem Iv 1 Gm Premix) 50 mls @ 100 mls/hr IVPB Q8H [facility] PRN Reason: Protocol Stop: 02/24/18 10:01 Levalbuterol HCl (Xopenex) 0.63 mg IH [id number] PRN PRN Reason: Shortness of Breath Lorazepam (Ativan) 0.5 mg PO HS [facility] PRN Reason: Protocol Last Admin: 02/16/18 01:07 Dose: Not Given Morphine Sulfate (Morphine) 2 mg IVP Q6H PRN PRN Reason: Pain, moderate (4-7) Last Admin: 02/15/18 11:21 Dose: 2 mg Nystatin (Mycostatin Cream) 1 ea TOP TID [facility] Last Admin: 02/15/18 18:14 Dose: 1 applic Pantoprazole Sodium (Protonix Susp) 40 mg PO 0600 [facility] Last Admin: 02/16/18 05:30 Dose: 40 mg Risperidone (Risperdal Oral Soln) 0.5 mg PO 2200 [facility] Last Admin: 02/16/18 01:07 Dose: Not Given Risperidone (Risperdal Oral Soln) 0.25 mg PO 1000,1600 [facility] Last Admin: 02/15/18 18:06 Dose: 0.25 mg Venlafaxine HCl (Effexor Xr) 75 mg PO DAILY [facility] Last Admin: 02/15/18 09:16 Dose: 75 mg Verapamil HCl (Calan Tab) 80 mg PO TID [facility] Last Admin: 02/15/18 18:07 Dose: 80 mg Ziprasidone (Geodon Inj) 10 mg IM Q4H PRN PRN Reason: Agitation - Labs Labs: 02/16/18 05:35 02/16/18 05:35 PT 12.2 SECONDS (9.4-12.5) 02/11/18 11:53 INR 1.06 (0.93-1.08) 02/11/18 11:53 APTT 25.1 Seconds (25.1-36.5) 02/11/18 11:53 - Constitutional Appears: Other (lethargic) - Head Exam Head Exam: ATRAUMATIC, NORMAL INSPECTION, NORMOCEPHALIC - ENT Exam ENT Exam: Mucous Membranes Dry - Respiratory Exam Respiratory Exam: NORMAL BREATHING PATTERN. absent: Accessory Muscle Use, Respiratory Distress - Cardiovascular Exam Cardiovascular Exam: Irregular Rhythm, +S1, +S2 - Rectal Exam Rectal Exam: Deferred - Neurological Exam Additional comments: lethargic so unable to complete neuro exam - Skin Skin Exam: Dry, Intact Assessment and Plan - Assessment and Plan (Free Text) Assessment: 87yo female PMHx HTN, SAH, Afib (not on anticoag), depression, COPD admitted to [facility] [place], [place] s/p fall and L femur subtrochanteric fracture. Patient was POD#1 when she was noted to have L arm weakness. Plan: -recommend hold on psych meds -Carotid u/s: 40-59% proximal ICA stenoses; antegrade flow in both vertebral arteries -Head CT 02/13: apparent acute infarct in the right parasagittal posterior frontal parietal region at the vertex. Mild moderate chronic periventricular white matter ischemic changes wit hscattered b/l basal nuclei and brainstem lacunar type infarcts. Localized of partially cystic encephalomalacia L occipital pole unchanged. Moderate significant generalized volume loss. -Neck CT 02/13: calcified atherosclerotic plaque both carotid bifurcations left > right however changes do not appear to result in significant stenosis. -Echo 02/12: unremarkable -Head CT 02/12: no acute intracranial hemorrhage. Moderate chronic white matter ischemic changes with scattered chronic b/l basal nuclei and brainstem lacunar type infarcts. Re-demonstrated are cystic encephalomalacia changes L occipital lobe. -ASA and statin -Eliquis as per cardio -recommend PT upon discharge -continue management as per primary Discussed with Dr. Guilherme Fried PGY2
--- NOTE | 2018-02-16 08:33 | RAD ---
HISTORY: Febrile. Evaluate. COMPARISON: Comparison made with prior study 02/14/2018. FINDINGS: LUNGS: Bibasilar opacities may represent areas of atelectasis and or infiltrate with suspected small effusions. PLEURA: No significant pleural effusion identified, no pneumothorax apparent. CARDIOVASCULAR: Cardiomegaly. OSSEOUS STRUCTURES: No significant abnormalities. VISUALIZED UPPER ABDOMEN: Normal. OTHER FINDINGS: None. IMPRESSION: Bibasilar opacities may represent areas of atelectasis and or infiltrate with suspected small effusions.
--- NOTE | 2018-02-16 08:56 | PN ---
DATE: 02/16/2018 PULMONARY NOTE SUBJECTIVE: The patient appears comfortable this morning. She is not short of breath at rest. PHYSICAL EXAMINATION: VITAL SIGNS: Temperature is 98.4, pulse 64, respirations 18, blood pressure 110/41. Oxygen saturation on nasal cannula is 96%. HEENT: Normocephalic, atraumatic. No JVD. CARDIOVASCULAR: Systolic ejection murmur at the lower left sternal border. No S3 gallop. LUNGS: Decreased breath sounds at the bases. Minimal rhonchi. No wheezing. EXTREMITIES: Positive for mild edema. No cyanosis or clubbing. Calves are nontender to palpation. The left hip is postoperative. GI: Abdomen is soft, nontender and nondistended. Bowel sounds are positive. SKIN: No acute rash. NEUROLOGIC: Limited at the present time. PERTINENT LABORATORY DATA: Chest x-ray was done late last night and reviewed. There is a new patchy infiltrate noted at the right base. Official results are pending. Arterial blood gas was also done on nasal cannula. Results are: PH 7.47, pCO2 of 36, pO2 of 76. IMPRESSION: 1. Rapid atrial fibrillation. 2. Left hip fracture, status post fall at home. 3. Right lower lobe pneumonia. 4. Advanced chronic obstructive pulmonary disease. 5. Anemia. 6. Rule out cerebrovascular accident. PLAN: The patient appears comfortable this morning. She is not short of breath at rest. She does state to feeling better overall. I did discuss the case with the night nurse at length. The patient did experience fevers last night. Otherwise, the patient had a pretty good night. I did review the chest x-ray as above. There is a new patchy infiltrate noted at the right lower lobe/right base. Repeat cultures have been ordered and will be analyzed when feasible. The patient remains on antibiotic therapy - as per Infectious Disease. Input by Dr. Díaz is noted. I will continue with the aspiration precautions. I have also reviewed the arterial blood gas. Given the above, the arterial blood gas is very acceptable at this point in time. In addition, on physical exam, there is no significant bronchospasm noted. I will continue with the current nebulizer treatments and inhaled steroids for now. Inputs by Renal, Cardiology and Neurology are noted. On repeat laboratory exam, it does appear that the hemoglobin has stabilized. The clinical status of the patient remains very guarded at this point in time. I will discuss the above with the attending physician. Ranjit Burnham MD NIA
--- NOTE | 2018-02-16 08:58 | PN ---
DATE: SUBJECTIVE: I initially evaluated the patient last evening. She was at delirious state with severe paranoia and agitation. She was started on Risperdal 0.5 mg at bedtime. She had another dose this morning 0.25 mg. Last night, she had a cardiac arrhythmia with some run of V-tach. She was transferred to the telemetry unit. The patient has had recent fracture of the hip and repair. I spoke at length with the patient's nursing staff and the patient's and daughter. The patient's current laboratory data, white count is 10,700, hemoglobin of 8.6, her hematocrit is 26.4, platelet count of 145,000. Her metabolic profile reveals a sodium of 144, potassium 4.4, chloride 110, CO2 of 24, anion gap 14, BUN 23, creatinine 1, estimated GFR 52, random glucose 114, AST of 86, ALT of 66, albumin of 3. Rest of the parameters were all within normal range. CURRENT MEDICATIONS: Include aspirin 81 mg, lorazepam 0.5 mg at bedtime, Brovana inhaler, lactated Ringer solution, Pulmicort Respules inhaler. She is also receiving Lipitor, Brovana inhaler, Plavix, p.r.n. morphine last dose earlier this morning at 11:21, Xopenex inhaler p.r.n., p.r.n. Geodon, which she has not received for agitation. She is receiving Risperdal 0.25 mg b.i.d. and 0.5 mg at bedtime. Effexor XR 75 mg daily, Calan, Cordarone, Eliquis and Tenormin. REVIEW OF SYSTEMS: Complains of pain in hip and shortness of breath. Rest of 12 point review non contributory. PHYSICAL EXAMINATION: VITAL SIGNS: Her blood pressure is 150/50, pulse 135. PSYCHIATRIC: Her mental status, she is awake, generally alert, slightly confused. She knows she is in the hospital. Recognizes me. Does not know the month or the day. Recent memory slightly clouded. She is somewhat apathetic. She states she does not care about anything anymore. No suicidal intent. She is less agitated and less belligerent. IMPRESSION: The patient has acute delirium with psychotic symptomatology, which is gradually resolving. She has cardiac arrhythmia. She has acute renal failure. She has status post fracture of greater trochanter. 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 She has a history of hypertension and pulmonary hypertension and chronic obstructive pulmonary disease. PLAN: Continue close observation. Continue above medications. Jm Solorzano MD MTDD
--- NOTE | 2018-02-16 09:25 | CP.PCM.PN ---
<GatitoRufus - Last Filed: 02/16/18 12:54> Subjective - Date & Time of Evaluation Date of Evaluation: 02/16/18 Time of Evaluation: 08:15 - Subjective Subjective: Medicine Note for Dr. Dodd Patient seen and examined at bedside. Yesterday, CXR was taken and show right sided infiltrate. Patient was started on Merrem. She has been lethargic over last 12 hours or so, likely due to psych meds. Psych meds held. Patient is responsive when aroused. She is complaining of left hip pain. Objective - Vital Signs/Intake and Output Vital Signs (last 24 hours): Temp Pulse Resp BP Pulse Ox 98.4 F 64 18 110/41 L 96 02/16/18 05:52 02/16/18 05:52 02/16/18 05:52 02/16/18 05:52 02/16/18 05:52 Intake and Output: 02/16/18 02/16/18 06:59 18:59 Intake Total 150 0 Output Total 250 200 Balance -100 -200 - Medications Medications: Current Medications Amiodarone HCl (Cordarone) 200 mg PO DAILY [facility] Apixaban (Eliquis) 5 mg PO BID [facility] PRN Reason: Protocol Last Admin: 02/15/18 18:13 Dose: 5 mg Arformoterol Tartrate (Brovana) 15 mcg IH BIDRESP [facility] Last Admin: 02/16/18 07:53 Dose: 15 mcg Aspirin (Aspirin Chewable) 81 mg PO DAILY [facility] Last Admin: 02/15/18 09:17 Dose: 81 mg Atenolol (Tenormin) 25 mg PO DAILY [facility] Atorvastatin Calcium (Lipitor) 40 mg PO DIN [facility] Last Admin: 02/15/18 18:13 Dose: 40 mg Benzocaine/Menthol (Cepacol Sore Throat) 1 carolee MT Q2H PRN PRN Reason: Sore Throat Budesonide (Pulmicort Respules) 0.5 mg IH [id number] [facility] Last Admin: 02/16/18 07:53 Dose: 0.5 mg Meropenem (Merrem Iv 1 Gm Premix) 50 mls @ 100 mls/hr IVPB Q8H [facility] PRN Reason: Protocol Stop: 02/24/18 10:01 Levalbuterol HCl (Xopenex) 0.63 mg IH [id number] PRN PRN Reason: Shortness of Breath Lorazepam (Ativan) 0.5 mg PO HS [facility] PRN Reason: Protocol Last Admin: 02/16/18 01:07 Dose: Not Given Morphine Sulfate (Morphine) 2 mg IVP Q6H PRN PRN Reason: Pain, moderate (4-7) Last Admin: 02/15/18 11:21 Dose: 2 mg Nystatin (Mycostatin Cream) 1 ea TOP TID [facility] Last Admin: 02/15/18 18:14 Dose: 1 applic Pantoprazole Sodium (Protonix Susp) 40 mg PO 0600 [facility] Last Admin: 02/16/18 05:30 Dose: 40 mg Risperidone (Risperdal Oral Soln) 0.5 mg PO 2200 [facility] Last Admin: 02/16/18 01:07 Dose: Not Given Risperidone (Risperdal Oral Soln) 0.25 mg PO 1000,1600 [facility] Last Admin: 02/15/18 18:06 Dose: 0.25 mg Venlafaxine HCl (Effexor Xr) 75 mg PO DAILY [facility] Last Admin: 02/15/18 09:16 Dose: 75 mg Verapamil HCl (Calan Tab) 80 mg PO TID [facility] Last Admin: 02/15/18 18:07 Dose: 80 mg Ziprasidone (Geodon Inj) 10 mg IM Q4H PRN PRN Reason: Agitation - Labs Labs: 02/16/18 05:35 02/16/18 05:35 PT 12.2 SECONDS (9.4-12.5) 02/11/18 11:53 INR 1.06 (0.93-1.08) 02/11/18 11:53 APTT 25.1 Seconds (25.1-36.5) 02/11/18 11:53 - Constitutional Appears: Chronically Ill, Other (lethargic) - Head Exam Head Exam: ATRAUMATIC, NORMOCEPHALIC - Eye Exam Eye Exam: Normal appearance - ENT Exam ENT Exam: Mucous Membranes Moist - Respiratory Exam Respiratory Exam: Decreased Breath Sounds (right lower lung field), NORMAL BREATHING PATTERN - Cardiovascular Exam Cardiovascular Exam: Irregular Rhythm (regualr rate ) - GI/Abdominal Exam GI & Abdominal Exam: Soft, Normal Bowel Sounds. absent: Tenderness - Extremities Exam Extremities Exam: Normal Capillary Refill Additional comments: surgical site clean dry intact tender to palpation - Neurological Exam Neurological Exam: Awake - Psychiatric Exam Psychiatric exam: Flat Affect - Skin Skin Exam: Dry, Warm Assessment and Plan - Assessment and Plan (Free Text) Plan: (1) Intertrochanteric fracture of left hip Assessment & Plan: s/p ORIF Ortho on board ([place]) Morphine and Percocet for pain PT/OT Hgb stable air mattress Turn Q2 ICS Status: Acute (2) Left arm weakness, s/p CVA Assessment & Plan: Neuro on board (Ramon) carotid US: bilateral 40-59% proximal ICA stenosis ASA Lipitor Repeat CT shows acute infarction in R. Parasaggital posterior frontal parietal region at vertex. Ramon made aware. Started on atorvastatin 40. Held lovenox, asa and plavix as patient is currently bleeding from operative site. Aspiration precautions PT/OT Status: Acute (3) HTN Assessment & Plan: Cardio consult Verapamil 80 mg PO TID Atenolol 25 mg PO daily Status: Chronic (5) A-fib Assessment & Plan: Tachycardic in 130s Ekg shows afib with RVR Cardio consult Verapamil 80 mg PO TID Amiodarone 200 mg PO daily Eliquis 5 mg PO BID Atenolol 25 mg PO daily Status: Chronic (6) COPD (chronic obstructive pulmonary disease) Assessment & Plan: Pulmicort Xopenex Brovana Status: Chronic (8) Depression/Dementia Assessment & Plan: Holding psych meds due to drowsiness Geodon Risperidal Ativan Effexor Psych consult (9) Right lobe Pneumonia Assessment & Plan: Merrem CXR show right lobe pneumonia likely secondary to aspiration Status: Acute (10) Prophylactic measures Assessment & Plan: Protonix Aspiration precautions Status: Acute <Radha Dodd - Last Filed: 02/17/18 17:24> Objective - Vital Signs/Intake and Output Vital Signs (last 24 hours): Temp Pulse Resp BP Pulse Ox 97.1 F L 70 19 102/32 L 97 02/17/18 12:00 02/17/18 11:17 02/17/18 12:00 02/17/18 15:08 02/17/18 06:00 Intake and Output: 02/17/18 02/17/18 06:59 18:59 Intake Total 230 Output Total 450 Balance -220 - Medications Medications: Current Medications Amiodarone HCl (Cordarone) 200 mg PO DAILY [facility] Last Admin: 02/17/18 11:17 Dose: 200 mg Apixaban (Eliquis) 5 mg PO BID [facility] PRN Reason: Protocol Last Admin: 02/17/18 11:16 Dose: 5 mg Arformoterol Tartrate (Brovana) 15 mcg IH BIDRESP [facility] Last Admin: 02/17/18 07:53 Dose: 15 mcg Aspirin (Aspirin Chewable) 81 mg PO DAILY [facility] Last Admin: 02/17/18 11:16 Dose: 81 mg Atenolol (Tenormin) 25 mg PO DAILY [facility] Last Admin: 02/17/18 11:16 Dose: 25 mg Atorvastatin Calcium (Lipitor) 40 mg PO DIN [facility] Last Admin: 02/16/18 18:40 Dose: 40 mg Benzocaine/Menthol (Cepacol Sore Throat) 1 carolee MT Q2H PRN PRN Reason: Sore Throat Budesonide (Pulmicort Respules) 0.5 mg IH [id number] [facility] Last Admin: 02/17/18 07:53 Dose: 0.5 mg Meropenem (Merrem Iv 1 Gm Premix) 50 mls @ 100 mls/hr IVPB Q12 [facility] PRN Reason: Protocol Stop: 02/24/18 10:01 Levalbuterol HCl (Xopenex) 0.63 mg IH [id number] PRN PRN Reason: Shortness of Breath Lorazepam (Ativan) 0.5 mg PO HS [facility] Morphine Sulfate (Morphine) 2 mg IVP Q6H PRN PRN Reason: Pain, moderate (4-7) Last Admin: 02/17/18 11:35 Dose: 2 mg Nystatin (Mycostatin Cream) 1 ea TOP TID [facility] Last Admin: 02/17/18 15:09 Dose: 1 applic Pantoprazole Sodium (Protonix Susp) 40 mg PO 0600 [facility] Last Admin: 02/17/18 05:57 Dose: 40 mg Risperidone (Risperdal Tab) 0.25 mg PO 1000,1600 [facility] Last Admin: 02/16/18 11:42 Dose: Not Given Risperidone (Risperdal Oral Soln) 0.25 mg PO HS [facility] Venlafaxine HCl (Effexor Xr) 75 mg PO DAILY [facility] Last Admin: 02/17/18 11:16 Dose: 75 mg Verapamil HCl (Calan Tab) 80 mg PO TID [facility] Last Admin: 02/17/18 15:08 Dose: Not Given - Labs Labs: 02/17/18 06:30 02/17/18 06:50 PT 12.2 SECONDS (9.4-12.5) 02/11/18 11:53 INR 1.06 (0.93-1.08) 02/11/18 11:53 APTT 25.1 Seconds (25.1-36.5) 02/11/18 11:53 Attending/Attestation - Attestation I have personally seen and examined this patient.: Yes I have fully participated in the care of the patient.: Yes I have reviewed all pertinent clinical information, including history, physical exam and plan: Yes Notes (Text): 02/17/18 17:22 Medical record note made by the resident after discussion with my direction and input after the patient was personally seen and examined by me. I have reviewed the chart and agree that the record accurately reflects by personal performance of the history, physical exam, data review, and medical decision-making, in the course for the patient. I have also personally directed the plan of care. 87 years old female with PMH of COPD,HTN,Proxysmal AF not on anticoagulation due to high risk of fall was admitted with mechanical fall and had left hip fracture.She underwent ORIF 02/11/18. she is also sp one unit of PRBC after surgery.She had stroke code on 02/12/18 and had right MCA infarct,acute infarction in R. Parasaggital posterior frontal parietal region at vertex) resulting in left sided hemiplegia and dysarthria. Patient went into AF with RVR, and was transferred to telemetry, was treated with cardizem drip, currently off drip, rate is better controlled with atenolol and amiodrone.Patient has been started on anticoagulation with Apixiban, we will discontinue plavix to decrease the risk of bleeding. Patient is also drowsy, psych medications are on hold, chest X rays showed right lower lobe infiltrate, concern for aspiration on IV Meropenem as per ID. Management plan was discussed in detail with patient. Education was provided.
[2018-02-16] MEDS: Meropenem IV 1 gm in NS 50 ML IVPB SCH ×2 (11:40→18:39)
[2018-02-16] MEDS: Nystatin 100,000 Units/gm Cream(15 gm) TOP SCH ×3 (11:42→18:41)
[2018-02-16] MEDS: Venlafaxine 75 mg ER Cap PO SCH (11:45)
[2018-02-16] MEDS: Morphine 2 mg/ml ISec IVP PRN ×2 (11:56→18:40)
--- NOTE | 2018-02-16 12:16 | PN ---
DATE: 02/16/2018 REASON FOR CONSULTATION AND FOLLOWUP: Arrhythmia, AFib paroxysmal, hypertension, status post hip fracture, status post OR and internal fixation. SUBJECTIVE: The patient feels better, less agitated. Denies any chest pain. is at the bedside. OBJECTIVE: GENERAL: Not in apparent distress. Telemetry shows normal sinus. VITAL SIGNS: As follows, heart rate 64, blood pressure 110/40. HEENT: PERRLA, intact. NECK: Supple. No carotid bruit or thyromegaly. CHEST: Clear to auscultation. HEART: S1 and S2, regular. ABDOMEN: Soft. EXTREMITIES: Clubbing and cyanosis negative. LABORATORY DATA: Blood workup as follows, WBC __00:56___, hemoglobin __00:57___, hematocrit 27.7, platelet count 144. Chemistry shows sodium 140, potassium 4.5, chloride 101, carbon dioxide 25, anion gap of 14. BUN 31, creatinine 1.1. Total protein 6.1, albumin 2.9, albumin-globulin ratio is 1. IMPRESSION AND PLAN: Paroxysmal atrial fibrillation, runs of atrial premature contractions and normal sinus with runs of atrial premature contractions, arrhythmia, status post fall, status post fracture of hip, status post open reduction and internal fixation, left-sided cerebrovascular accident. CAT scan of the head on 02/13/2018, apparent infarct in the right parasagittal and frontal region. Moderate significant volume loss. No intracerebellar bleed. Discussed with neurologist,Dr. Vanegas covering for Dr. Navarro. Discussed no evidence of subarachnoid bleed in the past, so started yesterday, Eliquis 2.5 adjusted dose of 5 mg b.i.d. The patient has normal kidney function. The patient's age is 87, but normal kidney function and increased body mass, 5 mg b.i.d. Last echo dated 02/12/2018 shows ejection fraction normal, calculated ejection fraction 66%, normal wall motion, right ventricular systolic pressure 63, no mitral regurgitation, moderate tricuspid regurgitation consistent with [id number] pulmonary hypertension. Also, the patient was given 2 doses of digoxin and Cardizem was charged to verapamil 80 mg t.i.d, and amiodarone loaded to prevent going to paroxysmal atrial fibrillation because the patient is high risk setup for cerebrovascular accident because high CHADS score and as mentioned above, discussed with the Neurology secondary to be on Eliquis. We will continue once the patient is stable, possible discharge home. We will follow with you. Thank you, Dr. Dodd, for providing us the opportunity in taking care of the patient. Continue Eliquis as mentioned. Continue atenolol. Continue verapamil. We will follow. If remain stable, possibly discontinue telemetry in the next 24 hours. Monitor her H and H. We will repeat the blood workup in the morning. Radha Mortensen MD
--- NOTE | 2018-02-16 16:34 | PN ---
DATE: 02/16/2018 SUBJECTIVE: The patient was seen earlier this morning in room 267, bed 1. The patient's nurse stated that the patient had a temperature last night of up to 101.2. Mental status is unchanged and has mild shortness of breath. PHYSICAL EXAMINATION: VITAL SIGNS: Temperature is 99.7, T-max is 101.2, pulse was 64, it was up to 93 earlier yesterday and respiratory rate of 18, was up to 22 earlier with blood pressure of 110/60. HEENT: Unremarkable. NECK: Supple. LUNGS: Have decreased breath sounds. HEART: Normal S1 and S2. ABDOMEN: Soft, nontender. No rebound or guarding. IMAGING: The patient had a chest x-ray showed bibasilar opacities, infiltrate. Dr. Burnham's note is reviewed. ASSESSMENT AND PLAN: An 87-year-old female seen earlier today in 267, bed 1, status post treatment for Escherichia coli urinary tract infection, acute femoral fracture status post open reduction and internal fixation, postop day #5; acute renal failure; hypertension; subarachnoid hemorrhage; atrial fibrillation; chronic obstructive pulmonary disease; gout and pulmonary hypertension, now with a new fever and tachycardia and new infiltrate. Sepsis with healthcare-associated right lower lobe pneumonia. Eventually started the patient on meropenem and pending blood culture, urine culture, sputum culture and procalcitonin. Overall prognosis is quite poor, should consider supportive care and palliative care in this patient who appears to be end stage. Case discussed with the nursing staff. Joseph Díaz MD
[2018-02-17] MEDS: Meropenem IV 1 gm in NS 50 ML IVPB SCH ×3 (01:30→22:13)
[2018-02-17] MEDS: Pantoprazole 40 mg Susp UD PO SCH (05:57)
[2018-02-17 06:42] LABS: BASO # 0.02 K/mm3 (0.0-2.0); BASO % 0.2 % (0.0-3.0); EOS % 0.2 % (1.5-5.0); GRAN # 7.39 (1.4-6.5); GRAN % 78.1 % (50.0-68.0); LYMPH # 1.1 (1.2-3.4); LYMPH % 11.8 % (22.0-35.0); MEAN CELL VOLUME 96.7 fl (80.0-105.0); MEAN CORPUSCULAR HEMOGLOBIN 29.7 pg (25.0-35.0); MEAN CORPUSCULAR HGB CONC 30.8 g/dl (31.0-37.0); MEAN PLATELET VOLUME 11.6 fl (7.0-11.0); MONO # 0.9 (0.1-0.6); MONO % 9.7 % (1.0-6.0); RBC 2.69 10^6/uL (3.5-6.1); RED CELL DISTRIBUTION WIDTH 15.4 % (11.5-14.5); WHITE BLOOD COUNT 9.5 10^3/ul (4.5-11.0)
[2018-02-17] MEDS: Arformoterol 15 mcg/2 ml Inh Sol IH SCH ×2 (07:53→19:27)
[2018-02-17] MEDS: Budesonide 0.5 mg/2 ml Inhal Susp UD IH SCH ×2 (07:53→19:27)
[2018-02-17 08:17] LABS: ALB/GLOB RATIO 0.8 (1.1-1.8); ALBUMIN 2.8 g/dL (3.0-4.8); ALT/SGPT 79 U/L (7-56); AST/SGOT 79 U/L (14-36); BLOOD UREA NITROGEN 31 mg/dL (7-21); CALCIUM 8.7 mg/dL (8.4-10.5); GFR AFRICAN-AMERICAN > 60; GFR NON-AFRICAN AMERICAN 52
--- NOTE | 2018-02-17 08:38 | CP.PCM.PN ---
Subjective - Date & Time of Evaluation Date of Evaluation: 02/17/18 Time of Evaluation: 07:50 - Subjective Subjective: PGY2 Neuro Progress note for Dr. Vanegas Patient seen and examined at bedside. Nursing reported no acute events overnight. Patient was resting comfortably in bed and more awake and talkative this AM. She was oriented to self and place and could identify her / boyfriend who was at bedside. Patient reported she was having some trouble breathing but said it is her COPD. She denied acute complaints of headache, dizziness, chest pain, cough, abd pain, nausea, vomiting, bowel/bladder complaints. Patient is unable to move LUE and has pain when she tried to move her LLE. She is tolerating her diet well. Objective - Vital Signs/Intake and Output Vital Signs (last 24 hours): Temp Pulse Resp BP Pulse Ox 98.3 F 66 19 112/51 L 97 02/17/18 06:00 02/17/18 06:00 02/17/18 06:00 02/17/18 06:00 02/17/18 06:00 Intake and Output: 02/17/18 02/17/18 06:59 18:59 Intake Total 230 Output Total 450 Balance -220 - Medications Medications: Current Medications Amiodarone HCl (Cordarone) 200 mg PO DAILY [facility] Last Admin: 02/16/18 11:40 Dose: 200 mg Apixaban (Eliquis) 5 mg PO BID [facility] PRN Reason: Protocol Last Admin: 02/16/18 18:40 Dose: 5 mg Arformoterol Tartrate (Brovana) 15 mcg IH BIDRESP [facility] Last Admin: 02/17/18 07:53 Dose: 15 mcg Aspirin (Aspirin Chewable) 81 mg PO DAILY [facility] Last Admin: 02/16/18 11:41 Dose: 81 mg Atenolol (Tenormin) 25 mg PO DAILY [facility] Last Admin: 02/16/18 11:40 Dose: 25 mg Atorvastatin Calcium (Lipitor) 40 mg PO DIN [facility] Last Admin: 02/16/18 18:40 Dose: 40 mg Benzocaine/Menthol (Cepacol Sore Throat) 1 carolee MT Q2H PRN PRN Reason: Sore Throat Budesonide (Pulmicort Respules) 0.5 mg IH [id number] [facility] Last Admin: 02/17/18 07:53 Dose: 0.5 mg Meropenem (Merrem Iv 1 Gm Premix) 50 mls @ 100 mls/hr IVPB Q8H [facility] PRN Reason: Protocol Stop: 02/24/18 10:01 Last Admin: 02/17/18 01:30 Dose: 100 mls/hr Levalbuterol HCl (Xopenex) 0.63 mg IH [id number] PRN PRN Reason: Shortness of Breath Lorazepam (Ativan) 0.5 mg PO HS [facility] PRN Reason: Protocol Last Admin: 02/16/18 01:07 Dose: Not Given Morphine Sulfate (Morphine) 2 mg IVP Q6H PRN PRN Reason: Pain, moderate (4-7) Last Admin: 02/16/18 18:40 Dose: 2 mg Nystatin (Mycostatin Cream) 1 ea TOP TID [facility] Last Admin: 02/16/18 18:41 Dose: 1 applic Pantoprazole Sodium (Protonix Susp) 40 mg PO 0600 [facility] Last Admin: 02/17/18 05:57 Dose: 40 mg Risperidone (Risperdal Oral Soln) 0.5 mg PO 2200 [facility] Last Admin: 02/16/18 01:07 Dose: Not Given Risperidone (Risperdal Tab) 0.25 mg PO 1000,1600 [facility] Last Admin: 02/16/18 11:42 Dose: Not Given Venlafaxine HCl (Effexor Xr) 75 mg PO DAILY [facility] Last Admin: 02/16/18 11:45 Dose: 75 mg Verapamil HCl (Calan Tab) 80 mg PO TID [facility] Last Admin: 02/16/18 19:05 Dose: Not Given Ziprasidone (Geodon Inj) 10 mg IM Q4H PRN PRN Reason: Agitation - Labs Labs: 02/17/18 06:30 02/17/18 06:50 PT 12.2 SECONDS (9.4-12.5) 02/11/18 11:53 INR 1.06 (0.93-1.08) 02/11/18 11:53 APTT 25.1 Seconds (25.1-36.5) 02/11/18 11:53 - Constitutional Appears: No Acute Distress - Head Exam Head Exam: ATRAUMATIC, NORMAL INSPECTION, NORMOCEPHALIC - Eye Exam Eye Exam: Normal appearance. absent: Conjunctival injection, Scleral icterus - ENT Exam ENT Exam: Mucous Membranes Dry - Respiratory Exam Respiratory Exam: NORMAL BREATHING PATTERN. absent: Accessory Muscle Use, Respiratory Distress - Cardiovascular Exam Cardiovascular Exam: Irregular Rhythm, +S1, +S2 - GI/Abdominal Exam GI & Abdominal Exam: Soft. absent: Tenderness - Rectal Exam Rectal Exam: Deferred - Neurological Exam Neurological Exam: Alert, Awake. 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 Patient was POD#1 when she was noted to have L arm weakness. Plan: -unable to do MRI due to hardware from surgery -recommend hold on psych meds -Carotid u/s: 40-59% proximal ICA stenoses; antegrade flow in both vertebral arteries -Head CT 02/13: apparent acute infarct in the right parasagittal posterior frontal parietal region at the vertex. Mild moderate chronic periventricular white matter ischemic changes wit hscattered b/l basal nuclei and brainstem lacunar type infarcts. Localized of partially cystic encephalomalacia L occipital pole unchanged. Moderate significant generalized volume loss. -Neck CT 02/13: calcified atherosclerotic plaque both carotid bifurcations left > right however changes do not appear to result in significant stenosis. -Echo 02/12: unremarkable -Head CT 02/12: no acute intracranial hemorrhage. Moderate chronic white matter ischemic changes with scattered chronic b/l basal nuclei and brainstem lacunar type infarcts. Re-demonstrated are cystic encephalomalacia changes L occipital lobe. -ASA and statin -Eliquis as per cardio -recommend PT upon discharge -continue management as per primary Discussed with Dr. Guilherme Fried PGY2
--- NOTE | 2018-02-17 09:12 | PN ---
DATE: 02/17/2018 PULMONARY NOTE SUBJECTIVE: The patient appears comfortable this morning. She is not short of breath at rest. She is more awake and alert. PHYSICAL EXAMINATION VITAL SIGNS: Temperature is 98.3, pulse 66, respirations 19, blood pressure 112/51. Oxygen saturation on nasal cannula is 97%. HEENT: Normocephalic, atraumatic. No JVD. CARDIOVASCULAR: Systolic ejection murmur at the lower left sternal border. No S3 gallop. LUNGS: Decreased breath sounds at the bases. Minimal/less rhonchi. No wheezing. EXTREMITIES: Positive for mild edema. No cyanosis or clubbing. Calves are nontender to palpation. The left hip is postoperative. GASTROINTESTINAL: Abdomen is soft, nontender and nondistended. Bowel sounds are positive. SKIN: No acute rash. NEUROLOGIC: Exam limited at the present time. IMPRESSION 1. Rapid atrial fibrillation. 2. Left hip fracture, status post fall at home. 3. Right lower lobe pneumonia. 4. Advanced chronic obstructive pulmonary disease. 5. Anemia. 6. Rule out cerebrovascular accident. PLAN The patient appears comfortable this morning. She is not short of breath at rest. She is awake and alert. She does state to feeling better overall. I did discuss the case with the night nurse at length. The night nurse stated that the patient had a good night. The night nurse also informed me that the temperatures are now resolving. On physical exam, there is less bronchospasm noted. In addition, there is less alveolar-arterial gradient. I will continue the current nebulizer treatments and inhaled steroids for now. I would continue with the antibiotic coverage as per infectious disease. Input by Dr. Díaz is noted. The temperatures are now resolving. The leukocytosis has resolved. The clinical status of the patient is certainly improved - compared to few days ago. However, again, the future status/prognosis for this patient does remain very guarded. I will discuss the above with the attending physician later this morning. Ranjit Burnham MD [facility]
--- NOTE | 2018-02-17 10:18 | CP.PCM.PN ---
Subjective - Date & Time of Evaluation Date of Evaluation: 02/17/18 Time of Evaluation: 06:40 - Subjective Subjective: Lying in bed, awake, denies chest pain, denies shortness of breath, left sided weakness Reason for consultation and follow up: Cardiac evaluation, Atrial fibrillation, hypertension, history of fall, obesity. post ORIF of left hip. Seen and examined by me and Dr. Mortensen Objective - Vital Signs/Intake and Output Vital Signs (last 24 hours): Temp Pulse Resp BP Pulse Ox 98.3 F 66 19 112/51 L 97 02/17/18 06:00 02/17/18 06:00 02/17/18 06:00 02/17/18 06:00 02/17/18 06:00 Intake and Output: 02/17/18 02/17/18 06:59 18:59 Intake Total 230 Output Total 450 Balance -220 - Medications Medications: Current Medications Amiodarone HCl (Cordarone) 200 mg PO DAILY [facility] Last Admin: 02/16/18 11:40 Dose: 200 mg Apixaban (Eliquis) 5 mg PO BID LISET PRN Reason: Protocol Last Admin: 02/16/18 18:40 Dose: 5 mg Arformoterol Tartrate (Brovana) 15 mcg IH BIDRESP [facility] Last Admin: 02/17/18 07:53 Dose: 15 mcg Aspirin (Aspirin Chewable) 81 mg PO DAILY [facility] Last Admin: 02/16/18 11:41 Dose: 81 mg Atenolol (Tenormin) 25 mg PO DAILY [facility] Last Admin: 02/16/18 11:40 Dose: 25 mg Atorvastatin Calcium (Lipitor) 40 mg PO DIN [facility] Last Admin: 02/16/18 18:40 Dose: 40 mg Benzocaine/Menthol (Cepacol Sore Throat) 1 carolee MT Q2H PRN PRN Reason: Sore Throat Budesonide (Pulmicort Respules) 0.5 mg IH [id number] [facility] Last Admin: 02/17/18 07:53 Dose: 0.5 mg Meropenem (Merrem Iv 1 Gm Premix) 50 mls @ 100 mls/hr IVPB Q12 LISET PRN Reason: Protocol Stop: 02/24/18 10:01 Levalbuterol HCl (Xopenex) 0.63 mg IH [id number] PRN PRN Reason: Shortness of Breath Lorazepam (Ativan) 0.5 mg PO HS [facility] PRN Reason: Protocol Last Admin: 02/16/18 01:07 Dose: Not Given Morphine Sulfate (Morphine) 2 mg IVP Q6H PRN PRN Reason: Pain, moderate (4-7) Last Admin: 02/16/18 18:40 Dose: 2 mg Nystatin (Mycostatin Cream) 1 ea TOP TID [facility] Last Admin: 02/16/18 18:41 Dose: 1 applic Pantoprazole Sodium (Protonix Susp) 40 mg PO 0600 [facility] Last Admin: 02/17/18 05:57 Dose: 40 mg Risperidone (Risperdal Oral Soln) 0.5 mg PO 2200 [facility] Last Admin: 02/16/18 01:07 Dose: Not Given Risperidone (Risperdal Tab) 0.25 mg PO 1000,1600 [facility] Last Admin: 02/16/18 11:42 Dose: Not Given Venlafaxine HCl (Effexor Xr) 75 mg PO DAILY [facility] Last Admin: 02/16/18 11:45 Dose: 75 mg Verapamil HCl (Calan Tab) 80 mg PO TID [facility] Last Admin: 02/16/18 19:05 Dose: Not Given Ziprasidone (Geodon Inj) 10 mg IM Q4H PRN PRN Reason: Agitation - Labs Labs: 02/17/18 06:30 02/17/18 06:50 PT 12.2 SECONDS (9.4-12.5) 02/11/18 11:53 INR 1.06 (0.93-1.08) 02/11/18 11:53 APTT 25.1 Seconds (25.1-36.5) 02/11/18 11:53 - Constitutional Appears: No Acute Distress - Head Exam Head Exam: NORMOCEPHALIC - ENT Exam ENT Exam: Mucous Membranes Moist - Respiratory Exam Respiratory Exam: Decreased Breath Sounds, Clear to Ausculation Bilateral, NORMAL BREATHING PATTERN - Cardiovascular Exam Cardiovascular Exam: +S1, +S2 Additional comments: telemetry NSR 70's - GI/Abdominal Exam GI & Abdominal Exam: Soft, Normal Bowel Sounds - Exam Additional comments: ramos catheter - Extremities Exam Extremities Exam: Normal Capillary Refill Additional comments: left sided weakness left hip surgery - Neurological Exam Neurological Exam: Alert, Awake, Oriented x3 - Psychiatric Exam Psychiatric exam: Normal Affect, Normal Mood - Skin Skin Exam: Intact, Normal Color, Warm Assessment and Plan - Assessment and Plan (Free Text) Assessment: An 87 year old female who came in to the ER due to left hip pain, status post fall. she has history of hypertension, subarachnoid hemorrhage, Atrial fibrillation without anticoagulation, depression, anxiety, COPD, history of fall ankle fracture,osteoarthritis, former smoker, former alcohol abuse. Plan: Denies chest pain Left arm weakness post surgery Blood pressure and heart rate stable Telemetry NSR On ASA 81 mg daily, Lipitor 40 mg daily,Plavix 75 mg daily, Heparin 5,000 units daily Continue current medications Continue current treatment Physical therapy Will follow up Plan and treatment discussed with Dr. Mortensen Plan: Telemetry NSR Stable cardiac status Left sided weakness post left hip surgery On Amiodarone 200 mg daily, Eliquis 5 mg BID, Atenolol 25 mg daily,ASA 81 mg daily, Lipitor 40 mg daily, Verapamil 80 mg TID Discharge planning, Social service coordinating with family for Sub acute placement Continue current medications Continue current treatment Physical therapy Will follow up Plan and treatment discussed with Dr. Mortensen
[2018-02-17] MEDS: Venlafaxine 75 mg ER Cap PO SCH (11:16)
[2018-02-17] MEDS: Nystatin 100,000 Units/gm Cream(15 gm) TOP SCH ×4 (11:17→18:52)
[2018-02-17] MEDS: Morphine 2 mg/ml ISec IVP PRN ×2 (11:35→18:51)
--- NOTE | 2018-02-17 12:02 | PN ---
DATE: 02/17/2018 LOCATION: In room 267, bed 1. SUBJECTIVE: The patient underwent ORIF of her left hip on 02/11/2018. Orthopedically, she did well. She had other medical issues to keep her here a little longer. Otherwise, the wound is doing well. I will take the sutures out in about a week. I am going to be away myself for a week and I will take the sutures out then. When I get back, she will be in one of the rehab, if possible, then I will follow her there. Otherwise, the left hip is doing well and it is stable and she is under the medical service for multiple other issues and I will see her when I get back in a week. Rodrigo Garcia DO
--- NOTE | 2018-02-17 13:47 | CP.PCM.PN ---
<DavidRosario - Last Filed: 02/17/18 13:57> Subjective - Date & Time of Evaluation Date of Evaluation: 02/17/18 Time of Evaluation: 10:00 - Subjective Subjective: Hospitalist Service Patient seen and examined at [facility]. Patient appears more awake today. Patient denies chest pain, dyspnea, or worsening weakness. Nurse reports no events overnight. Objective - Vital Signs/Intake and Output Vital Signs (last 24 hours): Temp Pulse Resp BP Pulse Ox 98.3 F 70 19 139/63 97 02/17/18 06:00 02/17/18 11:17 02/17/18 06:00 02/17/18 11:17 02/17/18 06:00 Intake and Output: 02/17/18 02/17/18 06:59 18:59 Intake Total 230 Output Total 450 Balance -220 - Medications Medications: Current Medications Amiodarone HCl (Cordarone) 200 mg PO DAILY [facility] Last Admin: 02/17/18 11:17 Dose: 200 mg Apixaban (Eliquis) 5 mg PO BID [facility] PRN Reason: Protocol Last Admin: 02/17/18 11:16 Dose: 5 mg Arformoterol Tartrate (Brovana) 15 mcg IH BIDRESP [facility] Last Admin: 02/17/18 07:53 Dose: 15 mcg Aspirin (Aspirin Chewable) 81 mg PO DAILY [facility] Last Admin: 02/17/18 11:16 Dose: 81 mg Atenolol (Tenormin) 25 mg PO DAILY [facility] Last Admin: 02/17/18 11:16 Dose: 25 mg Atorvastatin Calcium (Lipitor) 40 mg PO DIN [facility] Last Admin: 02/16/18 18:40 Dose: 40 mg Benzocaine/Menthol (Cepacol Sore Throat) 1 carolee MT Q2H PRN PRN Reason: Sore Throat Budesonide (Pulmicort Respules) 0.5 mg IH [id number] [facility] Last Admin: 02/17/18 07:53 Dose: 0.5 mg Meropenem (Merrem Iv 1 Gm Premix) 50 mls @ 100 mls/hr IVPB Q12 LISET PRN Reason: Protocol Stop: 02/24/18 10:01 Levalbuterol HCl (Xopenex) 0.63 mg IH [id number] PRN PRN Reason: Shortness of Breath Lorazepam (Ativan) 0.5 mg PO HS [facility] Morphine Sulfate (Morphine) 2 mg IVP Q6H PRN PRN Reason: Pain, moderate (4-7) Last Admin: 02/17/18 11:35 Dose: 2 mg Nystatin (Mycostatin Cream) 1 ea TOP TID [facility] Last Admin: 02/17/18 11:18 Dose: 1 applic Pantoprazole Sodium (Protonix Susp) 40 mg PO 0600 [facility] Last Admin: 02/17/18 05:57 Dose: 40 mg Risperidone (Risperdal Tab) 0.25 mg PO 1000,1600 [facility] Last Admin: 02/16/18 11:42 Dose: Not Given Risperidone (Risperdal Oral Soln) 0.25 mg PO HS [facility] Venlafaxine HCl (Effexor Xr) 75 mg PO DAILY [facility] Last Admin: 02/17/18 11:16 Dose: 75 mg Verapamil HCl (Calan Tab) 80 mg PO TID [facility] Last Admin: 02/17/18 11:16 Dose: 80 mg - Labs Labs: 02/17/18 06:30 02/17/18 06:50 PT 12.2 SECONDS (9.4-12.5) 02/11/18 11:53 INR 1.06 (0.93-1.08) 02/11/18 11:53 APTT 25.1 Seconds (25.1-36.5) 02/11/18 11:53 - Constitutional Appears: Well, Non-toxic - Head Exam Head Exam: ATRAUMATIC, NORMOCEPHALIC - Eye Exam Eye Exam: EOMI, Normal appearance - ENT Exam ENT Exam: Mucous Membranes Moist - Neck Exam Neck Exam: Normal Inspection - Respiratory Exam Respiratory Exam: Clear to Ausculation Bilateral, NORMAL BREATHING PATTERN. absent: Accessory Muscle Use - Cardiovascular Exam Cardiovascular Exam: +S1, +S2 - GI/Abdominal Exam GI & Abdominal Exam: absent: Guarding - Neurological Exam Neurological Exam: Awake - Psychiatric Exam Psychiatric exam: Normal Affect, Normal Mood - Skin Skin Exam: Dry, Intact, Normal Color, Warm Assessment and Plan - Assessment and Plan (Free Text) Assessment: (1) Intertrochanteric fracture of left hip Assessment & Plan: s/p ORIF Ortho on board (Mastromonaco) Morphine and Percocet for pain PT/OT Hgb stable air mattress Turn Q2 ICS Status: Acute (2) Left arm weakness, s/p CVA Assessment & Plan: Neuro on board (Ramon) carotid US: bilateral 40-59% proximal ICA stenosis ASA Lipitor Repeat CT shows acute infarction in R. Parasaggital posterior frontal parietal region at vertex. Ramon made aware. Started on atorvastatin 40. Held lovenox, asa and plavix as patient is currently bleeding from operative site. Aspiration precautions PT/OT Status: Acute (3) HTN Assessment & Plan: Cardio consult Verapamil 80 mg PO TID Atenolol 25 mg PO daily Status: Chronic (5) A-fib Assessment & Plan: Tachycardic in 130s Ekg shows afib with RVR Cardio consult Verapamil 80 mg PO TID Amiodarone 200 mg PO daily Eliquis 5 mg PO BID Atenolol 25 mg PO daily Status: Chronic (6) COPD (chronic obstructive pulmonary disease) Assessment & Plan: Pulmicort Xopenex Brovana Status: Chronic (8) Depression/Dementia Assessment & Plan: Holding psych meds due to drowsiness Geodon Risperidal Ativan Effexor Psych consult (9) Right lobe Pneumonia Assessment & Plan: Merrem CXR show right lobe pneumonia likely secondary to aspiration Status: Acute (10) Prophylactic measures Assessment & Plan: Protonix Aspiration precautions Status: Acute <Radha Dodd - Last Filed: 02/17/18 17:30> Objective - Vital Signs/Intake and Output Vital Signs (last 24 hours): Temp Pulse Resp BP Pulse Ox 97.1 F L 70 19 102/32 L 97 02/17/18 12:00 02/17/18 11:17 02/17/18 12:00 02/17/18 15:08 02/17/18 06:00 Intake and Output: 02/17/18 02/17/18 06:59 18:59 Intake Total 230 Output Total 450 Balance -220 - Medications Medications: Current Medications Amiodarone HCl (Cordarone) 200 mg PO DAILY [facility] Last Admin: 02/17/18 11:17 Dose: 200 mg Apixaban (Eliquis) 5 mg PO BID [facility] PRN Reason: Protocol Last Admin: 02/17/18 11:16 Dose: 5 mg Arformoterol Tartrate (Brovana) 15 mcg IH BIDRESP [facility] Last Admin: 02/17/18 07:53 Dose: 15 mcg Aspirin (Aspirin Chewable) 81 mg PO DAILY [facility] Last Admin: 02/17/18 11:16 Dose: 81 mg Atenolol (Tenormin) 25 mg PO DAILY [facility] Last Admin: 02/17/18 11:16 Dose: 25 mg Atorvastatin Calcium (Lipitor) 40 mg PO DIN [facility] Last Admin: 02/16/18 18:40 Dose: 40 mg Benzocaine/Menthol (Cepacol Sore Throat) 1 carolee MT Q2H PRN PRN Reason: Sore Throat Budesonide (Pulmicort Respules) 0.5 mg IH [id number] [facility] Last Admin: 02/17/18 07:53 Dose: 0.5 mg Meropenem (Merrem Iv 1 Gm Premix) 50 mls @ 100 mls/hr IVPB Q12 LISET PRN Reason: Protocol Stop: 02/24/18 10:01 Levalbuterol HCl (Xopenex) 0.63 mg IH [id number] PRN PRN Reason: Shortness of Breath Lorazepam (Ativan) 0.5 mg PO HS [facility] Morphine Sulfate (Morphine) 2 mg IVP Q6H PRN PRN Reason: Pain, moderate (4-7) Last Admin: 02/17/18 11:35 Dose: 2 mg Nystatin (Mycostatin Cream) 1 ea TOP TID [facility] Last Admin: 02/17/18 15:09 Dose: 1 applic Pantoprazole Sodium (Protonix Susp) 40 mg PO 0600 [facility] Last Admin: 02/17/18 05:57 Dose: 40 mg Risperidone (Risperdal Tab) 0.25 mg PO 1000,1600 [facility] Last Admin: 02/16/18 11:42 Dose: Not Given Risperidone (Risperdal Oral Soln) 0.25 mg PO HS [facility] Venlafaxine HCl (Effexor Xr) 75 mg PO DAILY [facility] Last Admin: 02/17/18 11:16 Dose: 75 mg Verapamil HCl (Calan Tab) 80 mg PO TID [facility] Last Admin: 02/17/18 15:08 Dose: Not Given - Labs Labs: 02/17/18 06:30 02/17/18 06:50 PT 12.2 SECONDS (9.4-12.5) 02/11/18 11:53 INR 1.06 (0.93-1.08) 02/11/18 11:53 APTT 25.1 Seconds (25.1-36.5) 02/11/18 11:53 Attending/Attestation - Attestation I have personally seen and examined this patient.: Yes I have fully participated in the care of the patient.: Yes I have reviewed all pertinent clinical information, including history, physical exam and plan: Yes Notes (Text): 02/17/18 17:25 Medical record note made by the resident after discussion with my direction and input after the patient was personally seen and examined by me. I have reviewed the chart and agree that the record accurately reflects by personal performance of the history, physical exam, data review, and medical decision-making, in the course for the patient. I have also personally directed the plan of care. 87 years old Julianna with PMH of COPD,HTN,Proxysmal AF not on anticoagulation due to high risk of fall was admitted with mechanical fall and had left hip fracture.She underwent ORIF 02/11/18. she is also sp one unit of PRBC after surgery, post surgery on 02/12/18 had ischmeic stroke ( right MCA infarct, acute infarction in R. Parasaggital posterior frontal parietal region at vertex) resulting in left sided hemiplegia and dysarthria.) Patient went into AF with RVR, and was transferred to telemetry, was treated with cardizem drip, currently off drip, rate is better controlled with atenolol and amiodrone.Patient has been started on anticoagulation with Apixiban by cardiology,off plavix now to decrease the risk of bleeding. Right lower lobe infiltrate, concern for aspiration on IV Meropenem as per ID.Patient is afebrile. Prognosis is guarded. .
--- NOTE | 2018-02-17 15:59 | PN ---
DATE: 02/17/2018 FOLLOWUP PROGRESS NOTE SUBJECTIVE: The patient is an 87-year-old female, currently being treated for cardiac arrhythmias and status post hip fracture. She has also a history of delirium, which is slowly resolving. The patient's current laboratory data: White count is 9500, her hemoglobin is 8, her platelet counts are 168,000. Her metabolic profile: Her sodium 146, potassium 4.3, chloride 110, CO2 of 26, anion gap 14, BUN 31, creatinine 1, estimated GFR 52, albumin 2.8, AST 79, ALT 79. I reviewed progress notes. I also reviewed current list of medications. The patient's current medications include chewable aspirin 81 mg, lorazepam 0.5 mg at bedtime, which is on hold, lactated Ringer's, Pulmicort Respules, Lipitor, Brovana inhaler, p.r.n. morphine. The patient is also receiving Xopenex inhaler; Protonix suspension; Effexor XR 75 mg daily; Eliquis 5 mg daily; Risperdal, she was on 0.25 mg b.i.d., which is on old. She is on Cordarone 200 mg daily; ketamine 25 mg daily; Merrem 1 g IVP, which is just started. The patient is receiving lorazepam, which she has not received in the past 2 days. The patient's current mental status is as follows, she is awake. She is alert, but she is confused, lying in bed. Complaiins of feeling anxious and irritable, nervous. She is vague about reasons. She complains of pain in her left hip. She is disoriented to day, month and year. She does not recognize, remember my name, although I have known her for several years regular basis. The patient's vital signs: Her blood pressure is 139/63, pulse 70, the patient's respiratory rate is 19. IMPRESSION: Acute delirium slowly multiple lacunar and occipital infarcts. The patient is status post hip fracture, status post rapid atrial fibrillation, status post bipolar disorder. She has a history of emphysema, chronic obstructive pulmonary disease. PLAN: Order Risperdal 0.25 mg p.o. now. Advised restarting lorazepam 0.5 mg and Risperdal 0.25 mg at bedtime. mJ Solorzano MD [facility] # [id number] NIA
--- NOTE | 2018-02-17 17:00 | PN ---
DATE: 02/17/2018 SUBJECTIVE: The patient is in bed, in no acute distress, nontoxic. PHYSICAL EXAMINATION VITAL SIGNS: Temperature is 98, blood pressure is 112/50, respiratory rate of 18, heart rate of 66. HEENT: Unremarkable. NECK: Supple. LUNGS: Have decreased breath sounds. HEART: Normal S1 and S2. ABDOMEN: Soft, nontender. LABORATORY DATA: Reveals a white count of 9.5, hemoglobin of 8, platelets of 168. Chemistries reveals the BUN of 31, creatinine of 1, procalcitonin is less than 0.05. Urinalysis is noted. Microbiology: Yeast in the urine. Blood cultures are negative initially. Urine culture is negative. Review of orders reveals the patient to be on meropenem. ASSESSMENT AND PLAN: This is an 87-year-old female, seen earlier this morning in 267, bed 1, status post treatment of Escherichia coli. urinary tract infection, acute femoral fracture, status post open reduction and internal fixation postoperative day #6, acute renal failure, hypertension, subarachnoid hemorrhage, atrial fibrillation, chronic obstructive lung disease, gout, pulmonary hypertension, now with new sepsis with fevers and tachycardia and a new infiltrate. Procalcitonin is normal, on meropenem day #2. We will complete 4-7 days of antibiotics. The patient's temperature appears to be responding day #2 of 4-7 days. Joseph Díaz MD
[2018-02-17] MEDS: Levalbuterol 0.63 MG/3 ML Inhal Soln UD IH PRN (19:27)
[2018-02-18 02:48] VITALS: RESP 20; O2SAT 95
--- NOTE | 2018-02-18 05:52 | CP.PCM.PN ---
Subjective - Date & Time of Evaluation Date of Evaluation: 02/18/18 Time of Evaluation: 06:30 - Subjective Subjective: Awake, complaining of pain on surgical side, denies chest pain, denies shortness of breath, left sided weakness Reason for consultation and follow up: Cardiac evaluation, Atrial fibrillation, hypertension, history of fall, obesity. post ORIF of left hip. Seen and examined by me and Dr. Mortensen Objective - Vital Signs/Intake and Output Vital Signs (last 24 hours): Temp Pulse Resp BP Pulse Ox 99.0 F 69 20 133/56 L 95 02/17/18 22:00 02/17/18 22:00 02/17/18 22:00 02/17/18 22:00 02/17/18 22:00 - Medications Medications: Current Medications Amiodarone HCl (Cordarone) 200 mg PO DAILY [facility] Last Admin: 02/17/18 11:17 Dose: 200 mg Apixaban (Eliquis) 5 mg PO BID [facility] PRN Reason: Protocol Last Admin: 02/17/18 18:51 Dose: 5 mg Arformoterol Tartrate (Brovana) 15 mcg IH BIDRESP [facility] Last Admin: 02/17/18 19:27 Dose: 15 mcg Aspirin (Aspirin Chewable) 81 mg PO DAILY [facility] Last Admin: 02/17/18 11:16 Dose: 81 mg Atenolol (Tenormin) 25 mg PO DAILY [facility] Last Admin: 02/17/18 11:16 Dose: 25 mg Atorvastatin Calcium (Lipitor) 40 mg PO DIN [facility] Last Admin: 02/17/18 18:51 Dose: 40 mg Benzocaine/Menthol (Cepacol Sore Throat) 1 carolee MT Q2H PRN PRN Reason: Sore Throat Budesonide (Pulmicort Respules) 0.5 mg IH [id number] [facility] Last Admin: 02/17/18 19:27 Dose: 0.5 mg Meropenem (Merrem Iv 1 Gm Premix) 50 mls @ 100 mls/hr IVPB Q12 LISET PRN Reason: Protocol Stop: 02/24/18 10:01 Last Admin: 02/17/18 22:13 Dose: 100 mls/hr Levalbuterol HCl (Xopenex) 0.63 mg IH [id number] PRN PRN Reason: Shortness of Breath Last Admin: 02/17/18 19:27 Dose: 0.63 mg Lorazepam (Ativan) 0.5 mg PO HS [facility] Last Admin: 02/17/18 22:13 Dose: 0.5 mg Morphine Sulfate (Morphine) 2 mg IVP Q6H PRN PRN Reason: Pain, moderate (4-7) Last Admin: 02/17/18 18:51 Dose: 2 mg Nystatin (Mycostatin Cream) 1 ea TOP TID [facility] Last Admin: 02/17/18 18:52 Dose: 1 applic Pantoprazole Sodium (Protonix Susp) 40 mg PO 0600 [facility] Last Admin: 02/17/18 05:57 Dose: 40 mg Risperidone (Risperdal Tab) 0.25 mg PO 1000,1600 [facility] Last Admin: 02/16/18 11:42 Dose: Not Given Risperidone (Risperdal Oral Soln) 0.25 mg PO HS [facility] Last Admin: 02/17/18 22:10 Dose: 0.25 mg Venlafaxine HCl (Effexor Xr) 75 mg PO DAILY [facility] Last Admin: 02/17/18 11:16 Dose: 75 mg Verapamil HCl (Calan Tab) 80 mg PO TID [facility] Last Admin: 02/17/18 18:51 Dose: 80 mg - Labs Labs: 02/17/18 06:30 02/17/18 06:50 PT 12.2 SECONDS (9.4-12.5) 02/11/18 11:53 INR 1.06 (0.93-1.08) 02/11/18 11:53 APTT 25.1 Seconds (25.1-36.5) 02/11/18 11:53 - Constitutional Appears: No Acute Distress - ENT Exam ENT Exam: Mucous Membranes Moist - Respiratory Exam Respiratory Exam: Clear to Ausculation Bilateral, NORMAL BREATHING PATTERN - Cardiovascular Exam Cardiovascular Exam: +S1, +S2 Additional comments: left sided weakness, 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 she has history of hypertension, subarachnoid hemorrhage, Atrial fibrillation without anticoagulation, depression, anxiety, COPD, history of fall ankle fracture,osteoarthritis, former smoker, former alcohol abuse. Plan: Constipated,complaining of some abdominal pain, abdomen soft Reviewed RN/aide documentation and all zero bowel movement since admission, will start on daily Colace and Miralax Still complaining of pain at surgical site, will renew pain medications Increase oral fluid intake, swallowing evaluation done and recommended finely chopped food with thin liquids, NO Straw (mild dysphagia) Denies chest pain Left sided weakness post surgery Blood pressure and heart rate stable On ASA 81 mg daily, Lipitor 40 mg daily,Eliquis 5 mg BID Atenolol 25 mg daily, Verapamil 80 mg TID, Amiodarone 200 mg daily Continue current medications Continue current treatment Physical therapy Will follow up Plan and treatment discussed with Dr. Mortensen
[2018-02-18] MEDS: Pantoprazole 40 mg Susp UD PO SCH (06:03)
[2018-02-18] MEDS: Morphine 2 mg/ml ISec IVP PRN (06:08)
--- NOTE | 2018-02-18 07:14 | CP.PCM.PN ---
Objective - Vital Signs/Intake and Output Vital Signs (last 24 hours): Temp Pulse Resp BP Pulse Ox 99.0 F 69 20 133/56 L 95 02/17/18 22:00 02/17/18 22:00 02/17/18 22:00 02/17/18 22:00 02/17/18 22:00 - Medications Medications: Current Medications Amiodarone HCl (Cordarone) 200 mg PO DAILY [facility] Last Admin: 02/17/18 11:17 Dose: 200 mg Apixaban (Eliquis) 5 mg PO BID [facility] PRN Reason: Protocol Last Admin: 02/17/18 18:51 Dose: 5 mg Arformoterol Tartrate (Brovana) 15 mcg IH BIDRESP [facility] Last Admin: 02/17/18 19:27 Dose: 15 mcg Aspirin (Aspirin Chewable) 81 mg PO DAILY [facility] Last Admin: 02/17/18 11:16 Dose: 81 mg Atenolol (Tenormin) 25 mg PO DAILY [facility] Last Admin: 02/17/18 11:16 Dose: 25 mg Atorvastatin Calcium (Lipitor) 40 mg PO DIN [facility] Last Admin: 02/17/18 18:51 Dose: 40 mg Benzocaine/Menthol (Cepacol Sore Throat) 1 [place] MT Q2H PRN PRN Reason: Sore Throat Budesonide (Pulmicort Respules) 0.5 mg IH [id number] [facility] Last Admin: 02/17/18 19:27 Dose: 0.5 mg Docusate Sodium (Colace) 100 mg PO BID [facility] Meropenem (Merrem Iv 1 Gm Premix) 50 mls @ 100 mls/hr IVPB Q12 [facility] PRN Reason: Protocol Stop: 02/24/18 10:01 Last Admin: 02/17/18 22:13 Dose: 100 mls/hr Levalbuterol HCl (Xopenex) 0.63 mg IH [id number] PRN PRN Reason: Shortness of Breath Last Admin: 02/17/18 19:27 Dose: 0.63 mg Lorazepam (Ativan) 0.5 mg PO HS [facility] Last Admin: 02/17/18 22:13 Dose: 0.5 mg Morphine Sulfate (Morphine) 2 mg IVP Q6H PRN PRN Reason: Pain, moderate (4-7) Last Admin: 02/18/18 06:08 Dose: 2 mg Nystatin (Mycostatin Cream) 1 ea TOP TID [facility] Last Admin: 02/17/18 18:52 Dose: 1 applic Pantoprazole Sodium (Protonix Susp) 40 mg PO 0600 [facility] Last Admin: 02/18/18 06:03 Dose: 40 mg Polyethylene Glycol (Miralax) 17 gm PO BID [facility] Risperidone (Risperdal Tab) 0.25 mg PO 1000,1600 [facility] Last Admin: 02/16/18 11:42 Dose: Not Given Risperidone (Risperdal Oral Soln) 0.25 mg PO HS [facility] Last Admin: 02/17/18 22:10 Dose: 0.25 mg Venlafaxine HCl (Effexor Xr) 75 mg PO DAILY [facility] Last Admin: 02/17/18 11:16 Dose: 75 mg Verapamil HCl (Calan Tab) 80 mg PO TID [facility] Last Admin: 02/17/18 18:51 Dose: 80 mg - Labs Labs: 02/17/18 06:30 02/17/18 06:50 PT 12.2 SECONDS (9.4-12.5) 02/11/18 11:53 INR 1.06 (0.93-1.08) 02/11/18 11:53 APTT 25.1 Seconds (25.1-36.5) 02/11/18 11:53
[2018-02-18 07:38] LABS: BASO # 0.02 K/mm3 (0.0-2.0); BASO % 0.2 % (0.0-3.0); EOS % 0.1 % (1.5-5.0); GRAN # 9.74 (1.4-6.5); GRAN % 81.2 % (50.0-68.0); HEMOGLOBIN 8.6 g/dL (12.0-16.0); LYMPH # 1.2 (1.2-3.4); MEAN CELL VOLUME 96.5 fl (80.0-105.0); MEAN CORPUSCULAR HEMOGLOBIN 30.3 pg (25.0-35.0); MEAN CORPUSCULAR HGB CONC 31.4 g/dl (31.0-37.0); MEAN PLATELET VOLUME 11.6 fl (7.0-11.0); MONO % 8.5 % (1.0-6.0); RBC 2.84 10^6/uL (3.5-6.1); RED CELL DISTRIBUTION WIDTH 15.2 % (11.5-14.5)
[2018-02-18 07:51] LABS: ALBUMIN 3.3 g/dL (3.0-4.8); ALT/SGPT 92 U/L (7-56); AST/SGOT 74 U/L (14-36); BLOOD UREA NITROGEN 32 mg/dL (7-21); CALCIUM 9.4 mg/dL (8.4-10.5); GFR AFRICAN-AMERICAN > 60; GFR NON-AFRICAN AMERICAN 59
[2018-02-18] MEDS ORDERED: Oxycodone/Acetaminophen 10/325 mg Tab PO PRN ×2 (07:53→07:54)
--- NOTE | 2018-02-18 08:15 | CP.PCM.PN ---
Objective - Vital Signs/Intake and Output Vital Signs (last 24 hours): Temp Pulse Resp BP Pulse Ox 99.0 F 69 20 133/56 L 95 02/17/18 22:00 02/17/18 22:00 02/17/18 22:00 02/17/18 22:00 02/17/18 22:00 - Medications Medications: Current Medications Acetaminophen (Tylenol 325mg Tab) 650 mg PO Q6H PRN PRN Reason: Pain, Mild (1-3) Amiodarone HCl (Cordarone) 200 mg PO DAILY [facility] Last Admin: 02/17/18 11:17 Dose: 200 mg Apixaban (Eliquis) 5 mg PO BID [facility] PRN Reason: Protocol Last Admin: 02/17/18 18:51 Dose: 5 mg Arformoterol Tartrate (Brovana) 15 mcg IH BIDRESP [facility] Last Admin: 02/17/18 19:27 Dose: 15 mcg Aspirin (Aspirin Chewable) 81 mg PO DAILY [facility] Last Admin: 02/17/18 11:16 Dose: 81 mg Atenolol (Tenormin) 25 mg PO DAILY [facility] Last Admin: 02/17/18 11:16 Dose: 25 mg Atorvastatin Calcium (Lipitor) 40 mg PO DIN [facility] Last Admin: 02/17/18 18:51 Dose: 40 mg Benzocaine/Menthol (Cepacol Sore Throat) 1 carolee MT Q2H PRN PRN Reason: Sore Throat Budesonide (Pulmicort Respules) 0.5 mg IH [id number] [facility] Last Admin: 02/17/18 19:27 Dose: 0.5 mg Docusate Sodium (Colace) 100 mg PO BID [facility] Meropenem (Merrem Iv 1 Gm Premix) 50 mls @ 100 mls/hr IVPB Q12 [facility] PRN Reason: Protocol Stop: 02/24/18 10:01 Last Admin: 02/17/18 22:13 Dose: 100 mls/hr Levalbuterol HCl (Xopenex) 0.63 mg IH [id number] PRN PRN Reason: Shortness of Breath Last Admin: 02/17/18 19:27 Dose: 0.63 mg Lorazepam (Ativan) 0.5 mg PO HS [facility] Last Admin: 02/17/18 22:13 Dose: 0.5 mg Nystatin (Mycostatin Cream) 1 ea TOP TID [facility] Last Admin: 02/17/18 18:52 Dose: 1 applic Oxycodone/Acetaminophen (Percocet 10/325 Mg Tab) 1 tab PO Q4H PRN PRN Reason: Pain, moderate (4-7) Oxycodone/Acetaminophen (Percocet 10/325 Mg Tab) 2 tab PO Q4H PRN PRN Reason: Pain, severe (8-10) Pantoprazole Sodium (Protonix Susp) 40 mg PO 0600 [facility] Last Admin: 02/18/18 06:03 Dose: 40 mg Polyethylene Glycol (Miralax) 17 gm PO BID [facility] Risperidone (Risperdal Tab) 0.25 mg PO 1000,1600 [facility] Last Admin: 02/16/18 11:42 Dose: Not Given Risperidone (Risperdal Oral Soln) 0.25 mg PO HS [facility] Last Admin: 02/17/18 22:10 Dose: 0.25 mg Venlafaxine HCl (Effexor Xr) 75 mg PO DAILY [facility] Last Admin: 02/17/18 11:16 Dose: 75 mg Verapamil HCl (Calan Tab) 80 mg PO TID [facility] Last Admin: 02/17/18 18:51 Dose: 80 mg - Labs Labs: 02/18/18 07:15 02/18/18 07:15 PT 12.2 SECONDS (9.4-12.5) 02/11/18 11:53 INR 1.06 (0.93-1.08) 02/11/18 11:53 APTT 25.1 Seconds (25.1-36.5) 02/11/18 11:53
--- NOTE | 2018-02-18 08:30 | PN ---
DATE: 02/18/2018 PULMONARY NOTE SUBJECTIVE: The patient appears comfortable this morning. She is not short of breath at rest. She is awake and alert. OBJECTIVE: VITAL SIGNS (last noted in the computer): Temperature is 99, pulse 69, respirations 18/20, blood pressure 133/56. Oxygen saturation on nasal cannula is 95-96%. HEENT: Normocephalic, atraumatic. No JVD. CARDIOVASCULAR: Systolic ejection murmur at the lower left sternal border. No S3 gallop. LUNGS: Decreased breath sounds at the bases. Minimal/less rhonchi. No wheezing. EXTREMITIES: Positive for mild edema. No cyanosis or clubbing. The calves are nontender to palpation. The left hip is postoperative. GASTROINTESTINAL: Abdomen is soft, nontender and nondistended. Bowel sounds are positive. SKIN: No acute rash. NEUROLOGIC: Exam limited at the present time. IMPRESSION: 1. Rapid atrial fibrillation. 2. Left hip fracture, status post fall at home. 3. Right lower lobe pneumonia. 4. Advanced chronic obstructive pulmonary disease. 5. Anemia. 6. Rule out cerebrovascular accident. PLAN: The patient appears comfortable this morning. She is not short of breath at rest. She is awake and alert. She is conversive. She does state to feeling much better overall. I did discuss the case with the night nurse at length. The night nurse stated that the patient had a good night. On physical exam, there is definitely less bronchospasm noted. In addition, the alveolar-arterial gradient is also much less. I will continue with the current nebulizer treatments for now. I will also continue with the aspiration precautions. I would continue with the antibiotic coverage as per Infectious Disease. I did discuss the case with Dr. Díaz yesterday. Temperatures are resolving. The leukocytosis has resolved. Input by Cardiology is also noted. The patient does have chronic atrial fibrillation, but the ventricular rate is now much more controlled. The clinical status of the patient is significantly improved - compared to a few days ago. However, again, her future status/prognosis does remain very guarded. I will discuss the above with the attending physician. Ranjit Burnham MD [facility] # [id number] NIA
[2018-02-18] MEDS: Arformoterol 15 mcg/2 ml Inh Sol IH SCH (08:35)
[2018-02-18] MEDS: Budesonide 0.5 mg/2 ml Inhal Susp UD IH SCH (08:35)
[2018-02-18] MEDS: Levalbuterol 0.63 MG/3 ML Inhal Soln UD IH PRN (08:35)
[2018-02-18 09:07] VITALS: TEMP 97.8
[2018-02-18] MEDS ORDERED: Verapamil 240 mg ER Tab PO SCH (10:00)
[2018-02-18] MEDS: Meropenem IV 1 gm in NS 50 ML IVPB SCH (11:17)
[2018-02-18 11:27] VITALS: BP 137/68; PULSE 79
--- NOTE | 2018-02-18 12:17 | CP.PCM.DIS ---
Provider - Provider Date of Admission: 02/11/18 13:12 Attending physician: Radha Dodd MD Primary care physician: Peter Kyle MD Hospital Course - Lab Results Lab Results: Micro Results 02/15/18 22:49 Blood Blood Culture - Preliminary NO GROWTH AFTER 48 HOURS 02/15/18 22:49 Blood Blood Culture - Preliminary NO GROWTH AFTER 48 HOURS 02/15/18 23:13 Urine,Arshad Urine Culture - Final Yeast Species 02/12/18 11:25 Urine,Catheterized Urine Culture - Final No Growth (<1,000 CFU/ML) Most Recent Lab Values WBC 12.0 10^3/ul (4.5-11.0) H D 02/18/18 07:15 RBC 2.84 10^6/uL (3.5-6.1) L 02/18/18 07:15 Hgb 8.6 g/dL (12.0-16.0) L 02/18/18 07:15 Hct 27.4 % (36.0-48.0) L 02/18/18 07:15 MCV 96.5 fl (80.0-105.0) 02/18/18 07:15 MCH 30.3 pg (25.0-35.0) 02/18/18 07:15 MCHC 31.4 g/dl (31.0-37.0) 02/18/18 07:15 RDW 15.2 % (11.5-14.5) H 02/18/18 07:15 Plt Count 200 10^3/uL (120.0-450.0) 02/18/18 07:15 MPV 11.6 fl (7.0-11.0) H 02/18/18 07:15 Gran % 81.2 % (50.0-68.0) H 02/18/18 07:15 Lymph % (Auto) 10.0 % (22.0-35.0) L 02/18/18 07:15 [place] % (Auto) 8.5 % (1.0-6.0) H 02/18/18 07:15 Eos % (Auto) 0.1 % (1.5-5.0) L 02/18/18 07:15 Baso % (Auto) 0.2 % (0.0-3.0) 02/18/18 07:15 Gran # 9.74 (1.4-6.5) H 02/18/18 07:15 Lymph # (Auto) 1.2 (1.2-3.4) 02/18/18 07:15 [place] # (Auto) 1.0 (0.1-0.6) H 02/18/18 07:15 Eos # (Auto) 0.0 (0.0-0.7) 02/18/18 07:15 Baso # (Auto) 0.02 K/mm3 (0.0-2.0) 02/18/18 07:15 PT 12.2 SECONDS (9.4-12.5) 02/11/18 11:53 INR 1.06 (0.93-1.08) 02/11/18 11:53 APTT 25.1 Seconds (25.1-36.5) 02/11/18 11:53 pCO2 36 mm/Hg (35-45) 02/15/18 23:09 pO2 76.0 mm/Hg (80-100) L 02/15/18 23:09 HCO3 26.2 mmol/L (21-28) 02/15/18 23:09 ABG pH 7.47 (7.35-7.45) H 02/15/18 23:09 ABG Total CO2 27.3 mmol.L (22-28) 02/15/18 23:09 ABG O2 Saturation 97.9 % (95-98) 02/15/18 23:09 ABG O2 Content 10.0 ML/dl (15-23) L 02/14/18 12:10 ABG Base Excess 2.7 mmol/L (-2.0-3.0) 02/15/18 23:09 ABG Hemoglobin 7.5 g/dL (11.7-17.4) L 02/14/18 12:10 ABG Carboxyhemoglobin 1.7 % (0.5-1.5) H 02/14/18 12:10 POC ABG HHb (Measured) 4.0 % (0-5) 02/14/18 12:10 ABG Methemoglobin 0.5 % (0.0-3.0) 02/14/18 12:10 ABG O2 Capacity 10.4 mL/dl (16-24) L 02/14/18 12:10 ABG Potassium 4.2 mmol/L (3.6-5.2) 02/15/18 23:09 Hgb O2 Saturation 93.8 % (95.0-98.0) L 02/14/18 12:10 Sodium 141.0 mmol/L (132-148) 02/15/18 23:09 Chloride 113.0 mmol/L (98-107) H 02/15/18 23:09 Glucose 103 mg/dl (65-105) 02/15/18 23:09 Lactate 0.6 mmol/L (0.7-2.1) L 02/15/18 23:09 FiO2 28.0 % 02/15/18 23:09 Sodium 146 mmol/L (132-148) 02/18/18 07:15 Potassium 4.8 mmol/L (3.6-5.0) 02/18/18 07:15 Chloride 110 mmol/L (98-107) H 02/18/18 07:15 Carbon Dioxide 28 mmol/L (21-33) 02/18/18 07:15 Anion Gap 13 (10-20) 02/18/18 07:15 BUN 32 mg/dL (7-21) H 02/18/18 07:15 Creatinine 0.9 mg/dl (0.7-1.2) 02/18/18 07:15 Est GFR ( Amer) > 60 02/18/18 07:15 Est GFR (Non-Af Amer) 59 02/18/18 07:15 POC Glucose (mg/dL) 138 mg/dL (65-110) H 02/12/18 09:29 Random Glucose 114 mg/dL (70-110) H 02/18/18 07:15 Calcium 9.4 mg/dL (8.4-10.5) 02/18/18 07:15 Phosphorus 2.9 mg/dL (2.5-4.5) 02/18/18 07:15 Magnesium 2.0 mg/dL (1.7-2.2) 02/18/18 07:15 Total Bilirubin 0.9 mg/dL (0.2-1.3) 02/18/18 07:15 AST 74 U/L (14-36) H 02/18/18 07:15 ALT 92 U/L (7-56) H 02/18/18 07:15 Alkaline Phosphatase 66 U/L (38-126) 02/18/18 07:15 Lactate Dehydrogenase 474 U/L (333-699) 02/11/18 11:53 Total Creatine Kinase 80 U/L (35-230) 02/11/18 11:53 Troponin I 0.06 ng/mL 02/15/18 06:30 NT-Pro-B Natriuret Pep 423 pg/mL (0-450) 02/11/18 11:53 Total Protein 6.6 g/dL (5.8-8.3) 02/18/18 07:15 Albumin 3.3 g/dL (3.0-4.8) 02/18/18 07:15 Globulin 3.3 gm/dL 02/18/18 07:15 Albumin/Globulin Ratio 1.0 (1.1-1.8) L 02/18/18 07:15 Triglycerides 88 mg/dL (35-160) 02/13/18 07:39 Cholesterol 96 mg/dL (130-200) L 02/13/18 07:39 LDL Cholesterol Direct 30 mg/dL (0-129) 02/13/18 07:39 HDL Cholesterol 41 mg/dL (29-60) 02/13/18 07:39 Procalcitonin < 0.05 NG/ML (0.19-0.49) L 02/16/18 06:30 TSH 3rd Generation 1.72 mIU/mL (0.46-4.68) 02/12/18 13:07 Arterial Blood Potassium 4.2 mmol/L (3.6-5.2) 02/15/18 23:09 Urine Color Yellow (YELLOW) 02/15/18 23:13 Urine Appearance Turbid (CLEAR) 02/15/18 23:13 Urine pH 6.0 (4.7-8.0) 02/15/18 23:13 Ur Specific Centre 1.025 (1.005-1.035) 02/15/18 23:13 Urine Protein 30 mg/dL (<30 mg/dL) H 02/15/18 23:13 Urine Glucose (UA) Negative mg/dL (NEGATIVE) 02/15/18 23:13 Urine Ketones Negative mg/dL (NEGATIVE) 02/15/18 23:13 Urine Blood Small (NEGATIVE) H 02/15/18 23:13 Urine Nitrate Negative (NEGATIVE) 02/15/18 23:13 Urine Bilirubin Negative (NEGATIVE) 02/15/18 23:13 Urine Urobilinogen 0.2 E.U./dL (<1 E.U./dL) 02/15/18 23:13 Ur Leukocyte Esterase Moderate [place]/uL (NEGATIVE) H 02/15/18 23:13 Urine RBC 2 - 5 /hpf (0-2) 02/15/18 23:13 Urine WBC 15 - 20 /hpf (0-6) 02/15/18 23:13 Ur Epithelial Cells 6 - 8 /hpf (0-5) 02/15/18 23:13 Urine Bacteria Mod (NEG) 02/15/18 23:13 Urine Other Uyeast 02/15/18 23:13 Urine Eosinophils Negative 02/12/18 19:15 Ur Random Creatinine 134 mg/dL 02/12/18 18:40 Ur Random Sodium 69 meq/L 02/12/18 18:40 Urine Microalbumin 138.4 mg/L (0.0-16.6) H 02/12/18 18:40 Blood Type O POSITIVE 02/11/18 12:00 Blood Type Confirm O POSITIVE 02/11/18 16:30 Antibody Screen Negative 02/11/18 12:00 Crossmatch See Detail 02/11/18 12:00 BBK History Checked No verified bt 02/11/18 12:00 Discharge Exam - Head Exam Head Exam: ATRAUMATIC, NORMOCEPHALIC Discharge Plan - Follow Up Plan Condition: FAIR Disposition: HOME/ ROUTINE Instructions: Pneumonia, Adult (DC)
[2018-02-18] MEDS: Venlafaxine 75 mg ER Cap PO SCH (13:39)
[2018-02-18] MEDS: POLYETHYLENE GLYCOL 3350 17 GM/Dose PACKET PO SCH ×2 (13:45→17:35)
--- NOTE | 2018-02-18 15:06 | CP.PCM.PN ---
Subjective - Date & Time of Evaluation Date of Evaluation: 02/18/18 Time of Evaluation: 12:45 - Subjective Subjective: No fevers, not in distress. Objective - Vital Signs/Intake and Output Vital Signs (last 24 hours): Temp Pulse Resp BP Pulse Ox 97.8 F 79 20 137/68 95 02/18/18 06:00 02/18/18 11:25 02/18/18 06:00 02/18/18 11:25 02/18/18 06:00 - Medications Medications: Current Medications Acetaminophen (Tylenol 325mg Tab) 650 mg PO Q6H PRN PRN Reason: Pain, Mild (1-3) Amiodarone HCl (Cordarone) 200 mg PO DAILY [facility] Last Admin: 02/18/18 11:25 Dose: 200 mg Apixaban (Eliquis) 5 mg PO BID [facility] PRN Reason: Protocol Last Admin: 02/18/18 11:16 Dose: 5 mg Arformoterol Tartrate (Brovana) 15 mcg IH BIDRESP [facility] Last Admin: 02/18/18 08:35 Dose: 15 mcg Aspirin (Aspirin Chewable) 81 mg PO DAILY [facility] Last Admin: 02/18/18 11:16 Dose: 81 mg Atenolol (Tenormin) 25 mg PO DAILY [facility] Last Admin: 02/18/18 11:24 Dose: 25 mg Atorvastatin Calcium (Lipitor) 40 mg PO DIN [facility] Last Admin: 02/17/18 18:51 Dose: 40 mg Benzocaine/Menthol (Cepacol Sore Throat) 1 carolee MT Q2H PRN PRN Reason: Sore Throat Budesonide (Pulmicort Respules) 0.5 mg IH [id number] [facility] Last Admin: 02/18/18 08:35 Dose: 0.5 mg Docusate Sodium (Colace Liquid) 100 mg PO BID [facility] Meropenem (Merrem Iv 1 Gm Premix) 50 mls @ 100 mls/hr IVPB Q12 [facility] PRN Reason: Protocol Stop: 02/24/18 10:01 Last Admin: 02/18/18 11:17 Dose: 100 mls/hr Levalbuterol HCl (Xopenex) 0.63 mg IH [id number] PRN PRN Reason: Shortness of Breath Last Admin: 02/18/18 08:35 Dose: 0.63 mg Lorazepam (Ativan) 0.5 mg PO HS [facility] Last Admin: 02/17/18 22:13 Dose: 0.5 mg Nystatin (Mycostatin Cream) 1 ea TOP TID [facility] Last Admin: 02/17/18 18:52 Dose: 1 applic Oxycodone/Acetaminophen (Percocet 10/325 Mg Tab) 1 tab PO Q4H PRN PRN Reason: Pain, moderate (4-7) Oxycodone/Acetaminophen (Percocet 10/325 Mg Tab) 2 tab PO Q4H PRN PRN Reason: Pain, severe (8-10) Pantoprazole Sodium (Protonix Susp) 40 mg PO 0600 [facility] Last Admin: 02/18/18 06:03 Dose: 40 mg Polyethylene Glycol (Miralax) 17 gm PO BID [facility] Risperidone (Risperdal Tab) 0.25 mg PO 1000,1600 [facility] Last Admin: 02/16/18 11:42 Dose: Not Given Risperidone (Risperdal Oral Soln) 0.25 mg PO [facility] Last Admin: 02/17/18 22:10 Dose: 0.25 mg Venlafaxine HCl (Effexor Xr) 75 mg PO DAILY [facility] Last Admin: 02/17/18 11:16 Dose: 75 mg Verapamil HCl (Calan Sr Tab) 240 mg PO DAILY [facility] Last Admin: 02/18/18 11:25 Dose: 240 mg - Labs Labs: 02/18/18 07:15 02/18/18 07:15 PT 12.2 SECONDS (9.4-12.5) 02/11/18 11:53 INR 1.06 (0.93-1.08) 02/11/18 11:53 APTT 25.1 Seconds (25.1-36.5) 02/11/18 11:53 - Constitutional Appears: Chronically Ill - ENT Exam ENT Exam: Mucous Membranes Moist - Neck Exam Neck Exam: absent: Lymphadenopathy, Meningismus - Respiratory Exam Respiratory Exam: Decreased Breath Sounds - Cardiovascular Exam Cardiovascular Exam: +S1, +S2 - GI/Abdominal Exam GI & Abdominal Exam: Soft. absent: Tenderness Assessment and Plan - Assessment and Plan (Free Text) Plan: Assessment consider bilateral HCAP S/P treatment of E. coli UTI acute femoral fracture S/P ORIF POD #7 acute renal failure HTN subarachnoid hemorrhage atrial fibrillation not on anticoagulation due to risk of GI bleed depression COPD pseudogout pulmonary HTN history of left frontal subarachnoid hemorrhage S/P appendectomy obesity with BMI 31 Plan cotninue Merrem day 3 to complete 4-7 days of therapy
== END 2018-02-18 18:33 | DRG 480 ==
LOC: ED 11:22 → ERH 13:12 → 5RNO 14:49 → 3RNO 02-12 09:54 → 2RNO 02-15 00:49 → 5RSO 02-17 21:26
PROVIDERS: ADMIT Hospitalist; ATTEND Internal Medicine
PROC: 0QS706Z Reposition Left Upper Femur with Intramedullary Internal Fixation Device, Open Approach (ICD-10-PCS; principal; 2018-02-11 16:30)
PROC: 30233N1 Transfusion of Nonautologous Red Blood Cells into Peripheral Vein, Percutaneous Approach (ICD-10-PCS; 2018-02-12)
PROC: 3E0F7GC Introduction of Other Therapeutic Substance into Respiratory Tract, Via Natural or Artificial Opening (ICD-10-PCS; 2018-02-12)
DX: S72.142A Displaced intertrochanteric fracture of left femur, initial encounter for closed fracture (principal); I63.511 Cerebral infarction due to unspecified occlusion or stenosis of right middle cerebral artery; J18.9 Pneumonia, unspecified organism; A41.9 Sepsis, unspecified organism; N39.0 Urinary tract infection, site not specified; N17.9 Acute kidney failure, unspecified; E87.2 Acidosis; D62 Acute posthemorrhagic anemia; G81.94 Hemiplegia, unspecified affecting left nondominant side; I97.88 Other intraoperative complications of the circulatory system, not elsewhere classified; I47.2 Ventricular tachycardia; I10 Essential (primary) hypertension; I27.20 Pulmonary hypertension, unspecified; Z99.81 Dependence on supplemental oxygen; I48.2 Chronic atrial fibrillation; B96.20 Unspecified Escherichia coli [E. coli] as the cause of diseases classified elsewhere; J43.9 Emphysema, unspecified; E86.0 Dehydration; I48.0 Paroxysmal atrial fibrillation; E87.5 Hyperkalemia; R47.1 Dysarthria and anarthria; I36.1 Nonrheumatic tricuspid (valve) insufficiency; F31.9 Bipolar disorder, unspecified; I95.89 Other hypotension; M17.0 Bilateral primary osteoarthritis of knee; M10.9 Gout, unspecified; F41.9 Anxiety disorder, unspecified; R29.6 Repeated falls; H91.90 Unspecified hearing loss, unspecified ear; W19.XXXA Unspecified fall, initial encounter; Y92.000 Kitchen of unspecified non-institutional (private) residence as the place of occurrence of the external cause; E66.9 Obesity, unspecified; Z68.31 Body mass index [BMI] 31.0-31.9, adult; Z91.81 History of falling; Z86.711 Personal history of pulmonary embolism; Z87.440 Personal history of urinary (tract) infections; Z87.891 Personal history of nicotine dependence

== ENCOUNTER 2018-03-14 15:47 | Inpatient (IN) | payer MEDICARE, OTHER ==
[2018-03-14 15:47] VITALS: PULSE 132
[2018-03-14 16:06] VITALS: BMI 29.9
[2018-03-14] MEDS ORDERED: Vancomycin 1gm in NS 250ml 1 GM/250 ML BAG IVPB STA (16:06)
[2018-03-14] MEDS ORDERED: Aztreonam 1 Gm in NS 100mL 100 ML IVPB STA (16:11)
[2018-03-14] MEDS ORDERED: Azithromycin 500MG/NS 250ml 500 MG/250 ML BAG IVPB STA (16:13)
[2018-03-14] MEDS ORDERED: Sodium Chloride 0.9% 1,000 ML IV STA (16:14)
[2018-03-14 16:34] LABS: ARTERIAL BLOOD GAS HCO3 28.5 mmol/L (21-28); ARTERIAL BLOOD GAS O2 SAT 89.4 % (95-98); ARTERIAL BLOOD GAS PCO2 41 mm/Hg (35-45); ARTERIAL BLOOD GAS PH 7.45 (7.35-7.45); ARTERIAL BLOOD GAS TCO2 29.8 mmol.L (22-28)
[2018-03-14 16:52] LABS: BASO # 0.01 K/mm3 (0.0-2.0); BASO % 0.1 % (0.0-3.0); GRAN # 16.64 (1.4-6.5); GRAN % 88.2 % (50.0-68.0); LYMPH # 0.9 (1.2-3.4); LYMPH % 4.8 % (22.0-35.0); MEAN CELL VOLUME 97.4 fl (80.0-105.0); MEAN CORPUSCULAR HEMOGLOBIN 29.8 pg (25.0-35.0); MEAN CORPUSCULAR HGB CONC 30.6 g/dl (31.0-37.0); MEAN PLATELET VOLUME 11.8 fl (7.0-11.0); MONO # 1.3 (0.1-0.6); MONO % 6.9 % (1.0-6.0); PLATELET COUNT 183 10^3/uL (120.0-450.0); RBC 3.02 10^6/uL (3.5-6.1); WHITE BLOOD COUNT 18.9 10^3/ul (4.5-11.0)
[2018-03-14 17:05] LABS: ALB/GLOB RATIO 0.8 (1.1-1.8); ALBUMIN 3.1 g/dL (3.0-4.8); ALT/SGPT 24 U/L (7-56); AST/SGOT 21 U/L (14-36); BLOOD UREA NITROGEN 24 mg/dL (7-21); CALCIUM 8.8 mg/dL (8.4-10.5); GFR AFRICAN-AMERICAN > 60; GFR NON-AFRICAN AMERICAN > 60
[2018-03-14 17:09] LABS: B-TYPE NATRIURETIC PEPTIDE 17900 pg/mL (0-450); INR 2.74 (0.93-1.08); PARTIAL THROMBOPLASTIN TIME 35.2 Seconds (25.1-36.5); PROTHROMBIN TIME 31.9 SECONDS (9.4-12.5)
--- NOTE | 2018-03-14 17:12 | ED PDOC ---
Arrival/HPI - General Chief Complaint: Shortness Of Breath Time Seen by Provider: 03/14/18 15:55 Historian: Patient - History of Present Illness Narrative History of Present Illness (Text): 03/14/18 17:02 87-year-old female presents today transferred from subacute rehabilitation with shortness of breath since this morning. family states yesterday the patient was doing well. pt states today she developed SOB. pt with cough. denies chest pain. no dizziness or weakness. no urinary symptoms. no abdominal pain. pt with hx of UTI and PNA on prior hospital admission. Time/Duration: Other (this morning) Symptom Onset: Gradual Symptom Course: Worsening Past Medical History - Provider Review Nursing Documentation Reviewed: Yes - Travel History Have you recently traveled outside [place] w/in the past 3 mons?: No - Infectious Disease Hx of Infectious Diseases: None - Tetanus Immunization Tetanus Immunization: Unknown - Reproductive Menopause: No - Cardiac Hx Cardiac Disorders: Yes Hx Hypertension: Yes - Pulmonary Hx Chronic Obstructive Pulmonary Disease (COPD): Yes - Neurological Hx Neurological Disorder: Yes - HEENT Hx HEENT Disorder: Yes (WEARS RX GLASSES) Hx Cataracts: Yes (BILATERAL SURGERY) Hx Deafness: Yes - Renal Hx Renal Disorder: No - Endocrine/Metabolic Hx Endocrine Disorders: No - Hematological/Oncological Hx 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) - Integumentary Hx Dermatological Disorder: No - Musculoskeletal/Rheumatological Hx Musculoskeletal Disorders: Yes Hx Back Pain: Yes Hx Falls: Yes Hx Fractures: Yes (R ANKLE FX 12-29-17,LEFT HIP FX 02-11-18) Hx Osteoarthritis: Yes (BILATERAL KNEE) Hx Unsteady Gait: Yes (WALKER) - Gastrointestinal Hx Gastrointestinal Disorders: No - Genitourinary/Gynecological Hx Genitourinary Disorders: Yes Hx Incontinence: Yes Hx Urinary Tract Infection: Yes - Psychiatric Hx Psychophysiologic Disorder: Yes (INSOMNIA,) Hx Anxiety: Yes Hx Bipolar Disorder: Yes Hx Depression: Yes Hx Emotional Abuse: No Hx Physical Abuse: No Hx Substance Use: No - Surgical History Hx Appendectomy: Yes - Anesthesia Hx Anesthesia Reactions: No - Suicidal Assessment Feels Threatened In Home Enviroment: No Family/Social History - Physician Review Nursing Documentation Reviewed: Yes Family/Social History: Unknown Family HX Smoking Status: Former Smoker Hx Alcohol Use: Yes (SOCIAL ,RARELY) Hx Substance Use: No Hx Substance Use Treatment: No Allergies/Home Meds Allergies/Adverse Reactions: Allergies Iodinated Contrast- Oral and IV Dye [Iodinated Contrast Media - Oral and] Allergy (Verified 02/11/18 16:55) ANAPHYLAXIS Penicillins Allergy (Verified 02/11/18 16:55) ANAPHYLAXIS Home Medications: Home Meds Medication Instructions Recorded Confirmed Arformoterol [Brovana] 15 mcg IH BID 12/26/17 02/11/18 Review of Systems - Review of Systems Constitutional: Fatigue, Fevers Respiratory: SOB, Cough Cardiovascular: absent: Chest Pain, Palpitations Gastrointestinal: absent: Abdominal Pain, Nausea, Vomiting Genitourinary Female: absent: Dysuria Musculoskeletal: absent: Arthralgias Skin: absent: Rash Neurological: absent: Headache, Dizziness Physical Exam Vital Signs Reviewed: Yes Vital Signs Temp Pulse Resp BP Pulse Ox 03/14/18 17:00 102 F H 03/14/18 16:15 24 98 03/14/18 15:58 102 F H 90 24 108/44 L 86 L Temperature: Febrile Blood Pressure: Normal Pulse: Regular Respiratory Rate: Tachypneic Appearance: Positive for: Well-Appearing, Non-Toxic, Comfortable Pain Distress: Mild Mental Status: Positive for: Alert and Oriented X 3 - Systems Exam Head: Present: Atraumatic Mouth: Present: Moist Mucous Membranes Neck: Present: Normal Range of Motion Respiratory/Chest: Present: Good Air Exchange, Accessory Muscle Use, Decreased Breath Sounds, Rhonchi, Tachypneic. No: Clear to Auscultation Cardiovascular: Present: Regular Rate and Rhythm. No: Tachycardic Abdomen: No: Tenderness, Distention, Rebound, Guarding Upper Extremity: Present: Normal ROM Lower Extremity: No: Edema Neurological: Present: GCS=15, Speech Normal Skin: Present: Warm, Dry Psychiatric: Present: Alert, Oriented x 3 Medical Decision Making ED Course and Treatment: 03/14/18 17:31 87yr old female with SOB, tachypnea, hypoxic, increased work of breathing febrile in ER with temp of 102 pt immediately seen and evaluated by dr. delgadillo pt started on Bipap cbc; wbc; 18.9 CMP: wnl cxr; + right sided infiltrate; + vascular congestion lactate; wnl pt reassessment; on BIPAP; pt feeling better, hypoxia improved. blood and urine cultures pending astreonam, zithromax and vancomycin started IV for pneumonia 03/14/18 17:[address] 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; pneumonia, hypoxia admit to ICU - Lab Interpretations Lab Results: 03/14/18 16:45 03/14/18 16:45 Lab Results 03/14/18 17:20: pO2 136 H, VBG pH 7.41, VBG pCO2 50.0, VBG HCO3 31.7 H, VBG Total CO2 33.2 H, VBG O2 Sat (Calc) 99.5 H, VBG Base Excess 6.2 H, VBG Potassium 5.3 H, Sodium 136.0, Chloride 105.0, Glucose 149 H, Lactate 1.2, FiO2 21.0, Venous Blood Potassium 5.3 H 03/14/18 16:45: Troponin I 0.13 H* D 03/14/18 16:45: Sodium 139, Chloride 101, Potassium 4.4, Carbon Dioxide 29, Anion Gap 13, BUN 24 H, Creatinine 0.8, Est GFR ( Amer) > 60, Est GFR ( Non-Af Amer) > 60, Random Glucose 151 H, Calcium 8.8, Phosphorus 2.9, Magnesium 1.8, Total Bilirubin 0.7, AST 21, ALT 24, Alkaline Phosphatase 163 H D, NT-Pro- B Natriuret Pep 56433 H, Total Protein 6.8, Albumin 3.1, Globulin 3.7, Albumin/ Globulin Ratio 0.8 L 03/14/18 16:45: PT 31.9 H, INR 2.74 H, APTT 35.2 03/14/18 16:45: WBC 18.9 H D, RBC 3.02 L, Hgb 9.0 L, Hct 29.4 L, MCV 97.4, MCH 29.8, MCHC 30.6 L, RDW 16.0 H, Plt Count 183, MPV 11.8 H, Gran % 88.2 H, Lymph % (Auto) 4.8 L, Real % (Auto) 6.9 H, Eos % (Auto) 0.0 L, Baso % (Auto) 0.1, Gran # 16.64 H, Lymph # (Auto) 0.9 L, Real # (Auto) 1.3 H, Eos # (Auto) 0.0, Baso # (Auto) 0.01, Neutrophils % (Manual) 85 H, Band Neutrophils % 4 H, Lymphocytes % (Manual) 6 L, Monocytes % (Manual) 5, Platelet Evaluation Normal, Polychromasia Slight, Hypochromasia 1+, Anisocytosis (manual) 1+ 03/14/18 16:25: pCO2 41, pO2 49.0 L, HCO3 28.5 H, ABG pH 7.45, ABG Total CO2 29.8 H, ABG O2 Saturation 89.4 L, ABG Base Excess 4.1 H, ABG Potassium 3.9, Sodium 138.0, Chloride 107.0, Glucose 151 H, Lactate 1.1, FiO2 28.0, Arterial Blood Potassium 3.9 - RAD Interpretation Radiology Orders: 03/14/18 16:06 CHEST PORTABLE [RAD] Stat - Medication Orders Current Medication Orders: Doxycycline Hyclate (Doryx) 100 mg PO Q12 LISET PRN Reason: Protocol Last Admin: 03/14/18 21:17 Dose: 100 mg Enoxaparin Sodium (Lovenox) 40 mg SC DAILY LISET PRN Reason: Protocol Vancomycin HCl (Vancomycin 1gm) 1 gm in 250 mls @ 167 mls/hr IVPB DAILY LISET PRN Reason: Protocol Aztreonam (Azactam 1 Gm) 100 mls @ 100 mls/hr IVPB Q8 LISET PRN Reason: Protocol Stop: 03/19/18 22:01 Last Admin: 03/14/18 21:16 Dose: 100 mls/hr eMAR Start Stop Document 03/14/18 21:16 B.P (Rec: 03/14/18 21:17 B.P [facility] [id number] Intravenous Solution Start Date 03/14/18 Start Time 21:16 Methylprednisolone (Solu-Medrol) 30 mg IVP Q8 [facility] Last Admin: 03/14/18 21:17 Dose: 30 mg IVP Administration Document 03/14/18 21:17 B.P (Rec: 03/14/18 21:17 B.P [facility] [id number] Charges for Administration # of IVP Administrations 1 Pantoprazole Sodium (Protonix Inj) 40 mg IVP DAILY [facility] Discontinued Medications Acetaminophen (Tylenol 650 Mg Supp) 650 mg RC STAT STA Stop: 03/14/18 16:15 Last Admin: 03/14/18 17:00 Dose: 650 mg MAR Pain/Vitals Document 03/14/18 17:00 MS (Rec: 03/14/18 17:20 MS [facility] [id number] Pain Reassessment Is This A Pain ReAssessment? No Sleep Is patient sleeping during reassessment? No Presence of Pain Presence of Pain No Vitals Temperature (97.6 F-99.6 F) 102 F Temperature Source Rectal Furosemide (Lasix) 40 mg IVP ONCE ONE Stop: 03/14/18 18:05 Vancomycin HCl (Vancomycin 1gm) 1 gm in 250 mls @ 167 mls/hr IVPB STAT STA PRN Reason: Protocol Stop: 03/14/18 17:35 Last Admin: 03/14/18 18:58 Dose: 167 mls/hr eMAR Start Stop Document 03/14/18 18:58 MS (Rec: 03/14/18 18:58 MS [facility] [id number]) Intravenous Solution Start Date 03/14/18 Start Time 18:58 Aztreonam (Azactam 1 Gm) 100 mls @ 100 mls/hr IVPB STAT STA PRN Reason: Protocol Stop: 03/14/18 17:10 Azithromycin (Zithromax 500mg In Ns) 500 mg in 250 mls @ 167 mls/hr IVPB STAT STA PRN Reason: Protocol Stop: 03/14/18 17:42 Last Admin: 03/14/18 16:55 Dose: 167 mls/hr eMAR Start Stop Document 03/14/18 16:55 MS (Rec: 03/14/18 16:57 MS [facility] [id number]) Intravenous Solution Start Date 03/14/18 Start Time 16:56 End Date 03/14/18 End time 18:26 Total Infusion Time 90 Sodium Chloride (Sodium Chloride 0.9%) 1,000 mls @ 999 mls/hr IV .Q1H1M STA Stop: 03/14/18 17:14 Sodium Chloride (Sodium Chloride 0.9%) 500 mls @ 999 mls/hr IV .Q31M STA Stop: 03/14/18 17:57 Last Admin: 03/14/18 17:33 Dose: 999 mls/hr eMAR Start Stop Document 03/14/18 17:33 MS (Rec: 03/14/18 17:33 MS [facility] [id number]) Intravenous Solution Start Date 03/14/18 Start Time 17:33 End Date 03/14/18 End time 18:03 Total Infusion Time 30 Disposition/Present on Arrival - Present on Arrival Any Indicators Present on Arrival: No History of DVT/PE: No History of Uncontrolled Diabetes: No Urinary Catheter: No History of Decub. Ulcer: No History Surgical Site Infection Following: None - Disposition Have Diagnosis and Disposition been Completed?: Yes Diagnosis: Pneumonia, Sepsis, Hypoxia Disposition: HOSPITALIZED Disposition Time: 17:20 Patient Plan: Admission Patient Problems: Current Active Problems Problem Status Onset Hypoxia Acute Pneumonia Acute Sepsis Acute Condition: CRITICAL
[2018-03-14] MEDS ORDERED: Sodium Chloride 0.9% 500 ML IV STA (17:27)
[2018-03-14 17:34] LABS: VENOUS BLOOD GAS BASE EXCESS 6.2 mmol/L (0.0-2.0); VENOUS BLOOD GAS PO2 136 mm/Hg (30-55); VENOUS BLOOD PH 7.41 (7.32-7.43)
[2018-03-14 18:03] LABS: BAND 4 % (0-2); LYMPHOCYTE 6 % (22.0-35.0); MONOCYTE 5 % (1.0-6.0); NEUTROPHIL 85 % (50.0-70.0)
[2018-03-14 18:04] LABS: ANISOCYTOSIS 1+; HYPOCHROMIA 1+; PLATELET ESTIMATE NORMAL (NORMAL); POLYCHROMASIA SLIGHT
[2018-03-14] MEDS ORDERED: Cefepime 1gm in NS 100ml 1 GM/100 ML BAG IVPB SCH (18:15)
--- NOTE | 2018-03-14 18:22 | CP.PCM.CON ---
<Jad Correa - Last Filed: 03/14/18 18:17> History of Present Illness - History of Present Illness History of Present Illness: ICU Consult Note: Dr. Allen Reason For Consult: Respiratory Failure HPI: 87 year old female with past medical history pertinent for COPD presents with acute shortness of breath that started today. Patient's partner at bedside states that he saw her early this AM at 8:30 and she was feeling just fine. She then started having sputum production after she was given her breathing treatment, and acutely started decompensating. Patient herself is nodding yes or no to questions but is pleasantly confused - this is her baseline , as I have seen her several times in the past. Patient and her partner deny subjective fevers and chills in the intermediate, and patient denies any other complaints. Review of Systems: 12 point ROS obtained and negative except as per HPI PMH: Left frontal subarachnoid hemorrhage, recurrent falls, COPD, HTN, Afib without anticoagulation, OA, pseudogout, depression, Pulm HTN Meds: As per EMR Allergies: Iodinated contrast; PCN's PSH: Appendectomy FH: Non-contributory Social History: Quit smoking 50 years ago; Denies alcohol, illicits PMD: Dr. Kyle Cardio: Dr. Negrete Pulm: Dr. Burnham Ortho: Dr. 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) - INTEGUMENTARY Hx Dermatological Problems: No - MUSCULOSKELETAL/RHEUMATOLOGICAL Hx Musculoskeletal Disorders: Yes Hx Back Pain: Yes Hx Falls: Yes Hx Fractures: Yes (R ANKLE FX 12-29-17,LEFT HIP FX 02-11-18) Hx Osteoarthritis: Yes (BILATERAL KNEE) Hx Unsteady Gait: Yes (WALKER) - GASTROINTESTINAL Hx Gastrointestinal Disorders: No - GENITOURINARY/GYNECOLOGICAL Hx Genitourinary Disorders: Yes Hx Incontinence: Yes Hx Urinary Tract Infection: Yes - PSYCHIATRIC Hx Psychophysiologic Disorder: Yes (INSOMNIA,) Hx Anxiety: Yes Hx Bipolar Disorder: Yes Hx Depression: Yes Hx Emotional Abuse: No Hx Physical Abuse: No Hx Substance Use: No - SURGICAL HISTORY Hx Appendectomy: Yes - ANESTHESIA Hx Anesthesia Reactions: No Meds Allergies/Adverse Reactions: Allergies Allergy/AdvReac Type Severity Reaction Status Date / Time Iodinated Contrast- Oral and Allergy ANAPHYLAXIS Verified 02/11/18 16:55 IV Dye [Iodinated Contrast Media - Oral and] Penicillins Allergy ANAPHYLAXIS Verified 02/11/18 16:55 - Medications Medications: Current Medications Doxycycline Hyclate (Doryx) 100 mg PO Q12 LISET PRN Reason: Protocol Cefepime HCl (Maxipime 1gm) 1 gm in 100 mls @ 100 mls/hr IVPB Q24H LISET PRN Reason: Protocol Vancomycin HCl (Vancomycin 1gm) 1 gm in 250 mls @ 167 mls/hr IVPB DAILY LISET PRN Reason: Protocol Methylprednisolone (Solu-Medrol) 30 mg IVP Q8 LISET Physical Exam - Constitutional Appears: Well - Head Exam Head Exam: ATRAUMATIC, NORMAL INSPECTION, NORMOCEPHALIC - Eye Exam Eye Exam: EOMI, Normal appearance, PERRL Pupil Exam: NORMAL ACCOMODATION, PERRL - ENT Exam ENT Exam: Mucous Membranes Moist, Normal Exam - Neck Exam Neck exam: Positive for: Normal Inspection - Respiratory Exam Respiratory Exam: Clear to Auscultation Bilateral, NORMAL BREATHING PATTERN - Cardiovascular Exam Cardiovascular Exam: REGULAR RHYTHM - GI/Abdominal Exam GI & Abdominal Exam: Normal Bowel Sounds, Soft. absent: Tenderness - Extremities Exam Extremities exam: Positive for: normal inspection - Back Exam Back exam: NORMAL INSPECTION - Neurological Exam Neurological exam: Alert, CN II-XII Intact, Normal Gait, Oriented x3, Reflexes Normal - Psychiatric Exam Psychiatric exam: Normal Affect, Normal Mood - Skin Skin Exam: Dry, Intact, Normal Color, Warm Results - Vital Signs Recent Vital Signs: Last Vital Signs Temp 102 F H 03/14/18 17:00 Pulse 90 03/14/18 15:58 Resp 24 03/14/18 15:58 BP 108/44 L 03/14/18 15:58 Pulse Ox 86 L 03/14/18 15:58 - Labs Result Diagrams: 03/14/18 16:45 03/14/18 16:45 Labs: Laboratory Results - last 24 hr 03/14/18 03/14/18 03/14/18 16:25 16:45 16:45 WBC 18.9 H D RBC 3.02 L Hgb 9.0 L Hct 29.4 L MCV 97.4 MCH 29.8 MCHC 30.6 L RDW 16.0 H Plt Count 183 MPV 11.8 H Gran % 88.2 H Lymph % (Auto) 4.8 L Grand % (Auto) 6.9 H Eos % (Auto) 0.0 L Baso % (Auto) 0.1 Gran # 16.64 H Lymph # (Auto) 0.9 L Grand # (Auto) 1.3 H Eos # (Auto) 0.0 Baso # (Auto) 0.01 Neutrophils % (Manual) 85 H Band Neutrophils % 4 H Lymphocytes % (Manual) 6 L Monocytes % (Manual) 5 Platelet Evaluation Normal Polychromasia Slight Hypochromasia 1+ Anisocytosis (manual) 1+ PT 31.9 H INR 2.74 H APTT 35.2 pCO2 41 pO2 49.0 L HCO3 28.5 H ABG pH 7.45 ABG Total CO2 29.8 H ABG O2 Saturation 89.4 L ABG Base Excess 4.1 H ABG Potassium 3.9 VBG pH VBG pCO2 VBG HCO3 VBG Total CO2 VBG O2 Sat (Calc) VBG Base Excess VBG Potassium Sodium 138.0 Chloride 107.0 Glucose 151 H Lactate 1.1 FiO2 28.0 Potassium Carbon Dioxide Anion Gap BUN Creatinine Est GFR ( Amer) Est GFR (Non-Af Amer) Random Glucose Calcium Phosphorus Magnesium Total Bilirubin AST ALT Alkaline Phosphatase NT-Pro-B Natriuret Pep Total Protein Albumin Globulin Albumin/Globulin Ratio Arterial Blood Potassium 3.9 Venous Blood Potassium 03/14/18 03/14/18 16:45 17:20 WBC RBC Hgb Hct MCV MCH MCHC RDW Plt Count MPV Gran % Lymph % (Auto) Grand % (Auto) Eos % (Auto) Baso % (Auto) Gran # Lymph # (Auto) Grand # (Auto) Eos # (Auto) Baso # (Auto) Neutrophils % (Manual) Band Neutrophils % Lymphocytes % (Manual) Monocytes % (Manual) Platelet Evaluation Polychromasia Hypochromasia Anisocytosis (manual) PT INR APTT pCO2 pO2 136 H HCO3 ABG pH ABG Total CO2 ABG O2 Saturation ABG Base Excess ABG Potassium VBG pH 7.41 VBG pCO2 50.0 VBG HCO3 31.7 H VBG Total CO2 33.2 H VBG O2 Sat (Calc) 99.5 H VBG Base Excess 6.2 H VBG Potassium 5.3 H Sodium 139 136.0 Chloride 101 105.0 Glucose 149 H Lactate 1.2 FiO2 21.0 Potassium 4.4 Carbon Dioxide 29 Anion Gap 13 BUN 24 H Creatinine 0.8 Est GFR ( Amer) > 60 Est GFR (Non-Af Amer) > 60 Random Glucose 151 H Calcium 8.8 Phosphorus 2.9 Magnesium 1.8 Total Bilirubin 0.7 AST 21 ALT 24 Alkaline Phosphatase 163 H D NT-Pro-B Natriuret Pep 93557 H Total Protein 6.8 Albumin 3.1 Globulin 3.7 Albumin/Globulin Ratio 0.8 L Arterial Blood Potassium Venous Blood Potassium 5.3 H Assessment & Plan - Assessment and Plan (Free Text) Assessment: 87 year old female with pertinent medical history of COPD under ICU care for Acute Hypoxic Hypercapneic Respiratory Failure likely 2/2 COPD VS PNA VS Mixed Picture Patient's VS are significant for a temperature of 102 with a white count of 18.9. Given her dwelling in a intermediate and combining with RML and RLL infiltrates on CXR, this is a concerning picture of HCAP. Patient also has some venous congestion with course breath sounds bilaterally, suggestive of a COPD exacerbation as well. However, patient also is showing a BNP of 17,900, significantly higher than any other visit (her highest before this has been in the hundreds). This could be attributed to underlying cardiac pathology. Patient's blood gas is near her baseline with pH of 7.45 and PCO2 of 41. Patient's oxygenation was low at 49 when she first came in, but is 136 now. Plan Neuro: - Maintain normothermia Pulmonary: - Maintain patient on bipap. Current settings: 12 IPAP, 5 EPAP, Rate 10, 50% FiO2. Decrease to 40% FiO2 - Solumedrol q8 - CXR, ABG in the AM - Monitor O2 sats and maintain 90-92% Cardio: - Tropes q6 X 3 - Maintain MAP > 65 GI: - PPX with Protonix - NPO for now Renal: - Maintain euvolemia - Avoid excessive diuresis Heme: - DVT PPX with Lovenox ID: - Vanc, Doxy, Cefepime for HCAP; Blood, Sputum cultures Endo: - Maintain Euglycemia <Ta Allen - Last Filed: 03/14/18 18:52> Meds - Medications Medications: Current Medications Doxycycline Hyclate (Doryx) 100 mg PO Q12 LISET PRN Reason: Protocol Enoxaparin Sodium (Lovenox) 40 mg SC DAILY LISET PRN Reason: Protocol Cefepime HCl (Maxipime 1gm) 1 gm in 100 mls @ 100 mls/hr IVPB Q24H LISET PRN Reason: Protocol Vancomycin HCl (Vancomycin 1gm) 1 gm in 250 mls @ 167 mls/hr IVPB DAILY LISET PRN Reason: Protocol Methylprednisolone (Solu-Medrol) 30 mg IVP Q8 LISET Pantoprazole Sodium (Protonix Inj) 40 mg IVP DAILY LISET Results - Vital Signs Recent Vital Signs: Last Vital Signs Temp 102 F H 03/14/18 17:00 Pulse 90 03/14/18 15:58 Resp 24 03/14/18 15:58 BP 108/44 L 03/14/18 15:58 Pulse Ox 86 L 03/14/18 15:58 - Labs Result Diagrams: 03/14/18 16:45 03/14/18 16:45 Attending/Attestation - Attestation I have personally seen and examined this patient.: Yes I have fully participated in the care of the patient.: Yes I have reviewed all pertinent clinical information: Yes Notes (Text): 03/14/18 18:51 The patient was seen and examined at the bedside. Patient care was discussed with resident Medical records, lab studies, and imaging were reviewed and management issues were discussed and formulated. Agree with above treatment plans as outlined in 's note with addition of the following: Respiratory Insufficiency \ Hypoxemia \ Hypercapnea \ COPD \ ho Pulmonary HTN \ Afib with RVR \ CHF \ -hemodynamic monitoring to maintain MAP>65; rate controlled when examined -o2 supplementation and Bipap PRN to maintain Spo2 90-92 Pao2>60 -ABG and CXR reviewed -continue nebs and steroids -broad spectrum abx; f\u cultures; consider ID eval -f\u Bun\Cr and U\o -NPO diet and aspiration precautions -continue coumadin and monitor INR and for bleeding -DVT \ PUD prophylaxis CCM eval time 35min
--- NOTE | 2018-03-14 18:36 | CP.PCM.HP ---
History of Present Illness - History of Present Illness History of Present Illness: 87 year old female with past medical history of COPD, pulmonary hypertension, atrial fibrillation, left hip fracture, and cva who comes in from [facility] after complaints of shortness of breath. Per daughter she was complaining of phlegm production since this morning. She received a Nebulizer treatment shortly thereafter and was re-assessed. She reported that it didn't help her and as a result came to the hospital. On patient's last admission she had an UTI and pneumonia. She denies any chest pain, dizziness, headache, abdominal pain, or any other complaints. Past medical history: COPD, pulmonary hypertension, atrial fibrillation, left hip fracture, cva Past surgical history: Left hip fracture surgery Allergies: Iodinated contrast or and iv dye, penicillins Social history: Lives in [facility]. Unable to ambulate without the help of assistance at [facility] (no weight bearing) Pulmonary: Dr. Burnham Cardiology: Dr. Negrete Orthopedics: Dr. Garcia Patient is a Full Code. Present on Admission - Present on Admission Any Indicators Present on Admission: No Review of Systems - Constitutional Constitutional: absent: Chills, Daytime Sleepiness - EENT Eyes: absent: Blurred Vision, Discharge, Loss of Peripheral Vision, Sees Flashes , Loss of Vision Nose/Mouth/Throat: absent: Nasal Congestion, Post Nasal Drip, Dental Pain, Mouth Lesions, Throat Swelling - Cardiovascular Cardiovascular: absent: Chest Pain, Claudication, Irregular Heart Rhythm, Leg Edema, Leg Ulcers, Paroxysmal Nocturnal Dyspnea - Respiratory Respiratory: Cough, Chest Congestion. absent: Dyspnea, Hemoptysis, Pain with Coughing - Gastrointestinal Gastrointestinal: absent: Coffee Ground Emesis, Early Satiety, Hematemesis, Temesmus - Musculoskeletal Musculoskeletal: Abnormal Gait, Limited Range of Motion, Muscle Weakness. absent: Arthralgias, Loss of Height, Numbness - Integumentary Integumentary: absent: Bleeding Lesions, Changing Lesions, Rash, Skin Pain - Neurological Neurological: absent: Abnormal Hearing, Burning Sensations, Numbness, Lack of Coordination, Restless Legs, Weakness - Psychiatric Psychiatric: absent: Abnormal Sleep Pattern, Behavioral Changes, Depression - Endocrine Endocrine: absent: Polydipsia, Polyphagia, Polyuria - Hematologic/Lymphatic Hematologic: absent: As Per HPI, Easy Bleeding, Easy Bruising Past Patient History - Infectious Disease Hx of Infectious Diseases: None - Tetanus Immunizations Tetanus Immunization: Unknown - Past Social History Smoking Status: Former Smoker - CARDIAC Hx Cardiac Disorders: Yes Hx Hypertension: Yes - PULMONARY Hx Chronic Obstructive Pulmonary Disease (COPD): Yes - NEUROLOGICAL Hx Neurological Disorder: Yes - HEENT Hx HEENT Problems: Yes (WEARS RX GLASSES) Hx Cataracts: Yes (BILATERAL SURGERY) Hx Deafness: Yes - RENAL Hx Chronic Kidney Disease: No - ENDOCRINE/METABOLIC Hx Endocrine Disorders: No - HEMATOLOGICAL/ONCOLOGICAL Hx 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) - INTEGUMENTARY Hx Dermatological Problems: No - MUSCULOSKELETAL/RHEUMATOLOGICAL Hx Musculoskeletal Disorders: Yes Hx Back Pain: Yes Hx Falls: Yes Hx Fractures: Yes (R ANKLE FX 12-29-17,LEFT HIP FX 02-11-18) Hx Osteoarthritis: Yes (BILATERAL KNEE) Hx Unsteady Gait: Yes (WALKER) - GASTROINTESTINAL Hx Gastrointestinal Disorders: No - GENITOURINARY/GYNECOLOGICAL Hx Genitourinary Disorders: Yes Hx Incontinence: Yes Hx Urinary Tract Infection: Yes - PSYCHIATRIC Hx Psychophysiologic Disorder: Yes (INSOMNIA,) Hx Anxiety: Yes Hx Bipolar Disorder: Yes Hx Depression: Yes Hx Emotional Abuse: No Hx Physical Abuse: No Hx Substance Use: No - SURGICAL HISTORY Hx Appendectomy: Yes - ANESTHESIA Hx Anesthesia Reactions: No Meds Allergies/Adverse Reactions: Allergies Allergy/AdvReac Type Severity Reaction Status Date / Time Iodinated Contrast- Oral and Allergy ANAPHYLAXIS Verified 02/11/18 16:55 IV Dye [Iodinated Contrast Media - Oral and] Penicillins Allergy ANAPHYLAXIS Verified 02/11/18 16:55 Physical Exam - Head Exam Head Exam: ATRAUMATIC, NORMAL INSPECTION, NORMOCEPHALIC Additional comments: BIPAP in place - Eye Exam Eye Exam: EOMI, Normal appearance, PERRL. absent: Periorbital tenderness Pupil Exam: NORMAL ACCOMODATION - ENT Exam ENT Exam: Mucous Membranes Moist. absent: Normal Oropharynx - Neck Exam Neck exam: Positive for: Normal Inspection. Negative for: Meningismus - Respiratory Exam Respiratory Exam: Decreased Breath Sounds, Rhonchi - Cardiovascular Exam Cardiovascular Exam: REGULAR RHYTHM, +S1, +S2 - GI/Abdominal Exam GI & Abdominal Exam: Normal Bowel Sounds, Soft - Extremities Exam Extremities exam: Negative for: full ROM, pedal edema Additional comments: trace pedal edema - Neurological Exam Neurological exam: Alert, Oriented x3 - Psychiatric Exam Psychiatric exam: Normal Affect, Normal Mood - Skin Skin Exam: Dry, Intact Results - Vital Signs Recent Vital Signs: Last Vital Signs Temp 102 F H 03/14/18 17:00 Pulse 90 03/14/18 15:58 Resp 24 03/14/18 15:58 BP 108/44 L 03/14/18 15:58 Pulse Ox 86 L 03/14/18 15:58 - Labs Result Diagrams: 03/14/18 16:45 03/14/18 16:45 Assessment & Plan - Assessment and Plan (Free Text) Assessment: 1.Pneumonia -Chest xray : Shows right sided infiltrate and vascular congestion -Placed on Bipap in the emergency department. -Received Aztreonam, Zithromax and Vancomycin in the Emergency department -Urine culture, blood and sputum cultures ordered. Will f/u with results. -ABG. will f/u with results. -Pulmonary Consulted. Help Appreciated -ICU consulted. Help appreciated -Infectious Disease Consulted. Help Appreciated. -Mohini Paramonte consulted. Help appreciated -Doxycycline, Cefepime and Vancomycin. Will de-escalate as warranted. PPX -Protonix -Lovenox 40 SC Daily Disposition: Patient admitted to ICU for further managment. Will follow closely. Plan discussed with Dr. Yobany Gonzales, PGY-1
[2018-03-14 19:10] LABS: URINE BILIRUBIN NEGATIVE (NEGATIVE); URINE BLOOD TRACE-INTACT (NEGATIVE); URINE GLUCOSE (UA) NEGATIVE (NEGATIVE); URINE LEUKOCYTE ESTERASE NEGATIVE Leu/uL (NEGATIVE); URINE PROTEIN NEGATIVE mg/dL (<30 mg/dL); URINE UROBILINOGEN 0.2 E.U./dL (<1 E.U./dL)
[2018-03-14 19:11] LABS: URINE APPEARANCE CLEAR (CLEAR); URINE COLOR YELLOW (YELLOW)
[2018-03-14 19:13] LABS: URINE BACTERIA FEW (NEG); URINE WBC 0 - 2 /hpf (0-6)
[2018-03-14] MEDS: Aztreonam 1 Gm in NS 100mL 100 ML IVPB SCH (21:16)
[2018-03-14] MEDS: MethylPREDNISolone 40 mg Vial IVP SCH (21:17)
[2018-03-14] MEDS ORDERED: methylPREDNISolone 40 MG in Sodium Chloride 0.9% 100 ML IVPB SCH (22:00)
[2018-03-14] MEDS ORDERED: Meropenem IV 1 gm in NS 50 ML IVPB SCH (22:00)
--- NOTE | 2018-03-15 00:25 | CARD ---
APPROVED REPORT EKG Measurement Heart [id number] <Conclusion> Normal sinus rhythm T wave abnormality, consider anterior ischemia Abnormal ECG
[2018-03-15] MEDS: Aztreonam 1 Gm in NS 100mL 100 ML IVPB SCH ×2 (05:27→13:20)
[2018-03-15 07:04] LABS: GRAN # 14.35 (1.4-6.5); GRAN % 91.3 % (50.0-68.0); HEMOGLOBIN 9.1 g/dL (12.0-16.0); LYMPH # 0.7 (1.2-3.4); LYMPH % 4.3 % (22.0-35.0); MEAN CELL VOLUME 97.7 fl (80.0-105.0); MEAN CORPUSCULAR HEMOGLOBIN 29.8 pg (25.0-35.0); MEAN CORPUSCULAR HGB CONC 30.5 g/dl (31.0-37.0); MEAN PLATELET VOLUME 11.7 fl (7.0-11.0); MONO # 0.7 (0.1-0.6); MONO % 4.4 % (1.0-6.0); RBC 3.05 10^6/uL (3.5-6.1); RED CELL DISTRIBUTION WIDTH 16.2 % (11.5-14.5); WHITE BLOOD COUNT 15.7 10^3/ul (4.5-11.0)
[2018-03-15 07:47] LABS: ARTERIAL BLOOD GAS HCO3 28.5 mmol/L (21-28); ARTERIAL BLOOD GAS HEMOGLOBIN 11.6 g/dL (11.7-17.4); ARTERIAL BLOOD GAS O2 CONTENT 15.8 ML/dl (15-23); ARTERIAL BLOOD GAS O2 SAT 98.8 % (95-98); ARTERIAL BLOOD GAS PCO2 46 mm/Hg (35-45); ARTERIAL BLOOD GAS TCO2 29.9 mmol.L (22-28)
[2018-03-15 07:50] LABS: TROPONIN I 0.09 ng/mL
[2018-03-15 07:56] LABS: ALB/GLOB RATIO 0.8 (1.1-1.8); ALT/SGPT 18 U/L (7-56); AST/SGOT 16 U/L (14-36); BLOOD UREA NITROGEN 27 mg/dL (7-21); GFR AFRICAN-AMERICAN > 60; GFR NON-AFRICAN AMERICAN > 60
[2018-03-15] MEDS ORDERED: Albuterol-Ipratrop 3 mg / 0.5 (3 ml) UD IH PRN ×2 (09:12→10:49)
--- NOTE | 2018-03-15 09:30 | CP.PCM.CON ---
History of Present Illness - History of Present Illness History of Present Illness: Palliative consult requested by Dr Azra Haywood Reason: Goals of care 87 year old female with history of COPD, pulmonary hypertension and A Fib who was sent form [facility] with shortness of breath. family also states that patient had productive cough. The patient denies chest pain, dizziness, headache , abdominal pain, nausea, vomiting. Labs:WBC 15.7, Hgb 9.1, PLT 153, NA141, K 4.3, BUN 27, Creat 0.8, Alk Phos 163, troponin 0.13, BNP 381503, PC02 46, PO2 106 ABG sat 98.8 venous lactate 1.2, urine negative. EKG: NSR, T wave abnormality. Chest x ray: right sided infiltrate, vascular congestion PMHx: COPD, Atrial Fibrillation, pulmonary hypertension, left hip fracture, hard of hearing, osteoarthritis, enriqueta. cataract surgery. PSH: left ORIF Social History: Former smoker, no alcohol or drug use. Resident of [facility] Advance Care Planing: The patient has an Advanced Directive. Her POA is Ayden Block. Family History: Non contributory. Review of Systems: As per HPI, 12 point review otherwise negative Past Patient History - Infectious Disease Hx of Infectious Diseases: None - Tetanus Immunizations Tetanus Immunization: Unknown - Past Social History Smoking Status: Former Smoker - CARDIAC Hx Cardiac Disorders: Yes Hx Hypertension: Yes - PULMONARY Hx Chronic Obstructive Pulmonary Disease (COPD): Yes - NEUROLOGICAL Hx Neurological Disorder: Yes - HEENT Hx HEENT Problems: Yes (WEARS RX GLASSES) Hx Cataracts: Yes (BILATERAL SURGERY) Hx Deafness: Yes - RENAL Hx Chronic Kidney Disease: No - ENDOCRINE/METABOLIC Hx Endocrine Disorders: No - HEMATOLOGICAL/ONCOLOGICAL Hx 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) - INTEGUMENTARY Hx Dermatological Problems: No - MUSCULOSKELETAL/RHEUMATOLOGICAL Hx Musculoskeletal Disorders: Yes Hx Back Pain: Yes Hx Falls: Yes Hx Fractures: Yes (R ANKLE FX 12-29-17,LEFT HIP FX 02-11-18) Hx Osteoarthritis: Yes (BILATERAL KNEE) Hx Unsteady Gait: Yes (WALKER) - GASTROINTESTINAL Hx Gastrointestinal Disorders: No - GENITOURINARY/GYNECOLOGICAL Hx Genitourinary Disorders: Yes Hx Incontinence: Yes Hx Urinary Tract Infection: Yes - PSYCHIATRIC Hx Psychophysiologic Disorder: Yes (INSOMNIA,) Hx Anxiety: Yes Hx Bipolar Disorder: Yes Hx Depression: Yes Hx Emotional Abuse: No Hx Physical Abuse: No Hx Substance Use: No - SURGICAL HISTORY Hx Appendectomy: Yes - ANESTHESIA Hx Anesthesia Reactions: No Meds Allergies/Adverse Reactions: Allergies Allergy/AdvReac Type Severity Reaction Status Date / Time Iodinated Contrast- Oral and Allergy ANAPHYLAXIS Verified 02/11/18 16:55 IV Dye [Iodinated Contrast Media - Oral and] Penicillins Allergy ANAPHYLAXIS Verified 02/11/18 16:55 - Medications Medications: Current Medications Albuterol/Ipratropium (Duoneb 3 Mg/0.5 Mg (3 Ml) Ud) 3 ml IH [id number] LISET Albuterol/Ipratropium (Duoneb 3 Mg/0.5 Mg (3 Ml) Ud) 3 ml IH Q2H PRN PRN Reason: Shortness of Breath Doxycycline Hyclate (Doryx) 100 mg PO Q12 LISET PRN Reason: Protocol Last Admin: 03/14/18 21:17 Dose: 100 mg Enoxaparin Sodium (Lovenox) 40 mg SC DAILY [facility] PRN Reason: Protocol Vancomycin HCl (Vancomycin 1gm) 1 gm in 250 mls @ 167 mls/hr IVPB DAILY LISET PRN Reason: Protocol Aztreonam (Azactam 1 Gm) 100 mls @ 100 mls/hr IVPB Q8 LISET PRN Reason: Protocol Stop: 03/15/18 14:01 Last Admin: 03/15/18 05:27 Dose: 100 mls/hr Methylprednisolone (Solu-Medrol) 30 mg IVP Q8 [facility] Last Admin: 03/14/18 21:17 Dose: 30 mg Pantoprazole Sodium (Protonix Inj) 40 mg IVP DAILY [facility] Physical Exam - Constitutional Appears: No Acute Distress, Chronically Ill - Head Exam Head Exam: NORMOCEPHALIC - Eye Exam Eye Exam: Normal appearance, PERRL - ENT Exam ENT Exam: Mucous Membranes Moist, Normal Oropharynx - Neck Exam Neck exam: Positive for: Normal Inspection - Respiratory Exam Respiratory Exam: Decreased Breath Sounds, Rhonchi, NORMAL BREATHING PATTERN - Cardiovascular Exam Cardiovascular Exam: Irregular Rhythm, +S1, +S2 - GI/Abdominal Exam GI & Abdominal Exam: Normal Bowel Sounds, Soft Additional comments: no tenderness - Extremities Exam Extremities exam: Positive for: pedal edema - Back Exam Back exam: NORMAL INSPECTION - Neurological Exam Neurological exam: Altered - Skin Skin Exam: Dry, Pallor - Additional Findings Additional findings: palliative performance scale rating 40 % Results - Vital Signs Recent Vital Signs: Last Vital Signs Temp 98.1 F 03/15/18 04:00 Pulse 69 03/15/18 06:00 Resp 20 03/15/18 06:00 BP 104/47 L 03/15/18 06:00 Pulse Ox 99 03/15/18 06:00 - Labs Result Diagrams: 03/15/18 06:10 03/15/18 06:10 Labs: Laboratory Results - last 24 hr 03/14/18 03/15/18 03/15/18 18:49 00:20 06:10 WBC 15.7 H RBC 3.05 L Hgb 9.1 L Hct 29.8 L MCV 97.7 MCH 29.8 MCHC 30.5 L RDW 16.2 H Plt Count 153 MPV 11.7 H Gran % 91.3 H Lymph % (Auto) 4.3 L [place] % (Auto) 4.4 Eos % (Auto) 0.0 L Baso % (Auto) 0.0 Gran # 14.35 H Lymph # (Auto) 0.7 L [place] # (Auto) 0.7 H Eos # (Auto) 0.0 Baso # (Auto) 0.00 pCO2 pO2 HCO3 ABG pH ABG Total CO2 ABG O2 Saturation ABG O2 Content ABG Base Excess ABG Hemoglobin ABG Carboxyhemoglobin POC ABG HHb (Measured) ABG Methemoglobin ABG O2 Capacity Hgb O2 Saturation FiO2 Sodium Potassium Chloride Carbon Dioxide Anion Gap BUN Creatinine Est GFR ( Amer) Est GFR (Non-Af Amer) Random Glucose Calcium Phosphorus Magnesium Total Bilirubin AST ALT Alkaline Phosphatase Troponin I 0.12 Total Protein Albumin Globulin Albumin/Globulin Ratio Urine Color Yellow Urine Appearance Clear Urine pH 6.0 Ur Specific [place] 1.020 Urine Protein Negative Urine Glucose (UA) Negative Urine Ketones Negative Urine Blood Trace-intact H Urine Nitrate Negative Urine Bilirubin Negative Urine Urobilinogen 0.2 Ur Leukocyte Esterase Negative Urine RBC 1 - 3 Urine WBC 0 - 2 Ur Epithelial Cells 3 - 4 Urine Bacteria Few 03/15/18 03/15/18 06:10 07:30 WBC RBC Hgb Hct MCV MCH MCHC RDW Plt Count MPV Gran % Lymph % (Auto) [place] % (Auto) Eos % (Auto) Baso % (Auto) Gran # Lymph # (Auto) [place] # (Auto) Eos # (Auto) Baso # (Auto) pCO2 46 H pO2 106.0 H HCO3 28.5 H ABG pH 7.40 ABG Total CO2 29.9 H ABG O2 Saturation 98.8 H ABG O2 Content 15.8 ABG Base Excess 3.1 H ABG Hemoglobin 11.6 L ABG Carboxyhemoglobin 1.6 H POC ABG HHb (Measured) 1.2 ABG Methemoglobin 0.9 ABG O2 Capacity 16.0 Hgb O2 Saturation 96.2 FiO2 50.0 Sodium 141 Potassium 4.3 Chloride 103 Carbon Dioxide 30 Anion Gap 13 BUN 27 H Creatinine 0.8 Est GFR ( Amer) > 60 Est GFR (Non-Af Amer) > 60 Random Glucose 140 H Calcium 9.0 Phosphorus 3.6 Magnesium 1.9 Total Bilirubin 0.3 AST 16 ALT 18 Alkaline Phosphatase 150 H Troponin I 0.09 D Total Protein 6.7 Albumin 3.0 Globulin 3.6 Albumin/Globulin Ratio 0.8 L Urine Color Urine Appearance Urine pH Ur Specific [place] Urine Protein Urine Glucose (UA) Urine Ketones Urine Blood Urine Nitrate Urine Bilirubin Urine Urobilinogen Ur Leukocyte Esterase Urine RBC Urine WBC Ur Epithelial Cells Urine Bacteria Assessment & Plan - Assessment and Plan (Free Text) Assessment: 87 year old resident of [facility] with history of COPD, A Fib, left hip fracture s/p ORIF who is admitted with pneumonia, shortness of breath, elevated troponins. The patient is lethargic. Hard of hearing. Denies pain. Family reports she is dependent for ADl's, unable to ambulate without assistance. Patient's POA Ayden and patients daughter at bedside. Goals of care and advance care planning discussion ensued. Terms of patients advanced directive reviewed. Benefits and burdens of extraordinary resuscitation efforts explained.Questions answered. DNR/DNI order signed by POA, a copy is placed in the chart Time spent with family in goals of care and advance care planning discussion, 30 minutes Plan: Goals of Care and Advance Care planning : DNR/DNI Pulmonary: Monitor ABG,nebulizers Sepsis: ID consult, cultures pending. Doxycycline, Cefepime, and Vancomycin started. Cardiology: EKG, elevated troponins, pulmonary hypertension/vascular congestion , cardiology consult
[2018-03-15] MEDS ORDERED: Vancomycin 1gm in NS 250ml 1 GM/250 ML BAG IVPB SCH (10:00)
[2018-03-15] MEDS ORDERED: Enoxaparin 40 mg Syringe SC SCH (10:00)
--- NOTE | 2018-03-15 10:04 | CP.PCM.PN ---
<Leta Smith - Last Filed: 03/15/18 12:49> Subjective - Date & Time of Evaluation Date of Evaluation: 03/15/18 Time of Evaluation: 10:01 - Subjective Subjective: Leta Smith, PGY1, Medicine Progress Note for Dr Haywood: Patient seen and examined at bedside. No acute events overnight. Bipap discontinued, switched to NC. Pt sleepy, oriented to self. As per family at bedside, this is her baseline (she is confused many times). Responding to questions with yes or no. Denies fevers, chills, nausea, vomiting, abdominal pain, leg swelling. Objective - Vital Signs/Intake and Output Vital Signs (last 24 hours): Temp Pulse Resp BP Pulse Ox 98.1 F 69 20 104/47 L 99 03/15/18 04:00 03/15/18 06:00 03/15/18 06:00 03/15/18 06:00 03/15/18 06:00 Intake and Output: 03/15/18 03/15/18 06:59 18:59 Intake Total 100 Balance 100 - Medications Medications: Current Medications Albuterol/Ipratropium (Duoneb 3 Mg/0.5 Mg (3 Ml) Ud) 3 ml IH [id number] JAYCE Albuterol/Ipratropium (Duoneb 3 Mg/0.5 Mg (3 Ml) Ud) 3 ml IH Q2H PRN PRN Reason: Shortness of Breath Doxycycline Hyclate (Doryx) 100 mg PO Q12 JAYCE PRN Reason: Protocol Last Admin: 03/15/18 09:48 Dose: 100 mg Enoxaparin Sodium (Lovenox) 40 mg SC DAILY [facility] PRN Reason: Protocol Last Admin: 03/15/18 09:51 Dose: 40 mg Vancomycin HCl (Vancomycin 1gm) 1 gm in 250 mls @ 167 mls/hr IVPB DAILY [facility] PRN Reason: Protocol Last Admin: 03/15/18 09:49 Dose: 167 mls/hr Aztreonam (Azactam 1 Gm) 100 mls @ 100 mls/hr IVPB Q8 JAYCE PRN Reason: Protocol Stop: 03/15/18 14:01 Last Admin: 03/15/18 05:27 Dose: 100 mls/hr Methylprednisolone (Solu-Medrol) 30 mg IVP Q8 [facility] Last Admin: 03/14/18 21:17 Dose: 30 mg Pantoprazole Sodium (Protonix Inj) 40 mg IVP DAILY [facility] - Labs Labs: 03/15/18 06:10 03/15/18 06:10 PT 31.9 SECONDS (9.4-12.5) H 03/14/18 16:45 INR 2.74 (0.93-1.08) H 03/14/18 16:45 APTT 35.2 Seconds (25.1-36.5) 03/14/18 16:45 - Constitutional Appears: Non-toxic, No Acute Distress - Head Exam Head Exam: ATRAUMATIC, NORMOCEPHALIC - Eye Exam Eye Exam: EOMI, PERRL. absent: Conjunctival injection, Nystagmus, Scleral icterus Pupil Exam: NORMAL ACCOMODATION, PERRL. absent: Fixed, Irregular, Miosis, Unequal - ENT Exam ENT Exam: Mucous Membranes Moist - Neck Exam Neck Exam: Full ROM - Respiratory Exam Respiratory Exam: Decreased Breath Sounds. absent: Rales, Rhonchi, Wheezes, Respiratory Distress - Cardiovascular Exam Cardiovascular Exam: RRR, +S1, +S2. absent: Murmur - GI/Abdominal Exam GI & Abdominal Exam: Soft, Normal Bowel Sounds. absent: Distended, Firm, Guarding, Rigid, Tenderness, Hyperactive Bowel Sounds, Mass, Organomegaly, Rebound - Extremities Exam Extremities Exam: Normal Inspection. absent: Calf Tenderness, Pedal Edema - Back Exam Back Exam: NORMAL INSPECTION - Neurological Exam Neurological Exam: Alert, Awake (oriented to self only. At baseline) - Psychiatric Exam Psychiatric exam: Normal Affect, Normal Mood - Skin Skin Exam: Dry, Normal Color, Warm Assessment and Plan - Assessment and Plan (Free Text) Assessment: 87 year old female with PMH COPD, pulmonary HTN, afib on Eliquis, left hip fracture s/p ORIF (02/2018), left frontal subarachnoid hemorrhage, presents for sob, found to have right sided HAP: Right sided HAP: - CXR showed right sided infiltrate and vascular congestion - on Nasal cannula this AM, tolerating well - CXR mildly improved from yesterday - Azactam, doxy, Vancomycin - afebrile overnight, leukocytosis trending down - Follow up blood, urine cultures - tranferred to Tele - [facility] and prn COPD exacerbation: - Methylprednisolone - duonebs jayce and prn - brovana Elevated troponin: - trop 0.13-0.13-0.09 (prev trops 0.06) - unlikely ACS - Cardio consulted. F/u recs. Elevated BNP: likely non-cardiac (sepsis vs pulm HTN) - BNP 86875 (prev 423) - Echo 02/2018 shows EF 66%. Grade 1 abnormal relaxations pattern. Moderate to severe pulmonary HTN. - Cardio consulted. F/u recs. Hx of HTN: - home Verapamil 80 mg PO TID, Atenolol 25 mg PO daily. holding parameters in place. - home ASA Hx of Afib: - home amiodarone and eliquis - monitor - currently in NSR Hx of depression/dementia: - hold risperidone in setting of drowsiness today - home venlafaxine PPX -Protonix -Lovenox 40 SC Daily DNR/DNI Case seen and discussed with Dr. Haywood. Leta Smith, PGY1 <Kole Haywood - Last Filed: 03/15/18 16:47> Objective - Vital Signs/Intake and Output Vital Signs (last 24 hours): Temp Pulse Resp BP Pulse Ox 98.1 F 83 20 131/52 L 99 03/15/18 04:00 03/15/18 13:23 03/15/18 06:00 03/15/18 13:23 03/15/18 06:00 Intake and Output: 03/15/18 03/15/18 06:59 18:59 Intake Total 100 Balance 100 - Medications Medications: Current Medications Albuterol/Ipratropium (Duoneb 3 Mg/0.5 Mg (3 Ml) Ud) 3 ml IH [id number] [facility] Last Admin: 03/15/18 13:03 Dose: 3 ml Albuterol/Ipratropium (Duoneb 3 Mg/0.5 Mg (3 Ml) Ud) 3 ml IH Q2H PRN PRN Reason: Shortness of Breath Amiodarone HCl (Cordarone) 200 mg PO DAILY [facility] Last Admin: 03/15/18 13:23 Dose: 200 mg Apixaban (Eliquis) 5 mg PO BID [facility] PRN Reason: Protocol Arformoterol Tartrate (Brovana) 15 mcg IH BID [facility] Aspirin (Aspirin Chewable) 81 mg PO DAILY [facility] Last Admin: 03/15/18 13:21 Dose: 81 mg Atenolol (Tenormin) 25 mg PO DAILY [facility] Atorvastatin Calcium (Lipitor) 40 mg PO DIN [facility] Budesonide (Pulmicort Respules) 0.5 mg IH [id number] [facility] Docusate Sodium (Colace Liquid) 100 mg PO BID [facility]AY[facility] Doxycycline Hyclate (Doryx) 100 mg PO Q12 JAYCE PRN Reason: Protocol Last Admin: 03/15/18 09:48 Dose: 100 mg Vancomycin HCl (Vancomycin 1gm) 1 gm in 250 mls @ 167 mls/hr IVPB Q12 JAYCE PRN Reason: Protocol Levalbuterol HCl (Xopenex) 0.63 mg IH [id number] PRN PRN Reason: Shortness of Breath Methylprednisolone (Solu-Medrol) 30 mg IVP Q8 [facility] Last Admin: 03/15/18 13:24 Dose: 30 mg Pantoprazole Sodium (Protonix Inj) 40 mg IVP DAILY [facility] Last Admin: 03/15/18 09:52 Dose: 40 mg Venlafaxine HCl (Effexor Xr) 75 mg PO DAILY [facility] Verapamil HCl (Calan Tab) 80 mg PO Q8 [facility] Last Admin: 03/15/18 13:21 Dose: 80 mg - Labs Labs: 03/15/18 06:10 03/15/18 06:10 PT 31.9 SECONDS (9.4-12.5) H 03/14/18 16:45 INR 2.74 (0.93-1.08) H 03/14/18 16:45 APTT 35.2 Seconds (25.1-36.5) 03/14/18 16:45 Attending/Attestation - Attestation I have personally seen and examined this patient.: Yes I have fully participated in the care of the patient.: Yes I have reviewed all pertinent clinical information, including history, physical exam and plan: Yes Notes (Text): 03/15/18 16:40 attending note; Patient is a 87 year old female with PMHof COPD, pulmonary HTN, afib on Eliquis , left hip fracture s/p ORIF (02/2018), left frontal subarachnoid hemorrhage in 2015 is admitted with shortness of and right-sided pneumonia. Patient was recently admitted in the hospital for hip fracture and sent to [facility]. Patient was hypoxic and placed on BiPAP in ER. Continue BiPAP at night. Continue oxygen during daytime. Monitor respiratory status closely. Admit patient in ICU. Case discussed with reading teacher in detail. Started on IV vancomycin and azactam. banuelos culture ordered. history of A. 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 Continue Eliquis. Status post left hip surgery. PT evaluation requested. case discussed with patient's daughter and power of bankruptcy attorney janusz in detail. Upon discharge the patient will follow-up with PMD Dr. Kyle. 03/15/18 16:47
--- NOTE | 2018-03-15 10:18 | RAD ---
HISTORY: Sepsis Patient COMPARISON: 02/15/2018 FINDINGS: LUNGS: Opacity mid right lung common nonspecific. Followup advised. PLEURA: No significant pleural effusion identified, no pneumothorax apparent. CARDIOVASCULAR: Normal. OSSEOUS STRUCTURES: No significant abnormalities. VISUALIZED UPPER ABDOMEN: Normal. OTHER FINDINGS: None. IMPRESSION: Mid right lung opacity. Possible pneumonia. Followup advised.
--- NOTE | 2018-03-15 10:22 | RAD ---
HISTORY: COPD EXac COMPARISON: 03/14/2018 FINDINGS: LUNGS: Opacity mid right lung on earlier examination of 03/14/2018 has resolved. PLEURA: Small bilateral pleural effusion. No pneumothorax. CARDIOVASCULAR: Limited evaluation due to oblique positioning. OSSEOUS STRUCTURES: No significant abnormalities. VISUALIZED UPPER ABDOMEN: Normal. OTHER FINDINGS: None. IMPRESSION: Small bilateral pleural effusion.
--- NOTE | 2018-03-15 10:41 | CP.PCM.PN ---
Subjective - Date & Time of Evaluation Date of Evaluation: 03/15/18 Time of Evaluation: 07:10 - Subjective Subjective: Patient seen and examined at bedside, reports no major complaints. Pt transitioned from BIPAP to 2LNC, sat 98%, doing well. Objective - Vital Signs/Intake and Output Vital Signs (last 24 hours): Temp Pulse Resp BP Pulse Ox 98.1 F 77 20 104/47 L 99 03/15/18 04:00 03/15/18 10:00 03/15/18 06:00 03/15/18 06:00 03/15/18 06:00 Intake and Output: 03/15/18 03/15/18 06:59 18:59 Intake Total 100 Balance 100 - Medications Medications: Current Medications Albuterol/Ipratropium (Duoneb 3 Mg/0.5 Mg (3 Ml) Ud) 3 ml IH [id number] LISET Albuterol/Ipratropium (Duoneb 3 Mg/0.5 Mg (3 Ml) Ud) 3 ml IH Q2H PRN PRN Reason: Shortness of Breath Doxycycline Hyclate (Doryx) 100 mg PO Q12 LISET PRN Reason: Protocol Last Admin: 03/15/18 09:48 Dose: 100 mg Enoxaparin Sodium (Lovenox) 40 mg SC DAILY LISET PRN Reason: Protocol Last Admin: 03/15/18 09:51 Dose: 40 mg Vancomycin HCl (Vancomycin 1gm) 1 gm in 250 mls @ 167 mls/hr IVPB DAILY LISET PRN Reason: Protocol Last Admin: 03/15/18 09:49 Dose: 167 mls/hr Aztreonam (Azactam 1 Gm) 100 mls @ 100 mls/hr IVPB Q8 LISET PRN Reason: Protocol Stop: 03/15/18 14:01 Last Admin: 03/15/18 05:27 Dose: 100 mls/hr Methylprednisolone (Solu-Medrol) 30 mg IVP Q8 [facility] Last Admin: 03/14/18 21:17 Dose: 30 mg Pantoprazole Sodium (Protonix Inj) 40 mg IVP DAILY [facility] Last Admin: 03/15/18 09:52 Dose: 40 mg - Labs Labs: 03/15/18 06:10 03/15/18 06:10 PT 31.9 SECONDS (9.4-12.5) H 03/14/18 16:45 INR 2.74 (0.93-1.08) H 03/14/18 16:45 APTT 35.2 Seconds (25.1-36.5) 03/14/18 16:45 - Constitutional Appears: Non-toxic, No Acute Distress - Head Exam Head Exam: NORMAL INSPECTION - Eye Exam Eye Exam: Normal appearance - ENT Exam ENT Exam: Mucous Membranes Moist - Neck Exam Neck Exam: Full ROM - Respiratory Exam Respiratory Exam: Clear to Ausculation Bilateral, NORMAL BREATHING PATTERN - Cardiovascular Exam Cardiovascular Exam: REGULAR RHYTHM, +S1, +S2 - GI/Abdominal Exam GI & Abdominal Exam: Soft, Normal Bowel Sounds - Psychiatric Exam Psychiatric exam: Normal Affect - Skin Skin Exam: Normal Color, Warm Assessment and Plan - Assessment and Plan (Free Text) Assessment: Patient is 87 yo female with PMhx COPD, pulmonary hypertension, atrial fibrillation, left hip fracture, and cva with residual L sided weakness, a/w PNA , COPD exacerbation COPD exacerbation PNA Afib Pulm HTN Hx CVA - currently afebrile, BP stable, doing well on 2LNC, markedly improved compared to yesterday, OFF BIPAP, sat 98% Recommend: - cont with supp o2 as needed, BIPAP at bedside - duonebs PRN - follow up Pulm - Solumedrol 40mg Q12hr IV - Abx, Aztreonam, Vanco, Azithro - chest PT - OOB to chair - BP control - Not on A/C 2/2 falls - Lasix 40mg PO daily - FS control - GI ppx - DVT ppx - DNR/DNI - Transfer to [facility]
[2018-03-15] MEDS ORDERED: Levalbuterol 0.63 MG/3 ML Inhal Soln UD IH PRN (12:24)
[2018-03-15] MEDS: Albuterol-Ipratrop 3 mg / 0.5 (3 ml) UD IH SCH ×3 (13:03→20:31)
[2018-03-15] MEDS: MethylPREDNISolone 40 mg Vial IVP SCH ×2 (13:24→21:38)
[2018-03-15] MEDS ORDERED: Albuterol-Ipratrop 3 mg / 0.5 (3 ml) UD IH SCH (14:00)
[2018-03-15] MEDS ORDERED: Budesonide 0.5 mg/2 ml Inhal Susp UD IH SCH (20:00)
--- NOTE | 2018-03-15 20:07 | CP.PCM.CON ---
History of Present Illness - History of Present Illness History of Present Illness: 87 year old female with PMH of HTN, subarachnoid hemorrhage, atrial fibrillation not on anticoagulation due to risk of GI bleed, depression, COPD, pseudogout, pulmonary HTN, history of left frontal subarachnoid hemorrhage, S/P appendectomy, obesity with BMI 32 came in to [facility] complaining of shortness of breath at rest, with associated cough with whitish phlegm. She also has generalized weakness. She denies fever or chills, no nausea or vomiting, no headache or dizziness, no chest pain, no rhinorrhea, no sore throat, no abdominal pain, no dysphagia, no diarrhea, no dysuria. CXR done in the ED is showing opacity in the right lung. She was noted to have leukocytosis on initial labs. Infectious Diseases consult is requested to further evaluate and manage. Review of Systems - Review of Systems All systems: reviewed and no additional remarkable complaints except (as per HPI ) Past Patient History - Infectious Disease Hx of Infectious Diseases: None - Tetanus Immunizations Tetanus Immunization: Unknown - Past Social History Smoking Status: Former Smoker - CARDIAC Hx Cardiac Disorders: Yes Hx Hypertension: Yes - PULMONARY Hx Chronic Obstructive Pulmonary Disease (COPD): Yes - NEUROLOGICAL Hx Neurological Disorder: Yes - HEENT Hx HEENT Problems: Yes (WEARS RX GLASSES) Hx Cataracts: Yes (BILATERAL SURGERY) Hx Deafness: Yes - RENAL Hx Chronic Kidney Disease: No - ENDOCRINE/METABOLIC Hx Endocrine Disorders: No - HEMATOLOGICAL/ONCOLOGICAL Hx 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) - INTEGUMENTARY Hx Dermatological Problems: No - MUSCULOSKELETAL/RHEUMATOLOGICAL Hx Musculoskeletal Disorders: Yes Hx Back Pain: Yes Hx Falls: Yes Hx Fractures: Yes (R ANKLE FX 12-29-17,LEFT HIP FX 02-11-18) Hx Osteoarthritis: Yes (BILATERAL KNEE) Hx Unsteady Gait: Yes (WALKER) - GASTROINTESTINAL Hx Gastrointestinal Disorders: No - GENITOURINARY/GYNECOLOGICAL Hx Genitourinary Disorders: Yes Hx Incontinence: Yes Hx Urinary Tract Infection: Yes - PSYCHIATRIC Hx Psychophysiologic Disorder: Yes (INSOMNIA,) Hx Anxiety: Yes Hx Bipolar Disorder: Yes Hx Depression: Yes Hx Emotional Abuse: No Hx Physical Abuse: No Hx Substance Use: No - SURGICAL HISTORY Hx Appendectomy: Yes - ANESTHESIA Hx Anesthesia Reactions: No Meds Allergies/Adverse Reactions: Allergies Allergy/AdvReac Type Severity Reaction Status Date / Time Iodinated Contrast- Oral and Allergy ANAPHYLAXIS Verified 02/11/18 16:55 IV Dye [Iodinated Contrast Media - Oral and] Penicillins Allergy ANAPHYLAXIS Verified 02/11/18 16:55 - Medications Medications: Current Medications Albuterol/Ipratropium (Duoneb 3 Mg/0.5 Mg (3 Ml) Ud) 3 ml IH [id number] LISET Albuterol/Ipratropium (Duoneb 3 Mg/0.5 Mg (3 Ml) Ud) 3 ml IH Q2H PRN PRN Reason: Shortness of Breath Doxycycline Hyclate (Doryx) 100 mg PO Q12 LISET PRN Reason: Protocol Last Admin: 03/15/18 09:48 Dose: 100 mg Enoxaparin Sodium (Lovenox) 40 mg SC DAILY LISET PRN Reason: Protocol Last Admin: 03/15/18 09:51 Dose: 40 mg Aztreonam (Azactam 1 Gm) 100 mls @ 100 mls/hr IVPB Q8 LISET PRN Reason: Protocol Stop: 03/15/18 14:01 Last Admin: 03/15/18 05:27 Dose: 100 mls/hr Methylprednisolone (Solu-Medrol) 30 mg IVP Q8 [facility] Last Admin: 03/14/18 21:17 Dose: 30 mg Pantoprazole Sodium (Protonix Inj) 40 mg IVP DAILY [facility] Last Admin: 03/15/18 09:52 Dose: 40 mg Physical Exam - Constitutional Appears: Chronically Ill - Head Exam Head Exam: NORMAL INSPECTION - Neck Exam Neck exam: Negative for: Meningismus - Respiratory Exam Respiratory Exam: Decreased Breath Sounds - Cardiovascular Exam Cardiovascular Exam: +S1, +S2 - GI/Abdominal Exam GI & Abdominal Exam: Soft. absent: Tenderness Results - Vital Signs Recent Vital Signs: Last Vital Signs Temp 98.1 F 03/15/18 04:00 Pulse 77 03/15/18 10:00 Resp 20 03/15/18 06:00 BP 104/47 L 03/15/18 06:00 Pulse Ox 99 03/15/18 06:00 - Labs Result Diagrams: 03/15/18 06:10 03/15/18 06:10 Labs: Laboratory Results - last 24 hr 03/14/18 03/15/18 03/15/18 18:49 00:20 06:10 WBC 15.7 H RBC 3.05 L Hgb 9.1 L Hct 29.8 L MCV 97.7 MCH 29.8 MCHC 30.5 L RDW 16.2 H Plt Count 153 MPV 11.7 H Gran % 91.3 H Lymph % (Auto) 4.3 L [place] % (Auto) 4.4 Eos % (Auto) 0.0 L Baso % (Auto) 0.0 Gran # 14.35 H Lymph # (Auto) 0.7 L [place] # (Auto) 0.7 H Eos # (Auto) 0.0 Baso # (Auto) 0.00 pCO2 pO2 HCO3 ABG pH ABG Total CO2 ABG O2 Saturation ABG O2 Content ABG Base Excess ABG Hemoglobin ABG Carboxyhemoglobin POC ABG HHb (Measured) ABG Methemoglobin ABG O2 Capacity Hgb O2 Saturation FiO2 Sodium Potassium Chloride Carbon Dioxide Anion Gap BUN Creatinine Est GFR ( Amer) Est GFR (Non-Af Amer) Random Glucose Calcium Phosphorus Magnesium Total Bilirubin AST ALT Alkaline Phosphatase Troponin I 0.12 Total Protein Albumin Globulin Albumin/Globulin Ratio Urine Color Yellow Urine Appearance Clear Urine pH 6.0 Ur Specific [place] 1.020 Urine Protein Negative Urine Glucose (UA) Negative Urine Ketones Negative Urine Blood Trace-intact H Urine Nitrate Negative Urine Bilirubin Negative Urine Urobilinogen 0.2 Ur Leukocyte Esterase Negative Urine RBC 1 - 3 Urine WBC 0 - 2 Ur Epithelial Cells 3 - 4 Urine Bacteria Few 03/15/18 03/15/18 06:10 07:30 WBC RBC Hgb Hct MCV MCH MCHC RDW Plt Count MPV Gran % Lymph % (Auto) [place] % (Auto) Eos % (Auto) Baso % (Auto) Gran # Lymph # (Auto) [place] # (Auto) Eos # (Auto) Baso # (Auto) pCO2 46 H pO2 106.0 H HCO3 28.5 H ABG pH 7.40 ABG Total CO2 29.9 H ABG O2 Saturation 98.8 H ABG O2 Content 15.8 ABG Base Excess 3.1 H ABG Hemoglobin 11.6 L ABG Carboxyhemoglobin 1.6 H POC ABG HHb (Measured) 1.2 ABG Methemoglobin 0.9 ABG O2 Capacity 16.0 Hgb O2 Saturation 96.2 FiO2 50.0 Sodium 141 Potassium 4.3 Chloride 103 Carbon Dioxide 30 Anion Gap 13 BUN 27 H Creatinine 0.8 Est GFR ( Amer) > 60 Est GFR (Non-Af Amer) > 60 Random Glucose 140 H Calcium 9.0 Phosphorus 3.6 Magnesium 1.9 Total Bilirubin 0.3 AST 16 ALT 18 Alkaline Phosphatase 150 H Troponin I 0.09 D Total Protein 6.7 Albumin 3.0 Globulin 3.6 Albumin/Globulin Ratio 0.8 L Urine Color Urine Appearance Urine pH Ur Specific [place] Urine Protein Urine Glucose (UA) Urine Ketones Urine Blood Urine Nitrate Urine Bilirubin Urine Urobilinogen Ur Leukocyte Esterase Urine RBC Urine WBC Ur Epithelial Cells Urine Bacteria Assessment & Plan - Assessment and Plan (Free Text) Plan: Assessment systemic inflammatory response syndrome, consider acute decompensated heart failure, R/O right sided HCAP history of bilateral HCAP S/P treatment of E. coli UTI acute femoral fracture S/P ORIF acute renal failure HTN subarachnoid hemorrhage atrial fibrillation not on anticoagulation due to risk of GI bleed depression COPD pseudogout pulmonary HTN history of left frontal subarachnoid hemorrhage S/P appendectomy obesity with BMI 31 Plan started Vancomycin, Azactam and Doxycycline pending blood, sputum cx, PCT; reviewed CXR and will need repeat CXR tomorrow will monitor clinically
[2018-03-15] MEDS: Arformoterol 15 mcg/2 ml Inh Sol IH SCH (20:30)
[2018-03-15] MEDS: Budesonide 0.5 mg/2 ml Inhal Susp UD IH SCH (20:31)
[2018-03-15] MEDS: Vancomycin 1gm in NS 250ml 1 GM/250 ML BAG IVPB SCH (21:51)
--- NOTE | 2018-03-15 23:27 | CON ---
DATE: REASON FOR CONSULTATION: Followup cardiac evaluation, atrial fibrillation, hypertension, admitted with possible CHF, possible pneumonia. BRIEF CLINICAL HISTORY: An 87-year-old female, resident of [facility] with history of COPD, pulmonary hypertension, atrial fibrillation, left hip fracture, CVA, who started having cough yesterday, in the afternoon, son visited him. Later on, patient become very congested and short of breath, was transferred to ER. Now patient is admitted to ICU, now with possible pneumonia and congestive heart failure. Patient is drowsy but on waking up, denies any chest pain, shortness of breath or any palpitation. Family is at the bedside. PAST MEDICAL HISTORY: Significant for COPD, pulmonary hypertension, atrial fibrillation, CVA, arthritis, depression, anxiety disorder, pseudogout. PAST SURGICAL HISTORY: Significant for hip fracture, status post OR internal fixation. SOCIAL HISTORY: Denies any history of alcohol abuse. She used to smoke, quit 13 to 14 years ago. ALLERGIES: TO IODINATED CONTRAST AND PENICILLIN. CURRENT MEDICATIONS: Patient is taking Risperdal, Calan SR, Effexor, MiraLax, Xopenex, Ativan, atorvastatin, atenolol, aspirin, apixaban, Eliquis 5 mg twice a day, amiodarone 200 mg daily, acetaminophen. REVIEW OF SYSTEMS: As per HPI. The previous EKG in 12/2017 showed atrial fibrillation with PVCs, dated 12/26/2017. PREVIOUS CARDIAC WORKUP: As follows, multiple EKGs, dated 12/26/2017, atrial fibrillation. Then patient had a EKG on 02/15/2018, shows sinus with APCs. Patient had echocardiography done on 02/12/2018 that revealed normal LV function, diastolic dysfunction, moderate to severe pulmonary hypertension, reported by Dr. Gauthier, and no mitral valve regurgitation noted. Moderate tricuspid regurgitation noted. Calculated ejection fraction 66% and RV systolic pressure 63 mm of Hg reported. PHYSICAL EXAMINATION: VITAL SIGNS: As follows, height of the patient is 5 feet 5 inches, weight of the patient is 195 pound, body mass index 32.5 kg/m2, heart rate 65, temperature 98, blood pressure 97/37. HEENT: PERRLA. Extraocular muscles intact. NECK: Supple. No carotid bruit or thyromegaly. CHEST: Clear to auscultation. HEART: S1 and S2 regular. ABDOMEN: Soft. EXTREMITIES: Clubbing and cyanosis negative. LABORATORY DATA: Blood workup as follows, WBC , hemoglobin 9.2, hematocrit 29.8, platelet count 153. Chemistry shows sodium 141, potassium 4.3, chloride 103, carbon dioxide 30, anion gap of 13, BUN 27, creatinine 0.8. Troponin 0.13 and 0.12. At this time, admitting EKG showed normal sinus, T-wave abnormality, consider anterior ischemia. Chest x-ray has small bilateral pleural effusion, possible early pneumonia, right lower lobe and possible CHF. IMPRESSION: Decompensated congestive heart failure, [id number] pulmonary hypertension, congestive heart failure secondary to diastolic dysfunction, pneumonia, sepsis; atrial fibrillation, paroxysmal; chronic obstructive pulmonary disease, pulmonary hypertension, gout, obesity. RECOMMENDATION: Broad spectrum antibiotic. Continue gentle diuretics. Continue Eliquis. We will follow with you. Overall, patient is critical. Long-term prognosis is guarded. Thank you Dr. Haywood for providing us the opportunity in taking care of the patient, Batsheva Nunez. Radha Mortensen MD
[2018-03-16] MEDS: Albuterol-Ipratrop 3 mg / 0.5 (3 ml) UD IH SCH ×6 (00:15→19:52)
[2018-03-16] MEDS: MethylPREDNISolone 40 mg Vial IVP SCH ×3 (05:08→22:26)
[2018-03-16 07:12] LABS: BASO # 0.01 K/mm3 (0.0-2.0); BASO % 0.1 % (0.0-3.0); GRAN # 9.38 (1.4-6.5); GRAN % 93.4 % (50.0-68.0); HEMOGLOBIN 7.9 g/dL (12.0-16.0); LYMPH # 0.3 (1.2-3.4); LYMPH % 3.2 % (22.0-35.0); MEAN CELL VOLUME 97.8 fl (80.0-105.0); MEAN CORPUSCULAR HEMOGLOBIN 29.6 pg (25.0-35.0); MEAN CORPUSCULAR HGB CONC 30.3 g/dl (31.0-37.0); MEAN PLATELET VOLUME 11.7 fl (7.0-11.0); MONO # 0.3 (0.1-0.6); MONO % 3.3 % (1.0-6.0); RBC 2.67 10^6/uL (3.5-6.1); RED CELL DISTRIBUTION WIDTH 15.8 % (11.5-14.5)
[2018-03-16 07:23] LABS: HDL CHOLESTEROL 35 mg/dL (29-60)
[2018-03-16 07:33] LABS: ALB/GLOB RATIO 0.9 (1.1-1.8); ALBUMIN 3.1 g/dL (3.0-4.8); ALT/SGPT 32 U/L (7-56); AST/SGOT 35 U/L (14-36); BLOOD UREA NITROGEN 28 mg/dL (7-21); CALCIUM 9.3 mg/dL (8.4-10.5); GFR AFRICAN-AMERICAN > 60; GFR NON-AFRICAN AMERICAN > 60; LDL CHOLESTEROL < 30 mg/dL (0-129)
[2018-03-16 07:35] LABS: TROPONIN I 0.06 ng/mL
[2018-03-16] MEDS ORDERED: Oxycodone/Acetaminophen 10/325 mg Tab PO PRN (07:51)
--- NOTE | 2018-03-16 07:53 | CP.PCM.PN ---
<Hannah Funes - Last Filed: 03/16/18 14:05> Subjective - Date & Time of Evaluation Date of Evaluation: 03/16/18 Time of Evaluation: 07:50 - Subjective Subjective: Progress note for hospitalist service Over night patient was reported to be urinary retaining. Ramos catheter to be reinserted. Patient is otherwise afebrile, admits to sob, denies cp, admits to generalized pain. Objective - Vital Signs/Intake and Output Vital Signs (last 24 hours): Temp Pulse Resp BP Pulse Ox 97.6 F 56 L 20 141/70 98 03/16/18 06:00 03/16/18 06:00 03/16/18 06:00 03/16/18 06:00 03/16/18 06:00 Intake and Output: 03/16/18 03/16/18 06:59 18:59 Intake Total 120 Balance 120 - Medications Medications: Current Medications Acetaminophen (Tylenol 325mg Tab) 650 mg PO Q6H PRN PRN Reason: Pain, Mild (1-3) Albuterol/Ipratropium (Duoneb 3 Mg/0.5 Mg (3 Ml) Ud) 3 ml IH [id number] [facility] Last Admin: 03/16/18 04:45 Dose: 3 ml Albuterol/Ipratropium (Duoneb 3 Mg/0.5 Mg (3 Ml) Ud) 3 ml IH Q2H PRN PRN Reason: Shortness of Breath Amiodarone HCl (Cordarone) 200 mg PO DAILY [facility] Last Admin: 03/15/18 13:23 Dose: 200 mg Apixaban (Eliquis) 5 mg PO BID [facility] PRN Reason: Protocol Last Admin: 03/15/18 17:27 Dose: 5 mg Arformoterol Tartrate (Brovana) 15 mcg IH BID [facility] Last Admin: 03/15/18 20:30 Dose: 15 mcg Aspirin (Aspirin Chewable) 81 mg PO DAILY [facility] Last Admin: 03/15/18 13:21 Dose: 81 mg Atenolol (Tenormin) 25 mg PO DAILY [facility] Atorvastatin Calcium (Lipitor) 40 mg PO DIN [facility] Last Admin: 03/15/18 17:27 Dose: 40 mg Budesonide (Pulmicort Respules) 0.5 mg IH [id number] [facility] Last Admin: 03/15/18 20:31 Dose: 0.5 mg Docusate Sodium (Colace Liquid) 100 mg PO BID [facility] Last Admin: 03/15/18 17:27 Dose: 100 mg Doxycycline Hyclate (Doryx) 100 mg PO Q12 [facility] PRN Reason: Protocol Last Admin: 03/15/18 21:38 Dose: 100 mg Vancomycin HCl (Vancomycin 1gm) 1 gm in 250 mls @ 167 mls/hr IVPB Q12 [facility] PRN Reason: Protocol Last Admin: 03/15/18 21:51 Dose: 167 mls/hr Levalbuterol HCl (Xopenex) 0.63 mg IH [id number] PRN PRN Reason: Shortness of Breath Lorazepam (Ativan) 0.5 mg PO HS PRN; Protocol PRN Reason: Insomnia Methylprednisolone (Solu-Medrol) 30 mg IVP Q8 [facility] Last Admin: 03/16/18 05:08 Dose: 30 mg Nystatin (Mycostatin Cream) 1 ea TOP TID [facility] Oxycodone/Acetaminophen (Percocet 10/325 Mg Tab) 1 tab PO Q4H PRN PRN Reason: Pain, moderate (4-7) Pantoprazole Sodium (Protonix Inj) 40 mg IVP DAILY [facility] Last Admin: 03/15/18 09:52 Dose: 40 mg Polyethylene Glycol (Miralax) 17 gm PO BID [facility] Risperidone (Risperdal Tab) 0.25 mg PO HS [facility] PRN Reason: Protocol Last Admin: 03/15/18 21:38 Dose: 0.25 mg Risperidone (Risperdal Oral Soln) 0.25 mg PO HS [facility] PRN Reason: Protocol Venlafaxine HCl (Effexor Xr) 75 mg PO DAILY [facility] Verapamil HCl (Calan Tab) 80 mg PO Q8 [facility] Last Admin: 03/16/18 05:08 Dose: 80 mg - Labs Labs: 03/16/18 06:30 03/16/18 06:30 PT 31.9 SECONDS (9.4-12.5) H 03/14/18 16:45 INR 2.74 (0.93-1.08) H 03/14/18 16:45 APTT 35.2 Seconds (25.1-36.5) 03/14/18 16:45 - Constitutional Appears: No Acute Distress, Chronically Ill - Head Exam Head Exam: ATRAUMATIC, NORMAL INSPECTION, NORMOCEPHALIC - Eye Exam Eye Exam: EOMI, Normal appearance, PERRL. absent: Scleral icterus Pupil Exam: NORMAL ACCOMODATION - ENT Exam ENT Exam: Mucous Membranes Moist - Neck Exam Neck Exam: Normal Inspection - Respiratory Exam Respiratory Exam: Decreased Breath Sounds (at the bases. ), Rales (mild at the left lower lobe). absent: Prolonged Expiratory Phase, Rhonchi, Wheezes, Respiratory Distress, Stridor, NORMAL BREATHING PATTERN - Cardiovascular Exam Cardiovascular Exam: REGULAR RHYTHM, RRR, +S1, +S2. absent: Gallop, JVD, Rubs, Murmur - GI/Abdominal Exam GI & Abdominal Exam: Soft, Normal Bowel Sounds. absent: Distended, Firm, Guarding, Rigid, Tenderness Additional comments: obese abdomen. - Extremities Exam Extremities Exam: Pedal Edema - Neurological Exam Neurological Exam: Alert, Awake, Oriented x3 - Psychiatric Exam Psychiatric exam: Normal Affect, Normal Mood - Skin Skin Exam: Dry, Normal Color, Warm Assessment and Plan - Assessment and Plan (Free Text) Assessment: Patient is an 87 y/o with PMHx of COPD, pulmonary HTN, afib on Eliquis, left hip fracture s/p ORIF (02/2018), left frontal subarachnoid hemorrhage sent from detention due top worsening shortness of breath and was found to have HAP. Patient was hypoxemic on presentation, was placed on bipap in icu. Patient was subsequently made DNI/DNR by her family. Plan: 1) Worsening shortness of breath likely due to right sided hospital acquired pneumonia superimposed with copd exacerbation and diastolic chf. - CXR with no significant improvement - will continue antibiotics as per, on azactam and vanco - blood cultures so far with no growth - Nasal cannula prn to maintain o2 sat above 90%. - continue with prn duonebs, brovana, pulmocort - On solumedrol tapering dose. - pulm and ID following - lasix ivp 20 mg - Monitor i&o, and daily weight 2) Elevated troponin, r/o ACS, versus supply demand - Troponin trended down - Cardio following - patient is on tele 3) H/o afib - rate controlled - will continue with amio and eliquis - continue with verapamil 4) Diastolic chf nd moderate to severe pulm htn - continue with atenolol, asa, added lasix 5) H/o depression/dementia: - continue with effexor, ativan prn - risperidone hs 6) hld- continue with Lipitor. 7) Constipation- continue with colace and miralax 8) Urinary retention- ramos catheter ordered. 9) Acute on chronic anemia- hgb dropped from 9.1 to 7.9 - anemia work up ordered - will order fecal occult blood - will repeat cbc, and transfuse if persistently below 8. 10) DVT and gi prophylaxis- on eliquis and protonix. 11) Dispo- patient return to detention possibly tomorrow on azactam, doxy and zosyn for 5 days total with repeat labs in 3 days including vanco through. Patient seen, examined and case discussed with Dr Haywood. <Kole Haywood - Last Filed: 03/16/18 15:42> Objective - Vital Signs/Intake and Output Vital Signs (last 24 hours): Temp Pulse Resp BP Pulse Ox 98 F 79 18 147/73 98 03/16/18 12:00 03/16/18 15:01 03/16/18 12:00 03/16/18 15:01 03/16/18 06:00 Intake and Output: 03/16/18 03/16/18 06:59 18:59 Intake Total 370 360 Balance 370 360 - Medications Medications: Current Medications Acetaminophen (Tylenol 325mg Tab) 650 mg PO Q6H PRN PRN Reason: Pain, Mild (1-3) Last Admin: 03/16/18 10:20 Dose: 650 mg Albuterol/Ipratropium (Duoneb 3 Mg/0.5 Mg (3 Ml) Ud) 3 ml IH [id number] [facility] Last Admin: 03/16/18 11:14 Dose: 3 ml Albuterol/Ipratropium (Duoneb 3 Mg/0.5 Mg (3 Ml) Ud) 3 ml IH Q2H PRN PRN Reason: Shortness of Breath Amiodarone HCl (Cordarone) 200 mg PO DAILY [facility] Last Admin: 03/16/18 10:20 Dose: 200 mg Apixaban (Eliquis) 5 mg PO BID [facility] PRN Reason: Protocol Last Admin: 03/16/18 10:20 Dose: 5 mg Arformoterol Tartrate (Brovana) 15 mcg IH BID [facility] Last Admin: 03/16/18 08:45 Dose: 15 mcg Aspirin (Aspirin Chewable) 81 mg PO DAILY [facility] Last Admin: 03/16/18 10:18 Dose: 81 mg Atenolol (Tenormin) 25 mg PO DAILY [facility] Last Admin: 03/16/18 10:20 Dose: 25 mg Atorvastatin Calcium (Lipitor) 40 mg PO DIN [facility] Last Admin: 03/15/18 17:27 Dose: 40 mg Budesonide (Pulmicort Respules) 0.5 mg IH [id number] [facility] Last Admin: 03/16/18 08:45 Dose: 0.5 mg Docusate Sodium (Colace Liquid) 100 mg PO BID [facility] Last Admin: 03/16/18 10:17 Dose: 100 mg Doxycycline Hyclate (Doryx) 100 mg PO Q12 [facility] PRN Reason: Protocol Last Admin: 03/16/18 10:18 Dose: 100 mg Furosemide (Lasix) 20 mg IVP DAILY [facility] Vancomycin HCl (Vancomycin 1gm) 1 gm in 250 mls @ 167 mls/hr IVPB Q12 [facility] PRN Reason: Protocol Last Admin: 03/16/18 10:17 Dose: 167 mls/hr Aztreonam (Azactam 2 Gm) 100 mls @ 100 mls/hr IVPB Q8 [facility] PRN Reason: Protocol Stop: 03/23/18 14:01 Last Admin: 03/16/18 14:51 Dose: 100 mls/hr Levalbuterol HCl (Xopenex) 0.63 mg IH [id number] PRN PRN Reason: Shortness of Breath Lorazepam (Ativan) 0.5 mg PO HS PRN; Protocol PRN Reason: Insomnia Methylprednisolone (Solu-Medrol) 30 mg IVP Q8 [facility] Last Admin: 03/16/18 15:01 Dose: 30 mg Mupirocin (Bactroban Ointment) 1 gm NS BID [facility] Stop: 03/21/18 10:01 Nystatin (Mycostatin Cream) 0 ea TOP TID [facility] Last Admin: 03/16/18 14:53 Dose: 1 applic Oxycodone/Acetaminophen (Percocet 10/325 Mg Tab) 1 tab PO Q4H PRN PRN Reason: Pain, moderate (4-7) Pantoprazole Sodium (Protonix Ec Tab) 40 mg PO DAILY [facility] Last Admin: 03/16/18 10:19 Dose: 40 mg Polyethylene Glycol (Miralax) 17 gm PO BID [facility] Last Admin: 03/16/18 10:18 Dose: 17 gm Risperidone (Risperdal Tab) 0.25 mg PO HS [facility] PRN Reason: Protocol Last Admin: 03/15/18 21:38 Dose: 0.25 mg Venlafaxine HCl (Effexor Xr) 75 mg PO DAILY [facility] Last Admin: 03/16/18 10:19 Dose: 75 mg Verapamil HCl (Calan Tab) 80 mg PO Q8 [facility] Last Admin: 03/16/18 15:01 Dose: 80 mg - Labs Labs: 03/16/18 06:30 03/16/18 06:30 PT 22.4 SECONDS (9.4-12.5) H 03/16/18 09:45 INR 1.92 (0.93-1.08) H 03/16/18 09:45 APTT 32.9 Seconds (25.1-36.5) 03/16/18 09:45 Attending/Attestation - Attestation I have personally seen and examined this patient.: Yes I have fully participated in the care of the patient.: Yes I have reviewed all pertinent clinical information, including history, physical exam and plan: Yes Notes (Text): 03/16/18 15:38 attending note; Patient seen and examined with resident. Patient is a 87 year old female with PMH of COPD, pulmonary HTN, afib on Eliquis , left hip fracture s/p ORIF (02/2018), Bipolar disorder, behavioral changes, is admitted with shortness of and right-sided pneumonia And minimal effusion. Currently improved respiratory status. Pulmonary evaluation appreciated. Continue BiPAP at night. Continue oxygen during daytime. Monitor respiratory status closely. cultures negative so far. Patient is afebrile and nontoxic. on IV vancomycin, doxycycline and azactam. case discussed with ID in detail. Complete a short course of IV antibiotics for 5 more days. anemia; no active bleeding noted. Stool for occult blood ordered. iron studies ordered.Repeat hemoglobin in a.m. history of A. 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 Continue Eliquis. elevated troponin; trended down. cardiology evaluation appreciated. Status post left hip surgery. PT evaluation appreciated. Urinary retention; place Ramos catheter. Voiding trial. patient is DNI DNR. Prognosis is poor. Upon discharge the patient will follow-up with PMD Dr. Kyle.
[2018-03-16] MEDS: Arformoterol 15 mcg/2 ml Inh Sol IH SCH ×2 (08:45→19:52)
[2018-03-16] MEDS: Budesonide 0.5 mg/2 ml Inhal Susp UD IH SCH ×2 (08:45→19:52)
[2018-03-16 09:45] LABS: IRON 18 ug/dL (45-180)
[2018-03-16 09:55] LABS: % IRON SATURATION 10 % (20-55); TOTAL IRON BINDING CAPACITY 176 ug/dL (265-497)
[2018-03-16 10:11] LABS: INR 1.92 (0.93-1.08); PARTIAL THROMBOPLASTIN TIME 32.9 Seconds (25.1-36.5); PROTHROMBIN TIME 22.4 SECONDS (9.4-12.5)
[2018-03-16] MEDS: Vancomycin 1gm in NS 250ml 1 GM/250 ML BAG IVPB SCH ×2 (10:17→23:00)
[2018-03-16] MEDS: POLYETHYLENE GLYCOL 3350 17 GM/Dose PACKET PO SCH ×2 (10:18→17:22)
[2018-03-16] MEDS: Pantoprazole 40 mg EC Tab PO SCH (10:19)
[2018-03-16] MEDS: Venlafaxine 75 mg ER Cap PO SCH (10:19)
--- NOTE | 2018-03-16 10:33 | CON ---
DATE: 03/16/2018 PULMONARY CONSULTATION REASON FOR CONSULTATION: Pneumonia. REFERRING PHYSICIAN: Kole Haywood MD HISTORY OF PRESENT ILLNESS: History is obtained via extensive discussion with the night nurse. I have also reviewed the chart at length, and discussed the case with the patient at length. The patient is not an adequate historian at this point in time. The patient is a chronically ill 87-year-old female, with past medical history significant for advanced chronic obstructive pulmonary disease, on home oxygen; pulmonary hypertension; atrial fibrillation; recent left hip fracture, who presents to [facility] - transferred from the subacute rehab facility - for increasing shortness of breath at rest, dyspnea on exertion, cough, and sputum production for the past 1 day. There is no history of chest pain, coughing up of blood, or chest pain - made worse with deep respirations. There is no history of temperatures, chills or infectious exposure. There is no history of night sweats, weight loss or appetite change prior to the above events. No history of calf pains. No history of syncope or diaphoresis. No history of recent travel or trauma. REVIEW OF SYSTEMS: No history of nausea, vomiting or diarrhea. No acute urinary symptoms. No new musculoskeletal complaints. Rest of the review of systems is negative. ALLERGIES: PENICILLIN AND IODINATED CONTRAST. SOCIAL HISTORY: Positive for tobacco and negative for alcohol. FAMILY HISTORY: No inheritable diseases. HOME MEDICATIONS: Include Ativan, Percocet, Protonix, Tenormin, Brovana, Eliquis, Cordarone, Risperdal, Calan, Effexor, Xopenex, Pulmicort, and Lipitor. PHYSICAL EXAMINATION GENERAL: The patient is not short of breath at the present time. She is not using accessory muscles for breathing. VITAL SIGNS: Temperature is 97.6, pulse 56, respirations 18/20, blood pressure 141/70. Oxygen saturation on BiPAP is 98%. Oxygen saturation on nasal cannula is 92%. HEENT: Normocephalic, atraumatic. No JVD. CARDIOVASCULAR: Systolic ejection murmur at the lower left sternal border. No S3 gallop. LUNGS: Decreased breath sounds at the bases. Mild bilateral rhonchi. No wheezing. EXTREMITIES: Positive for mild edema. No cyanosis, no clubbing. Calves are nontender to palpation. GI: Abdomen is soft, nontender and nondistended. Bowel sounds are positive. SKIN: No acute rash. NEUROLOGIC: Limited at the present time. PERTINENT LABORATORY DATA: Chest x-ray was done this morning and reviewed. There is a possible infiltrate at the lateral right lung base. CBC: White count 15.7K, hemoglobin 9.1, hematocrit 29.8, platelets of 153,000. Initial white count 18.9K. INR 2.74. Complete metabolic profile: BUN 27, glucose 140, alkaline phosphatase 150, troponin 0.09. Rest of the metabolic profile is within normal limits. Peak troponin 0.13. IMPRESSION: 1. Recurrent bronchitis. 2. Advanced chronic obstructive pulmonary disease. 3. Rule out pneumonia - right lower lobe. 4. Pulmonary hypertension. 5. Atrial fibrillation. 6. Anemia. 7. Positive troponin. PLAN: Again, I did discuss the case with the night nurse at length. I have also reviewed the chart at length. The patient is not an adequate historian. The patient presents to [facility] - transferred from the subacute rehab facility - with a 1-day history of worsening pulmonary symptoms. I did review the chest x-ray as above. The chest x-ray shows a possible infiltrate at the lateral right lung base. Crowe cultures have been ordered and will be analyzed when feasible. The patient has been started on antibiotic therapy. Infectious disease evaluation has been ordered. Procalcitonin has also been ordered. On physical exam, there is mild bronchospasm noted. I will continue with the current nebulizer treatments and intravenous steroids for now. I have also reviewed the laboratory data. Cardiology evaluation with Dr. Negrete has been ordered. Elevated troponin is noted. Hospice evaluation with Sheryl Aldana has also been ordered. The patient does appear more stable compared to her admission status. However, her future status/prognosis remains poor overall. All are aware. I will discuss the above with the attending physician this morning. Thank you very much for this pulmonary consultation. Ranjit Burnham MD NIA
--- NOTE | 2018-03-16 11:41 | PQF PNEUMO ---
This form is a permanent part of the medical record Clarification of your documentation is requested to better reflect the severity of illness and intensity of treatment of your patient. Indicators present Swallow eval shows Mod oropharyngeal dysphagia w/ risk for aspiration. Can you specify if you are treating Aspiration Pneumonia POA [x] Documented diagnosis of pneumonia [] X-ray findings: [] Positive Sputum cultures [] Cough w/ fever [] Abnormal lungs sounds [] Poor gag reflex [x] Speech consults/swallow evaluation [] Vent dependence [] Other: [] Location in the medical record that reflects the above clinical findings: [x] Swallow eval Treatment Provided: [x] Modified dysphagia diet PHYSICIAN'S RESPONSE Based on your medical judgment of the clinical indicators outlined above, are you treating this patient for a known or suspected: [x] Aspiration pneumonia [] Community acquired pneumonia [] Ventilator associated pneumonia [] Viral pneumonia [] Bacterial pneumonia Please specify organism: [] [] Other, please indicate [] If Unable to Determine, please check the box, sign and date. Present On Admission (POA) Indicator: [] Present at the time of admission [] Not present at the time of admission [x] Clinically Undetermined In responding to this query, please exercise your independent professional judgment. The fact that a question is asked does not imply that any particular answer is desired or expected. Thank you for your clarification on this documentation. If you have any questions please call:[ ] [phone] * Thank you, [ ] Sheryl Weston RN CDS carburetor rebuilder NIA
--- NOTE | 2018-03-16 13:28 | RAD ---
HISTORY: COPD EXac COMPARISON: 03/15/2018 FINDINGS: LUNGS: No active pulmonary disease. PLEURA: Small right-sided pleural effusion CARDIOVASCULAR: Mild cardiomegaly OSSEOUS STRUCTURES: No significant abnormalities. VISUALIZED UPPER ABDOMEN: Normal. OTHER FINDINGS: None. IMPRESSION: Mild cardiomegaly. Small right-sided effusion
[2018-03-16] MEDS: Nystatin 100,000 Units/gm Cream(15 gm) TOP SCH ×3 (13:48→17:25)
[2018-03-16 13:50] LABS: FOLATE 9.5 ng/mL
[2018-03-16] MEDS: Aztreonam 2 Gm in NS 100mL 100 ML IVPB SCH ×2 (14:51→22:25)
--- NOTE | 2018-03-16 14:53 | CP.PCM.PN ---
Subjective - Date & Time of Evaluation Date of Evaluation: 03/16/18 Time of Evaluation: 09:40 - Subjective Subjective: Comfortable, but still with occasional shortness of breath at rest, no fevers. Objective - Vital Signs/Intake and Output Vital Signs (last 24 hours): Temp Pulse Resp BP Pulse Ox 97.6 F 56 L 20 141/70 98 03/16/18 06:00 03/16/18 06:00 03/16/18 06:00 03/16/18 06:00 03/16/18 06:00 Intake and Output: 03/15/18 03/16/18 18:59 06:59 Intake Total 120 Balance 120 - Medications Medications: Current Medications Albuterol/Ipratropium (Duoneb 3 Mg/0.5 Mg (3 Ml) Ud) 3 ml IH [id number] [facility] Last Admin: 03/16/18 04:45 Dose: 3 ml Albuterol/Ipratropium (Duoneb 3 Mg/0.5 Mg (3 Ml) Ud) 3 ml IH Q2H PRN PRN Reason: Shortness of Breath Amiodarone HCl (Cordarone) 200 mg PO DAILY [facility] Last Admin: 03/15/18 13:23 Dose: 200 mg Apixaban (Eliquis) 5 mg PO BID [facility] PRN Reason: Protocol Last Admin: 03/15/18 17:27 Dose: 5 mg Arformoterol Tartrate (Brovana) 15 mcg IH BID [facility] Last Admin: 03/15/18 20:30 Dose: 15 mcg Aspirin (Aspirin Chewable) 81 mg PO DAILY [facility] Last Admin: 03/15/18 13:21 Dose: 81 mg Atenolol (Tenormin) 25 mg PO DAILY [facility] Atorvastatin Calcium (Lipitor) 40 mg PO DIN [facility] Last Admin: 03/15/18 17:27 Dose: 40 mg Budesonide (Pulmicort Respules) 0.5 mg IH [id number] [facility] Last Admin: 03/15/18 20:31 Dose: 0.5 mg Docusate Sodium (Colace Liquid) 100 mg PO BID [facility] Last Admin: 03/15/18 17:27 Dose: 100 mg Doxycycline Hyclate (Doryx) 100 mg PO Q12 [facility] PRN Reason: Protocol Last Admin: 03/15/18 21:38 Dose: 100 mg Vancomycin HCl (Vancomycin 1gm) 1 gm in 250 mls @ 167 mls/hr IVPB Q12 [facility] PRN Reason: Protocol Last Admin: 03/15/18 21:51 Dose: 167 mls/hr Levalbuterol HCl (Xopenex) 0.63 mg [facility] [id number] PRN PRN Reason: Shortness of Breath Methylprednisolone (Solu-Medrol) 30 mg IVP Q8 [facility] Last Admin: 03/16/18 05:08 Dose: 30 mg Pantoprazole Sodium (Protonix Inj) 40 mg IVP DAILY [facility] Last Admin: 03/15/18 09:52 Dose: 40 mg Risperidone (Risperdal Tab) 0.25 mg PO HS [facility] PRN Reason: Protocol Last Admin: 03/15/18 21:38 Dose: 0.25 mg Venlafaxine HCl (Effexor Xr) 75 mg PO DAILY [facility] Verapamil HCl (Calan Tab) 80 mg PO Q8 [facility] Last Admin: 03/16/18 05:08 Dose: 80 mg - Labs Labs: 03/15/18 06:10 03/15/18 06:10 PT 31.9 SECONDS (9.4-12.5) H 03/14/18 16:45 INR 2.74 (0.93-1.08) H 03/14/18 16:45 APTT 35.2 Seconds (25.1-36.5) 03/14/18 16:45 - Constitutional Appears: Chronically Ill - Head Exam Head Exam: NORMAL INSPECTION - ENT Exam ENT Exam: Mucous Membranes Moist - Neck Exam Neck Exam: absent: Meningismus - Respiratory Exam Respiratory Exam: Decreased Breath Sounds - Cardiovascular Exam Cardiovascular Exam: +S1, +S2 - GI/Abdominal Exam GI & Abdominal Exam: Soft. absent: Tenderness Assessment and Plan - Assessment and Plan (Free Text) Plan: Assessment systemic inflammatory response syndrome, consider acute decompensated heart failure, R/O right sided HCAP history of bilateral HCAP S/P treatment of E. coli UTI acute femoral fracture S/P ORIF acute renal failure HTN subarachnoid hemorrhage atrial fibrillation not on anticoagulation due to risk of GI bleed depression COPD pseudogout pulmonary HTN history of left frontal subarachnoid hemorrhage S/P appendectomy obesity with BMI 31 Plan continue Vancomycin, Azactam and Doxycycline day 2 and should finish 4-7 days of therapy follow up further recommendations of Cardiology and Pulmonary
--- NOTE | 2018-03-16 15:42 | PN ---
DATE: 03/16/2018 REASON FOR CONSULTATION AND FOLLOWUP: Cardiac evaluation, atrial fibrillation, hypertension, diabetes, possible CHF, possible pneumonia. The patient was transferred to medical floor in two hours. SUBJECTIVE: Patient denies any chest pain, shortness of breath or any palpitations. OBJECTIVE: GENERAL: Not in apparent distress, lying flat in the bed. VITAL SIGNS: Temperature afebrile, heart rate , blood pressure 141/80. HEENT: PERRLA, intact. NECK: Supple. No carotid bruit or thyromegaly. CHEST: Clear to auscultation. HEART: S1, S2 regular. ABDOMEN: Soft. EXTREMITIES: Clubbing and cyanosis negative. LABORATORY DATA: Blood workup as follows. WBC 10, hemoglobin 7.9, hematocrit 26.1, platelet count 144. Chemistry shows sodium 144, potassium 4, chloride 105, carbon dioxide 32, anion gap 12, BUN 28, creatinine 0.8. Troponin 0.06, remains negative to indeterminate range or borderline positive. IMPRESSION: Borderline positive troponin, need to rule out underlying coronary artery disease because of the stress. Hemodynamic instability. Troponin positive versus true non-ST segment myocardial infarction. History of paroxysmal atrial fibrillation on previous EKG dated 12/21/2017. History of last echo 02/12/2018 revealed normal left ventricular function and diastolic dysfunction admitted with decompensated congestive heart failure, [id number] secondary to diastolic dysfunction. Hypertension, hyperlipidemia, history of cerebrovascular disease, history of chronic atrial fibrillation, preserved left ventricular function in the previous echo, history of pulmonary hypertension, gout. Last echo shows right ventricular systolic pressure of 63. Repeat chest x-ray this morning shows possible right lower lobe pneumonia. RECOMMENDATIONS: Continue broad-spectrum antibiotics. Continue baby aspirin. Continue verapamil p.o. every 8 hours. Resume back Eliquis. Continue gentle diuretics. Continue atorvastatin. We will follow with you. Repeat the lab in the morning. Repeat the chest x-ray in the morning. Thank you Dr. Haywood for providing us the opportunity in taking care of the patient, Batsheva Nunez. Radha Mortensen MD
[2018-03-16 16:09] LABS: HEMOGLOBIN 8.3 g/dL (12.0-16.0); MEAN CELL VOLUME 97.5 fl (80.0-105.0); MEAN CORPUSCULAR HEMOGLOBIN 29.6 pg (25.0-35.0); MEAN CORPUSCULAR HGB CONC 30.4 g/dl (31.0-37.0); MEAN PLATELET VOLUME 11.5 fl (7.0-11.0); RBC 2.8 10^6/uL (3.5-6.1); RED CELL DISTRIBUTION WIDTH 15.6 % (11.5-14.5); WHITE BLOOD COUNT 11.6 10^3/ul (4.5-11.0)
[2018-03-16] MEDS: Mupirocin 2% Ointment 15 GM TUBE NS SCH (17:25)
[2018-03-17] MEDS: Albuterol-Ipratrop 3 mg / 0.5 (3 ml) UD IH SCH ×4 (00:01→11:31)
[2018-03-17] MEDS: Aztreonam 2 Gm in NS 100mL 100 ML IVPB SCH (05:46)
[2018-03-17] MEDS: MethylPREDNISolone 40 mg Vial IVP SCH (05:47)
[2018-03-17 05:58] VITALS: BP 171/60
[2018-03-17 06:56] VITALS: PULSE 68; RESP 20; TEMP 98; O2SAT 95
[2018-03-17 07:08] LABS: BASO # 0.01 K/mm3 (0.0-2.0); BASO % 0.1 % (0.0-3.0); GRAN # 10.25 (1.4-6.5); GRAN % 91.1 % (50.0-68.0); HEMOGLOBIN 8.5 g/dL (12.0-16.0); LYMPH # 0.6 (1.2-3.4); LYMPH % 4.9 % (22.0-35.0); MEAN CELL VOLUME 97.6 fl (80.0-105.0); MEAN CORPUSCULAR HEMOGLOBIN 29.6 pg (25.0-35.0); MEAN CORPUSCULAR HGB CONC 30.4 g/dl (31.0-37.0); MEAN PLATELET VOLUME 11.5 fl (7.0-11.0); MONO # 0.4 (0.1-0.6); MONO % 3.9 % (1.0-6.0); RBC 2.87 10^6/uL (3.5-6.1); RED CELL DISTRIBUTION WIDTH 15.8 % (11.5-14.5); WHITE BLOOD COUNT 11.3 10^3/ul (4.5-11.0)
[2018-03-17 07:41] LABS: ALB/GLOB RATIO 0.9 (1.1-1.8); ALBUMIN 3.5 g/dL (3.0-4.8); ALT/SGPT 49 U/L (7-56); AST/SGOT 56 U/L (14-36); BLOOD UREA NITROGEN 25 mg/dL (7-21); CALCIUM 9.6 mg/dL (8.4-10.5); GFR AFRICAN-AMERICAN > 60; GFR NON-AFRICAN AMERICAN > 60
[2018-03-17] MEDS: Budesonide 0.5 mg/2 ml Inhal Susp UD IH SCH (08:04)
[2018-03-17] MEDS: Arformoterol 15 mcg/2 ml Inh Sol IH SCH (08:15)
--- NOTE | 2018-03-17 08:28 | PN ---
DATE: 03/17/2018 PULMONARY NOTE SUBJECTIVE: The patient appears comfortable this morning. She is not short of breath at rest. However, she does appear very anxious. PHYSICAL EXAMINATION: VITAL SIGNS: Temperature is 98.5, pulse 60, respirations 20, blood pressure 171/60. Oxygen saturation on BiPAP 93%. Oxygen saturation on nasal cannula is 92-98%. HEENT: Normocephalic, atraumatic. No JVD. CARDIOVASCULAR: Systolic ejection murmur at the lower left sternal border. No S3 gallop. LUNGS: Decreased breath sounds at the bases. Much less rhonchi. No wheezing. EXTREMITIES: Positive for mild edema. No cyanosis, no clubbing. Calves are nontender to palpation. GI: Abdomen is soft, nontender and nondistended. Bowel sounds are positive. SKIN: No acute rash. NEUROLOGIC: Limited at the present time. IMPRESSION: 1. Recurrent bronchitis. 2. Advanced chronic obstructive pulmonary disease. 3. Rule out pneumonia-right lower lobe. 4. Pulmonary hypertension. 5. Atrial fibrillation. 6. Anemia. 7. Positive troponin. 8. Chronic anxiety. PLAN: The patient appears comfortable this morning. She is not short of breath at rest. She does appear very anxious. I did discuss the case with the night nurse at length. The night nurse stated that the patient had a good night overall. On physical exam, there is certainly less bronchospasm noted. I will continue the current nebulizer treatments and decrease the intravenous steroids this morning. The patient remains on antibiotic therapy-as per Infectious Disease. Input by Dr. Callahan is noted. There are no temperatures noted. The leukocytosis is resolving. Lastly, the patient does have a long history of anxiety. Her anxiety certainly contributes to her shortness of breath at times. Perhaps, a Psychiatry evaluation would be beneficial at this point in time. The clinical status of the patient is certainly improved-compared to the initial presentation. However, again, her overall status/prognosis remains poor. I will discuss the above with the attending physician. Ranjit Burnham MD NIA
[2018-03-17] MEDS ORDERED: Potassium Chloride 20 mEq ER Tab PO ONE (09:46)
[2018-03-17] MEDS ORDERED: MethylPREDNISolone 40 mg Vial IVP SCH (10:00)
[2018-03-17] MEDS ORDERED: Sildenafil 20 MG TAB PO SCH (10:00)
[2018-03-17] MEDS ORDERED: Potassium Chloride 40 mEq/30 ml LIQ UD PO ONE (10:24)
[2018-03-17] MEDS: POLYETHYLENE GLYCOL 3350 17 GM/Dose PACKET PO SCH (10:28)
[2018-03-17] MEDS: Vancomycin 1gm in NS 250ml 1 GM/250 ML BAG IVPB SCH (10:29)
[2018-03-17] MEDS: Venlafaxine 75 mg ER Cap PO SCH (10:29)
[2018-03-17] MEDS: Pantoprazole 40 mg EC Tab PO SCH (10:37)
[2018-03-17] MEDS: Mupirocin 2% Ointment 15 GM TUBE NS SCH (10:38)
[2018-03-17] MEDS: Nystatin 100,000 Units/gm Cream(15 gm) TOP SCH (10:38)
--- NOTE | 2018-03-17 10:40 | RAD ---
HISTORY: R/O pneumonia Vs CHF COMPARISON: 03/16/2018 FINDINGS: LUNGS: Bibasilar atelectasis PLEURA: Small pleural effusions CARDIOVASCULAR: Moderate to severe cardiomegaly OSSEOUS STRUCTURES: No significant abnormalities. VISUALIZED UPPER ABDOMEN: Normal. OTHER FINDINGS: None. IMPRESSION: Severe cardiomegaly with small bilateral pleural effusions and bibasilar atelectasis
--- NOTE | 2018-03-17 12:26 | CP.PCM.PN ---
Subjective - Date & Time of Evaluation Date of Evaluation: 03/17/18 Time of Evaluation: 09:40 - Subjective Subjective: Patient is feeling a little better, no fevers, not in distress. Objective - Vital Signs/Intake and Output Vital Signs (last 24 hours): Temp Pulse Resp BP Pulse Ox 98.0 F 68 20 171/60 H 95 03/17/18 06:00 03/17/18 06:00 03/17/18 06:00 03/17/18 06:00 03/17/18 06:00 Intake and Output: 03/16/18 03/17/18 18:59 06:59 Intake Total 360 120 Output Total 450 Balance 360 -330 - Medications Medications: Current Medications Acetaminophen (Tylenol 325mg Tab) 650 mg PO Q6H PRN PRN Reason: Pain, Mild (1-3) Last Admin: 03/16/18 18:09 Dose: 650 mg Albuterol/Ipratropium (Duoneb 3 Mg/0.5 Mg (3 Ml) Ud) 3 ml IH [id number] [facility] Last Admin: 03/17/18 05:11 Dose: 3 ml Albuterol/Ipratropium (Duoneb 3 Mg/0.5 Mg (3 Ml) Ud) 3 ml IH Q2H PRN PRN Reason: Shortness of Breath Amiodarone HCl (Cordarone) 200 mg PO DAILY [facility] Last Admin: 03/16/18 10:20 Dose: 200 mg Apixaban (Eliquis) 5 mg PO BID [facility] PRN Reason: Protocol Last Admin: 03/16/18 17:22 Dose: 5 mg Arformoterol Tartrate (Brovana) 15 mcg IH BID [facility] Last Admin: 03/16/18 19:52 Dose: 15 mcg Aspirin (Aspirin Chewable) 81 mg PO DAILY [facility] Last Admin: 03/16/18 10:18 Dose: 81 mg Atenolol (Tenormin) 25 mg PO DAILY [facility] Last Admin: 03/16/18 10:20 Dose: 25 mg Atorvastatin Calcium (Lipitor) 40 mg PO DIN [facility] Last Admin: 03/16/18 17:22 Dose: 40 mg Budesonide (Pulmicort Respules) 0.5 mg IH [id number] [facility] Last Admin: 03/16/18 19:52 Dose: 0.5 mg Docusate Sodium (Colace Liquid) 100 mg PO BID [facility] Last Admin: 03/16/18 17:22 Dose: 100 mg Doxycycline Hyclate (Doryx) 100 mg PO Q12 [facility] PRN Reason: Protocol Last Admin: 03/16/18 22:27 Dose: 100 mg Furosemide (Lasix) 20 mg IVP DAILY [facility] Vancomycin HCl (Vancomycin 1gm) 1 gm in 250 mls @ 167 mls/hr IVPB Q12 [facility] PRN Reason: Protocol Last Admin: 03/16/18 23:00 Dose: 167 mls/hr Aztreonam (Azactam 2 Gm) 100 mls @ 100 mls/hr IVPB Q8 [facility] PRN Reason: Protocol Stop: 03/23/18 14:01 Last Admin: 03/17/18 05:46 Dose: 100 mls/hr Levalbuterol HCl (Xopenex) 0.63 mg IH [id number] PRN PRN Reason: Shortness of Breath Lorazepam (Ativan) 0.5 mg PO HS PRN; Protocol PRN Reason: Insomnia Last Admin: 03/17/18 06:35 Dose: 0.5 mg Methylprednisolone (Solu-Medrol) 30 mg IVP Q12 [facility] Mupirocin (Bactroban Ointment) 1 gm NS BID [facility] Stop: 03/21/18 10:01 Last Admin: 03/16/18 17:25 Dose: 1 applic Nystatin (Mycostatin Cream) 0 ea TOP TID [facility] Last Admin: 03/16/18 17:25 Dose: 1 applic Oxycodone/Acetaminophen (Percocet 10/325 Mg Tab) 1 tab PO Q4H PRN PRN Reason: Pain, moderate (4-7) Pantoprazole Sodium (Protonix Ec Tab) 40 mg PO DAILY [facility] Last Admin: 03/16/18 10:19 Dose: 40 mg Polyethylene Glycol (Miralax) 17 gm PO BID [facility] Last Admin: 03/16/18 17:22 Dose: 17 gm Risperidone (Risperdal Tab) 0.25 mg PO HS [facility] PRN Reason: Protocol Last Admin: 03/16/18 23:04 Dose: 0.25 mg Venlafaxine HCl (Effexor Xr) 75 mg PO DAILY [facility] Last Admin: 03/16/18 10:19 Dose: 75 mg Verapamil HCl (Calan Tab) 80 mg PO Q8 [facility] Last Admin: 03/17/18 05:50 Dose: 80 mg - Labs Labs: 03/16/18 16:04 03/16/18 06:30 PT 22.4 SECONDS (9.4-12.5) H 03/16/18 09:45 INR 1.92 (0.93-1.08) H 03/16/18 09:45 APTT 32.9 Seconds (25.1-36.5) 03/16/18 09:45 - Constitutional Appears: Chronically Ill - Head Exam Head Exam: NORMAL INSPECTION - ENT Exam ENT Exam: Mucous Membranes Moist - Neck Exam Neck Exam: absent: Meningismus - Respiratory Exam Respiratory Exam: Decreased Breath Sounds - Cardiovascular Exam Cardiovascular Exam: +S1, +S2 - GI/Abdominal Exam GI & Abdominal Exam: Soft. absent: Tenderness Assessment and Plan - Assessment and Plan (Free Text) Plan: Assessment systemic inflammatory response syndrome, consider acute decompensated heart failure, R/O right sided HCAP history of bilateral HCAP S/P treatment of E. coli UTI acute femoral fracture S/P ORIF acute renal failure HTN subarachnoid hemorrhage atrial fibrillation not on anticoagulation due to risk of GI bleed depression COPD pseudogout pulmonary HTN history of left frontal subarachnoid hemorrhage S/P appendectomy obesity with BMI 31 Plan continue Vancomycin, Azactam and Doxycycline day 3 and should finish 4-7 days of therapy follow up further recommendations of Cardiology and Pulmonary
--- NOTE | 2018-03-17 12:53 | CP.PCM.DIS ---
<Leta Smith - Last Filed: 03/17/18 16:05> Provider - Provider Date of Admission: 03/14/18 17:52 Attending physician: Kole Haywood MD Consults: Cristian Shearer Time Spent in preparation of Discharge (in minutes): 60 Diagnosis - Discharge Diagnosis (1) Pneumonia Status: Acute (2) COPD (chronic obstructive pulmonary disease) Status: Chronic Hospital Course - Lab Results Lab Results: Micro Results 03/14/18 23:05 Nose MRSA Culture (Admit) - Final MRSA DETECTED 03/14/18 18:49 Urine,Catheterized Urine Culture - Final No Growth (<1,000 CFU/ML) Most Recent Lab Values WBC 11.3 10^3/ul (4.5-11.0) H 03/17/18 06:30 RBC 2.87 10^6/uL (3.5-6.1) L 03/17/18 06:30 Hgb 8.5 g/dL (12.0-16.0) L 03/17/18 06:30 Hct 28.0 % (36.0-48.0) L 03/17/18 06:30 MCV 97.6 fl (80.0-105.0) 03/17/18 06:30 MCH 29.6 pg (25.0-35.0) 03/17/18 06:30 MCHC 30.4 g/dl (31.0-37.0) L 03/17/18 06:30 RDW 15.8 % (11.5-14.5) H 03/17/18 06:30 Plt Count 189 10^3/uL (120.0-450.0) 03/17/18 06:30 MPV 11.5 fl (7.0-11.0) H 03/17/18 06:30 Gran % 91.1 % (50.0-68.0) H 03/17/18 06:30 Lymph % (Auto) 4.9 % (22.0-35.0) L 03/17/18 06:30 Haines % (Auto) 3.9 % (1.0-6.0) 03/17/18 06:30 Eos % (Auto) 0.0 % (1.5-5.0) L 03/17/18 06:30 Baso % (Auto) 0.1 % (0.0-3.0) 03/17/18 06:30 Gran # 10.25 (1.4-6.5) H 03/17/18 06:30 Lymph # (Auto) 0.6 (1.2-3.4) L 03/17/18 06:30 Haines # (Auto) 0.4 (0.1-0.6) 03/17/18 06:30 Eos # (Auto) 0.0 (0.0-0.7) 03/17/18 06:30 Baso # (Auto) 0.01 K/mm3 (0.0-2.0) 03/17/18 06:30 Neutrophils % (Manual) 85 % (50.0-70.0) H 03/14/18 16:45 Band Neutrophils % 4 % (0-2) H 03/14/18 16:45 Lymphocytes % (Manual) 6 % (22.0-35.0) L 03/14/18 16:45 Monocytes % (Manual) 5 % (1.0-6.0) 03/14/18 16:45 Platelet Evaluation Normal (NORMAL) 03/14/18 16:45 Polychromasia Slight 03/14/18 16:45 Hypochromasia 1+ 03/14/18 16:45 Anisocytosis (manual) 1+ 03/14/18 16:45 ESR 140 mm/hr (0.0-20.0) H 03/16/18 06:30 PT 22.4 SECONDS (9.4-12.5) H 03/16/18 09:45 INR 1.92 (0.93-1.08) H 03/16/18 09:45 APTT 32.9 Seconds (25.1-36.5) 03/16/18 09:45 pCO2 46 mm/Hg (35-45) H 03/15/18 07:30 pO2 106.0 mm/Hg (80-100) H 03/15/18 07:30 HCO3 28.5 mmol/L (21-28) H 03/15/18 07:30 ABG pH 7.40 (7.35-7.45) 03/15/18 07:30 ABG Total CO2 29.9 mmol.L (22-28) H 03/15/18 07:30 ABG O2 Saturation 98.8 % (95-98) H 03/15/18 07:30 ABG O2 Content 15.8 ML/dl (15-23) 03/15/18 07:30 ABG Base Excess 3.1 mmol/L (-2.0-3.0) H 03/15/18 07:30 ABG Hemoglobin 11.6 g/dL (11.7-17.4) L 03/15/18 07:30 ABG Carboxyhemoglobin 1.6 % (0.5-1.5) H 03/15/18 07:30 POC ABG HHb (Measured) 1.2 % (0-5) 03/15/18 07:30 ABG Methemoglobin 0.9 % (0.0-3.0) 03/15/18 07:30 ABG O2 Capacity 16.0 mL/dl (16-24) 03/15/18 07:30 ABG Potassium 3.9 mmol/L (3.6-5.2) 03/14/18 16:25 VBG pH 7.41 (7.32-7.43) 03/14/18 17:20 VBG pCO2 50.0 (40-60) 03/14/18 17:20 VBG HCO3 31.7 mmol/l (21-28) H 03/14/18 17:20 VBG Total CO2 33.2 mmol.L (22-28) H 03/14/18 17:20 VBG O2 Sat (Calc) 99.5 % (40-65) H 03/14/18 17:20 VBG Base Excess 6.2 mmol/L (0.0-2.0) H 03/14/18 17:20 VBG Potassium 5.3 mmol/L (3.6-5.2) H 03/14/18 17:20 Hgb O2 Saturation 96.2 % (95.0-98.0) 03/15/18 07:30 Sodium 136.0 mmol/L (132-148) 03/14/18 17:20 Chloride 105.0 mmol/L (98-107) 03/14/18 17:20 Glucose 149 mg/dl (65-105) H 03/14/18 17:20 Lactate 1.2 mmol/L (0.7-2.1) 03/14/18 17:20 FiO2 50.0 % 03/15/18 07:30 Sodium 144 mmol/L (132-148) 03/17/18 06:30 Potassium 3.9 mmol/L (3.6-5.0) 03/17/18 06:30 Chloride 105 mmol/L (98-107) 03/17/18 06:30 Carbon Dioxide 28 mmol/L (21-33) 03/17/18 06:30 Anion Gap 15 (10-20) 03/17/18 06:30 BUN 25 mg/dL (7-21) H 03/17/18 06:30 Creatinine 0.7 mg/dl (0.7-1.2) 03/17/18 06:30 Est GFR ( Amer) > 60 03/17/18 06:30 Est GFR (Non-Af Amer) > 60 03/17/18 06:30 Random Glucose 181 mg/dL (70-110) H 03/17/18 06:30 Hemoglobin A1c 5.3 % (4.2-6.5) 03/16/18 06:30 Calcium 9.6 mg/dL (8.4-10.5) 03/17/18 06:30 Phosphorus 2.6 mg/dL (2.5-4.5) 03/17/18 06:30 Magnesium 2.0 mg/dL (1.7-2.2) 03/17/18 06:30 Iron 18 ug/dL (45-180) L 03/16/18 06:30 TIBC 176 ug/dL (265-497) L 03/16/18 06:30 % Saturation 10 % (20-55) L 03/16/18 06:30 Ferritin 320.0 ng/mL 03/16/18 06:30 Total Bilirubin 0.2 mg/dL (0.2-1.3) 03/17/18 06:30 AST 56 U/L (14-36) H D 03/17/18 06:30 ALT 49 U/L (7-56) 03/17/18 06:30 Alkaline Phosphatase 164 U/L (38-126) H 03/17/18 06:30 Lactate Dehydrogenase 392 U/L (333-699) 03/16/18 06:30 Total Creatine Kinase 24 U/L (35-230) L 03/16/18 06:30 Troponin I 0.06 ng/mL D 03/16/18 06:30 NT-Pro-B Natriuret Pep 15300 pg/mL (0-450) H 03/14/18 16:45 Total Protein 7.3 g/dL (5.8-8.3) 03/17/18 06:30 Albumin 3.5 g/dL (3.0-4.8) 03/17/18 06:30 Globulin 3.8 gm/dL 03/17/18 06:30 Albumin/Globulin Ratio 0.9 (1.1-1.8) L 03/17/18 06:30 Triglycerides 72 mg/dL (35-160) 03/16/18 06:30 Cholesterol 82 mg/dL (130-200) L 03/16/18 06:30 LDL Cholesterol Direct < 30 mg/dL (0-129) 03/16/18 06:30 HDL Cholesterol 35 mg/dL (29-60) 03/16/18 06:30 Vitamin B12 852 pg/mL (239-931) 03/16/18 06:30 Folate 9.5 ng/mL 03/16/18 06:30 Procalcitonin 0.95 NG/ML (0.19-0.49) H 03/16/18 06:30 Free T4 2.09 ng/dL (0.78-2.19) 03/17/18 06:30 TSH 3rd Generation 0.11 mIU/mL (0.46-4.68) L 03/16/18 06:30 Arterial Blood Potassium 3.9 mmol/L (3.6-5.2) 03/14/18 16:25 Venous Blood Potassium 5.3 mmol/L (3.6-5.2) H 03/14/18 17:20 Urine Color Yellow (YELLOW) 03/14/18 18:49 Urine Appearance Clear (CLEAR) 03/14/18 18:49 Urine pH 6.0 (4.7-8.0) 03/14/18 18:49 Ur Specific Diller 1.020 (1.005-1.035) 03/14/18 18:49 Urine Protein Negative mg/dL (<30 mg/dL) 03/14/18 18:49 Urine Glucose (UA) Negative mg/dL (NEGATIVE) 03/14/18 18:49 Urine Ketones Negative mg/dL (NEGATIVE) 03/14/18 18:49 Urine Blood Trace-intact (NEGATIVE) H 03/14/18 18:49 Urine Nitrate Negative (NEGATIVE) 03/14/18 18:49 Urine Bilirubin Negative (NEGATIVE) 03/14/18 18:49 Urine Urobilinogen 0.2 E.U./dL (<1 E.U./dL) 03/14/18 18:49 Ur Leukocyte Esterase Negative Jordan/uL (NEGATIVE) 03/14/18 18:49 Urine RBC 1 - 3 /hpf (0-2) 03/14/18 18:49 Urine WBC 0 - 2 /hpf (0-6) 03/14/18 18:49 Ur Epithelial Cells 3 - 4 /hpf (0-5) 03/14/18 18:49 Urine Bacteria Few (NEG) 03/14/18 18:49 Blood Type O POSITIVE 03/16/18 09:45 Antibody Screen Negative 03/16/18 09:45 Crossmatch See Detail 03/16/18 09:45 BBK History Checked Patient has bt 03/16/18 09:45 - Hospital Course Hospital Course: 87 year old female with past medical history of COPD, pulmonary hypertension, atrial fibrillation, left hip fracture, and cva who comes in from [facility] after complaints of shortness of breath. Pt was found to have Hospital acquired pneumonia, treated appropriately with IV antibiotics. Pt was also treated for COPD exacerbation with IV steroids and duonebs. During the stay, palliative OPTIMIZATION SPECIALIST Sheryl Aldana spoke with family, and patient was made DNR/DNI. Physical therapy eval recommended BILLIE. Pt discharged to [facility] with continuation of her antibitoics and other home meds. Pt's partner and daughter informed of transfer. Case discussed with Dr Haywood. Leta Smith, PGY1 Discharge Exam - Head Exam Head Exam: NORMAL INSPECTION - Eye Exam Eye Exam: EOMI, PERRL. absent: Conjunctival injection, Nystagmus, Scleral icterus Pupil Exam: NORMAL ACCOMODATION, PERRL. absent: Irregular, Miosis, Unequal - ENT Exam ENT Exam: Mucous Membranes Moist - Neck Exam Neck exam: Full Rom - Respiratory Exam Respiratory Exam: Decreased Breath Sounds. absent: Chest Wall Tenderness, Rales , Rhonchi, Wheezes, Respiratory Distress, Stridor, NORMAL BREATHING PATTERN - Cardiovascular Exam Cardiovascular Exam: RRR, +S1, +S2. absent: Systolic Murmur - GI/Abdominal Exam GI & Abdominal Exam: Normal Bowel Sounds, Soft. absent: Distended, Firm, Guarding, Hernia, Mass, Organomegaly, Rebound, Rigid, Tenderness - Extremities Exam Extremities exam: normal inspection - Back Exam Back exam: NORMAL INSPECTION. absent: CVA tenderness (L), CVA tenderness (R) - Neurological Exam Neurological exam: Alert - Psychiatric Exam Psychiatric exam: Agitated, Anxious - Skin Skin Exam: Dry, Normal Color, Warm Discharge Plan - Discharge Medications Prescriptions: Aztreonam 2 Gm in NS 100mL [Azactam 2 gm] 2 gm IVPB Q8 5 Days ml Furosemide [Lasix] 40 mg PO DAILY 22 Days tablet predniSONE [predniSONE Tab] 10 mg PO DAILY #45 tab Vancomycin/0.9 % Sod Chloride [Vanco 1 Gram/150 ml-0.9% NaCl] 1 gm IV Q8 5 Days plast..bag - Follow Up Plan Condition: CRITICAL Disposition: REHAB FACILITY/REHAB UNIT Instructions: Hospital-Acquired Pneumonia, Exacerbation of COPD Additional Instructions: - Take meds as prescribed - Return to ER for any concerns. - Follow up with PMD, cardiology, pulmonary doctor in 1 week. <Kole Haywood - Last Filed: 03/17/18 16:28> Provider - Provider Date of Admission: 03/14/18 17:52 Attending physician: Kole Haywood MD Hospital Course - Lab Results Lab Results: Micro Results 03/14/18 23:05 Nose MRSA Culture (Admit) - Final MRSA DETECTED 03/14/18 18:49 Urine,Catheterized Urine Culture - Final No Growth (<1,000 CFU/ML) Most Recent Lab Values WBC 11.3 10^3/ul (4.5-11.0) H 03/17/18 06:30 RBC 2.87 10^6/uL (3.5-6.1) L 03/17/18 06:30 Hgb 8.5 g/dL (12.0-16.0) L 03/17/18 06:30 Hct 28.0 % (36.0-48.0) L 03/17/18 06:30 MCV 97.6 fl (80.0-105.0) 03/17/18 06:30 MCH 29.6 pg (25.0-35.0) 03/17/18 06:30 MCHC 30.4 g/dl (31.0-37.0) L 03/17/18 06:30 RDW 15.8 % (11.5-14.5) H 03/17/18 06:30 Plt Count 189 10^3/uL (120.0-450.0) 03/17/18 06:30 MPV 11.5 fl (7.0-11.0) H 03/17/18 06:30 Gran % 91.1 % (50.0-68.0) H 03/17/18 06:30 Lymph % (Auto) 4.9 % (22.0-35.0) L 03/17/18 06:30 Haines % (Auto) 3.9 % (1.0-6.0) 03/17/18 06:30 Eos % (Auto) 0.0 % (1.5-5.0) L 03/17/18 06:30 Baso % (Auto) 0.1 % (0.0-3.0) 03/17/18 06:30 Gran # 10.25 (1.4-6.5) H 03/17/18 06:30 Lymph # (Auto) 0.6 (1.2-3.4) L 03/17/18 06:30 Haines # (Auto) 0.4 (0.1-0.6) 03/17/18 06:30 Eos # (Auto) 0.0 (0.0-0.7) 03/17/18 06:30 Baso # (Auto) 0.01 K/mm3 (0.0-2.0) 03/17/18 06:30 Neutrophils % (Manual) 85 % (50.0-70.0) H 03/14/18 16:45 Band Neutrophils % 4 % (0-2) H 03/14/18 16:45 Lymphocytes % (Manual) 6 % (22.0-35.0) L 03/14/18 16:45 Monocytes % (Manual) 5 % (1.0-6.0) 03/14/18 16:45 Platelet Evaluation Normal (NORMAL) 03/14/18 16:45 Polychromasia Slight 03/14/18 16:45 Hypochromasia 1+ 03/14/18 16:45 Anisocytosis (manual) 1+ 03/14/18 16:45 ESR 140 mm/hr (0.0-20.0) H 03/16/18 06:30 PT 22.4 SECONDS (9.4-12.5) H 03/16/18 09:45 INR 1.92 (0.93-1.08) H 03/16/18 09:45 APTT 32.9 Seconds (25.1-36.5) 03/16/18 09:45 pCO2 46 mm/Hg (35-45) H 03/15/18 07:30 pO2 106.0 mm/Hg (80-100) H 03/15/18 07:30 HCO3 28.5 mmol/L (21-28) H 03/15/18 07:30 ABG pH 7.40 (7.35-7.45) 03/15/18 07:30 ABG Total CO2 29.9 mmol.L (22-28) H 03/15/18 07:30 ABG O2 Saturation 98.8 % (95-98) H 03/15/18 07:30 ABG O2 Content 15.8 ML/dl (15-23) 03/15/18 07:30 ABG Base Excess 3.1 mmol/L (-2.0-3.0) H 03/15/18 07:30 ABG Hemoglobin 11.6 g/dL (11.7-17.4) L 03/15/18 07:30 ABG Carboxyhemoglobin 1.6 % (0.5-1.5) H 03/15/18 07:30 POC ABG HHb (Measured) 1.2 % (0-5) 03/15/18 07:30 ABG Methemoglobin 0.9 % (0.0-3.0) 03/15/18 07:30 ABG O2 Capacity 16.0 mL/dl (16-24) 03/15/18 07:30 ABG Potassium 3.9 mmol/L (3.6-5.2) 03/14/18 16:25 VBG pH 7.41 (7.32-7.43) 03/14/18 17:20 VBG pCO2 50.0 (40-60) 03/14/18 17:20 VBG HCO3 31.7 mmol/l (21-28) H 03/14/18 17:20 VBG Total CO2 33.2 mmol.L (22-28) H 03/14/18 17:20 VBG O2 Sat (Calc) 99.5 % (40-65) H 03/14/18 17:20 VBG Base Excess 6.2 mmol/L (0.0-2.0) H 03/14/18 17:20 VBG Potassium 5.3 mmol/L (3.6-5.2) H 03/14/18 17:20 Hgb O2 Saturation 96.2 % (95.0-98.0) 03/15/18 07:30 Sodium 136.0 mmol/L (132-148) 03/14/18 17:20 Chloride 105.0 mmol/L (98-107) 03/14/18 17:20 Glucose 149 mg/dl (65-105) H 03/14/18 17:20 Lactate 1.2 mmol/L (0.7-2.1) 03/14/18 17:20 FiO2 50.0 % 03/15/18 07:30 Sodium 144 mmol/L (132-148) 03/17/18 06:30 Potassium 3.9 mmol/L (3.6-5.0) 03/17/18 06:30 Chloride 105 mmol/L (98-107) 03/17/18 06:30 Carbon Dioxide 28 mmol/L (21-33) 03/17/18 06:30 Anion Gap 15 (10-20) 03/17/18 06:30 BUN 25 mg/dL (7-21) H 03/17/18 06:30 Creatinine 0.7 mg/dl (0.7-1.2) 03/17/18 06:30 Est GFR ( Amer) > 60 03/17/18 06:30 Est GFR (Non-Af Amer) > 60 03/17/18 06:30 Random Glucose 181 mg/dL (70-110) H 03/17/18 06:30 Hemoglobin A1c 5.3 % (4.2-6.5) 03/16/18 06:30 Calcium 9.6 mg/dL (8.4-10.5) 03/17/18 06:30 Phosphorus 2.6 mg/dL (2.5-4.5) 03/17/18 06:30 Magnesium 2.0 mg/dL (1.7-2.2) 03/17/18 06:30 Iron 18 ug/dL (45-180) L 03/16/18 06:30 TIBC 176 ug/dL (265-497) L 03/16/18 06:30 % Saturation 10 % (20-55) L 03/16/18 06:30 Ferritin 320.0 ng/mL 03/16/18 06:30 Total Bilirubin 0.2 mg/dL (0.2-1.3) 03/17/18 06:30 AST 56 U/L (14-36) H D 03/17/18 06:30 ALT 49 U/L (7-56) 03/17/18 06:30 Alkaline Phosphatase 164 U/L (38-126) H 03/17/18 06:30 Lactate Dehydrogenase 392 U/L (333-699) 03/16/18 06:30 Total Creatine Kinase 24 U/L (35-230) L 03/16/18 06:30 Troponin I 0.06 ng/mL D 03/16/18 06:30 NT-Pro-B Natriuret Pep 75923 pg/mL (0-450) H 03/14/18 16:45 Total Protein 7.3 g/dL (5.8-8.3) 03/17/18 06:30 Albumin 3.5 g/dL (3.0-4.8) 03/17/18 06:30 Globulin 3.8 gm/dL 03/17/18 06:30 Albumin/Globulin Ratio 0.9 (1.1-1.8) L 03/17/18 06:30 Triglycerides 72 mg/dL (35-160) 03/16/18 06:30 Cholesterol 82 mg/dL (130-200) L 03/16/18 06:30 LDL Cholesterol Direct < 30 mg/dL (0-129) 03/16/18 06:30 HDL Cholesterol 35 mg/dL (29-60) 03/16/18 06:30 Vitamin B12 852 pg/mL (239-931) 03/16/18 06:30 Folate 9.5 ng/mL 03/16/18 06:30 Procalcitonin 0.95 NG/ML (0.19-0.49) H 03/16/18 06:30 Free T4 2.09 ng/dL (0.78-2.19) 03/17/18 06:30 TSH 3rd Generation 0.11 mIU/mL (0.46-4.68) L 03/16/18 06:30 Arterial Blood Potassium 3.9 mmol/L (3.6-5.2) 03/14/18 16:25 Venous Blood Potassium 5.3 mmol/L (3.6-5.2) H 03/14/18 17:20 Urine Color Yellow (YELLOW) 03/14/18 18:49 Urine Appearance Clear (CLEAR) 03/14/18 18:49 Urine pH 6.0 (4.7-8.0) 03/14/18 18:49 Ur Specific Diller 1.020 (1.005-1.035) 03/14/18 18:49 Urine Protein Negative mg/dL (<30 mg/dL) 03/14/18 18:49 Urine Glucose (UA) Negative mg/dL (NEGATIVE) 03/14/18 18:49 Urine Ketones Negative mg/dL (NEGATIVE) 03/14/18 18:49 Urine Blood Trace-intact (NEGATIVE) H 03/14/18 18:49 Urine Nitrate Negative (NEGATIVE) 03/14/18 18:49 Urine Bilirubin Negative (NEGATIVE) 03/14/18 18:49 Urine Urobilinogen 0.2 E.U./dL (<1 E.U./dL) 03/14/18 18:49 Ur Leukocyte Esterase Negative Jordan/uL (NEGATIVE) 03/14/18 18:49 Urine RBC 1 - 3 /hpf (0-2) 03/14/18 18:49 Urine WBC 0 - 2 /hpf (0-6) 03/14/18 18:49 Ur Epithelial Cells 3 - 4 /hpf (0-5) 03/14/18 18:49 Urine Bacteria Few (NEG) 03/14/18 18:49 Blood Type O POSITIVE 03/16/18 09:45 Antibody Screen Negative 03/16/18 09:45 Crossmatch See Detail 03/16/18 09:45 BBK History Checked Patient has bt 03/16/18 09:45 Attending/Attestation - Attestation I have personally seen and examined this patient.: Yes I have fully participated in the care of the patient.: Yes I have reviewed all pertinent clinical information, including history, physical exam and plan: Yes Notes (Text): 03/17/18 16:26 attending note; Patient seen and examined with resident. Patient is a 87 year old female with PMH of COPD, pulmonary HTN, afib on Eliquis , left hip fracture s/p ORIF (02/2018), Bipolar disorder, behavioral changes, is admitted with shortness of and right-sided pneumonia And minimal effusion. Currently improved respiratory status. Pulmonary evaluation appreciated. Continue BiPAP at night. Continue oxygen during daytime. Monitor respiratory status closely. cultures negative so far. Patient is afebrile and nontoxic. on IV vancomycin, doxycycline and azactam. case discussed with ID in detail. Complete a short course of IV antibiotics for 5 more days. anemia; chronic. Stable hemoglobin. history of A. 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 Continue Eliquis. elevated troponin; trended down. cardiology evaluation appreciated. Continue medical management. Bipolar disorder with behavioral changes; continue risperidone. Status post left hip surgery. PT evaluation appreciated. patient is DNI DNR. Prognosis is poor. Transfer the patient to [facility] rehabilitation. Upon discharge the patient will follow-up with PMD Dr. Kyle.
--- NOTE | 2018-03-17 14:47 | CP.PCM.PN ---
Subjective - Date & Time of Evaluation Date of Evaluation: 03/17/18 Time of Evaluation: 11:00 - Subjective Subjective: Confused. No acute findings Objective - Vital Signs/Intake and Output Vital Signs (last 24 hours): Temp Pulse Resp BP Pulse Ox 98.0 F 68 20 171/60 H 95 03/17/18 06:00 03/17/18 06:00 03/17/18 06:00 03/17/18 10:37 03/17/18 06:00 Intake and Output: 03/17/18 03/17/18 06:59 18:59 Intake Total 120 Output Total 450 Balance -330 - Labs Labs: 03/17/18 06:30 03/17/18 06:30 PT 22.4 SECONDS (9.4-12.5) H 03/16/18 09:45 INR 1.92 (0.93-1.08) H 03/16/18 09:45 APTT 32.9 Seconds (25.1-36.5) 03/16/18 09:45 - Constitutional Appears: Chronically Ill - Eye Exam Eye Exam: Normal appearance, PERRL - ENT Exam ENT Exam: Mucous Membranes Moist - Neck Exam Neck Exam: Normal Inspection - Respiratory Exam Respiratory Exam: Decreased Breath Sounds, Rhonchi, NORMAL BREATHING PATTERN - Cardiovascular Exam Cardiovascular Exam: REGULAR RHYTHM, +S1, +S2 - GI/Abdominal Exam GI & Abdominal Exam: Soft, Normal Bowel Sounds - Extremities Exam Extremities Exam: Normal Capillary Refill, Pedal Edema - Back Exam Back Exam: NORMAL INSPECTION - Neurological Exam Neurological Exam: Altered - Skin Skin Exam: Dry Assessment and Plan - Assessment and Plan (Free Text) Assessment: 87 year old female with history of dementia,CVA, COPD, A Fib, HTN who is admitted with SIRS, CHF, HCAP. I met with patients Ayden ELIAS to discuss [facility] advance care planning. Encouraged to consider initiating POKLT: DNR/DNI. Ayden has mixed feelings about completing POLST at this time. Ramifications of CPR/intubation explained in detail. Questions answered. POA will think about initiating POLST. Time spent with POA in advance care planning discussion 30 minutes Plan: Goals of care and advance care planning
--- NOTE | 2018-03-17 15:09 | PN ---
DATE: 03/17/2018 REASON FOR THE CONSULTATION: For cardiac evaluation, atrial fibrillation, hypertension, diabetes, possible CHF, possible pneumonia. SUBJECTIVE: The patient denies any chest pain. Complained of shortness of breath. Family is at the bedside. OBJECTIVE: GENERAL: Mild respiratory distress, lying flat in the bed. VITAL SIGNS: Temperature afebrile, heart rate 60, blood pressure 170/60. HEENT: PERRLA, intact. NECK: Supple. No carotid bruit. No thyromegaly. CHEST: Clear to auscultation. HEART: S1 and S2 regular. ABDOMEN: Soft. EXTREMITIES: Clubbing and cyanosis negative. LABORATORY DATA: WBC 11.2, hemoglobin 8.5, hematocrit 28, platelet count 189. Chemistry shows sodium 144, potassium 3.9, chloride 105, carbon dioxide 28, anion gap of 15, BUN 15, creatinine 0.7, TSH is 0.11. Chest x-ray officially read as mild cardiomegaly, small right-sided effusion, but looking carefully, it looks like mild congestion, cannot rule out right-sided lower lobe pneumonia. IMPRESSION: An 87-year-old female with past medical history of chronic obstructive pulmonary disease, pulmonary hypertension, atrial fibrillation, left hip fracture, history of cerebrovascular accident at [facility]. Transferred because of the shortness of breath. At [facility], the patient was on Eliquis, appears with some congestive heart failure as well as right lower lobe pneumonia multifactorial as mentioned above. Congestive heart failure, obesity and possible right lower lobe pneumonia. The patient's last echocardiogram on 02/12/2018 on last admission revealed left ventricular function normal, diastolic dysfunction, admitted with decompensated congestive heart failure, possible pneumonia, possible sepsis, atrial fibrillation, chronic obstructive pulmonary disease, pulmonary hypertension, gout. The patient's last echocardiogram on 02/12/[address] Gauthier revealed normal left ventricular function, diastolic dysfunction, [id number] pulmonary hypertension, right ventricular systolic pressure calculated 63 mmHg and no mitral valve regurgitation. Anemia, chronic obstructive pulmonary disease. RECOMMENDATIONS: Continue gentle diuresis. Continue broad-spectrum antibiotic for pneumonia. Continue Eliquis for paroxysmal atrial fibrillation. Monitor H&H. We will repeat EKG. Continue verapamil 80 mg three times a day. Continue amiodarone. We will give Lasix, increased to 40, two doses, one now, one at 03:00 p.m., then put 40 once a day. I will put low dose of sildenafil for pulmonary hypertension. We will follow with you. We will give 40 of Lasix at 03:00 p.m. Monitor H&H. Continue broad spectrum antibiotic. We will give 20 mEq every day with the breakfast. Thank you, Dr. Haywood for providing us the opportunity in taking care of the patient, Batsheva Nunez. Radha Mortensen MD
[2018-03-18] MEDS ORDERED: Potassium Chloride 20 mEq ER Tab PO SCH (08:00)
== END 2018-03-17 12:58 | DRG 871 ==
LOC: ED 15:47 → ERH 17:52 → CCU 19:05 → 2RSO 03-15 17:03
PROVIDERS: ADMIT Internal Medicine; ATTEND Internal Medicine
PROC: 5A09457 Assistance with Respiratory Ventilation, 24-96 Consecutive Hours, Continuous Positive Airway Pressure (ICD-10-PCS; principal; 2018-03-14)
DX: A41.9 Sepsis, unspecified organism (principal); J69.8 Pneumonitis due to inhalation of other solids and liquids; J96.02 Acute respiratory failure with hypercapnia; J96.01 Acute respiratory failure with hypoxia; I69.354 Hemiplegia and hemiparesis following cerebral infarction affecting left non-dominant side; J44.0 Chronic obstructive pulmonary disease with (acute) lower respiratory infection; J44.1 Chronic obstructive pulmonary disease with (acute) exacerbation; N17.9 Acute kidney failure, unspecified; D64.9 Anemia, unspecified; E11.9 Type 2 diabetes mellitus without complications; E66.9 Obesity, unspecified; E78.5 Hyperlipidemia, unspecified; F03.90 Unspecified dementia, unspecified severity, without behavioral disturbance, psychotic disturbance, mood disturbance, and anxiety; F31.9 Bipolar disorder, unspecified; F41.9 Anxiety disorder, unspecified; H91.90 Unspecified hearing loss, unspecified ear; I11.0 Hypertensive heart disease with heart failure; I27.20 Pulmonary hypertension, unspecified; I48.0 Paroxysmal atrial fibrillation; I48.2 Chronic atrial fibrillation; M10.9 Gout, unspecified; Z87.440 Personal history of urinary (tract) infections; R13.12 Dysphagia, oropharyngeal phase; S72.90XD Unspecified fracture of unspecified femur, subsequent encounter for closed fracture with routine healing; Y95 Nosocomial condition; Z66 Do not resuscitate; Z68.31 Body mass index [BMI] 31.0-31.9, adult; Z79.01 Long term (current) use of anticoagulants; Z87.891 Personal history of nicotine dependence; Z90.49 Acquired absence of other specified parts of digestive tract; Z99.81 Dependence on supplemental oxygen; Z88.0 Allergy status to penicillin; Z87.892 Personal history of anaphylaxis; Z91.041 Radiographic dye allergy status; Z98.42 Cataract extraction status, left eye; Z98.41 Cataract extraction status, right eye; M17.0 Bilateral primary osteoarthritis of knee; R40.2412 Glasgow coma scale score 13-15, at arrival to emergency department